=== PATIENT | female | born 1955 | race Caucasian/White ===

== ENCOUNTER 2021-01-27 07:09 | Outpatient (REF) | payer MEDICARE, OTHER, SELFPAY | END 2021-01-27 07:10 | disposition home or self-care (01) | LOC: HO.LHD 07:09 | PROVIDERS: PCP Family Medicine; Visit Provider Family Medicine | DX: Z13.89 Encounter for screening for other disorder (principal) ==

== ENCOUNTER 2021-09-11 10:07 | Outpatient (REF) | payer MEDICARE, SELFPAY ==
--- NOTE | ~2021-09-11 | US_ITS ---
EXAMINATION: US THYROID CLINICAL INFORMATION: Nontoxic single thyroid nodule. Hypothyroidism. Partial thyroidectomy. COMPARISON: Nuclear medicine thyroid scan 12/10/2019. Ultrasound soft tissue thyroid 09/22/2019.. TECHNIQUE: Linear transducer ryan-scale and color Doppler examination with attention to the region of the thyroid. FINDINGS: SIZE: Measurements of the thyroid lobes and nodules are given in sagittal, anteroposterior and transverse dimensions respectively. Right Thyroid Lobe: 4.7 x 1.7 x 1.5 cm, volume 6.3 mL. Previously 4.3 x 2.3 x 1.7 cm, volume 8.7 mL. Parenchyma: The gland echotexture is heterogeneous. Thyroid vascularity is increased. Left Thyroid Lobe: 6.3 x 2.8 x 2.6 cm, volume 24.0 mL. Previously 5.5 x 2.8 x 2.7 cm, volume 21.5 mL. Parenchyma: The gland echotexture is heterogeneous. Thyroid vascularity is increased. Isthmus: 1.0 cm in maximum AP dimension. Previously 0.9 cm. Estimated total number of nodules greater than or equal to 1 cm: 4. Nursing Techn nodules are described as follows: 1. Location: Left upper. Size: 3.1 x 2.0 x 1.9 cm, volume 5.94 mL. Previously: 2.8 x 2.2 x 2.1 cm, volume 6.77 mL. Nodule characteristics: Composition: Solid (2). Echogenicity: Hypoechoic (2). Shape: Taller than wide (3). Margins: Extrathyroidal extension (3). Echogenic Foci: Macrocalcifications (1). ACR TI-RADS total points: 11 ACR TI-RADS category: 5 Significant change in size (>/= 20% in 2 dimensions and minimal increase of 2 mm or 50% or greater increase in volume): Change in features: Change in ACR TI-RADS risk category: 2. Location: Left lower medial. Size: 1.7 x 1.4 x 1.7 cm, volume 2.28 mL. Previously: 1.5 x 1.4 x 2.0 cm, volume 2.20 mL. Nodule characteristics: Composition: Solid (2). Echogenicity: Isoechoic (1). Shape: Not taller than wide (0). Margins: Irregular (2). Echogenic Foci: None (0). ACR TI-RADS total points: 5 ACR TI-RADS category: 4 Significant change in size (>/= 20% in 2 dimensions and minimal increase of 2 mm or 50% or greater increase in volume): Change in features: Change in ACR TI-RADS risk category: 3. Location: Right upper Size: 1.1 x 0.7 x 1.1 cm, volume 0.41 mL. Previously: 1.2 x 0.7 x 1.1 cm, volume 0.48 mL. Nodule characteristics: Composition: Solid (2). Echogenicity: Hypoechoic (2). Shape: Not taller than wide (0). Margins: Smooth (0). Echogenic Foci: None (0). ACR TI-RADS total points: 4 ACR TI-RADS category: 4 Significant change in size (>/= 20% in 2 dimensions and minimal increase of 2 mm or 50% or greater increase in volume): Change in features: Change in ACR TI-RADS risk category: 4. Location: Isthmus. Size: 0.8 x 0.5 x 0.9 cm, volume 0.22 mL. Previously: 0.5 x 0.5 x 0.5 cm, volume 0.07 mL. Nodule characteristics: Composition: Spongiform (0). Echogenicity: Shape: Margins: Echogenic Foci: ACR TI-RADS total points: 0 ACR TI-RADS category: 1 Significant change in size (>/= 20% in 2 dimensions and minimal increase of 2 mm or 50% or greater increase in volume): Change in features: Change in ACR TI-RADS risk category: 5. Location: Isthmus. Size: 1.2 x 0.5 x 0.6 cm, volume 0.20 mL. Previously: New Nodule characteristics: Composition: Solid (2). Echogenicity: Hyperechoic (1). Shape: Not taller than wide (0). Margins: Irregular (2). Echogenic Foci: None (0). ACR TI-RADS total points: 5 ACR TI-RADS category: 5 NODES: No lymphadenopathy is seen in the tissue surrounding the thyroid gland. US/US thyroid IMPRESSION: Multinodular thyroid. Based on the sonographic morphology, the findings are consistent with ACR TI-RADS Category 5. Based on the size criteria, fine-needle aspiration cytology of left upper thyroid nodule measuring 3.1 cm (nodule #1), and the larger nodule in the isthmus measuring 1.2 cm (nodule #5) is recommended. ACR TI-RADS RECOMMENDATION REFERENCE: Ultrasound-guided fine-needle aspiration, followup ultrasound, no further follow up. * TR1 (0 point) and TR 2 (2 points): No FNA or follow up * TR3 (3 points): FNA if more than or equal to 2.5 cm in maximum dimension, followup ultrasound in 1, 3 and 5 years if 1.5 to 2.4 cm in maximum dimension. * TR4 (4-6 points): FNA if more than or equal to 1.5 cm in maximum dimension, followup ultrasound in 1, 2, 3 and 5 years if 1 to 1.4 cm in maximum dimension. * TR5 (more than or equal to 7 points): FNA if more than or equal to 1 cm in maximum dimension, followup ultrasound every year for 5 years if 0.5 to 0.9 cm in maximum dimension. * TR3, TR4 or TR5 nodules that are below the size threshold for follow up receive no follow up.
== END 2021-09-11 10:08 | disposition home or self-care (01) ==
LOC: HO.HMGCX 10:07
PROVIDERS: PCP Family Medicine; Visit Provider Family Medicine
DX: E04.1 Nontoxic single thyroid nodule (principal)
CPT/HCPCS: 76536

== ENCOUNTER 2021-10-03 09:08 | Outpatient (REF) | payer MEDICARE, SELFPAY | END 2021-10-03 09:09 | disposition home or self-care (01) | LOC: HO.US 09:08 | PROVIDERS: PCP Family Medicine; Visit Provider Family Medicine | DX: Z13.89 Encounter for screening for other disorder (principal) ==

== ENCOUNTER 2021-10-10 09:04 | Outpatient (REF) | payer MEDICARE, SELFPAY ==
--- NOTE | ~2021-10-10 | US_ITS ---
PROCEDURE: ULTRASOUND-GUIDED LEFT THYROID AND ISTHMUS NODULE BIOPSY CLINICAL INFORMATION: Thyroid nodules left upper lobe and isthmus. COMPARISON: Ultrasound thyroid 09/11/2021. TECHNIQUE: Following explaining ultrasound-guided thyroid nodule biopsy procedure, benefits and risk, a written consent was obtained. Patient was placed supine on ultrasound stretcher and preliminary ultrasound imaging was obtained through the left thyroid gland and isthmus area. Preliminary imaging was performed and images documented. An optimal site was marked along the left neck and midline neck. The entire neck was then cleaned and draped in usual sterile manner. 1% lidocaine was injected along the left neck and central midline neck markers. Under sterile ultrasound guidance a 25-gauge needle attached to a syringe was advanced into the left thyroid nodule and a 5 pass fine-needle biopsy aspiration was performed. Subsequently the needle attached to syringe was advanced into the midline hyperechoic nodule and a 4 pass fine-needle aspiration biopsy was performed. Complete hemostasis achieved at puncture site. Patient tolerated procedure extremely well. FINDINGS: On preliminary ultrasound imaging there is a heterogenous nodule left thyroid lobe upper pole and a slightly hyperechoic nodule in the lower isthmus. Successful ultrasound-guided fine needle biopsy aspiration performed of these 2 nodules under local anesthesia. Pathologist was present during exam with preliminary results available. US/US guided fine needle asp IMPRESSION: Successful ultrasound-guided fine needle biopsy aspiration of left thyroid heterogeneous nodule and hyperechoic nodule lower isthmus.
[2021-10-10] MEDS: Lidocaine HCl 1 % MPF 5 ML VIAL 4 ML SUBCUT (11:16)
== END 2021-10-10 09:05 | disposition home or self-care (01) ==
LOC: HO.US 09:04
PROVIDERS: PCP Family Medicine; Visit Provider Family Medicine
DX: E04.1 Nontoxic single thyroid nodule (principal)
CPT/HCPCS: 10005; 88172; 88173; 88177

== ENCOUNTER 2022-08-24 13:57 | Outpatient (REF) | payer MEDICARE, SELFPAY ==
--- NOTE | ~2022-08-24 | US_ITS ---
EXAMINATION: US THYROID CLINICAL INFORMATION: Nontoxic thyroid. COMPARISON: Ultrasound soft tissue head/neck thyroid dated 09/11/2021 and 12/09/2019. TECHNIQUE: Linear transducer grayscale and color Doppler examination with attention to the region of the thyroid. FINDINGS: SIZE: Measurements of the thyroid lobes and nodules are given in sagittal, anteroposterior and transverse dimensions respectively. Right Thyroid Lobe: 4.4 x 2.1 x 1.2 cm, volume 5.8 mL. Previously 4.7 x 1.7 x 1.5 cm, volume 6.3 mL. Parenchyma: The gland echotexture is heterogeneous. Thyroid vascularity is normal. Left Thyroid Lobe: 5.5 x 3.1 x 2.3 cm, volume 20.5 mL. Previously 6.3 x 2.8 x 2.6 cm, volume 24.0 mL. Parenchyma: The gland echotexture is heterogeneous. Thyroid vascularity is normal. Isthmus: 1.2 cm in maximum AP dimension. Previously 1.0 cm. Estimated total number of nodules greater than or equal to 1 cm: 4. Tacking Stitch Remover nodules are described as follows: 1. Location: Right superior. Size: 0.94 x 0.67 x 0.88 cm, volume 0.29 mL. Previously: 1.1 x 0.70 x 1.1 cm, volume 0.41 mL. Nodule characteristics: Composition: Spongiform (0). Echogenicity: Anechoic (0). Shape: Not taller than wide (0). Margins: Smooth (0). Echogenic Foci: None (0). ACR TI-RADS total points: 0 Previous: 4 ACR TI-RADS category: 1 Previous: 4 Significant change in size (>/= 20% in 2 dimensions and minimal increase of 2 mm or 50% or greater increase in volume): Change in features: Change in ACR TI-RADS risk category: 2. Location: Left mid. Size: 2.7 x 1.9 x 1.95 cm, volume 5.4 mL. Previously: 3.1 x 2.0 x 1.9 cm, volume 5.9 mL. Nodule characteristics: Composition: Solid/almost completely solid (2). Echogenicity: Isoechoic (1). Shape: Not taller than wide (0). Margins: Smooth (0). Echogenic Foci: Macrocalcifications (1). ACR TI-RADS total points: 4 Previous: 11 ACR TI-RADS category: 4 Previous: 5 Significant change in size (>/= 20% in 2 dimensions and minimal increase of 2 mm or 50% or greater increase in volume): Change in features: Change in ACR TI-RADS risk category: 3. Location: Left inferior. Size: 2.5 x 1.8 x 2.4 cm, volume 5.5 mL. Previously: 1.7 x 1.4 x 1.7 cm, volume 2.2 mL. Nodule characteristics: Composition: Solid/almost completely solid (2). Versus measurement differences due to interobserver variation. Echogenicity: Isoechoic (1). Shape: Not taller than wide (0). Margins: Smooth (0). Echogenic Foci: None (0). ACR TI-RADS total points: 3 Previous: 5 ACR TI-RADS category: 3 Previous: 4 Significant change in size (>/= 20% in 2 dimensions and minimal increase of 2 mm or 50% or greater increase in volume): Change in features: Change in ACR TI-RADS risk category: 4. Location: Isthmus. Size: 1.4 x 1.3 x 1.8 cm, volume 1.6 mL. Previously: 1.2 x 0.54 x 0.58 cm, volume 0.20 mL. Nodule characteristics: Composition: Spongiform (0). Echogenicity: Anechoic (0). Shape: Not taller than wide (0). Margins: Smooth (0). Echogenic Foci: None (0). ACR TI-RADS total points: 0 Previous: 5 ACR TI-RADS category: 1 Previous: 5 Significant change in size (>/= 20% in 2 dimensions and minimal increase of 2 mm or 50% or greater increase in volume): Change in features: Change in ACR TI-RADS risk category: NODES: No lymphadenopathy is seen in the tissue surrounding the thyroid gland. US/US thyroid IMPRESSION: Heterogeneous thyroid gland. The left lobe and isthmus are enlarged. Comparison of nodules with prior exam is difficult. There is question of increase in size in the nodule inferior left lobe. Otherwise nodules do not appear appreciably changed. ACR TI-RADS RECOMMENDATION REFERENCE: Ultrasound-guided fine-needle aspiration, followup ultrasound, no further follow up. * TR1 (0 point) and TR 2 (2 points): No FNA or follow up * TR3 (3 points): FNA if more than or equal to 2.5 cm in maximum dimension, followup ultrasound in 1, 3 and 5 years if 1.5 to 2.4 cm in maximum dimension. * TR4 (4-6 points): FNA if more than or equal to 1.5 cm in maximum dimension, followup ultrasound in 1, 2, 3 and 5 years if 1 to 1.4 cm in maximum dimension. * TR5 (more than or equal to 7 points): FNA if more than or equal to 1 cm in maximum dimension, followup ultrasound every year for 5 years if 0.5 to 0.9 cm in maximum dimension. * TR3, TR4 or TR5 nodules that are below the size threshold for follow up receive no follow up.
== END 2022-08-24 13:58 | disposition home or self-care (01) ==
LOC: HO.HMGCX 13:57
PROVIDERS: PCP Family Medicine; Visit Provider Family Medicine
DX: E04.1 Nontoxic single thyroid nodule (principal)
CPT/HCPCS: 76536

== ENCOUNTER 2022-09-14 15:43 | Emergency (ER) | payer MEDICARE, SELFPAY ==
--- NOTE | ~2022-09-14 | CT_ITS ---
EXAMINATION: CT ABDOMEN AND PELVIS WITHOUT CONTRAST CLINICAL INFORMATION: History of kidney stones COMPARISON: Previous dated 10/06/2019 TECHNIQUE: Multidetector volumetric imaging was performed from the superior aspect of the liver through the pubic symphysis. Sagittal and coronal reformatted images were obtained on the technologist's workstation. This CT examination was performed using dose optimization techniques as appropriate, variously including the following: *Automated exposure control *Adjustment of mA and/or kV according to patient size (this includes techniques or standardized protocols for targeted exams where dose is matched to indication/reason for exam; i.e. extremities or head) *Use of iterative reconstruction technique DLP: 986 mGy-cm FINDINGS: LUNG BASES: The visualized lung bases are unremarkable. LIVER, GALLBLADDER, AND BILIARY TREE: There is a heterogeneous appearance the liver. Findings may suggest areas of focal fatty change. Ultrasound would be recommended to fully evaluate. There is a focal new small low-density structure in the right lobe on image 33. Subcentimeter. This would also be evaluated on ultrasound.. No gallbladder is seen. Status post cholecystectomy PANCREAS: Pancreatic head region is comparable to previous. No evidence in the body and tail region of intact pancreas similar to previous. SPLEEN: No normal spleen is seen. ADRENAL GLANDS: Unremarkable. KIDNEYS AND URETERS: Bilateral renal calculi. There is hydronephrosis on the right. This appears to be caused by likely several calculi in the distal left ureter/UVJ region. Approximately 4 calculi. Largest calculus measures 6 mm. On the left there is no evidence for hydronephrosis but I must consider several calculi within the distal left ureter. Largest measures 6 mm. Approximately 3 calculi. BLADDER: Unremarkable. GASTROINTESTINAL TRACT: The bowel pattern is felt to be nonobstructing. There is no free fluid here. Once again postsurgical change in the upper abdomen. Appearance is similar to previous. ABDOMINAL WALL: Probable beginnings of left inguinal hernia similar to previous containing fat. LYMPH NODES: Normal. VASCULAR: Some atherosclerotic changes are noted. PELVIC VISCERA: Unremarkable. OSSEOUS STRUCTURES: Unremarkable. CT/CT abdomen pelvis wo IV con IMPRESSION: There is moderate hydronephrosis on the right caused by several calculi in the distal right ureter/UVJ region. There is no significant hydronephrosis on the left but I feel there are calculi residing within the distal left ureter. Numerous other calculi within the kidneys. Heterogeneous attenuation the liver. This could represent geographic fatty change but ultrasound would be recommended to further evaluate for underlying lesion. There is a new low-attenuation lesion in the right lobe. This would also be evaluated on ultrasound. Fleischner guidelines were followed.
[2022-09-14 15:53] VITALS: BP 158/68; PULSE 86; RESP 18; TEMP 37.1; O2SAT 93; BMI 36.6
--- NOTE | 2022-09-14 16:02 | ED_ITS ---
HPI - General Adult General Chief complaint: Abdominal Pain Stated complaint: quest kidney stone Source: patient and family () Mode of arrival: wheelchair Limitations: no limitations History of Present Illness HPI narrative: Patient is a 67 year old assigned female at with a history of multiple kidney stones presenting to the emergency department today with abdominal pain. Patient states that she has been having right sided flank pain for the last few days. Patient denies any dizziness, lightheadedness, nausea, vomiting, fever, chills, blurry vision, double vision, loss of vision, chest pain, difficulty breathing, shortness of breath, back pain, night sweats, pain with urination, in creased urinary frequency, increased urinary urgency, blood in her urine or stool, syncope or a near syncopal episode, recent trauma or falls, bowel incontinence, bladder incontinence, bowel retention, bladder retention, or any other complaints at this time. Onset (ago): day(s) (3) Location: abdomen Severity: mild Severity scale (1-10): 3 Quality: dull Pain Consistency: constant Relieving factors: none Exacerbating factors: none Associated symptoms: denies other symptoms Treatments prior to arrival: none Related Data Allergies Allergy/AdvReac Type Severity Reaction Status Date / Time ketorolac [From TORADOL] Allergy Intermediate VOMITING Unverified 07/21/20 18:49 morphine [MORPHINE] Allergy Intermediate vomiting Unverified 07/21/20 18:49 oxycodone [OXYCODONE] Allergy Intermediate VOMITING Unverified 07/21/20 18:49 acetaminophen [From PERCOCET] Allergy Unknown ANAPHYLAXIS Unverified 07/21/20 18:49 hydromorphone [From DILAUDID] Allergy Unknown HIVES Unverified 07/21/20 18:49 midodrine Allergy Unknown Anaphylaxis Verified 05/25/20 00:00 dilation drops for eye Allergy Unknown Uncoded 05/25/20 00:00 Dilaudid Allergy Unknown Rash Uncoded 05/25/20 00:00 Erythromycin Allergy Unknown Uncoded 05/25/20 00:00 Toradol Allergy Unknown Uncoded 05/25/20 00:00 Review of Systems Constitutional: Constitutional: Reports no additional constitutional complaints, Denies chills, Denies fever(s) and Denies night sweats Eyes: Eyes: Reports no additional eye complaints, Denies blurry vision, Denies change in vision, Denies diplopia, Denies eye discharge, Denies loss of vision and Denies eye pain ENT: Denies dizziness Cardiovascular: Cardiovascular: Reports no additional cardiovascular complaints, Denies chest pain, Denies lightheadedness, Denies Loss of Consciousness and Denies dyspnea Respiratory: Respiratory: Reports no additional respiratory complaints and Denies dyspnea Gastrointestinal: Gastrointestinal: Reports no additional gastrointestinal complaints, Reports abdominal pain, Denies melena, Denies hematochezia, Denies change in bowel habits and Denies change in stool character Genitourinary: Genitourinary: Denies hematuria, Denies urinary frequency, Denies dysuria, Denies urinary incontinence, Denies urinary hesitancy and Denies urinary urgency Musculoskeletal: Musculoskeletal: Reports no additional musculoskeletal complaints, Denies numbness and Denies tingling Neurologic: Denies dizziness, Denies loss of vision, Denies numbness and Denies tingling Psychiatric: Psychiatric: Reports no additional psychiatric complaints Endocrine: Endocrine: Reports no additional endocrine complaints Hematologic/Lymphatic: Hematologic/Lymphatic: Reports no additional hematologic/lymphatic complaints Allergic/Immunologic: Allergic/Immunologic: Reports no additional allergic/immunologic complaints PMFSH Past Medical History Attestation statement: The following information was validated with the patient. Source: old records reviewed Medical History Pancreatic ductal abnormality Social History Social History Advance Directives: No Advance Directives Information Provided: Yes Physical Exam ED Vital Signs: Vital Signs - 24 hr 09/14/22 15:53 09/14/22 19:29 Temperature 98.7 F Pulse Rate 86 75 Respiratory Rate 18 18 Blood Pressure 158/68 H 178/66 H Pulse Oximetry 93 95 Oxygen Delivery Method Room Air Room Air BMI result Body Mass Index 36.6 Const General: cooperative, no acute distress, alert and awake Nutritional Appearance: well nourished and obese Orientation/consciousness: patient oriented x3 Limitations: no limitations HENMT Head: Yes normal to inspection and Yes atraumatic Ears: hearing grossly normal bilaterally and external ears normal General nose exam: Normal external nose present, no nasal discharge noted and no epistaxis Face and sinus: Yes normal facial exam, No abrasion and No laceration Mouth: Normal oral and palatal mucosa present, no drooling and no muffled voice Eyes General: appearance normal, both eyes and all related structures Periorbital: periorbital findings normal Eyelids: Yes eyelids normal Conjunctivae: conjunctivae normal Pupils: Equal, round and reactive pupils present EOM: EOMs intact bilaterally Neck Neck: Yes normal visual inspection, Yes full ROM and Yes no lymphadenopathy Chest Chest palpation & inspection: normal inspection of the chest Resp Effort & Inspection: normal respiratory effort and able to speak in complete sentences Auscultation: clear to auscultation bilaterally Cardio Rate: regular rate Rhythm: regular rhythm GI Inspection: Yes normal to inspection Palpation (GI): Soft to palpation, not firm, nontender, no guarding and not rigid General: No CVA tenderness and Yes no CVA tenderness Back/Spine/Pelvis Back: no CVA tenderness and No CVA tenderness Neuro General: patient oriented x3 and moves all extremities Cranial nerves: Yes Equal, round and reactive pupils present Cognition (Neuro): normal cognition Motor exam (neuro): 5/5 motor strength present throughout Sensory Exam: Normal double simultaneous stimulation for sensation Coordination: [id number] test normal Extrem General: Yes normal to inspection, Yes full ROM and Yes capillary refill normal Psych Appearance: grossly normal Mental Status: mental status grossly normal Affect: normal affect Attitude: cooperative Thought process: Normal thought process present Thought content: Normal thought content present Insight: Good insight present (Psych) Course Course Course Narrative: RME performed by Anne Marquez PA-C at 1600. Patient has an extensive history of kidney stones and is presenting to the emergency department with right sided abdominal pain. Patient states that she does still have her appendix. CBC, CMP, UA, and CT non-con of the abd/pelvis ordered for evaluation of kidney stone. Patient placed back into waiting room pending results of said testing and space availability within the department. Patient eloped before her results could be reviewed with her and her . Medical Decision Making Lab Data Result diagrams: 09/14/22 16:15 09/14/22 16:15 Labs: Lab Results 09/14/22 09/14/22 Range/Units 16:15 16:15 WBC 10.9 H (4.8-10.8) X10*3/uL RBC 4.64 (4.20-5.50) X10*6/uL Hgb 14.5 (12.0-16.0) g/dl Hct 41.8 (37.0-47.0) % MCV 90.1 (80.0-98.0) fL MCH 31.3 (27.0-33.0) pg MCHC 34.7 (31.0-35.0) g/dl RDW 13.9 (11.0-16.0) % Plt Count 322 (160-400) X10*3/uL MPV 12.6 H (9.4-12.3) fL Immature Gran % (Auto) 0.5 H (0.0-0.4) % Neut % (Auto) 73.8 H (45-73) % Lymph % (Auto) 15.4 L (20-40) % [place] % (Auto) 9.6 (2-11) % Eos % (Auto) 0.5 (0-4) % Baso % (Auto) 0.2 (0-2) % Lymph # (Auto) 1.7 (1.2-4.9) X10*3/uL [place] # (Auto) 1.1 (0.1-1.2) X10*3/uL Eos # (Auto) 0.1 (0.0-0.4) X10*3/uL Baso # (Auto) 0.0 (0.0-0.2) X10*3/uL Abs Immat Gran (auto) 0.05 H (0.00-0.03) X10*3/uL Absolute Neuts (auto) 8.1 (2.0-8.3) x10*3/uL Absolute Nucleated RBC 0.000 (0.0-0.012) X10*3/uL Nucleated RBC % (auto) 0.0 (0.0-0.2) /100WBC Sodium 135 (135-145) mmol/L Potassium 4.1 (3.3-5.1) mmol/L Chloride 101 (96-108) mmol/L Carbon Dioxide 18 L (22-29) mmol/L Anion Gap 20 (12-20) BUN 27 H (9-16) mg/dL Creatinine 0.80 (0.5-1.4) mg/dL Estim Creat Clear Calc 78.7 Estimated GFR > 60 Random Glucose 439 H* (60-115) mg/dL Calcium 9.6 (8.4-10.2) mg/dL Total Bilirubin 0.8 (0.0-1.0) mg/dL AST 29 (5-31) U/L ALT 34 H (0-31) U/L Alkaline Phosphatase 174 H (39-117) U/L Total Protein 6.9 (6.5-8.0) g/dL Albumin 3.9 (3.5-5.0) g/dL Discharge Plan Discharge Clinical Impression: Abdominal pain Patient Disposition: Elopement
[2022-09-14 16:19] LABS: MANUAL DIFF FLAG NO
[2022-09-14 16:26] LABS: Basophils Percent Auto 0.2 % (0-2); Eosinophils Absolute Auto 0.1 X10*3/uL (0.0-0.4); Eosinophils Percent Auto 0.5 % (0-4); Hematocrit 41.8 % (37.0-47.0); Hemoglobin 14.5 g/dl (12.0-16.0); Imm Gran Abs Auto 0.05 X10*3/uL (0.00-0.03); Imm Gran Pct Auto 0.5 % (0.0-0.4); Lymphocytes Absolute Auto 1.7 X10*3/uL (1.2-4.9); Lymphocytes Percent Auto 15.4 % (20-40); Mean Corpuscular HGB Conc 34.7 g/dl (31.0-35.0); Mean Corpuscular Hemoglobin 31.3 pg (27.0-33.0); Mean Corpuscular Volume 90.1 fL (80.0-98.0); Mean Platelet Volume 12.6 fL (9.4-12.3); Monocytes Absolute Auto 1.1 X10*3/uL (0.1-1.2); Monocytes Percent Auto 9.6 % (2-11); Neutrophils Absolute Auto 8.1 x10*3/uL (2.0-8.3); Neutrophils Percent Auto 73.8 % (45-73); Platelet Count 322 X10*3/uL (160-400); Red Blood Count 4.64 X10*6/uL (4.20-5.50); Red Cell Distribution Width 13.9 % (11.0-16.0); White Blood Count 10.9 X10*3/uL (4.8-10.8)
[2022-09-14 19:29] VITALS: BP 178/66; PULSE 75; RESP 18; O2SAT 95
[2022-09-14 19:35] LABS: Alanine Aminotransferase 34 U/L (0-31); Albumin Level 3.9 g/dL (3.5-5.0); Alkaline Phosphatase 174 U/L (39-117); Anion Gap 20 (12-20); Aspartate Amino Transferase 29 U/L (5-31); Bilirubin Total 0.8 mg/dL (0.0-1.0); Blood Urea Nitrogen 27 mg/dL (9-16); Calcium 9.6 mg/dL (8.4-10.2); Carbon Dioxide 18 mmol/L (22-29); Chloride 101 mmol/L (96-108); Creatinine Clr Calc Pharmacy 78.7; Estimated Glomerular Filt Rate > 60; Potassium 4.1 mmol/L (3.3-5.1); Sodium 135 mmol/L (135-145); Total Protein 6.9 g/dL (6.5-8.0)
[2022-09-14 19:37] LABS: Glucose Random 439 mg/dL (60-115)
--- NOTE | 2022-09-14 21:16 | PC.NURSE ---
Pt eloped after blood tests and ct were resulted.
== END 2022-09-14 22:17 | disposition left against medical advice (07) ==
PROVIDERS: Emergency Provider Emergency Medicine; PCP Family Medicine
DX: R10.9 Unspecified abdominal pain (principal); Z79.899 Other long term (current) drug therapy
CPT/HCPCS: 36415; 74176; 80053; 85025; 99281; 99284

== ENCOUNTER 2023-01-22 12:09 | Outpatient (REF) | payer MEDICARE, OTHER, SELFPAY ==
[2023-01-22 12:31] LABS: Appearance Urine Cloudy; Color Urine Yellow; Glucose Urine UA >=1000 mg/dL (Negative); Leukocyte Esterase Urine Moderate (2+) (Negative); Nitrite Urine Positive (Negative); PH 5.5 (5.0-9.0); Specific Gravity - Urine 1.025 (1.005-1.025); UMIC TRIGGER UA YES; Urine Blood Trace (Negative); Urine Ketones Negative (Negative); Urine Protein Trace mg/dL (Neg-Trace)
[2023-01-22 12:47] LABS: Bacteria Urine 3+ (None Seen); Calcium Oxalate Crystals Urine Present; Hyaline Casts Urine 0-2 /LPF (0-2)
== END 2023-01-22 12:10 | disposition home or self-care (01) ==
LOC: HO.LNP 12:09
PROVIDERS: Visit Provider Family Medicine
DX: N20.0 Calculus of kidney (principal)
CPT/HCPCS: 81001; 87086; 87088; 87186

== ENCOUNTER 2023-07-16 10:00 | Outpatient (AMB) | payer OTHER, SELFPAY ==
[2023-07-16 10:03] VITALS: BP 154/82; PULSE 65; O2SAT 96; BMI 36.6
--- NOTE | 2023-07-16 10:03 | A.OFFPC_ITS ---
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 Allergies ketorolac [From TORADOL] Allergy (Intermediate, Unverified 07/16/23 10:12) VOMITING morphine [MORPHINE] Allergy (Intermediate, Unverified 07/16/23 10:12) vomiting oxycodone [OXYCODONE] Allergy (Intermediate, Unverified 07/16/23 10:12) VOMITING acetaminophen [From PERCOCET] Allergy (Unknown, Unverified 07/16/23 10:12) ANAPHYLAXIS hydromorphone [From DILAUDID] Allergy (Unknown, Unverified 07/16/23 10:12) HIVES midodrine Allergy (Unknown, Verified 07/16/23 10:12) Anaphylaxis dilation drops for eye Allergy (Mild, Uncoded 07/16/23 10:12) swelling, redness, pain Dilaudid Allergy (Unknown, Uncoded 07/16/23 10:12) Rash Erythromycin Allergy (Unknown, Uncoded 07/16/23 10:12) Vomiting Toradol Allergy (Unknown, Uncoded 07/16/23 10:12) Unknown Tobacco use date assessed: 07/16/23 Fall risk assessment: 1 Fall in past year Last assessed Fall Risk: 07/16/23 Dental Screening Dental Screen Date: 07/16/23 Did you have a dental visit in the last 12 months?: Yes Did you have a dental problem in the last 6 months where you did not have access to dental care?: No Was dental information given to patient?: 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 Last office visit/CPE: Acute issue(s): Thyroid nodules and asking for referral to ENT. Has seen Dr Franks in [facility]. ENT. Calcium, And PTH Pt reports she has had low blood pressures for a couple years. Leg pain and arthritis and ?myositis pain. PMHx: Inclusion body Myositis, HTN, Thyroid nodules, Kidney stones, Chronic pain, pancreatic ductal abnormality, DM , PE & on Chronic anticoagulation - Has INR machine and followed by anticoag clinic at [facility]. Allergic triggered asthma or Reactive airways. Pemphigous - uses clobetasol. h/o Ovarian CA. Arthritis. SurgHx: GB, Parathyroid x 1. Surgical Renal stone resection, Splenectomy due pancreatic mass. Partial Pancreatectomy. OOpherectomy. Bariatric surgery. FHx: Mom: CAD ID, Thyroid. Dad: CAD, ID Sister Breast CA SocHx: Nonsmoker, EtOH occassional 1 drink at a time. No drugs HPI Comments History of Present Illness Details Documentation assistance for Clarence Byrd MD, was provided by Yosi Cleveland,? Senior Maintenance Machinist on 07/16/2023 11:29 AM EST. I, Dr. Byrd, have read, observed, and verified documentation. [facility] Medical History (Updated 07/16/23 @ 11:29 by Yosi Cleveland) Bradycardia Pemphigus Pancreatic ductal abnormality Surgical History (Updated 07/16/23 @ 10:26 by Isabel Cain CMA) H/O oral surgery Family History (Updated 07/16/23 @ 10:30 by Isabel Cain CMA) Father Heart attack Mental health disorder Mother Heart attack Macular degeneration Mental health disorder Social History Housing: Apartment Patient Tobacco Use Status: Never used Tobacco e-Cigarette/Vaping Use: Never Used service: No Current occupational status: disabled Cognitive needs: No Hearing needs: Yes Vision needs: Yes (wears reading glasses) Questionnaire PHQ-9 Over the last 2 weeks, how often have you been bothered by any of the following problems? 1. Little interest or pleasure in doing things: not at all 2. Feeling down, depressed, or hopeless: not at all 3. Trouble falling or staying asleep, or sleeping too much: not at all 4. Feeling tired or having little energy: not at all 5. Poor appetite or overeating: not at all 6. Feeling bad about yourself - or that you are a failure or have let yourself or your family down: not at all 7. Trouble concentrating on things, such as reading the newspaper or watching television: not at all 8. Moving or speaking so slowly that other people could have noticed. Or the opposite - being so fidgety or restless that you have been moving around a lot more than usual: not at all 9. Thoughts that you would be better off or of hurting yourself in some way: not at all Total score: 0 Source: Developed by Drs. Stewart Hall, Linda Jesus, Ganga Mcgowan and colleagues, with an educational luis from [employer]. Thrive Questionnaire I am a: Patient What is your living situation today?: I have a steady place to live Within the past 12 months, did the food you bought not last and you didn't have the money to get more?: Never true Within the past 12 months, did you worry whether your food would run out before you got money to buy more?: Never true Do you have trouble paying for medicines?: No Do you have trouble getting transportation to medical appointments?: No Do you have trouble paying your heating and electricity bill?: No Do you have trouble taking care of your child, family member or friend?: Yes Do you have trouble with day-to-day activities such as bathing, preparing meals, shopping, managing finances, etc.?: Yes Are you currently unemployed and looking for a job?: No Are you interested in more education?: No AUDIT C Alcohol Use Questionnaire (AUDIT-C) 1. How often do you have a drink containing alcohol?: Monthly or less 2. How many drinks containing alcohol do you have on a typical day when you are drinking?: 1 or 2 3. How often do you have six or more drinks on one occasion?: Never Total Score: 1 GRETA-7 AMB Questionnaire GRETA-7 Date GRETA - 7 assessed: 07/16/23 Feeling nervous, anxious, or on edge: 0 = Not at all Not being able to stop or control worryin = Not at all Worrying too much about different things: 0 = Not at all Trouble relaxin = Not at all Being so restless that it is hard to sit still: 0 = Not at all Becoming easily annoyed or irritable: 0 = Not at all Feeling afraid as if something awful might happen: 0 = Not at all Total GRETA-7 score (0-4 normal; 5-9 mild; 10-14 moderate; 15-21 severe): 0 Source: Developed by Drs. Stewart Hall, Linda Jesus, Ganga Mcgowan and colleagues, with an educational luis from [employer]. ACT Questionnaire In the past 4 weeks, how much of the time did your asthma keep you from getting as much done at work, school or at home?: None of the time During the past 4 weeks, how often have you had shortness of breath?: More than once a day During the past 4 weeks, how often did your asthma symptoms wake you up at night or earlier than usual in the morning?: Not at all During the past 4 weeks, how often have you had to use your rescue inhaler or nebulizer medication?: Once a week or less How would you rate your asthma control during the past 4 weeks?: Well controlled Score: 19 Review of Systems Const Denies chills, Denies fatigue, Denies fever(s), Denies headache(s) and Denies weakness ENT Denies dizziness and Denies headache(s) Card Denies chest pain, Denies lightheadedness, Denies dyspnea and Denies other (Palpitations) Resp Denies cough, Denies dyspnea, Denies wheezing and Denies other ( shortness of breath) Musc Denies numbness and Denies tingling Neuro Denies dizziness, Denies headache(s), Denies numbness, Denies tingling, Denies paresthesias and Denies weakness Psych Denies anxiety and Denies depression Endo Denies fatigue Aller/Immun Denies wheezing Physical exam (Primary Care) BMI result Body Mass Index 36.6 Const General: no acute distress and well developed Nutritional Appearance: well nourished and obese Orientation/consciousness: patient oriented x3 HENMT Head: Yes normocephalic and Yes atraumatic Eyes General: appearance normal, both eyes and all related structures Pupils: Equal, round and reactive pupils present EOM: EOMs intact bilaterally Resp Effort & Inspection: normal respiratory effort Auscultation: clear to auscultation bilaterally Cardio Rate: regular rate Rhythm: regular rhythm Heart sounds: S1 normal heart sound present, S2 normal heart sound present, no gallops, no murmurs and no rubs Neuro Other: lower extremity 1/4 strength General: patient oriented x3 and No gait normal Cranial nerves: Yes Equal, round and reactive pupils present Gait exam (Neuro): gait abnormal and Assisted gait required Gait assisted method: wheelchair bound Motor exam (neuro): strength not 5/5 throughout Psych Affect: normal affect Assessment and Plan Assessment & Plan (1) Leg pain: Code(s): M79.606 - Pain in leg, unspecified Plan: Significant leg and knee pain bilaterally. Some of this may be due to myositis and some of this may be due to arthritis. 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 Will forward lab work. They can follow-up with ENT In [place]. Subsequently we can discuss a referral to a local ENT. (5) Hypertension: Code(s): I10 - Essential (primary) hypertension Plan: Blood pressures are elevated. They will continue to follow them at home where they are a little lower but still occasionally elevated. 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 Follow-up with Coumadin clinic at [facility] (8) Diabetes: Code(s): E11.9 - Type 2 diabetes mellitus without complications Plan: Check A1c Continue glipizide ER We may want to discuss other medication regimens in the future. (9) History of hypotension: Code(s): Z86.79 - Personal history of other diseases of the circulatory system Plan: This no longer seems to be a problem according to patient and her . More often her blood pressures are mildly elevated or elevated. Will follow (10) History of kidney stones: Code(s): Z87.442 - Personal history of urinary calculi Plan: Hydrate well Checking urine studies Will follow (11) Pemphigus: Code(s): L10.9 - Pemphigus, unspecified Plan: Successfully treated with clobetasol which she can continue. (12) Asthma: Code(s): J45.909 - Unspecified asthma, uncomplicated Plan: Avoid allergy triggers and can use albuterol (13) History of ovarian cancer: Code(s): Z85.43 - Personal history of malignant neoplasm of ovary Plan: Status post oopherectomy and successfully treated (14) Arthritis: Code(s): M19.90 - Unspecified osteoarthritis, unspecified site Plan: Referred to pain management (15) Lower extremity weakness: Code(s): R29.898 - Other symptoms and signs involving the musculoskeletal system Plan: Significant lower extremity weakness; 1/5 strength bilateral legs and patient unable to stand or walk. She is wheelchair-bound. Continue using wheelchair (16) Wheelchair dependent: Code(s): Z99.3 - Dependence on wheelchair Plan: As above. 1/5 strength bilateral lower extremities and likely due to myositis. Continue using wheelchair (17) Bilateral leg pain: Code(s): M79.604 - Pain in right leg; M79.605 - Pain in left leg Plan: Referred to pain management (18) Bilateral knee pain: Code(s): M25.561 - Pain in right knee; M25.562 - Pain in left knee Plan: Referred to pain management (19) Hyperparathyroidism: Code(s): E21.3 - Hyperparathyroidism, unspecified Plan: Referred to endocrinology She also has any ENT in [facility]. Will get records Orders: Orders Comprehensive [place]. Panel Fast Today Z00.00 - Encounter for general adult medical examination without abnormal findings Microalbumin, Random (w Creat) Today I10 - Essential (primary) hypertension UA and rflx microscopic Today Z00.00 - Encounter for general adult medical examination without abnormal findings Triiodothyronine T3 Total Today E03.9 - Hypothyroidism, unspecified PTHI Today G89.29 - Other chronic pain Calcium, Ionized Today G89.29 - Other chronic pain Complete Blood Count Auto Diff Today Z00.00 - Encounter for general adult medical examination without abnormal findings Lipid Panel Today Z00.00 - Encounter for general adult medical examination without abnormal findings Free T4 (Free Thyroxine) Today E03.9 - Hypothyroidism, unspecified Thyroid Stimulating Hormone Today E03.9 - Hypothyroidism, unspecified Lipase Today Q45.3 - Other congenital malformations of pancreas and pancreatic duct Hemoglobin A1c Today G89.29 - Other chronic pain, R73.01 - Impaired fasting glucose Referrals Pain Management Referral G89.29 - Other chronic pain, M25.561 - Pain in right knee, M25.562 - Pain in left knee, M79.604 - Pain in right leg, M79.605 - Pain in left leg Endocrinology Referral E04.1 - Nontoxic single thyroid nodule, E21.3 - Hyperparathyroidism, unspecified Nurse Navigator Referral G72.41 - Inclusion body myositis [IBM], R29.898 - Other symptoms and signs involving the musculoskeletal system, Z99.3 - Dependence on wheelchair Coding Level of Care Code New Pt Level 5 (01584) Diagnoses Leg pain M79.606 Pancreatic ductal abnormality Q45.3 Inclusion body myositis G72.41 Thyroid nodule E04.1 Hypertension I10 Chronic pain G89.29 Chronic anticoagulation Z79.01 Diabetes E11.9 History of hypotension Z86.79 History of kidney stones Z87.442 Pemphigus L10.9 Asthma J45.909 History of ovarian cancer Z85.43 Arthritis M19.90 Lower extremity weakness R29.898 Wheelchair dependent Z99.3 Bilateral leg pain M79.604; M79.605 Bilateral knee pain M25.561; M25.562 Hyperparathyroidism E21.3
== END 2023-07-16 11:49 | disposition home or self-care (01) ==
PROVIDERS: PCP Family Medicine; Visit Provider Family Medicine
DX: I10 Essential (primary) hypertension (principal); E04.1 Nontoxic single thyroid nodule; Q45.3 Other congenital malformations of pancreas and pancreatic duct; Z79.01 Long term (current) use of anticoagulants; E11.9 Type 2 diabetes mellitus without complications; Z87.442 Personal history of urinary calculi; Z86.79 Personal history of other diseases of the circulatory system; M79.606 Pain in leg, unspecified; G72.41 Inclusion body myositis [IBM]; G89.29 Other chronic pain; L10.9 Pemphigus, unspecified
CPT/HCPCS: 99204

== ENCOUNTER 2023-07-25 09:33 | Outpatient (REF) | payer OTHER, SELFPAY ==
[2023-07-25 11:36] LABS: MANUAL DIFF FLAG NO
[2023-07-25 11:50] LABS: Basophils Absolute Auto 0.1 X10*3/uL (0.0-0.2); Eosinophils Absolute Auto 0.6 X10*3/uL (0.0-0.4); Eosinophils Percent Auto 6.1 % (0-4); Hematocrit 42.5 % (37.0-47.0); Hemoglobin 14.3 g/dl (12.0-16.0); Imm Gran Abs Auto 0.04 X10*3/uL (0.00-0.03); Imm Gran Pct Auto 0.4 % (0.0-0.4); Lymphocytes Absolute Auto 3.4 X10*3/uL (1.2-4.9); Lymphocytes Percent Auto 33.8 % (20-40); Mean Corpuscular HGB Conc 33.6 g/dl (31.0-35.0); Mean Corpuscular Volume 89.3 fL (80.0-98.0); Monocytes Absolute Auto 0.9 X10*3/uL (0.1-1.2); Monocytes Percent Auto 9.1 % (2-11); Neutrophils Percent Auto 49.6 % (45-73); Platelet Count 303 X10*3/uL (160-400); Red Blood Count 4.76 X10*6/uL (4.20-5.50); Red Cell Distribution Width 15.8 % (11.0-16.0); White Blood Count 10.1 X10*3/uL (4.8-10.8)
[2023-07-25 12:09] LABS: Alanine Aminotransferase 32 U/L (0-31); Albumin Level 3.7 g/dL (3.5-5.0); Alkaline Phosphatase 168 U/L (39-117); Anion Gap 12 (12-20); Aspartate Amino Transferase 41 U/L (5-31); Bilirubin Total 0.7 mg/dL (0.0-1.0); Blood Urea Nitrogen 11 mg/dL (9-16); Calcium 9.6 mg/dL (8.4-10.2); Carbon Dioxide 24 mmol/L (22-29); Chloride 106 mmol/L (96-108); Cholesterol 188 mg/dL (<200); Estimated Glomerular Filt Rate > 60; Glucose Fasting 135 mg/dL (60-99); HDL Cholesterol 76 mg/dL (>40); LDL Cholesterol Calculated 95 mg/dL (<100); Lactate Dehydrogenase 235 U/L (122-220); Lipase 12 U/L (8-78); Potassium 3.5 mmol/L (3.3-5.1); Sodium 138 mmol/L (135-145); Total Protein 7.4 g/dL (6.5-8.0); Triglycerides 89 mg/dL (<150)
[2023-07-25 12:22] LABS: Estimated Average Glucose 146 mg/dL; Hemoglobin A1c % 6.7 % (<6.0)
[2023-07-25 12:29] LABS: Free T4 (Free Thyroxine) 0.94 ng/dL (0.71-1.85); Thyroid Stimulating Hormone 0.64 uIU/mL (0.32-4.0)
[2023-07-25 12:51] LABS: Erythrocyte Sedimentation Rate 23 MM/HR (0-20)
[2023-07-27 04:54] LABS: Triiodothyronine T3 Total 129 ng/dL (76-181)
[2023-07-29 14:38] LABS: Calcium (PTHI) 9.3 mg/dL (8.6-10.4); PTHI 51 pg/mL (16-77)
[2023-07-29 19:28] LABS: Calcium, Ionized 5.2 mg/dL (4.7-5.5)
[2023-07-31 09:39] LABS: CRP High Sensitivity 6.6 mg/L
== END 2023-07-25 09:34 | disposition home or self-care (01) ==
LOC: HO.WFDLDS 09:33
PROVIDERS: Visit Provider Family Medicine
DX: Z00.00 Encounter for general adult medical examination without abnormal findings (principal); E03.9 Hypothyroidism, unspecified; Q45.3 Other congenital malformations of pancreas and pancreatic duct; G72.41 Inclusion body myositis [IBM]; G89.29 Other chronic pain; R73.01 Impaired fasting glucose
CPT/HCPCS: 36415; 80053; 80061; 82330; 82550; 83036; 83615; 83690; 83970; 84439; 84443; 84480; 85025; 85652; 86141

== ENCOUNTER 2023-07-26 12:46 | Outpatient (REF) | payer OTHER, SELFPAY ==
[2023-07-26 14:37] LABS: Appearance Urine Cloudy; Color Urine Yellow; Glucose Urine UA Negative (Negative); Leukocyte Esterase Urine Small (1+) (Negative); Nitrite Urine Positive (Negative); PH 5.5 (5.0-9.0); UMIC TRIGGER UA YES; Urine Blood Negative (Negative); Urine Ketones Negative (Negative); Urine Protein Negative (Neg-Trace)
[2023-07-26 14:57] LABS: Bacteria Urine 4+ (None Seen); Calcium Oxalate Crystals Urine Present; Hyaline Casts Urine 0-2 /LPF (0-2); RBC Urine 0-2 /HPF (0-2); WBC Urine 21-50 /HPF (0-5)
[2023-07-26 15:34] LABS: Creatinine Urine 59.73 mg/dL; Microalbum/Creatinine Ratio Ur 65.2 ug/mg cr (<30)
== END 2023-07-26 12:47 | disposition home or self-care (01) ==
LOC: HO.WFDLDS 12:46
PROVIDERS: Visit Provider Family Medicine
DX: Z00.00 Encounter for general adult medical examination without abnormal findings (principal)
CPT/HCPCS: 81001; 82043; 82570

== ENCOUNTER 2023-08-05 13:57 | Outpatient (AMB) | payer OTHER, SELFPAY ==
--- NOTE | 2023-08-05 14:05 | A.OFFVIS_ITS ---
Intake Vital Signs 08/05/23 14:39 Height 5 ft 5 in Weight 220 lb BMI 36.6 BP 160/80 H Blood Pressure Location Lt radial Position Sitting Respiration 16 Pulse 67 Pulse Source Pulse Oximeter Pulse Oximetry (%) 94 Oxygen Delivery Method Room Air Intake Visit Reasons: chronic pain bi/knees & legs/Confirmed Intake Note: patient comes in for initial visit was referred by pcp. Allergies ketorolac [From TORADOL] Allergy (Intermediate, Verified 08/05/23 14:10) VOMITING morphine [MORPHINE] Allergy (Intermediate, Verified 08/05/23 14:10) vomiting oxycodone [OXYCODONE] Allergy (Intermediate, Verified 08/05/23 14:10) VOMITING acetaminophen [From PERCOCET] Allergy (Unknown, Verified 08/05/23 14:10) ANAPHYLAXIS hydromorphone [From DILAUDID] Allergy (Unknown, Verified 08/05/23 14:10) HIVES midodrine Allergy (Unknown, Verified 08/05/23 14:10) Anaphylaxis dilation drops for eye Allergy (Mild, Uncoded 07/16/23 10:12) swelling, redness, pain Dilaudid Allergy (Unknown, Uncoded 07/16/23 10:12) Rash Erythromycin Allergy (Unknown, Uncoded 07/16/23 10:12) Vomiting Toradol Allergy (Unknown, Uncoded 07/16/23 10:12) Unknown HPI HPI Comments History of Present Illness Details Celestina is very pleasant 68 years old female who is due to multiple health reason is wheelchair-bound and who presented today in my office with complains on pain in bilateral knees. Apparently her pain started in beginning of November of 2022. She reported that she fell on her knees and she ?mashed ?them. She reported intractable pain in bilateral knees with radiation into bilateral hips. She reports that her pain is intermittent in nature and she has pain sometimes in the level of 8 to 9/10 today her pain is 3/10 and not very severe. During this trauma she also received fracture of the right ankle but she does not report any pain in right ankle today. She reports that she cannot sleep normally because of her pain cannot do activities of daily living she ca nnot take care of herself and she cannot function normally. She is on permanent disability. She reports her pain in terms of tissue damage is aching, tight, squeezing, tearing sensation. 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 She had trialed multiple medications to help her pain with no success. She is taking Tylenol because opioid medications are giving her multiple reactions including nausea vomiting and rash. She had acupuncture therapy without success. Long time ago she had chiropractic manipulations but that was not directed to the knees. She never received any injections in the knees. She is currently on Coumadin for blood clot control. 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 She is status post bariatric surgery she has history of pemphigus, she is asthmatic she has diabetes and chronic fatigue. She has a history of ovarian cancer which resulted with or fact bruce and hysterectomy in 2009. She had bariatric surgery in 2014 she had gallbladder surgery in 2013. She had parathyroid gland removed in 2009. 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 She denies smoking cigarettes, drinking alcohol occasionally she denies soda but she admits drinking coffee in the morning. She denies recreational drugs. [facility] Medical History (Updated 08/05/23 @ 15:13 by Francisco Matias MD) Bradycardia Pemphigus Pancreatic ductal abnormality Surgical History (Updated 07/16/23 @ 10:26 by Isabel Cain CMA) H/O oral surgery Family History (Updated 07/16/23 @ 10:30 by Isabel Cain CMA) Father Heart attack Mental health disorder Mother Heart attack Macular degeneration Mental health disorder Social History Housing: Apartment Patient Tobacco Use Status: Never used Tobacco e-Cigarette/Vaping Use: Never Used service: No Current occupational status: disabled Cognitive needs: No Hearing needs: Yes Vision needs: Yes (wears reading glasses) Review of Systems Const All systems reviewed & are unremarkable except as noted in HPI and below Reports anorexia and Reports body aches ENT Reports Normal hearing present Card Reports no additional complaints Resp Reports as per HPI GI Reports as per HPI Reports no additional complaints Musc Reports as per HPI, Reports abnormal gait, Reports atrophy, Reports arthralgias, Reports limited range of motion, Reports muscle cramps and Reports muscle weakness Neuro Reports Normal hearing present, Denies Abnormal speech present, Reports abnormal gait, Denies confusion and Denies Sensory deficit (Neuro) Psych Denies confusion Endo Reports as per HPI [place]/Lymph Reports as per HPI Aller/Immun Reports as per HPI Physical Exam Vital Signs: Last Vital Signs Pulse 67 08/05/23 14:39 Resp 16 08/05/23 14:39 BP 160/80 H 08/05/23 14:39 Pulse Ox 94 08/05/23 14:39 Oxygen Delivery Method Room Air 08/05/23 14:39 BMI result Body Mass Index 36.6 Const General: no acute distress; No confusion Nutritional Appearance: obese morbidly obese Orientation/consciousness: patient oriented x3 and No confusion Eyes General: appearance normal, both eyes and all related structures Pupils: Equal, round and reactive pupils present EOM: EOMs intact bilaterally Neck Neck: Yes full ROM Chest Chest palpation & inspection: normal inspection of the chest Resp Effort & Inspection: normal respiratory effort, able to speak in complete sentences, normal respiratory pattern, no audible wheezes and no cough Cardio Jugular venous distension: no JVD GI Inspection: Yes normal to inspection Neuro General: patient oriented x3, gait normal and No confusion Cranial nerves: Yes CN's II-XII intact bilaterally, Yes Equal, round and reactive pupils present, Yes Normal hearing present and Yes Ability to bilaterally elevate shoulders present Speech: No Abnormal speech present Gait exam (Neuro): Normal gait present Motor exam (neuro): 5/5 motor strength present throughout Sensory Exam: No Sensory deficit (Neuro) Extrem Other: On visual inspection there is purplish discoloration of bilateral knees. Range of motion is severely limited in bilateral knees. Mild crepitus in sensed in the bilateral knees with minimal movement. The right knee is higher in temperature than the left knee. There is no ballottement of the bilateral patella. There is no joint effusion. General: No pedal edema Psych Speech and movement: Normal speech and movement present Affect: normal affect Attitude: cooperative Thought process: Normal thought process present Thought content: Normal thought content present Insight: Good insight present (Psych) Judgement: Good judgement present (Psych) Results Reviewed Results Reviewed: Her demonstrated to me the images of bilateral knees with very narrow intra-articular space and significant spurs changes. The whole report will be requested. Assessment & Plan Assessment & Plan (1) Wheelchair dependent: Code(s): Z99.3 - Dependence on wheelchair (2) Morbid obesity: Code(s): E66.01 - Morbid (severe) obesity due to excess calories (3) Arthritis: Code(s): M19.90 - Unspecified osteoarthritis, unspecified site (4) History of ovarian cancer: Code(s): Z85.43 - Personal history of malignant neoplasm of ovary (5) Complex regional pain syndrome i of lower limb, bilateral: Code(s): G90.523 - Complex regional pain syndrome I of lower limb, bilateral (6) Chronic pain syndrome: Code(s): G89.4 - Chronic pain syndrome Plan I will diagnose this patient with bilateral Complex regional pain syndrome. I will schedule her for psychological evaluation in preparation for spinal cord stimulation. After that will schedule her for the trial of SCS. It will be [employer] trial with position of the electrodes in the bilateral lumbar gutter L2-L3 position. It will be done with 16 contact electrodes. If she likes the results of the trial of SCS we will schedule her for the p ermanent implant. Coding Level of Care Code New Pt Level 4 (33931) Diagnoses Wheelchair dependent Z99.3 Morbid obesity E66.01 Arthritis M19.90 History of ovarian cancer Z85.43 Complex regional pain syndrome i of lower limb, bilateral G90.523 Chronic pain syndrome G89.4
[2023-08-05 14:39] VITALS: BP 160/80; PULSE 67; RESP 16; O2SAT 94; BMI 36.6
== END 2023-08-05 15:00 | disposition home or self-care (01) ==
PROVIDERS: PCP Family Medicine; Visit Provider Anesthesiology
DX: G90.523 Complex regional pain syndrome I of lower limb, bilateral (principal); E66.01 Morbid (severe) obesity due to excess calories; Z99.3 Dependence on wheelchair; M19.90 Unspecified osteoarthritis, unspecified site; Z85.43 Personal history of malignant neoplasm of ovary; G89.4 Chronic pain syndrome
CPT/HCPCS: 99204

== ENCOUNTER → 2023-08-05 13:57 | Outpatient (BNVA) | payer OTHER, SELFPAY | PROVIDERS: PCP Family Medicine; Visit Provider Anesthesiology ==

== ENCOUNTER 2023-09-09 16:00 | Outpatient (REF) | payer OTHER, SELFPAY ==
[2023-09-15 04:09] LABS: Aldolase 4.9 U/L (<=8.1)
== END 2023-09-09 16:01 | disposition home or self-care (01) ==
LOC: HO.LAB 16:00
PROVIDERS: PCP Family Medicine; Visit Provider Psychiatry & Neurology Neurology
DX: M60.9 Myositis, unspecified (principal)
CPT/HCPCS: 36415; 82085; 82550

== ENCOUNTER 2023-10-09 11:09 | Outpatient (AMB) | payer OTHER, MEDICAID, SELFPAY ==
[2023-10-09 11:20] VITALS: BP 136/72; PULSE 70; RESP 14; TEMP 36.5; O2SAT 98
--- NOTE | 2023-10-09 11:20 | MHC.PC.OV ---
Vital Signs 10/09/23 11:20 Height 5 ft 5 in BMI Reason not done Patient refused/unable BP 136/72 Blood Pressure Location Rt brachial Position Sitting Respiration 14 Pulse 70 Pulse Source Pulse Oximeter Temp 97.7 F Temp Source Temporal Artery Scan Pulse Oximetry (%) 98 Oxygen Delivery Method Room Air Intake Visit Reasons: Extended exam with f/u labs, health maint. Intake Note: Patient states that there is there is something on her face on her right cheek that has gotten bigger and has formed a small lump. Patient states that the same spot starts to peel and goes away and then comes back bigger. Patient states that she has been experiencing a terrible cough that keeps going and feels like she cant catch a breathe. Patient states that she sometimes cough phlegm but not all time. Data Visualization Developer Required: No Accompanied by: Spouse Allergies ketorolac [From TORADOL] Allergy (Intermediate, Verified 10/09/23 11:34) VOMITING morphine [MORPHINE] Allergy (Intermediate, Verified 10/09/23 11:34) vomiting oxycodone [OXYCODONE] Allergy (Intermediate, Verified 10/09/23 11:34) VOMITING acetaminophen [From PERCOCET] Allergy (Unknown, Verified 10/09/23 11:34) ANAPHYLAXIS hydromorphone [From DILAUDID] Allergy (Unknown, Verified 10/09/23 11:34) HIVES midodrine Allergy (Unknown, Verified 10/09/23 11:34) Anaphylaxis dilation drops for eye Allergy (Mild, Uncoded 07/16/23 10:12) swelling, redness, pain Dilaudid Allergy (Unknown, Uncoded 07/16/23 10:12) Rash Erythromycin Allergy (Unknown, Uncoded 07/16/23 10:12) Vomiting Toradol Allergy (Unknown, Uncoded 07/16/23 10:12) Unknown Tobacco use date assessed: 07/16/23 Fall risk assessment: 1 Fall in past year Last assessed Fall Risk: 10/09/23 Dental Screening Dental Screen Date: 10/09/23 Did you have a dental visit in the last 12 months?: No Did you have a dental problem in the last 6 months where you did not have access to dental care?: No Was dental information given to patient?: Patient has dentist HPI Extended exam with f/u labs, health maint. HPI Details 68 y/o female presents for an extended exam with f/u labs and health maintenance. Labs were drawn 07/25/23. Reviewed labs with pt. TC 188. LDL 95. HDL 76. Elevated liver enzymes - AST 41, ALT 32. A1c today 10/09/23 7.4%. She is on glipizide 5mg daily. Blood pressure today 136/72. PFSH Medical History Bradycardia Pemphigus Pancreatic ductal abnormality Surgical History H/O oral surgery Family History Father Heart attack Mental health disorder Mother Heart attack Macular degeneration Mental health disorder Social History Housing: Apartment Patient Tobacco Use Status: Never used Tobacco e-Cigarette/Vaping Use: Never Used service: No Current occupational status: disabled Cognitive needs: No Hearing needs: Yes Vision needs: Yes (wears reading glasses) Questionnaire PHQ-9 Over the last 2 weeks, how often have you been bothered by any of the following problems? 1. Little interest or pleasure in doing things: several days 2. Feeling down, depressed, or hopeless: several days 3. Trouble falling or staying asleep, or sleeping too much: nearly every day 4. Feeling tired or having little energy: nearly every day 5. Poor appetite or overeating: not at all 6. Feeling bad about yourself - or that you are a failure or have let yourself or your family down: several days 7. Trouble concentrating on things, such as reading the newspaper or watching television: not at all 8. Moving or speaking so slowly that other people could have noticed. Or the opposite - being so fidgety or restless that you have been moving around a lot more than usual: not at all 9. Thoughts that you would be better off or of hurting yourself in some way: not at all Total score: 9 Depression Screening Interpretation: Positive Depression Screening Done: Yes 79108 - PHQ-9 Billing: Yes Source: Developed by Drs. Stewart Hall, Linda B.WGanga Arrieta and colleagues, with an educational luis from [employer]. Thrive Questionnaire Date Thrive assessed: 10/09/23 I am a: Patient What is your living situation today?: I have a steady place to live Within the past 12 months, did the food you bought not last and you didn't have the money to get more?: Never true Within the past 12 months, did you worry whether your food would run out before you got money to buy more?: Never true Do you have trouble paying for medicines?: No Do you have trouble getting transportation to medical appointments?: No Do you have trouble paying your heating and electricity bill?: No Do you have trouble taking care of your child, family member or friend?: No Do you have trouble with day-to-day activities such as bathing, preparing meals, shopping, managing finances, etc.?: No Are you currently unemployed and looking for a job?: No Are you interested in more education?: No Please select the resources that you would like help with: None Currently or been in a relationship where the following occur: no concerns reported AUDIT C Alcohol Use Questionnaire (AUDIT-C) 1. How often do you have a drink containing alcohol?: Monthly or less 2. How many drinks containing alcohol do you have on a typical day when you are drinking?: 1 or 2 3. How often do you have six or more drinks on one occasion?: Never Total Score: 1 GRETA-7 AMB Questionnaire GRETA-7 Date GRETA - 7 assessed: 10/09/23 Feeling nervous, anxious, or on edge: 2 = More than half the days Not being able to stop or control worryin = More than half the days Worrying too much about different things: 3 = Nearly every day Trouble relaxin = Several days Being so restless that it is hard to sit still: 1 = Several days Becoming easily annoyed or irritable: 0 = Not at all Feeling afraid as if something awful might happen: 0 = Not at all Total GRETA-7 score (0-4 normal; 5-9 mild; 10-14 moderate; 15-21 severe): 9 Source: Developed by Drs. Stewart Hall, Ganga Barrett and colleagues, with an educational luis from [employer]. GRETA-7 Assessment Billing GRETA-7 Assessment Tool: GRETA-7 Assessment 56227 ACT Questionnaire In the past 4 weeks, how much of the time did your asthma keep you from getting as much done at work, school or at home?: Most of the time During the past 4 weeks, how often have you had shortness of breath?: 1-2 times a week During the past 4 weeks, how often did your asthma symptoms wake you up at night or earlier than usual in the morning?: Once or twice per week During the past 4 weeks, how often have you had to use your rescue inhaler or nebulizer medication?: 1-2 times a week How would you rate your asthma control during the past 4 weeks?: Somewhat controlled ACT Interpretation: Positive Score: 15 Review of Systems Const Denies chills, Denies fatigue, Denies fever(s), Denies headache(s) and Denies weakness Eyes Denies change in vision ENT Denies dizziness, Denies headache(s), Denies hearing loss, Denies nasal congestion, Denies sinus pain, Denies sinus pressure and Denies sore throat Card Denies chest pain, Denies lightheadedness, Denies dyspnea and Denies other (palpitations) Resp Reports cough, Denies dyspnea and Denies wheezing GI Denies abdominal pain, Denies melena, Denies hematochezia, Denies change in bowel habits, Denies dyspepsia and Denies nausea Denies hematuria and Denies dysuria Musc Denies abnormal gait, Denies myalgias, Denies arthralgias, Denies numbness and Denies tingling Skin/Breast Denies rash, Denies unusual bruising and Denies wounds Neuro Denies abnormal gait, Denies dizziness, Denies headache(s), Denies memory loss, Denies numbness, Denies Sensory deficit (Neuro), Denies tingling and Denies weakness Psych Denies anxiety, Denies depression and Denies memory loss Endo Denies cold intolerance, Denies fatigue, Denies heat intolerance, Denies polydipsia and Denies polyuria [place]/Lymph Denies easy bleeding and Denies easy bruising Aller/Immun Denies wheezing Physical exam (Primary Care) Vital Signs: Last Vital Signs Temp 97.7 F 10/09/23 11:20 Pulse 70 10/09/23 11:20 Resp 14 10/09/23 11:20 BP 136/72 10/09/23 11:20 Pulse Ox 98 10/09/23 11:20 Oxygen Delivery Method Room Air 10/09/23 11:20 Tobacco/Smoking Status: Tobacco use Status Tobacco use date assessed 07/16/23 10/09/23 11:31 Patient Tobacco Use Status Never used Tobacco 10/09/23 11:31 e-Cigarette/Vaping Use Never Used 10/09/23 11:31 PHQ-9: PHQ-9 Score PHQ-9: Total score 9 10/09/23 12:07 Depression Screening Interpretation: Positive Thrive Assessment: Date of Thrive Assessment Date Thrive assessed 10/09/23 10/09/23 11:42 Currently or been in a relationship where the following occur: no concerns reported Const General: no acute distress, well developed, alert and awake Nutritional Appearance: well nourished Orientation/consciousness: patient oriented x3 HENMT Head: Yes normocephalic and Yes atraumatic Ears: hearing grossly normal bilaterally and TM's normal bilaterally General nose exam: Normal external nose present and Normal nares present Mouth: Normal oral and palatal mucosa present and moist mucous membranes Teeth and gingiva: dentition normal Throat: Yes posterior oropharynx normal Eyes General: appearance normal, both eyes and all related structures Pupils: Equal, round and reactive pupils present and Pupil accommodation reflex normal EOM: EOMs intact bilaterally Neck Neck: Yes normal visual inspection, Yes no lymphadenopathy and Yes trachea midline Thyroid: Thyroid normal Carotids: no bruits Lymphatic: no lymphadenopathy noted Chest Chest palpation & inspection: normal inspection of the chest Resp Effort & Inspection: normal respiratory effort Auscultation: not clear to auscultation bilaterally Cardio Rate: regular rate Rhythm: regular rhythm Heart sounds: S1 normal heart sound present, S2 normal heart sound present, no gallops, no murmurs and no rubs Bruits: no abdominal aortic bruits and no carotid bruits GI Palpation (GI): No Abdominal aortic bruit present, Soft to palpation, nontender, No hepatosplenomegaly present and No Rebound tenderness present Auscultation: normal bowel sounds General: Yes no CVA tenderness Back/Spine/Pelvis Back: no CVA tenderness Cervical Spine: cervical ROM normal and No Cervical spine tenderness Thoracic/Lumbar Spine: thoraco-lumbar ROM normal, No pain with thoraco-lumbar ROM, No thoracic spinal tenderness and No lumbar spinal tenderness Skin Lesions: no lesions Rashes: no rashes Trauma: no lacerations or abrasions Wounds: no wounds Nails: normal Neuro General: patient oriented x3 Cranial nerves: Yes Equal, round and reactive pupils present Cognition (Neuro): normal cognition Gait exam (Neuro): Normal gait present Motor exam (neuro): 5/5 motor strength present throughout Sensory Exam: No Sensory deficit (Neuro) Deep tendon reflexes (DTR's): Right patellar reflex intensity grade: 2+ and Left patellar reflex intensity grade: 2+ Extrem General: Yes normal to inspection and No edema Psych Appearance: grossly normal Affect: normal affect Attitude: cooperative Thought process: Normal thought process present Results AMB Hemoglobin A1c AMB Hemoglobin A1c 7.4 % Last Edit by Alissa Bauer CMA on 10/09/23 11:43 Results Reviewed Results Reviewed: Laboratory Last Values Hgb A1c (Clinic) 7.4 % (4.0-6.0) H 10/09/23 11:42 Assessment and Plan Assessment & Plan (1) Hypertension: Code(s): I10 - Essential (primary) hypertension Plan: Blood?pressures?at?home?have?been?greater?than?140/90 She?also?has?some?proteinuria Will?use?lisinopril (2) Diabetes: Code(s): E11.9 - Type 2 diabetes mellitus without complications Plan: A1c?6.7%?is?good?control.??Goal?is?less?than?7.0% Continue?current?medication (3) Cough: Code(s): R05.9 - Cough, unspecified Plan: Right?lower?lung?crackles?and?secretions?sounds Check?chest?x-ray Start?cephalexin Also?checking?COVID/flu/RSV (4) Neoplasm of uncertain behavior of skin: Code(s): D48.5 - Neoplasm of uncertain behavior of skin Plan: Melanotic?lesion?on?her?face?which?has?been?changing?rapidly. Referred?to?dermatology (5) Elevated liver enzymes: Code(s): R74.8 - Abnormal levels of other serum enzymes Plan: Elevated?liver?enzymes Likely?fatty?liver?disorder Will?recheck?in?a?few?months (6) Screening for colon cancer: Code(s): Z12.11 - Encounter for screening for malignant neoplasm of colon Plan: Last?colonoscopy?greater?than?10?years?ago.??Referred?to?GI (7) Abnormal lung sounds: Code(s): R09.89 - Other specified symptoms and signs involving the circulatory and respiratory systems Plan: Check?chest?x-ray (8) Breast cancer screening by mammogram: Code(s): Z12.31 - Encounter for screening mammogram for malignant neoplasm of breast Plan: Due?for?mammogram-ordered (9) Immunization counseling: Code(s): Z71.85 - Encounter for immunization safety counseling Plan: Recommended?high-dose?flu?shot,?COVID?booster?and?RSV?when?she?is?feeling?better. (10) Screening for osteoporosis: Code(s): Z13.820 - Encounter for screening for osteoporosis Plan: Due?for?bone?density?testing-ordered (11) Adult general medical exam: Code(s): Z00.00 - Encounter for general adult medical examination without abnormal findings Plan: Stable Orders: Orders XR chest 2V Today R05.9 - Cough, unspecified AMB Hemoglobin A1c Today Z13.9 - Encounter for screening, unspecified SARS-CoV2/FLU/RSV Today R09.89 - Other specified symptoms and signs involving the circulatory and respiratory systems Comprehensive [place]. Panel Fast Today R74.8 - Abnormal levels of other serum enzymes, Z00.00 - Encounter for general adult medical examination without abnormal findings MM tomosynthesis screening BI Today E11.9 - Type 2 diabetes mellitus without complications, Z12.31 - Encounter for screening mammogram for malignant neoplasm of breast XR DEXA axial skeleton Today M81.0 - Age-related osteoporosis without current pathological fracture Referrals Gastroenterology Referral Z12.11 - Encounter for screening for malignant neoplasm of colon Dermatology Referral D48.5 - Neoplasm of uncertain behavior of skin Ophthalmology Referral E11.9 - Type 2 diabetes mellitus without complications Audiology Referral H91.90 - Unspecified hearing loss, unspecified ear Medications: New cephalexin 500 mg PO Q12H 20 caps 0RF 10 days Coding Level of Care Code Est Pt Level 4 (77227) Diagnoses Hypertension I10 Diabetes E11.9 Cough R05.9 Neoplasm of uncertain behavior of skin D48.5 Elevated liver enzymes R74.8 Screening for colon cancer Z12.11 Abnormal lung sounds R09.89 Breast cancer screening by mammogram Z12.31 Immunization counseling Z71.85 Screening for osteoporosis Z13.820 Adult general medical exam Z00.00 Additional Codes GRETA-7 Assessment Billing - GRETA-7 Assessment Tool: GRETA-7 Assessment 83899 ([id number])
== END 2023-10-09 13:09 | disposition home or self-care (01) ==
PROVIDERS: PCP Family Medicine; Visit Provider Family Medicine
DX: I10 Essential (primary) hypertension (principal); E11.9 Type 2 diabetes mellitus without complications; R05.9 Cough, unspecified; D48.5 Neoplasm of uncertain behavior of skin; R74.8 Abnormal levels of other serum enzymes; Z12.11 Encounter for screening for malignant neoplasm of colon; R09.89 Other specified symptoms and signs involving the circulatory and respiratory systems; Z12.31 Encounter for screening mammogram for malignant neoplasm of breast; Z71.85 Encounter for immunization safety counseling; Z13.820 Encounter for screening for osteoporosis; Z00.00 Encounter for general adult medical examination without abnormal findings; Z13.9 Encounter for screening, unspecified
CPT/HCPCS: 83036; 99214

== ENCOUNTER 2023-10-09 12:45 | Outpatient (REF) | payer OTHER, MEDICAID, SELFPAY ==
[2023-10-09 16:15] LABS: Influenza A PCR NEGATIVE (Negative); Influenza B PCR NEGATIVE (Negative); Resp Syncy Virus RNA Qual PCR NEGATIVE (Negative); SARS COV2 PCR INHOUSE NEGATIVE (Negative)
== END 2023-10-09 12:46 | disposition home or self-care (01) ==
LOC: HO.LAB 12:45
PROVIDERS: Visit Provider Family Medicine
DX: R09.89 Other specified symptoms and signs involving the circulatory and respiratory systems (principal); R05.9 Cough, unspecified; Z20.822 Contact with and (suspected) exposure to COVID-19
CPT/HCPCS: 0241U

== ENCOUNTER → 2023-11-01 11:33 | Day surgery (SDC) | payer OTHER, MEDICAID, SELFPAY ==
--- NOTE | 2023-10-31 10:49 | P.CONAN_ITS ---
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 PMFSH Active Problems Active Problems: All Active Problems (Updated 10/09/23 @ 12:38 by Yosi Cleveland) Immunization counseling (Acute) Screening for osteoporosis (Acute) Abnormal lung sounds (Acute) Elevated liver enzymes (Acute) Cough (Acute) Breast cancer screening by mammogram (Acute) Screening for colon cancer (Acute) Screening for cervical cancer (Acute) Adult general medical exam (Acute) Chronic pain syndrome (Acute) Complex regional pain syndrome i of lower limb, bilateral (Acute) Morbid obesity (Acute) Wheelchair dependent (Acute) Lower extremity weakness (Acute) Arthritis (Acute) Leg pain (Acute) History of ovarian cancer (Acute) Asthma (Acute) Pemphigus (Acute) History of kidney stones (Acute) History of hypotension (Acute) Inclusion body myositis (Acute) Diabetes (Acute) Chronic anticoagulation (Acute) Chronic pain (Acute) Hypertension (Acute) Thyroid nodule (Acute) Pancreatic ductal abnormality (Acute) Past Medical History Medical History Bradycardia Pemphigus Pancreatic ductal abnormality Family History Family History Father Heart attack Mental health disorder Mother Heart attack Macular degeneration Mental health disorder Surgical History Surgical History H/O oral surgery Social History Social History Housing: Apartment Patient Tobacco Use Status: Never used Tobacco e-Cigarette/Vaping Use: Never Used service: No Current occupational status: disabled Cognitive needs: No Hearing needs: Yes Vision needs: Yes (wears reading glasses) Meds Allergies Allergy/AdvReac Type Severity Reaction Status Date / Time ketorolac [From TORADOL] Allergy Intermediate VOMITING Verified 11/01/23 12:03 morphine [MORPHINE] Allergy Intermediate vomiting Verified 11/01/23 12:03 oxycodone [OXYCODONE] Allergy Intermediate VOMITING Verified 11/01/23 12:03 acetaminophen [From PERCOCET] Allergy Unknown ANAPHYLAXIS Verified 11/01/23 12:03 hydromorphone [From DILAUDID] Allergy Unknown HIVES Verified 11/01/23 12:03 midodrine Allergy Unknown Anaphylaxis Verified 11/01/23 12:03 dilation drops for eye Allergy Mild swelling, Uncoded 11/01/23 12:03 redness, pain Dilaudid Allergy Unknown Rash Uncoded 11/01/23 12:04 Erythromycin Allergy Unknown Vomiting Uncoded 11/01/23 12:04 Toradol Allergy Unknown Unknown Uncoded 11/01/23 12:04 Home Medications Medication Instructions Recorded Confirmed Last Taken Type albuterol sulfate 90 mcg/actuation 2 puff inhalation Q6H PRN 07/16/23 11/01/23 U nknown History aerosol inhaler (ProAir HFA) Bronchodilation alprazolam 0.5 mg tablet 0.5 mg PO DAILY 07/16/23 11/01/23 Unknown History bisacodyl 5 mg tablet,delayed 5 mg PO BEDTIME 07/16/23 11/01/23 Unknown History release (Dulcolax (bisacodyl)) bupropion HCl 150 mg 24 hr tablet, 150 mg PO DAILY 07/16/23 11/01/23 Unknown History extended release citalopram 40 mg tablet 20 mg PO DAILY 07/16/23 11/01/23 Unknown History clobetasol 0.05 % topical gel 1 appl topical DAILY 07/16/23 11/01/23 Unknown History glipizide 5 mg tablet, extended 5 mg PO DAILY 07/16/23 11/01/23 Unknown History release 24 hr hydroxyzine HCl 25 mg tablet 25 mg PO BEDTIME 07/16/23 11/01/23 Unknown History multivitamin 1 tab PO DAILY 07/16/23 11/01/23 Unknown History mupirocin 2 % topical ointment 1 appl topical BID 07/16/23 11/01/23 Unknown History warfarin 4 mg tablet 4 mg PO DAILY 07/16/23 11/01/23 10/26/23 History omeprazole 20 mg capsule,delayed 20 mg PO DAILY 08/05/23 11/01/23 10/26/23 History release tramadol 50 mg tablet 50 mg PO DAILY PRN Pain, Mild 08/05/23 11/01/23 10/26/23 History Exam Pertinent Lab Results Pertinent Lab Results: Laboratory Tests 07/25/23 09:42 WBC 10.1 Hgb 14.3 Hct 42.5 Plt Count 303 Sodium 138 Potassium 3.5 Chloride 106 Carbon Dioxide 24 BUN 11 Creatinine 0.49 L Assessment and Plan Assessment Anesthesia Assessment: Chart Reviewed
--- OUTSIDE RECORDS SUMMARY | 2023-11-01 11:37 | XMS_ITS | Continuity of Care Document ---
Author Name Unknown Organization [facility] Address [address] [place] [address]- Care Team Providers Care Tile Mechanic Name Role Phone Not on Staff, PCP Primary Care Physician Unavail able Encounter [facility] [place](s): 08/17/22 - 09/16/22 [facility] [address] [place] [id number]- Allergies, Adverse Reactions, Alerts Substance Reaction Severity Status morphine Active midodrine Active Toradol Active Percocet 7.5/325 Active Medications BuPROpion By Mouth, 0 Refills, Maintenance, 05/25/18 10:04:30 EDT Start Date: 05/25/18 Status: Ordered bupropion extended release By Mouth, 2 times a day, 0 Refills, Maintenance, 05/25/18 10:04:34 EDT Start Date: 05/25/18 Status: Ordered citalopram 20 mg oral tablet 20 mg, 1, tablet, By Mouth, Daily, Refills 0, Maintenance, 05/25/18 10:04:45 EDT Start Date: 05/25/18 Status: Ordered Coumadin 1 mg oral tablet 1 tablet = 1 mg, By Mouth, Daily, # 30 tablet, 0 Refills, Maintenance, 05/25/18 10:04:23 EDT, Tablet Start Date: 05/25/18 Status: Ordered Dulcolax 5 mg oral enteric coated tablet 1 tablet = 5 mg, By Mouth, Daily, 0 Refills, Maintenance, 05/25/18 10:06:39 EDT Start Date: 05/25/18 Status: Ordered Metformin By Mouth, 0 Refills, Maintenance, 05/25/18 10:07:04 EDT Start Date: 05/25/18 Status: Ordered Social History Social History Type Response Smoking Status Never smoker entered on: 05/25/18 Sex Patient Care team information Care Team Personnel Name: Not on Staff, PCP Position: S Physician (General Medicine) Member Role: PCP Care Team Related Persons Name: YANNA KENNEY Address: [place] [address] [place] [address] Name: JAMES KENNEY Address: [address] [place] [address]
--- OUTSIDE RECORDS SUMMARY | 2023-11-01 11:37 | XMS_ITS | Continuity of Care Document ---
Author Name Unknown Organization [facility] Address [address] [place] [id number]- Care Team Providers Care Coating Inspector Name Role Phone Not on Staff, PCP Primary Care Physician Unavail able [place] [facility] [place]s): 08/22/22 - 11/09/22 [facility] [address] [place] [id number]- Attending Physician: Mic Blevins MD Admitting Physician: Mic Blevins MD Referring Physician: Keanu Saul MD Allergies, Adverse Reactions, Alerts Substance Reaction Severity [...] Role: PCP Care Team Related Persons Name: NENARICHARDHaiYANNA Address: home [address] [place] [address] Name: JAMES KENNEY Address: [address] [place] [address]
--- OUTSIDE RECORDS SUMMARY | 2023-11-01 11:38 | XMS_ITS | Continuity of Care Document ---
Author Name Unknown Organization [facility] Address [address] [place] [id number]- Care Team Providers Care Contingents Supervisor Name Role Phone Not on Staff, PCP Primary Care Physician Unavail able [place] [facility] [place](s): 10/10/22 - 11/09/22 [facility] [address] [place] [id number]- Attending Physician: Rosemarie Moore Admitting Physician: Rosemarie Moore Referring Physician: AdmtrRosemarie Allergies, Adverse Reactions, Alerts Substance Reaction Severity [...] Team Related Persons Name: YANNA KENNEY Address: [address] [place] [address] Name: JAMES KENNEY Address: [address] [place] [address]
--- OUTSIDE RECORDS SUMMARY | 2023-11-01 11:38 | XMS_ITS | Continuity of Care Document ---
Author Name Unknown Organization [facility] Adult Address [address] [place] [address]- Care Team Providers Care Outreach Associate Name Role Phone Regla QUICK, Paco Primary Care Physician Encounter [facility] [place] Date(s): 06/25/23 - 07/25/23 [facility] [address] [place] [phone]- Allergies, Adverse Reactions, Alerts Substance Reaction Severity Status morphine Active midodrine Active penicillins Active Toradol Active Dilaudid Active Percocet 7.5/325 Active Immunizations Given and Recorded Vaccine Date Status Refusal Reason influenza virus vaccine, inactivated 07/25/22 Zak rded influenza virus vaccine, inactivated 09/11/21 Zak rded influenza virus vaccine, inactivated 10/22/19 Zak rded [id number] bivalent booster vax 07/25/22 Recorded SARS-CoV-2 (COVID-19) mRNA-1273 vaccine 09/11/21 R ecorded SARS-CoV-2 (COVID-19) mRNA BNT-162b2 vac 03/10/21 Recorded SARS-CoV-2 (COVID-19) mRNA BNT-162b2 vac 02/17/21 Recorded Medications ALPRAZolam 0.5 mg oral tablet 0.5 mg, 1, tablet, By Mouth, 3 times a day, PRN, Refills 0, Maintenance, for anxiety, 05/30/23 10:36:00 EDT, Partial fill upon patient request if the prescription is for a schedule II opioid drug. Start Date: 05/30/23 Status: Ordered amoxicillin 875 mg oral tablet TAKE ONE TABLET BY MOUTH TWICE A DAY FOR 10 DAYS FOR DENTAL INFECTION Start Date: 05/30/23 Status: Ordered buPROPion 150 mg/24 hours (XL) oral tablet, extended release TAKE 1 TABLET BY MOUTH EVERY DAY Start Date: 05/30/23 Status: Ordered citalopram 40 mg oral tablet 1 tablet = 40 mg, By Mouth, Daily, # 30 tablet, 0 Refills, Maintenance, 05/30/23 10:35:00 EDT, Tablet, Partial fill upon patient request if the prescription is for a schedule II opioid drug. Start Date: 05/30/23 Status: Ordered clobetasol 0.05% topical gel 1 application, Topically, 2 times a day, # 15 Gm, 0 Refills, Maintenance, 05/30/23 10:38:00 EDT, Gel, Partial fill upon patient request if the prescription is for a schedule II opioid drug. Start Date: 05/30/23 Status: Ordered Coumadin 1 mg oral tablet 1 tablet = 1 mg, By Mouth, Daily, # 30 tablet, 0 Refills, Maintenance, 05/25/18 10:04:23 EDT, Tablet Start Date: 05/25/18 Status: Ordered disposable gloves disposable gloves, See Instructions, # 100 each, Refills 5, Tot. Refills 5, Maintenance, disposablegloves, 06/25/23 11:41:00 EDT, Supply Start Date: 06/25/23 Status: Ordered disposable underwear - XL disposable underwear - XL, See Instructions, # 30 each, Refills 11, Tot. Refills 11, Maintenance, disposable underwear - XL, 06/25/23 11:40:00 EDT, Supply Start Date: 06/25/23 Status: Ordered Dulcolax 5 mg oral enteric coated tablet 1 tablet = 5 mg, By Mouth, Daily, 0 Refills, Maintenance, 05/25/18 10:06:39 EDT Start Date: 05/25/18 Status: Ordered glipiZIDE 5 mg oral tablet, extended release 1 tablet = 5 mg, By Mouth, Daily, # 30 tablet, 0 Refills, Maintenance, 05/30/23 10:36:00 EDT, ER Tablet, Partial fill upon patient request if the prescription is for a schedule II opioid drug. Start Date: 05/30/23 Status: Ordered hydrOXYzine hydrochloride 25 mg oral tablet 1 tablet = 25 mg, By Mouth, 4 times a day, PRN for anxiety, # 40 tablet, 0 Refills, Maintenance, 05/30/23 10:35:00 EDT, Tablet, Partial fill upon patient request if the prescription is for a scheduleII opioid drug. Start Date: 05/30/23 Status: Ordered Multivitamin Daily, 0 Refills, Maintenance, 05/30/23 10:37:00 EDT, Partial fill upon patient request if the prescription is for a schedule II opioid drug. Start Date: 05/30/23 Status: Ordered night time bed peds ( disposable) night time bed peds ( disposable), See Instructions, # 30 each, Refills 11, Tot. Refills 11, Maintenance, night time bed peds ( disposable), 06/25/23 11:40:00 EDT, Supply Start Date: 06/25/23 Status: Ordered traMADol 50 mg oral tablet 1 tablet = 50 mg, By Mouth, Daily, PRN for pain, # 30 tablet, 0 Refills, Maintenance, 06/25/23 11:53:00 EDT, Tablet, [facility], Partial fill upon patient request if the prescription is for a schedule II opioid drug. Start Date: 06/25/23 Status: Ordered warfarin 4 mg oral tablet 1 tablet = 4 mg, By Mouth, Daily, # 30 tablet, 0 Refills, Maintenance, 05/30/23 10:34:00 EDT, Tablet, Partial fill upon patient request if the prescription is for a schedule II opioid drug. Start Date: 05/30/23 Status: Ordered waterprrof bed pad ( washable) waterprrof bed pad ( washable), See Instructions, # 2 each, Refills 1, Tot. Refills 1, Maintenance,waterprrof bed pad ( washable), 06/25/23 11:41:00 EDT, Supply Start Date: 06/25/23 Status: Ordered Problem List Condition Confirmation Course Effective Dates Status H ealth Status Informant Asthma Confirmed Active Macular puckering, bilateral 1 Confirmed Active Chronic pain Confirmed Active Pancreatic cyst 2 Confirmed Active Diabetes mellitus Confirmed Active Esophageal dysphagia 3 Confirmed Active GERD (gastroesophageal reflux disease) Confirmed Active S/P splenectomy Confirmed Active HTN (hypertension) Confirmed Active Inclusion body myositis 4 Confirmed Active Stool incontinence Confirmed Active Nephrolithiasis Confirmed Active Pemphigoid, unspecified Confirmed Active Recurrent pulmonary embolism Confirmed Active Seasonal allergies Confirmed Active Severe obesity (BMI 35.0-39.9) with comorbidity Confirmed Active Thyroid nodule Confirmed Active Urinary urgency Confirmed Active 1DECREASED VISION CHANGES 2s/p removal 3due to inclusion body myositis 4SEEING neurologist ( Dr. Nicole IN [facility] Social History Social History Type Response Smoking Status Never smoker entered on: 05/25/18 Sex Patient Care team information Care Team Personnel Name: Sonja Sun PharmD Position: [facility] Associate Professional Member Role: [employer] Provider Address: Address: [address] [place] [address]- Name: Regla QUICK, Paco Position: [facility] Physician - Primary Care Member Role: PCP Address: Address: [address] [place] [phone]- Care Team Related Persons Name: YANNA KENNEY Address: home [address] [place] [address] Name: JAMES KENNEY Address: home [address] [place] [address]
--- OUTSIDE RECORDS SUMMARY | 2023-11-01 11:38 | XMS_ITS | Continuity of Care Document ---
Author Name Unknown Organization [facility] Address [address] [place] [address]- Care Team Providers Care Ultrasound Technician Name Role Phone Not on Staff, PCP Primary Care Physician Unavail able [place] [facility] [place]22 - 09/20/22 [facility] [address] [place] [id number]- Allergies, Adverse Reactions, Alerts Substance Reaction Severity [...] Persons Name: YANNA KENNEY Address: home [address] [place] [address] Name: JAMES KENNEY Address: home [address] [place] [address]
--- OUTSIDE RECORDS SUMMARY | 2023-11-01 11:38 | XMS_ITS | Continuity of Care Document ---
Author Name Unknown Organization [facility] ter Address [address] [place] [phone]- Care Team Providers Care Customer Service Assistant Name Role Phone Paco Arauz MD Primary Care Physician Encounter [facility] [place] [facility] R [id number] Date(s): 06/25/23 - 06/25/[address] [address]- Discharge Disposition: A-D/C Walkout Attending Physician: Not on Staff, Attending MD Admitting Physician: Not on Staff, Admitting MD Referring Physician: Not on Staff, Referring MD Allergies, Adverse Reactions, Alerts Substance Reaction Severity Status morphine Active midodrine Active penicillins Active Toradol Active Dilaudid Active Percocet 7.5/325 Active Medications ALPRAZolam 0.5 mg oral tablet 0.5 [...] DENTAL INFECTION Start Date: 05/30/23 Status: Ordered benzonatate 200 mg oral capsule 1 capsule = 200 mg, By Mouth, 3 times a day, for 10 days, # 30 capsule, 0 Refills, Acute 07/05/23 11:37:00 EDT, 06/25/23 11:37:00 EDT, Capsule, [facility], Partial fill upon patient request if the prescription is for a schedule II opioid drug. Start Date: 06/25/23 Stop Date: 07/05/23 Status: Ordered benzonatate 200 mg oral capsule 1 capsule = 200 mg, By Mouth, 3 times a day, for 10 days, # 30 capsule, 0 Refills, Acute 07/05/23 11:48:00 EDT, 06/25/23 11:48:00 EDT, Capsule, [facility] # [facility], Partial fill upon patient request if the prescription is for a schedule II opioid drug. Start Date: 06/25/23 Stop Date: 07/05/23 Status: Ordered benzonatate 200 mg oral capsule 1 capsule = 200 mg, By Mouth, 3 times a day, for 10 days, # 30 capsule, 0 Refills, Acute 07/05/23 11:50:00 EDT, 06/25/23 11:50:00 EDT, Capsule, Partial fill upon patient request if the prescription is for a schedule II opioid drug. Start Date: 06/25/23 Stop Date: 07/05/23 Status: Ordered buPROPion 150 mg/24 hours (XL) [...] 0 Refills, Maintenance, 06/25/23 11:53:00 EDT, Tablet, [facility] # [facility], Partial fill upon patient [...] myositis 4SEEING neurologist ( Dr. Nicole IN [facility] Results Radiology Reports * Exam Date Time Procedure Performing Provider Status 06/25/23 1:24 PM Chest 2 Views Frontal and Lat Paresh , Camille; Auth (Verified) Notes: (Chest 2 Views Frontal and Lat) Reason For Exam: Cough RESULT: Chest 2 Views Frontal and Lat Chest 2 Views Frontal and Lat Reason: Cough; Clinical Question(s): Pneumonia COMPARISON: None. FINDINGS: LINES AND TUBES: None. LUNGS AND PLEURA: Clear lungs. Normal pulmonary vascularity. No pleural effusion. No pneumothorax. HEART, MEDIASTINUM AND PADMINI: Heart is normal in size. Normal mediastinal and hilar contour. BONES AND SOFT TISSUES: No acute abnormality. IMPRESSION: No acute abnormality. WSN: [id number] Ordering Physician: Dhiraj Alan Dictated By: Yuliya Aleman MD Dictated Date/Time: 06/25/23 1:26 pm Reviewed By: Yuliya Aleman MD Signed By: Yuliya Aleman MD Signed Date/Time: 06/25/23 1:26 pm Transcribed By: DOMINGA Transcribed Date/Time: 06/25/23 1:25 pm Vital Signs Most recent to oldest [Reference Range]: 1 2 Height 165 cm (06/25/23 12:30 PM) Weight 100 kg (06/25/23 12:30 PM) Oxygen Saturation [94-100 %] 93 % *L* (06/25/23 1:38 PM) 93 % *L* (06/25/23 12:30 PM) Pulse Rate [55-90 bpm] 79 bpm (06/25/23 1:38 PM) 64 bpm (06/25/23 12:30 PM) Body Mass Index [18.5-24.99 kg/m2] 36.73 kg/m2 *>HHI* (06/25/23 12:30 PM) Blood Pressure [90-138/55-84 mm Hg] 160/ 86mm Hg *H* (06/25/23 1:38 PM) 152/83mm Hg *H* (06/25/23 12:30 PM) Respiratory Rate [16-30 br/min] 18 br/mi n (06/25/23 1:38 PM) 18 br/min (06/25/23 12:30 PM) Temperature [96.8-100.4 DegF] 98.4 DegF (06/25/23 1:38 PM) 98.6 DegF (06/25/23 12:30 PM) Mode of Delivery (Oxygen) Room air (06/25/23 1:38 PM) Room air (06/25/23 12:30 PM) Blood pressure sites Arm, right (06/25/23 1:38 PM) Arm, right (06/25/23 12:30 PM) Temperature Route Oral (06/25/23 1:38 PM) Oral (06/25/23 12:30 PM) Dry Weight 100 kg (06/25/23 12:30 PM) Weight Obtained Via Patient/family state d (06/25/23 12:30 PM) Dry Weight Obtained Via Patient/family s tated (06/25/23 12:30 PM) Social History Social History Type Response Smoking Status Never smoker entered on: 05/25/18 Sex EKG study * Event Display: ECG 12-Lead Authored Date: Please click on pdf link to open report * Event Display: ECG 12-Lead Authored Date: Ventricular Rate: 65 BPM Atrial Rate: 65 BPM P-R Interval: 112 ms QRS Duration: 106 ms Q-T Interval: 432 ms QTC Calculation(Bazett): 449 ms P [place]: 35 degrees R [place]: -11 degrees T [place]: 96 degrees Normal sinus rhythm Left ventricular hypertrophy with repolarization abnormality ( R in aVL , [place] product ) Abnormal ECG No previous ECGs available Confirmed by MARGARET SMTIH MD ([id number]) on 06/25/2023 1:45:47 PM Axis: MARGARET SMITH MD Patient Care team information Care Team Personnel Name: Paco Arauz MD Position: S Physician - Primary Care Member Role: PCP Address: Address: [address] [place] [address]- Care Team Related Persons Name: YANNA KENNEY Address: home [address] [place] [address] Name: JAMES KENNEY Address: home [address] [place] [address]
[2023-11-01 12:09] VITALS: BMI 36.6
[2023-11-01 12:35] VITALS: BP 148/59; PULSE 62; RESP 18; TEMP 36.6; O2SAT 95
--- NOTE | 2023-11-01 12:56 | MHC.SHP ---
Pre-Procedural Eval Section A Date of Service: 11/01/23 The patient is an INPATIENT: No Changes since office visit: Yes Patient answered all questions The History & Physical has been completed within 30 days and I have reviewed it.: No Section B Chief Complaint: Complex regional pain syndrome I of lower limb, bi Details of Present Illness: as above Relevant Family History (Specify if Yes): No Relevant Social History: None Present Medications: None Medical History: No relevant PMH History of Previous Operations: No relevant previous surgery Allergies: Allergies Allergy/AdvReac Type Severity Reaction Status Date / Time ketorolac [From TORADOL] Allergy Intermediate VOMITING Verified 11/01/23 12:03 morphine [MORPHINE] Allergy Intermediate vomiting Verified 11/01/23 12:03 oxycodone [OXYCODONE] Allergy Intermediate VOMITING Verified 11/01/23 12:03 acetaminophen [From PERCOCET] Allergy Unknown ANAPHYLAXIS Verified 11/01/23 12:03 hydromorphone [From DILAUDID] Allergy Unknown HIVES Verified 11/01/23 12:03 midodrine Allergy Unknown Anaphylaxis Verified 11/01/23 12:03 dilation drops for eye Allergy Mild swelling, Uncoded 11/01/23 12:03 redness, pain Dilaudid Allergy Unknown Rash Uncoded 11/01/23 12:04 Erythromycin Allergy Unknown Vomiting Uncoded 11/01/23 12:04 Toradol Allergy Unknown Unknown Uncoded 11/01/23 12:04 Review of Systems Sugical H&P ROS: Negative: Cardiovascular, Respiratory, Neurological, Psychiatric, Hem-Onc, Allergic/Immunologic, Gastrointestinal, Genitourinary, Integumentary, Endocrine and Eyes/Ears/Nose/Throat and Yes, Specify: Constitution (obesity) and Musculoskeletal (RA, bilateral knee arthritis) Exam Surgical H&P Exam: Normal: HEENT, Normal: Heart, Normal: Lungs, Normal: Extremities, Normal: Skin and Normal: Neurological and Significant Findings: Abdomen (enlarged) Plan Diagnosis/Plan: Unchanged I have reviewed the history and physical and performed a pertinent physical examination on my patient. No changes have occurred unless specified. Time Spent With Patient Time: Total time managing care of this patient today ____ minutes.
--- NOTE | 2023-11-01 12:57 | HO.ANESPROP2 ---
[facility] Active Problems Active Problems: All Active Problems (Updated 10/09/23 @ 12:38 by Yosi Cleveland) Immunization counseling (Acute) Screening for osteoporosis (Acute) Abnormal lung sounds (Acute) Elevated liver enzymes (Acute) Cough (Acute) Breast cancer screening by mammogram (Acute) Screening for colon cancer (Acute) Screening for cervical cancer (Acute) Adult general medical exam (Acute) Chronic pain syndrome (Acute) Complex regional pain syndrome i of lower limb, bilateral (Acute) Morbid obesity (Acute) Wheelchair dependent (Acute) Lower extremity weakness (Acute) Arthritis (Acute) Leg pain (Acute) History of ovarian cancer (Acute) Asthma (Acute) Pemphigus (Acute) History of kidney stones (Acute) History of hypotension (Acute) Inclusion body myositis (Acute) Diabetes (Acute) Chronic anticoagulation (Acute) Chronic pain (Acute) Hypertension (Acute) Thyroid nodule (Acute) Pancreatic ductal abnormality (Acute) Past Medical History Medical History Bradycardia Pemphigus Pancreatic ductal abnormality Patient : No Family History Family History Father Heart attack Mental health disorder Mother Heart attack Macular degeneration Mental health disorder Family history of problems with anesthesia: No Surgical History Surgical History H/O oral surgery History of Problems with Anesthesia: No Social History Social History Housing: Apartment Patient Tobacco Use Status: Never used Tobacco e-Cigarette/Vaping Use: Never Used Are you DNR?: No Advance Directives: No Advance Directives Information Provided: Yes service: No Current occupational status: disabled Cognitive needs: No Hearing needs: Yes Vision needs: Yes (wears reading glasses) Meds Allergies Allergy/AdvReac Type Severity Reaction Status Date / Time ketorolac [From TORADOL] Allergy Intermediate VOMITING Verified 11/01/23 12:03 morphine [MORPHINE] Allergy Intermediate vomiting Verified 11/01/23 12:03 oxycodone [OXYCODONE] Allergy Intermediate VOMITING Verified 11/01/23 12:03 acetaminophen [From PERCOCET] Allergy Unknown ANAPHYLAXIS Verified 11/01/23 12:03 hydromorphone [From DILAUDID] Allergy Unknown HIVES Verified 11/01/23 12:03 midodrine Allergy Unknown Anaphylaxis Verified 11/01/23 12:03 dilation drops for eye Allergy Mild swelling, Uncoded 11/01/23 12:03 redness, pain Dilaudid Allergy Unknown Rash Uncoded 11/01/23 12:04 Erythromycin Allergy Unknown Vomiting Uncoded 11/01/23 12:04 Toradol Allergy Unknown Unknown Uncoded 11/01/23 12:04 Active Medications: Current Medications Lactated Ringer's (Lr) 1,000 mls @ 100 mls/hr IVCONT .Q10H HEATHER Ondansetron HCl (Ondansetron Hcl 4 Mg/2 Ml Vial) 4 mg IVPUSH ONCE PRN PRN Reason: Nausea and Vomiting Home Medications Medication Instructions Recorded Confirmed Last Taken Type albuterol sulfate 90 mcg/actuation 2 puff inhalation Q6H PRN 07/16/23 11/01/23 Unknown History aerosol inhaler (ProAir HFA) Bronchodilation alprazolam 0.5 mg tablet 0.5 mg PO DAILY 07/16/23 11/01/23 Unknown History bisacodyl 5 mg tablet,delayed 5 mg PO BEDTIME 07/16/23 11/01/23 Unknown History release (Dulcolax (bisacodyl)) bupropion HCl 150 mg 24 hr tablet, 150 mg PO DAILY 07/16/23 11/01/23 Unknown History extended release citalopram 40 mg tablet 20 mg PO DAILY 07/16/23 11/01/23 Unknown History clobetasol 0.05 % topical gel 1 appl topical DAILY 07/16/23 11/01/23 Unknown History glipizide 5 mg tablet, extended 5 mg PO DAILY 07/16/23 11/01/23 Unknown History release 24 hr hydroxyzine HCl 25 mg tablet 25 mg PO BEDTIME 07/16/23 11/01/23 Unknown History multivitamin 1 tab PO DAILY 07/16/23 11/01/23 Unknown History mupirocin 2 % topical ointment 1 appl topical BID 07/16/23 11/01/23 Unknown History warfarin 4 mg tablet 4 mg PO DAILY 07/16/23 11/01/23 10/26/23 History omeprazole 20 mg capsule,delayed 20 mg PO DAILY 08/05/23 11/01/23 10/26/23 History release tramadol 50 mg tablet 50 mg PO DAILY PRN Pain, Mild 08/05/23 11/01/23 10/26/23 History Exam Height,Weight and Vital Signs: Height 5 ft 5 in Weight 99.79 kg Last Vital Signs Temp 97.9 F 11/01/23 12:35 Pulse 62 11/01/23 12:35 Resp 18 11/01/23 12:35 BP 148/59 H 11/01/23 12:35 Pulse Ox 95 11/01/23 12:35 O2 Del Method Room Air 11/01/23 12:35 Airway Mallampati Class: I TM Dist: >3cm Neck ROM: Full Loose/Missing/Broken Teeth: No Heart: rrr Lungs: clear Assessment and Plan Final Anesthetic Review Family History of Problems with Anesthesia: No History of Problems with Anesthesia: No NPO: Yes Final Preanesthetic Review: No Changes in Pt Med Stat, Meds/Allgs Chart Reviewed, Consent Obtained/Reviewed and Anes Risks/Benef Reviewed Patient Risk: Intermediate Procedure Risk: Low Anesthetic Plan Anesthetic Plan: MAC: Disposition: Standard PACU
[2023-11-01 13:05] LABS: Glucose, Whole Blood 142 mg/dL (60-115)
[2023-11-01 14:13] LABS: Prothrombin Time 11.9 SEC (11.1-13.3)
--- NOTE | 2023-11-01 14:31 | PC.NURSE ---
Dr. Matias attempted IV to inside of right wrist. Daniele hager attempted Iv to left hand. Dr. Roberto inserted IV to right AC via ultrasound machine. Phlebotomists attempted many times to get labs for PT/INR with success of third person. Dr. Das visited with patient and and stated that due to unstable IV and unable to place another IV if needed that patient is to reschedule and PICC line will be placed prior. All in agreement. All in agreement not to complete under local due to chances of arthritic areas. IV removed and patient to leave with all belongings and at bedside at all times.
== END | disposition home or self-care (01) ==
PROVIDERS: Nurse Practitioner; PCP Family Medicine; Visit Provider Anesthesiology
DX: G90.523 Complex regional pain syndrome I of lower limb, bilateral (principal); Z53.8 Procedure and treatment not carried out for other reasons; G89.4 Chronic pain syndrome; R00.1 Bradycardia, unspecified; L10.9 Pemphigus, unspecified; M19.90 Unspecified osteoarthritis, unspecified site; Z99.3 Dependence on wheelchair; Q45.3 Other congenital malformations of pancreas and pancreatic duct; I10 Essential (primary) hypertension; E11.9 Type 2 diabetes mellitus without complications; E66.01 Morbid (severe) obesity due to excess calories; Z79.01 Long term (current) use of anticoagulants; Z79.84 Long term (current) use of oral hypoglycemic drugs; Z79.899 Other long term (current) drug therapy
CPT/HCPCS: 36415; 82947; 85610; J0690; J2250; J2704; J2795

== ENCOUNTER 2023-11-11 15:30 | Outpatient (AMB) | payer OTHER, MEDICAID, SELFPAY ==
--- NOTE | 2023-11-11 15:37 | A.OFFPC_ITS ---
Vital Signs 11/11/23 15:39 Height 5 ft 5 in BMI Reason not done Patient refused/unable BP 148/80 H Blood Pressure Location Lt brachial Position Sitting Respiration 16 Pulse 66 Pulse Source Pulse Oximeter Temp 98.1 F Temp Source Oral Pulse Oximetry (%) 99 Oxygen Delivery Method Room Air Intake Visit Reasons: Cough Intake Note: Patient is here to be evaluated for a cough x14 days. Patient reports she is scheduled for a procedure on Saturday this week and the doctor doing the procedure would like medical clearance. Patient reports she has had no fever with this cough and reports no other symptoms at this time. Welt Sole Layer Required: No Accompanied by: Family/Other Allergies ketorolac [From TORADOL] Allergy (Intermediate, Verified 11/11/23 15:50) VOMITING morphine [MORPHINE] Allergy (Intermediate, Verified 11/11/23 15:50) vomiting oxycodone [OXYCODONE] Allergy (Intermediate, Verified 11/11/23 15:50) VOMITING acetaminophen [From PERCOCET] Allergy (Unknown, Verified 11/11/23 15:50) ANAPHYLAXIS hydromorphone [From DILAUDID] Allergy (Unknown, Verified 11/11/23 15:50) HIVES midodrine Allergy (Unknown, Verified 11/11/23 15:50) Anaphylaxis dilation drops for eye Allergy (Mild, Uncoded 11/11/23 15:50) swelling, redness, pain Dilaudid Allergy (Unknown, Uncoded 11/11/23 15:50) Rash Erythromycin Allergy (Unknown, Uncoded 11/11/23 15:50) Vomiting Toradol Allergy (Unknown, Uncoded 11/11/23 15:50) Unknown Medication List - Last Reconciled 11/11/23 by Shani Ritter CNP albuterol sulfate 90 mcg/actuation (ProAir HFA) 2 puffs inhalation Q6H PRN alprazolam 0.5 mg PO DAILY bisacodyl (Dulcolax (bisacodyl)) 5 mg PO BEDTIME bupropion HCl 150 mg PO DAILY cephalexin 500 mg PO Q12H 10 days citalopram 20 mg PO DAILY clobetasol 0.05% 1 appl topical DAILY glipizide ER 5 mg PO DAILY hydroxyzine HCl 25 mg PO BEDTIME lisinopril 5 mg PO DAILY 30 days multivitamin 1 tab PO DAILY mupirocin 2% 1 appl topical BID omeprazole 20 mg PO DAILY tramadol 50 mg PO DAILY PRN warfarin 4 mg PO DAILY Tobacco use date assessed: 07/16/23 HPI HPI Comments History of Present Illness Details 68-year-old female, accompanied by her mariama durham, presents with complaints of productive cough with clear phlegm for the past 14 days. She denies shortness of breath, headache, chest pain, fever, chills, body aches, fatigue, or weakness. She notes that her was first to get sick with upper respiratory symptoms She notes that she has been taking otc cough, cold, and flu remedies with some improvement She was evaluated for cough by her PCP about a month ago. COVID, flu, and RSV tests were negative. Chest x-ray was ordered but she has not had the x-ray done She notes that she is scheduled to have spinal cord stimulator implants on 11/15/2022 [facility] Medical History Bradycardia Pemphigus Pancreatic ductal abnormality Surgical History H/O oral surgery Family History Father Heart attack Mental health disorder Mother Heart attack Macular degeneration Mental health disorder Social History Housing: Apartment Patient Tobacco Use Status: Never used Tobacco e-Cigarette/Vaping Use: Never Used service: No Current occupational status: disabled Cognitive needs: No Hearing needs: Yes Vision needs: Yes (wears reading glasses) Questionnaire Thrive Questionnaire Date Thrive assessed: 10/09/23 GRETA-7 AMB Questionnaire GRETA-7 Date GRETA - 7 assessed: 10/09/23 Source: Developed by Drs. Stewart aHll, Linda Jesus, Ganga Mcgowan and colleagues, with an educational luis from [employer]. Review of Systems Const Details: Const Denies chills, Denies fatigue, Denies fever(s), Denies headache(s) and Denies weakness ENT Denies dizziness and Denies headache(s) Card Denies chest pain, Denies lightheadedness, Denies dyspnea and Denies other (Palpitations) Resp Reports cough, Denies dyspnea, Denies wheezing and Denies other ( shortness of breath) GI Denies abdominal pain, Denies melena, Denies hematochezia, Denies change in bowel habits, Denies dyspepsia and Denies nausea Denies hematuria and Denies dysuria Musc Denies myalgias, Denies arthralgias, Denies numbness and Denies tingling Skin/Breast Denies rash, Denies unusual bruising and Denies wounds Neuro Denies dizziness, Denies headache(s), Denies memory loss, Denies numbness, Denies Sensory deficit (Neuro), Denies tingling and Denies weakness Psych Denies anxiety, Denies depression, Denies memory loss Endo Denies cold intolerance, Denies fatigue, Denies heat intolerance, Denies polydipsia and Denies polyuria Aller/Immun Denies wheezing Physical exam (Primary Care) Vital Signs: Last Vital Signs Pulse 66 11/11/23 15:39 Resp 16 11/11/23 15:39 BP 148/80 H 11/11/23 15:39 Pulse Ox 99 11/11/23 15:39 Oxygen Delivery Method Room Air 11/11/23 15:39 Tobacco/Smoking Status: Tobacco use Status Tobacco use date assessed 07/16/23 11/11/23 15:47 Patient Tobacco Use Status Never used Tobacco 11/11/23 15:47 e-Cigarette/Vaping Use Never Used 11/11/23 15:47 Thrive Assessment: Date of Thrive Assessment Date Thrive assessed 10/09/23 11/11/23 15:47 Const Other: General: no acute distress and well developed Nutritional Appearance: well nourished Orientation/consciousness: patient oriented x3 HENMT Head: Yes normocephalic and Yes atraumatic Eyes General: appearance normal, both eyes and all related structures Pupils: Equal, round and reactive pupils present EOM: EOMs intact bilaterally Resp Effort & Inspection: normal respiratory effort Auscultation: wheezing to auscultation bilaterally Cardio Rate: regular rate Rhythm: regular rhythm Heart sounds: S1 normal heart sound present, S2 normal heart sound present, no gallops, no murmurs and no rubs GI Palpation (GI): No Abdominal aortic bruit present, Soft to palpation, nontender, No hepatosplenomegaly present and No Rebound tenderness present Auscultation: normal bowel sounds General: Yes no CVA tenderness Back/Spine/Pelvis Back: no CVA tenderness Cervical Spine: cervical ROM normal and No Cervical spine tenderness Thoracic/Lumbar Spine: thoraco-lumbar ROM normal, No pain with thoraco-lumbar ROM, No thoracic spinal tenderness and No lumbar spinal tenderness Extrem General: Yes normal to inspection, No edema and No calf tenderness Skin General: warm and dry. Normal skin color. Normal skin turgor Neuro General: patient oriented x3, wheelchair-bound and no focal neuro deficit Cranial nerves: Yes Equal, round and reactive pupils present Cognition (Neuro): normal cognition Gait exam (Neuro): Wheelchair-bound Sensory Exam: No Sensory deficit (Neuro) Psych Appearance: grossly normal Affect: normal affect Attitude: cooperative Thought process: Normal thought process present Assessment and Plan Assessment & Plan (1) Cough: Code(s): R05.9 - Cough, unspecified Plan: Productive cough with clear phlegm times 14 days Lung sounds wheezing bilaterally Likely bronchitis although pneumonia is possible Prednisone and benzonatate ordered. Take as prescribed Chest x-ray ordered. Advised to get chest x-ray done today. Will review resu lts and make changes as needed Adequate hydration and rest encouraged Nasal swab collected and will be sent to the lab for COVID/flu/RSV Follow-up with worsening or new symptoms Verbalized understanding and agreed with treatment plan Orders: Orders SARS-CoV2/FLU/RSV Today R05.9 - Cough, unspecified XR chest 2V Today R05.9 - Cough, unspecified Medications: New prednisone 40 mg (2 x 20 mg) PO DAILY 5 days 10 tabs 0RF Coding Level of Care Code Est Pt Level 3 (14686) Diagnoses Cough R05.9
[2023-11-11 15:39] VITALS: BP 148/80; PULSE 66; RESP 16; TEMP 36.7; O2SAT 99
== END 2023-11-11 16:35 | disposition home or self-care (01) ==
PROVIDERS: PCP Family Medicine; Visit Provider Nurse Practitioner Family
DX: R05.9 Cough, unspecified (principal)
CPT/HCPCS: 99213

== ENCOUNTER 2023-11-11 16:06 | Outpatient (REF) | payer OTHER, MEDICAID, SELFPAY ==
[2023-11-12 12:22] LABS: Influenza A PCR NEGATIVE (Negative); Influenza B PCR NEGATIVE (Negative); Resp Syncy Virus RNA Qual PCR NEGATIVE (Negative); SARS COV2 PCR INHOUSE NEGATIVE (Negative)
== END 2023-11-11 16:07 | disposition home or self-care (01) ==
LOC: HO.LAB 16:06
PROVIDERS: Visit Provider Nurse Practitioner Family
DX: R05.9 Cough, unspecified (principal); Z11.52 Encounter for screening for COVID-19
CPT/HCPCS: 0241U

== ENCOUNTER 2023-11-11 16:36 | Outpatient (REF) | payer OTHER, MEDICAID, SELFPAY ==
--- NOTE | ~2023-11-11 | XR_ITS ---
EXAMINATION: XR CHEST CLINICAL INFORMATION: Cough, unspecified COMPARISON: 11/18/2019 TECHNIQUE: 2 views of the chest were obtained. FINDINGS: No significant abnormality is noted involving the heart, lungs, mediastinum, bony thorax or soft tissues. Again noted is mild elevation of the right hemidiaphragm. XR/XR chest 2V IMPRESSION: No acute cardiopulmonary disease.
== END 2023-11-11 16:37 | disposition home or self-care (01) ==
LOC: HO.XRAY 16:36
PROVIDERS: PCP Family Medicine; Visit Provider Nurse Practitioner Family
DX: R05.9 Cough, unspecified (principal)
CPT/HCPCS: 71046

== ENCOUNTER 2023-12-06 14:06 | Outpatient (AMB) | payer OTHER, MEDICAID, SELFPAY ==
--- NOTE | 2023-12-06 13:49 | MHC.PC.OV ---
Intake Visit Reasons: anxiety and alprazolam [phone] Intake Note: Patient is here to follow up on anxiety and Alprazolam. Allergies ketorolac [From TORADOL] Allergy (Intermediate, Verified 12/06/23 13:50) VOMITING morphine [MORPHINE] Allergy (Intermediate, Verified 12/06/23 13:50) vomiting oxycodone [OXYCODONE] Allergy (Intermediate, Verified 12/06/23 13:50) VOMITING acetaminophen [From PERCOCET] Allergy (Unknown, Verified 12/06/23 13:50) ANAPHYLAXIS hydromorphone [From DILAUDID] Allergy (Unknown, Verified 12/06/23 13:50) HIVES midodrine Allergy (Unknown, Verified 12/06/23 13:50) Anaphylaxis dilation drops for eye Allergy (Mild, Uncoded 12/06/23 13:50) swelling, redness, pain Dilaudid Allergy (Unknown, Uncoded 12/06/23 13:50) Rash Erythromycin Allergy (Unknown, Uncoded 12/06/23 13:50) Vomiting Toradol Allergy (Unknown, Uncoded 12/06/23 13:50) Unknown Tobacco use date assessed: 12/06/23 Fall risk assessment: No Falls in past year Last assessed Fall Risk: 12/06/23 HPI anxiety and alprazolam [phone] HPI Details 68 y/o female presents to f/u anxiety and alprazolam via telemedicine. Pt is on citalopram, bupropion and uses alprazolam p.r.n. She is also on hydroxyzine for pemphigus. [facility] Medical History Bradycardia Pemphigus Pancreatic ductal abnormality Surgical History H/O oral surgery Family History Father Heart attack Mental health disorder Mother Heart attack Macular degeneration Mental health disorder Social History Housing: Apartment Patient Tobacco Use Status: Never used Tobacco e-Cigarette/Vaping Use: Never Used service: No Current occupational status: disabled Cognitive needs: No Hearing needs: Yes Vision needs: Yes (wears reading glasses) Questionnaire PHQ-9 Over the last 2 weeks, how often have you been bothered by any of the following problems? 1. Little interest or pleasure in doing things: not at all 2. Feeling down, depressed, or hopeless: several days 3. Trouble falling or staying asleep, or sleeping too much: several days 4. Feeling tired or having little energy: several days 5. Poor appetite or overeating: not at all 6. Feeling bad about yourself - or that you are a failure or have let yourself or your family down: not at all 7. Trouble concentrating on things, such as reading the newspaper or watching television: not at all 8. Moving or speaking so slowly that other people could have noticed. Or the opposite - being so fidgety or restless that you have been moving around a lot more than usual: not at all 9. Thoughts that you would be better off or of hurting yourself in some way: not at all Total score: 3 Depression Screening Interpretation: Negative Depression Screening Done: Yes 13128 - PHQ-9 Billing: Yes Source: Developed by Drs. Stewart Hall, Linda Jesus, Ganga Mcgowan and colleagues, with an educational luis from [employer]. Thrive Questionnaire Date Thrive assessed: 10/09/23 GRETA-7 AMB Questionnaire GRETA-7 Date GRETA - 7 assessed: 12/06/23 Feeling nervous, anxious, or on edge: 0 = Not at all Not being able to stop or control worryin = More than half the days Worrying too much about different things: 1 = Several days Trouble relaxin = Several days Being so restless that it is hard to sit still: 0 = Not at all Becoming easily annoyed or irritable: 0 = Not at all Feeling afraid as if something awful might happen: 0 = Not at all Total GRETA-7 score (0-4 normal; 5-9 mild; 10-14 moderate; 15-21 severe): 4 Source: Developed by Drs. Stewart Hall, Linda Jesus, Ganga Mcgowan and colleagues, with an educational luis from [employer]. GRETA-7 Assessment Billing GRETA-7 Assessment Tool: GRETA-7 Assessment 77136 Review of Systems Const Denies chills, Denies fatigue, Denies fever(s), Denies headache(s) and Denies weakness ENT Denies dizziness and Denies headache(s) Card Denies dyspnea Resp Denies cough, Denies dyspnea, Denies wheezing and Denies other (shortness of breath) Musc Denies numbness and Denies tingling Neuro Denies dizziness, Denies headache(s), Denies numbness, Denies tingling and Denies weakness Psych Denies anxiety and Denies depression Endo Denies fatigue Aller/Immun Denies wheezing Physical exam (Primary Care) Tobacco/Smoking Status: Tobacco use Status Tobacco use date assessed 12/06/23 12/06/23 13:52 Patient Tobacco Use Status Never used Tobacco 12/06/23 13:52 e-Cigarette/Vaping Use Never Used 12/06/23 13:52 PHQ-9: PHQ-9 Score PHQ-9: Total score 3 12/06/23 14:13 Depression Screening Interpretation: Negative Thrive Assessment: Date of Thrive Assessment Date Thrive assessed 10/09/23 12/06/23 13:52 Telehealth Telehealth Minutes spent on Phone/Video with Pt.: 5 Assessment and Plan Assessment & Plan (1) Anxiety: Code(s): F41.9 - Anxiety disorder, unspecified Plan: Patient?is?on?regimen?of?citalopram,?bupropion?and?uses?alprazolam?PRN. She?is?on?hydroxyzine?for?pemphigus. Citalopram,?bupropion?and?alprazolam?as?needed?is?a?reasonable?regimen?for?her. Will?continue?this. She?has?an?appointment?in?a?month?and?we?can?follow-up?to?ensure?she?is?taking?and?tolerating?all?her?meds?as?prescribed Medications: Changed From alprazolam 0.5 mg PO DAILY To alprazolam 0.5 mg PO DAILY 30 tabs 0RF 30 days From bupropion HCl 150 mg PO DAILY To bupropion HCl 150 mg PO DAILY 30 tabs 2RF 30 days Refilled hydroxyzine HCl 25 mg PO BEDTIME 30 tabs 1RF 30 days Coding Level of Care Code Tele Est Pt Level 2 (87558) Diagnoses Anxiety F41.9 Additional Codes GRETA-7 Assessment Billing - GRETA-7 Assessment Tool: GRETA-7 Assessment 13052 ([id number])
== END 2023-12-06 15:06 | disposition home or self-care (01) ==
LOC: HO.HMGFM 14:06
PROVIDERS: PCP Family Medicine; Visit Provider Family Medicine
DX: F41.9 Anxiety disorder, unspecified (principal)
CPT/HCPCS: 99441

== ENCOUNTER 2024-01-02 14:32 | Outpatient (REF) | payer MEDICARE, MEDICAID, SELFPAY ==
--- NOTE | 2024-01-02 16:37 | HO.MIDLINE ---
Midline Insertion MIDLINE INSERTION Diagnosis: Having a procedure/ poor IV access Indication: IV access Pertinent Labs: Reviewed Technique: Using sterile technique including cap and mask, glove and drape, the left arm was prepped and draped in the usual sterile fashion of full barrier technique with CHG. Using ultrasound guidance, the left brachial vein access was obtained in a second attempt by this RN. a 20 guage 8 cm NON-PASV Midline was positioned. The procedure was performed in S272. Ultrasound was used to document vein patency and for needle entry. A formal ultrasound picture was recorded. [employer] has released the line for use and it is currently dressed with a StatLock, Tegaderm, and CHG disc. Verification has been performed for blood return and line patency. Arm Circumference: 37 cm Equipment: PowerGlide ST Midline Catheter Catheter Type: 20 guage 8 cm Non-PASV midline Lot #: [id number]
== END 2024-01-02 14:33 | disposition home or self-care (01) ==
LOC: HO.RADIR 14:32
PROVIDERS: PCP Family Medicine; Visit Provider Anesthesiology
DX: G90.523 Complex regional pain syndrome I of lower limb, bilateral (principal); G89.4 Chronic pain syndrome; E66.01 Morbid (severe) obesity due to excess calories; M19.90 Unspecified osteoarthritis, unspecified site; Z99.3 Dependence on wheelchair
CPT/HCPCS: 36573; C1894

== ENCOUNTER 2024-01-03 08:57 | Day surgery (SDC) | payer MEDICARE, MEDICAID, SELFPAY ==
--- NOTE | 2024-01-02 10:40 | HO.ANESPROP2 ---
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 PMFSH Active Problems Active Problems: All Active Problems (Updated 12/06/23 @ 14:14 by Yosi Cleveland) Anxiety (Acute) Immunization counseling (Acute) Screening for osteoporosis (Acute) Abnormal lung sounds (Acute) Elevated liver enzymes (Acute) Cough (Acute) Breast cancer screening by mammogram (Acute) Screening for colon cancer (Acute) Screening for cervical cancer (Acute) Adult general medical exam (Acute) Chronic pain syndrome (Acute) Complex regional pain syndrome i of lower limb, bilateral (Acute) Morbid obesity (Acute) Wheelchair dependent (Acute) Lower extremity weakness (Acute) Arthritis (Acute) Leg pain (Acute) History of ovarian cancer (Acute) Asthma (Acute) Pemphigus (Acute) History of kidney stones (Acute) History of hypotension (Acute) Inclusion body myositis (Acute) Diabetes (Acute) Chronic anticoagulation (Acute) Chronic pain (Acute) Hypertension (Acute) Thyroid nodule (Acute) Pancreatic ductal abnormality (Acute) Past Medical History Medical History Anxiety Complex regional pain syndrome i of lower limb, bilateral Morbid obesity Wheelchair dependent Asthma Diabetes Hypertension Bradycardia Pemphigus Pancreatic ductal abnormality Family History Family History Father Heart attack Mental health disorder Mother Heart attack Macular degeneration Mental health disorder Family history of problems with anesthesia: No Surgical History Surgical History H/O oral surgery History of Problems with Anesthesia: No Social History Social History Housing: Apartment Patient Tobacco Use Status: Never used Tobacco e-Cigarette/Vaping Use: Never Used Second Hand Smoke Exposure: No Use of substances other than those prescribed or required for medical reasons: No Are you DNR?: No Advance Directives: No Advance Directives Information Provided: Yes Advance Directives on File: No service: No Current occupational status: disabled Cognitive needs: No Hearing needs: Yes Vision needs: Yes (wears reading glasses) Meds Allergies Allergy/AdvReac Type Severity Reaction Status Date / Time ketorolac [From TORADOL] Allergy Intermediate VOMITING Verified 12/06/23 13:50 morphine [MORPHINE] Allergy Intermediate vomiting Verified 12/06/23 13:50 oxycodone [OXYCODONE] Allergy Intermediate VOMITING Verified 12/06/23 13:50 acetaminophen [From PERCOCET] Allergy Unknown ANAPHYLAXIS Verified 12/06/23 13:50 hydromorphone [From DILAUDID] Allergy Unknown HIVES Verified 12/06/23 13:50 midodrine Allergy Unknown Anaphylaxis Verified 12/06/23 13:50 dilation drops for eye Allergy Mild swelling, Uncoded 12/06/23 13:50 redness, pain Dilaudid Allergy Unknown Rash Uncoded 12/06/23 13:50 Erythromycin Allergy Unknown Vomiting Uncoded 12/06/23 13:50 Toradol Allergy Unknown Unknown Uncoded 12/06/23 13:50 Home Medications Medication Instructions Recorded Confirmed Last Taken Type albuterol sulfate 90 mcg/actuation 2 puff inhalation Q6H PRN 07/16/23 11/11/23 Unknown History aerosol inhaler (ProAir HFA) Bronchodilation bisacodyl 5 mg tablet,delayed 5 mg PO BEDTIME 07/16/23 11/11/23 Unknown History release (Dulcolax (bisacodyl)) citalopram 40 mg tablet 20 mg PO DAILY 07/16/23 11/11/23 Unknown History clobetasol 0.05 % topical gel 1 appl topical DAILY 07/16/23 11/11/23 Unknown History glipizide 5 mg tablet, extended 5 mg PO DAILY 07/16/23 11/11/23 Unknown History release 24 hr multivitamin 1 tab PO DAILY 07/16/23 11/11/23 Unknown History mupirocin 2 % topical ointment 1 appl topical BID 07/16/23 11/11/23 Unknown History warfarin 4 mg tablet 4 mg PO DAILY 07/16/23 11/11/23 10/26/23 History omeprazole 20 mg capsule,delayed 20 mg PO DAILY 08/05/23 11/11/2310/26/23 History release tramadol 50 mg tablet 50 mg PO DAILY PRN Pain, Mild 08/05/23 11/11/23 10/26/23 History Exam Pertinent Lab Results Pertinent Lab Results: Laboratory Tests 07/25/23 09:42 WBC 10.1 Hgb 14.3 Hct 42.5 Plt Count 303 Sodium 138 Potassium 3.5 Chloride 106 Carbon Dioxide 24 BUN 11 Creatinine 0.49 L Assessment and Plan Assessment Anesthesia Assessment: Chart Reviewed Final Anesthetic Review Family History of Problems with Anesthesia: No History of Problems with Anesthesia: No Documented by User: Lanie Spears MD 01/03/24 11:17 PMFSH Past Medical History Medical History Anxiety Complex regional pain syndrome i of lower limb, bilateral Morbid obesity Wheelchair dependent Asthma Diabetes Hypertension Bradycardia Pemphigus Pancreatic ductal abnormality Family History Family History Father Heart attack Mental health disorder Mother Heart attack Macular degeneration Mental health disorder Surgical History Surgical History H/O oral surgery Social History Social History Housing: Apartment Patient Tobacco Use Status: Never used Tobacco e-Cigarette/Vaping Use: Never Used Second Hand Smoke Exposure: No Use of substances other than those prescribed or required for medical reasons: No Are you DNR?: No Advance Directives: No Advance Directives Information Provided: Yes Advance Directives on File: No service: No Current occupational status: disabled Cognitive needs: No Hearing needs: Yes Vision needs: Yes (wears reading glasses) Meds Allergies Allergy/AdvReac Type Severity Reaction Status Date / Time ketorolac [From TORADOL] Allergy Intermediate VOMITING Verified 12/06/23 13:50 morphine [MORPHINE] Allergy Intermediate vomiting Verified 12/06/23 13:50 oxycodone [OXYCODONE] Allergy Intermediate VOMITING Verified 12/06/23 13:50 acetaminophen [From PERCOCET] Allergy Unknown ANAPHYLAXIS Verified 12/06/23 13:50 hydromorphone [From DILAUDID] Allergy Unknown HIVES Verified 12/06/23 13:50 midodrine Allergy Unknown Anaphylaxis Verified 12/06/23 13:50 dilation drops for eye Allergy Mild swelling, Uncoded 12/06/23 13:50 redness, pain Dilaudid Allergy Unknown Rash Uncoded 12/06/23 13:50 Erythromycin Allergy Unknown Vomiting Uncoded 12/06/23 13:50 Toradol Allergy Unknown Unknown Uncoded 12/06/23 13:50 Home Medications Medication Instructions Recorded Confirmed Last Taken Type albuterol sulfate 90 mcg/actuation 2 puff inhalation Q6H PRN 07/16/23 11/11/23 Unknown History aerosol inhaler (ProAir HFA) Bronchodilation bisacodyl 5 mg tablet,delayed 5 mg PO BEDTIME 07/16/23 11/11/23 Unknown History release (Dulcolax (bisacodyl)) citalopram 40 mg tablet 20 mg PO DAILY 07/16/23 11/11/23 Unknown History clobetasol 0.05 % topical gel 1 appl topical DAILY 07/16/23 11/11/23 Unknown History glipizide 5 mg tablet, extended 5 mg PO DAILY 07/16/23 11/11/23 Unknown History release 24 hr multivitamin 1 tab PO DAILY 07/16/23 11/11/23 Unknown History mupirocin 2 % topical ointment 1 appl topical BID 07/16/23 11/11/23 Unknown History warfarin 4 mg tablet 4 mg PO DAILY 07/16/23 11/11/23 10/26/23 History omeprazole 20 mg capsule,delayed 20 mg PO DAILY 08/05/23 11/11/23 10/26/23 History release tramadol 50 mg tablet 50 mg PO DAILY PRN Pain, Mild 08/05/23 11/11/23 10/26/23 History Exam Airway Mallampati Class: II TM Dist: >3cm Neck ROM: Limited Heart: rrr Lungs: cta Assessment and Plan Assessment Anesthesia Assessment: Anesthesia Plan Discussed Final Anesthetic Review NPO: Yes ASA Class: III Final Preanesthetic Review: No Changes in Pt Med Stat, Meds/Allgs Chart Reviewed, Consent Obtained/Reviewed and Anes Risks/Benef Reviewed Patient Risk: Intermediate Procedure Risk: Intermediate Anesthetic Plan Anesthetic Plan: MAC: Disposition: Standard PACU
--- NOTE | ~2024-01-03 | FL_ITS ---
EXAMINATION: XR FLUOROSCOPY WITH IMAGES CLINICAL INFORMATION: Lumbar spine cord stimulation trial COMPARISON: None TECHNIQUE: Fluoroscopy Supervised By: Dr. Francisco Matias. Fluoroscopy Time: 0.0. Cumulative Dose: 2.12 mGy. DAP: 0.578 Gycm2. Images: 1. FINDINGS: Single view of lumbar spine obtained and PA approach. Surgical probe seen projecting over the mid sacrum FL/FL guidance in OR IMPRESSION: Fluoroscopic assistance
[2024-01-03 09:52] LABS: INTERNATIONAL NORM RATIO 0.9 (0.9-1.1); Prothrombin Time 11.1 SEC (11.1-13.3)
[2024-01-03 09:56] VITALS: BMI 36.6
[2024-01-03 10:04] VITALS: BP 147/64; PULSE 61; RESP 16; TEMP 36.5; O2SAT 97
[2024-01-03] MEDS: Lactated Ringers 1,000 ML 100 ML IVCONT (10:05)
[2024-01-03 10:14] LABS: Glucose, Whole Blood 141 mg/dL (60-115)
--- NOTE | 2024-01-03 11:06 | MHC.SHP ---
Pre-Procedural Eval Section A - 24 Hr Update-Section A only Date of Service: 01/03/24 The patient has been examined within 24 hours of the surgical procedure. The History & Physical has been completed within 30 days and I have reviewed it.: No Section B - Complete if H&P > 30 days Chief Complaint: Complex regional pain syndrome I of lower limb, Details of Present Illness: As above Relevant Social History: None Present Medications: None Medical History: Significant History (Arthritis) History of Previous Operations: No relevant previous surgery Allergies: Allergies Allergy/AdvReac Type Severity Reaction Status Date / Time ketorolac [From TORADOL] Allergy Intermediate VOMITING Verified 12/06/23 13:50 morphine [MORPHINE] Allergy Intermediate vomiting Verified 12/06/23 13:50 oxycodone [OXYCODONE] Allergy Intermediate VOMITING Verified 12/06/23 13:50 acetaminophen [From PERCOCET] Allergy Unknown ANAPHYLAXIS Verified 12/06/23 13:50 hydromorphone [From DILAUDID] Allergy Unknown HIVES Verified 12/06/23 13:50 midodrine Allergy Unknown Anaphylaxis Verified 12/06/23 13:50 dilation drops for eye Allergy Mild swelling, Uncoded 12/06/23 13:50 redness, pain Dilaudid Allergy Unknown Rash Uncoded 12/06/23 13:50 Erythromycin Allergy Unknown Vomiting Uncoded 12/06/23 13:50 Toradol Allergy Unknown Unknown Uncoded 12/06/23 13:50 Review of Systems Sugical H&P ROS: Negative: Cardiovascular, Respiratory, Neurological, Psychiatric, Hem-Onc, Allergic/Immunologic, Gastrointestinal, Genitourinary, Musculoskeletal, Integumentary, Endocrine and Eyes/Ears/Nose/Throat and Yes, Specify: Constitution (Obesity) Exam Surgical H&P Exam: Significant Findings: Extremities (Knee osteoarthritis) and Significant Findings: Abdomen (Enlarged due to intra-abdominal and subq fat) Plan Diagnosis/Plan: Unchanged I have reviewed the history and physical and performed a pertinent physical examination on my patient. No changes have occurred unless specified. Time Spent With Patient Time: Total time managing care of this patient today _ 5 ___ minutes.
--- NOTE | 2024-01-03 11:38 | P.OP_ITS ---
Operative Note Operative Note Date of Service: 01/03/24 Narrative: Mary Jane is very pleasant 68 y.o. female who came today- to the operating room for trial of spinal cord stimulator [employer] for the treatment of Complex regional pain syndrome of the bilateral lower extremities. ?Preoperatively patient received ? cefazolin 2 g approximately 25 minutes before the procedure. After obtaining informed consent the patient was brought to the operating room, she was positioned prone on operating table, ASA monitor were applied and the patient was moderately to deeply sedated. ?Time-out was performed delineating correct site, side, the nature of the procedure, patient's allergy, preoperative antibiotic if needed.? All operating room staff was participating in OR time-out procedure. Patient's entire back was prepped with Chloraprep twice and draped with full body fenestrated laparoscopy drape.? Unfortunately at this moment we lost an IV midline, the area started to be swallen and we lost an ability to push medications into the line. We made a decision to cancell the case.
[2024-01-03 12:39] VITALS: BP 117/61; PULSE 61; RESP 18; TEMP 36.5; O2SAT 98
[2024-01-03 12:54] VITALS: BP 135/69; PULSE 60; RESP 18; O2SAT 100
[2024-01-03 13:09] VITALS: BP 133/66; PULSE 60; RESP 16; TEMP 36.3; O2SAT 100
[2024-01-03 13:25] VITALS: BP 128/62; PULSE 64; RESP 16; TEMP 36.3; O2SAT 100
--- NOTE | 2024-01-03 13:26 | HO.REMOVAL ---
Removal of PICC/Midline Removal of PICC/Midline: Removal of Midline: 1. Date: 01/03/2024 2. Reason removed: procedure not done Anurag Wheeler CRNA stated when the patient was prone the midline needed to be pulled back and redressed. Dr Matias decided to do procedure another day with a central line. Midline assessed by this RN, Good blood return. Flushed easily. No infiltrate seen. 3. Inserted length: 8 cm 4. Removed length: 8cm 5. A dressing was placed over the site upon removal. No edema or bleeding at the site.
== END 2024-01-03 13:49 | disposition home or self-care (01) ==
PROVIDERS: Nurse Practitioner; PCP Family Medicine; Visit Provider Anesthesiology
PROC: (CPT 63650; principal; 2024-01-03 10:40)
DX: G90.523 Complex regional pain syndrome I of lower limb, bilateral (principal); Z53.8 Procedure and treatment not carried out for other reasons; T81.89XA Other complications of procedures, not elsewhere classified, initial encounter; Y84.8 Other medical procedures as the cause of abnormal reaction of the patient, or of later complication, without mention of misadventure at the time of the procedure; Y82.8 Other medical devices associated with adverse incidents; Y92.234 Operating room of hospital as the place of occurrence of the external cause; G89.4 Chronic pain syndrome; M19.90 Unspecified osteoarthritis, unspecified site; Z99.3 Dependence on wheelchair; E66.01 Morbid (severe) obesity due to excess calories; J45.909 Unspecified asthma, uncomplicated; Z85.43 Personal history of malignant neoplasm of ovary; Z88.1 Allergy status to other antibiotic agents; Z88.8 Allergy status to other drugs, medicaments and biological substances; Z88.5 Allergy status to narcotic agent
CPT/HCPCS: 63650; 36415; 82947; 85610; J0690; J2250; J2405; J2704; J2795; J3010

== ENCOUNTER → 2024-01-03 08:57 | Outpatient (BNV) | payer MEDICARE, MEDICAID, SELFPAY | PROVIDERS: PCP Family Medicine; Visit Provider Anesthesiology | DX: G90.523 Complex regional pain syndrome I of lower limb, bilateral (principal) | CPT/HCPCS: 63650 ==

== ENCOUNTER 2024-01-09 10:41 | Outpatient (AMB) | payer MEDICARE, MEDICAID, SELFPAY ==
--- NOTE | 2024-01-09 10:41 | MHC.OFFVIS ---
Intake Intake Visit Reasons: RE: Lumbar SCS TRIAL ([employer]) 01/03/24 Allergies ketorolac [From TORADOL] Allergy (Intermediate, Verified 01/09/24 10:41) VOMITING morphine [MORPHINE] Allergy (Intermediate, Verified 01/09/24 10:41) vomiting oxycodone [OXYCODONE] Allergy (Intermediate, Verified 01/09/24 10:41) VOMITING acetaminophen [From PERCOCET] Allergy (Unknown, Verified 01/09/24 10:41) ANAPHYLAXIS hydromorphone [From DILAUDID] Allergy (Unknown, Verified 01/09/24 10:41) HIVES midodrine Allergy (Unknown, Verified 01/09/24 10:41) Anaphylaxis dilation drops for eye Allergy (Mild, Uncoded 12/06/23 13:50) swelling, redness, pain Dilaudid Allergy (Unknown, Uncoded 12/06/23 13:50) Rash Erythromycin Allergy (Unknown, Uncoded 12/06/23 13:50) Vomiting Toradol Allergy (Unknown, Uncoded 12/06/23 13:50) Unknown HPI HPI Comments History of Present Illness Details Celestina is on the phone today to discuss our further management. 2 times I attempted to schedule her for trial of spinal cord stimulator [employer] and lumbar gutter position. And both times we went into the travel with her peripheral venous access. We were not able to proceed with the case last time because we lost peripherally inserted midline while she was on the table. Today I offered her a plan to perform the trial under local anesthesia. We need to obtain PT INR data and we would need to do it from the arterial needle stick. Also I would like to inject 900 mg of clindamycin intramuscularly 1 hour before the procedure. She asked me the question if we can try to perform diagnostic genicular nerve block and eventually radiofrequency ablation. I told her that theoretically we can try to do that but unfortunately if we go for radiofrequency ablation it will give her 6-9 months of pain relief at the best. Unfortunately 2nd procedure results could not be as assertive as the 1st procedure. At the best she will have some pain relief and for shorter period of time than 6 months. And after that you she will be back to sq 1 with her pain in the knees. She agreed with me to go for another trial as I proposed. For the permanent implantation if she likes the results of the trial I would like to schedule her for the insertion of the central line in the operating room with performance of the procedure under anesthesia. Prior: Multiple health problems, wheelchair-bound , complains on pain in bilateral knees. Apparently her pain started in beginning of November of 2022. She reported that she fell on her knees and she ?mashed ?them. She reported intractable pain in bilateral knees with radiation into bilateral hips. She reports that her pain is intermittent in nature and she has pain sometimes in the level of 8 to 9/10 today her pain is 3/10 and not very severe. During this trauma she also received fracture of the right ankle but she does not report any pain in right ankle today. 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 She had trialed multiple medications to help her pain with no success. She is taking Tylenol because opioid medications are giving her multiple reactions including nausea vomiting and rash. She had acupuncture therapy without success. Long time ago she had chiropractic manipulations but that was not directed to the knees. She never received any injections in the knees. She is currently on Coumadin for blood clot control. 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 She is status post bariatric surgery she has history of pemphigus, she is asthmatic she has diabetes and chronic fatigue. She has a history of ovarian cancer which resulted with or fact bruce and hysterectomy in 2009. She had bariatric surgery in 2014 she had gallbladder surgery in 2013. She had parathyroid gland removed in 2009. 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 She denies smoking cigarettes, drinking alcohol occasionally she denies soda but she admits drinking coffee in the morning. She denies recreational drugs. [facility] Medical History Anxiety Complex regional pain syndrome i of lower limb, bilateral Morbid obesity Wheelchair dependent Asthma Diabetes Hypertension Bradycardia Pemphigus Pancreatic ductal abnormality Surgical History H/O oral surgery Family History Father Heart attack Mental health disorder Mother Heart attack Macular degeneration Mental health disorder Social History Housing: Apartment Patient Tobacco Use Status: Never used Tobacco e-Cigarette/Vaping Use: Never Used Second Hand Smoke Exposure: No service: No Current occupational status: disabled Cognitive needs: No Hearing needs: Yes Vision needs: Yes (wears reading glasses) Review of Systems Const All systems reviewed & are unremarkable except as noted in HPI and below Assessment & Plan Assessment & Plan (1) Wheelchair dependent: Code(s): Z99.3 - Dependence on wheelchair (2) Morbid obesity: Code(s): E66.01 - Morbid (severe) obesity due to excess calories (3) Arthritis: Code(s): M19.90 - Unspecified osteoarthritis, unspecified site (4) History of ovarian cancer: Code(s): Z85.43 - Personal history of malignant neoplasm of ovary (5) Complex regional pain syndrome i of lower limb, bilateral: Code(s): G90.523 - Complex regional pain syndrome I of lower limb, bilateral (6) Chronic pain syndrome: Code(s): G89.4 - Chronic pain syndrome Plan We agreed that she will go for the trial of SCS [facility]. We will schedule her for this trial darrin. I will obtain the PT PTT before the trial as well as INR from the arterial needle stick. I also will inject clindamycin 900 mg 1 hour before the procedure intramuscularly. Patient Instructions: I here by testify that I spent 36 minutes in conversation with this patient as well as planning her care and organizing this note. Telehealth Telehealth Location of provider rendering services: practice address Location of patient: address on file Patient Identification confirmed using: Name, : Yes Telehealth method: voice only Patient verbally consented to treatment: Yes Patient verbally consented to billing insurance company: Yes Patient informed of any privacy concerns related to visit: Yes Coding Level of Care Code Tele Est Pt Level 4 (92979) Diagnoses Wheelchair dependent Z99.3 Morbid obesity E66.01 Arthritis M19.90 History of ovarian cancer Z85.43 Complex regional pain syndrome i of lower limb, bilateral G90.523 Chronic pain syndrome G89.4
== END 2024-01-09 10:49 | disposition home or self-care (01) ==
LOC: HO.PMC 10:41
PROVIDERS: PCP Family Medicine; Visit Provider Anesthesiology
DX: Z99.3 Dependence on wheelchair (principal); E66.01 Morbid (severe) obesity due to excess calories; M19.90 Unspecified osteoarthritis, unspecified site; Z85.43 Personal history of malignant neoplasm of ovary; G90.523 Complex regional pain syndrome I of lower limb, bilateral; G89.4 Chronic pain syndrome
CPT/HCPCS: 99024

== ENCOUNTER → 2024-01-09 10:41 | Outpatient (BNVA) | payer MEDICARE, MEDICAID, SELFPAY | PROVIDERS: PCP Family Medicine; Visit Provider Anesthesiology ==

== ENCOUNTER 2024-01-10 11:37 | Outpatient (AMB) | payer OTHER, MEDICAID, SELFPAY ==
--- NOTE | 2024-01-10 11:44 | A.OFFPC_ITS ---
Vital Signs 01/10/24 11:52 BP 130/74 Blood Pressure Location Lt brachial Position Sitting Pulse 60 Pulse Source Pulse Oximeter Pulse Oximetry (%) 97 Oxygen Delivery Method Room Air Intake Visit Reasons: f/u diabetes and chronic conditions Intake Note: Patient is here for follow uo on diabetes and chronic conditions. Patient is requesting refill of Alprazolam and Tramadol. Allergies ketorolac [From TORADOL] Allergy (Intermediate, Verified 01/10/24 11:45) VOMITING morphine [MORPHINE] Allergy (Intermediate, Verified 01/10/24 11:45) vomiting oxycodone [OXYCODONE] Allergy (Intermediate, Verified 01/10/24 11:45) VOMITING acetaminophen [From PERCOCET] Allergy (Unknown, Verified 01/10/24 11:45) ANAPHYLAXIS hydromorphone [From DILAUDID] Allergy (Unknown, Verified 01/10/24 11:45) HIVES midodrine Allergy (Unknown, Verified 01/10/24 11:45) Anaphylaxis dilation drops for eye Allergy (Mild, Uncoded 01/10/24 11:45) swelling, redness, pain Dilaudid Allergy (Unknown, Uncoded 01/10/24 11:45) Rash Erythromycin Allergy (Unknown, Uncoded 01/10/24 11:45) Vomiting Toradol Allergy (Unknown, Uncoded 01/10/24 11:45) Unknown Medication List - Last Reconciled 01/10/24 by Clarence Byrd MD albuterol sulfate 90 mcg/actuation (ProAir HFA) 2 puffs inhalation Q6H PRN alprazolam 0.5 mg PO DAILY 30 days benzonatate 200 mg PO BID PRN bisacodyl (Dulcolax (bisacodyl)) 5 mg PO BEDTIME bupropion HCl 150 mg PO DAILY 30 days cephalexin 500 mg PO Q12H 10 days citalopram 20 mg PO DAILY clobetasol 0.05% 1 appl topical DAILY glipizide ER 5 mg PO DAILY hydroxyzine HCl 25 mg PO BEDTIME 30 days lisinopril 5 mg PO DAILY 30 days multivitamin 1 tab PO DAILY mupirocin 2% 1 appl topical BID omeprazole 20 mg PO DAILY prednisone 40 mg (2 x 20 mg) PO DAILY 5 days tramadol 50 mg PO DAILY PRN warfarin 4 mg PO DAILY Tobacco use date assessed: 01/10/24 HPI f/u diabetes and chronic conditions HPI Details 68 y/o female presents to f/u diabetes a nd chronic conditions. Last A1c 10/09/23 7.4%. A1c today 01/10/24 is 7.6%. She is on glipizide 5mg daily. Blood pressure today 130/74. She is on lisinopril 5mg daily. They report a coughing fit at night. She coughs up mucuous and states cough medicine improves it. She notes the cough gets worse when she keeps laying down. [facility] Medical History (Updated 01/10/24 @ 12:36 by Yosi Cleveland) Diabetes Hypertension Anxiety Complex regional pain syndrome i of lower limb, bilateral Morbid obesity Wheelchair dependent Asthma Bradycardia Pemphigus Pancreatic ductal abnormality Surgical History H/O oral surgery Family History Father Heart attack Mental health disorder Mother Heart attack Macular degeneration Mental health disorder Social History Housing: Apartment Patient Tobacco Use Status: Never used Tobacco e-Cigarette/Vaping Use: Never Used Second Hand Smoke Exposure: No service: No Current occupational status: disabled Cognitive needs: No Hearing needs: Yes Vision needs: Yes (wears reading glasses) Questionnaire Thrive Questionnaire Date Thrive assessed: 10/09/23 GRETA-7 AMB Questionnaire GRETA-7 Date GRETA - 7 assessed: 12/06/23 Source: Developed by Drs. Stewart Hall, Linda Jesus, Ganga Mcgowan and colleagues, with an educational luis from [email or web address]. Review of Systems Const Denies chills, Denies fatigue, Denies fever(s), Denies headache(s) and Denies weakness ENT Denies dizziness and Denies headache(s) Card Denies chest pain, Denies lightheadedness, Denies dyspnea and Denies other (Palpitations) Resp Denies cough, Denies dyspnea, Denies wheezing and Denies other ( shortness of breath) Musc Denies numbness and Denies tingling Neuro Denies dizziness, Denies headache(s), Denies numbness, Denies tingling, Denies paresthesias and Denies weakness Psych Denies anxiety and Denies depression Endo Denies fatigue Aller/Immun Denies wheezing Physical exam (Primary Care) Vital Signs: Last Vital Signs Pulse 60 01/10/24 11:52 BP 130/74 01/10/24 11:52 Pulse Ox 97 01/10/24 11:52 Oxygen Delivery Method Room Air 01/10/24 11:52 Tobacco/Smoking Status: Tobacco use Status Tobacco use date assessed 01/10/24 01/10/24 11:50 Patient Tobacco Use Status Never used Tobacco 01/10/24 11:47 e-Cigarette/Vaping Use Never Used 01/10/24 11:47 Thrive Assessment: Date of Thrive Assessment Date Thrive assessed 10/09/23 01/10/24 11:47 Const General: no acute distress and well developed Nutritional Appearance: well nourished Orientation/consciousness: patient oriented x3 HENMT Head: Yes normocephalic and Yes atraumatic Eyes General: appearance normal, both eyes and all related structures Pupils: Equal, round and reactive pupils present EOM: EOMs intact bilaterally Resp Other: Fine dry crackles at the base Effort & Inspection: normal respiratory effort Auscultation: clear to auscultation bilaterally Cardio Rate: regular rate Rhythm: regular rhythm Heart sounds: S1 normal heart sound present, S2 normal heart sound present, no gallops, no murmurs and no rubs Neuro General: patient oriented x3 and gait normal Cranial nerves: Yes Equal, round and reactive pupils present Psych Affect: normal affect Results AMB Hemoglobin A1c AMB Hemoglobin A1c 7.5 % Last Edit by Isabel Cain CMA on 01/10/24 12:06 Results Reviewed Results Reviewed: Laboratory Last Values Hgb A1c (Clinic) 7.5 % (4.0-6.0) H 01/10/24 12:05 Assessment and Plan Assessment & Plan (1) Diabetes: Code(s): E11.9 - Type 2 diabetes mellitus without complications Plan: A1c?7.4?%. Suboptimal?control.??Goal?is?less?than?7.0% Will?add?metformin?250?mg?daily.??Patient?notes?that?she?had?been?on?this?years? ago. Continue?glipizide?ER?5?mg?daily Continue?to?work?at?a?diet?low?in?sugars?and?starches (2) Hypertension: Code(s): I10 - Essential (primary) hypertension Plan: Blood?pressure?is?controlled.??Goal?is?less?than?140/90 Continue?current?medication (3) Chronic pain syndrome: Code(s): G89.4 - Chronic pain syndrome Plan: Chronic?pain?secondary?to?inclusion?body?myositis?and?chronic?regional?pain?synd patricia She?is?seeing?pain?management?and?they?plan?a?spinal?stimulator Will?give?patient?pain?coverage?with?tramadol. Contract?is?signed?today. We?also?discussed?that?gabapentin?could?help?partly?at?night?but?we?will?see?how ?she?does?with?a?spine?stimulator?1st. (4) Incontinence: Code(s): R32 - Unspecified urinary incontinence Plan: Patient?has?received?supplies?from?[facility] Paperwork?filled?out Orders: Orders AMB Hemoglobin A1c Today Z13.9 - Encounter for screening, unspecified Medications: New guaifenesin ER (Mucinex) 600 mg PO Q12H PRN 60 tabs 0RF congestion 30 days metformin 250 mg (1/2 x 500 mg) PO DAILY 15 tabs 2RF 30 days Changed From tramadol 50 mg PO DAILY PRN Pain, Mild To tramadol 50 mg PO DAILY PRN 30 tabs 0RF Pain, Mild 30 days Refilled alprazolam 0.5 mg PO DAILY 30 tabs 0RF 30 days Coding Level of Care Code Est Pt Level 4 (93024) Diagnoses Diabetes E11.9 Hypertension I10 Chronic pain syndrome G89.4 Incontinence R32
[2024-01-10 11:52] VITALS: BP 130/74; PULSE 60; O2SAT 97
== END 2024-01-10 12:51 | disposition home or self-care (01) ==
PROVIDERS: PCP Family Medicine; Visit Provider Family Medicine
DX: E11.9 Type 2 diabetes mellitus without complications (principal); I10 Essential (primary) hypertension; G89.4 Chronic pain syndrome; R32 Unspecified urinary incontinence
CPT/HCPCS: 83036; 99214

== ENCOUNTER 2024-01-31 06:02 | Day surgery (SDC) | payer MEDICARE, MEDICAID, SELFPAY ==
--- NOTE | 2024-01-29 15:05 | HO.ANESPROP2 ---
HPI - Anesthesia Eval Consult details Narrative: 68yo F for Spinal Cord Stimulation Trial Previously Cx'd DOS - unable to place IV, will have PICC inserted prior to reschedule date (planned for 01/02/24 at 1430) Warfarin for hx PE s/p splenectomy and partial pancrectomy d/t pancreatic mass PMFSH Active Problems Active Problems: All Active Problems (Updated 01/10/24 @ 12:36 by Yosi Cleveland) Incontinence (Acute) Hypertension (Acute) Diabetes (Acute) Immunization counseling (Acute) Screening for osteoporosis (Acute) Abnormal lung sounds (Acute) Elevated liver enzymes (Acute) Cough (Acute) Breast cancer screening by mammogram (Acute) Screening for colon cancer (Acute) Screening for cervical cancer (Acute) Adult general medical exam (Acute) Chronic pain syndrome (Acute) Lower extremity weakness (Acute) Arthritis (Acute) Leg pain (Acute) History of ovarian cancer (Acute) Pemphigus (Acute) History of kidney stones (Acute) History of hypotension (Acute) Inclusion body myositis (Acute) Chronic anticoagulation (Acute) Chronic pain (Acute) Thyroid nodule (Acute) Pancreatic ductal abnormality (Acute) Past Medical History Medical History (Updated 01/10/24 @ 12:36 by Yosi Cleveland) Diabetes Hypertension Anxiety Complex regional pain syndrome i of lower limb, bilateral Morbid obesity Wheelchair dependent Asthma Bradycardia Pemphigus Pancreatic ductal abnormality Family History Family History Father Heart attack Mental health disorder Mother Heart attack Macular degeneration Mental health disorder Family history of problems with anesthesia: No Surgical History Surgical History H/O oral surgery History of Problems with Anesthesia: No Social History Social History Housing: Apartment Patient Tobacco Use Status: Never used Tobacco e-Cigarette/Vaping Use: Never Used Second Hand Smoke Exposure: No service: No Current occupational status: disabled Cognitive needs: No Hearing needs: Yes Vision needs: Yes (wears reading glasses) Meds Allergies Allergy/AdvReac Type Severity Reaction Status Date / Time ketorolac [From TORADOL] Allergy Intermediate VOMITING Verified 01/10/24 11:45 morphine [MORPHINE] Allergy Intermediate vomiting Verified 01/10/24 11:45 oxycodone [OXYCODONE] Allergy Intermediate VOMITING Verified 01/10/24 11:45 acetaminophen [From PERCOCET] Allergy Unknown ANAPHYLAXIS Verified 01/10/24 11:45 hydromorphone [From DILAUDID] Allergy Unknown HIVES Verified 01/10/24 11:45 midodrine Allergy Unknown Anaphylaxis Verified 01/10/24 11:45 dilation drops for eye Allergy Mild swelling, Uncoded 01/10/24 11:45 redness, pain Dilaudid Allergy Unknown Rash Uncoded 01/10/24 11:45 Erythromycin Allergy Unknown Vomiting Uncoded 01/10/24 11:45 Toradol Allergy Unknown Unknown Uncoded 01/10/24 11:45 Home Medications Medication Instructions Recorded Confirmed Last Taken Type albuterol sulfate 90 mcg/actuation 2 puff inhalation Q6H PRN 07/16/23 01/10/24 Unknown History aerosol inhaler (ProAir HFA) Bronchodilation bisacodyl 5 mg tablet,delayed 5 mg PO BEDTIME 07/16/23 01/10/24 Unknown History release (Dulcolax (bisacodyl)) citalopram 40 mg tablet 20 mg PO DAILY 07/16/23 01/10/24 Unknown History clobetasol 0.05 % topical gel 1 appl topical DAILY 07/16/23 01/10/24 Unknown History glipizide 5 mg tablet, extended 5 mg PO DAILY 07/16/23 01/10/24 Unknown History release 24 hr multivitamin 1 tab PO DAILY 07/16/23 01/10/24 Unknown History mupirocin 2 % topical ointment 1 appl topical BID 07/16/23 01/10/24 Unknown History warfarin 4 mg tablet 4 mg PO DAILY 07/16/23 01/10/24 10/26/23 History omeprazole 20 mg capsule,delayed 20 mg PO DAILY 08/05/23 01/10/24 10/26/23 History release Assessment and Plan Final Anesthetic Review Family History of Problems with Anesthesia: No History of Problems with Anesthesia: No
--- NOTE | ~2024-01-31 | FL_ITS ---
EXAMINATION: XR FLUOROSCOPY WITH IMAGES CLINICAL INFORMATION: Spinal cord stimulation trial. COMPARISON: Intraoperative fluoroscopy dated 01/08/2024. TECHNIQUE: Fluoroscopy Supervised By: Dr. Francisco Matias. Fluoroscopy Time: 3.2 minutes. Cumulative Dose: 83.3 mGy. DAP: 13.6 Gycm2. Images: 3. FINDINGS: The submitted images show 2 electrodes, one on the left with tip positioned at the lower L2 level and a further on the right with tip positioned at the upper L2 level. FL/FL guidance in OR IMPRESSION: Intraoperative fluoroscopic guidance is provided during lumbar pain management procedure. Please see the patient's Operative Report for full procedural details.
[2024-01-31 06:30] VITALS: BP 165/46; PULSE 65; RESP 16; TEMP 36.9; O2SAT 96
[2024-01-31 06:32] VITALS: BMI 36.6
--- NOTE | 2024-01-31 06:36 | P.HPSUR_ITS ---
Pre-Procedural Eval Section A - 24 Hr Update-Section A only Date of Service: 01/31/24 The patient is an INPATIENT: No Changes since office visit: Yes Patient answered all questions The patient has been examined within 24 hours of the surgical procedure. The History & Physical has been completed within 30 days and I have reviewed it.: No Section B - Complete if H&P > 30 days Chief Complaint: Complex regional pain syndrome I of lower limb, Details of Present Illness: as above Relevant Family History (Specify if Yes): No Relevant Social History: None Present Medications: None Medical History: No relevant PMH History of Previous Operations: No relevant previous surgery Allergies: Allergies Allergy/AdvReac Type Severity Reaction Status Date / Time ketorolac [From TORADOL] Allergy Intermediate VOMITING Verified 01/10/24 11:45 morphine [MORPHINE] Allergy Intermediate vomiting Verified 01/10/24 11:45 oxycodone [OXYCODONE] Allergy Intermediate VOMITING Verified 01/10/24 11:45 acetaminophen [From PERCOCET] Allergy Unknown ANAPHYLAXIS Verified 01/10/24 11:45 hydromorphone [From DILAUDID] Allergy Unknown HIVES Verified 01/10/24 11:45 midodrine Allergy Unknown Anaphylaxis Verified 01/10/24 11:45 dilation drops for eye Allergy Mild swelling, Uncoded 01/10/24 11:45 redness, pain Dilaudid Allergy Unknown Rash Uncoded 01/10/24 11:45 Erythromycin Allergy Unknown Vomiting Uncoded 01/10/24 11:45 Toradol Allergy Unknown Unknown Uncoded 01/10/24 11:45 Review of Systems Sugical H&P ROS: Negative: Cardiovascular, Respiratory, Neurological, Psychiatric, Hem-Onc, Allergic/Immunologic, Gastrointestinal, Genitourinary, Musculoskeletal, Integumentary, Endocrine and Eyes/Ears/Nose/Throat and Yes, Specify: Constitution ( obesity) Exam Surgical H&P Exam: Normal: HEENT, Normal: Heart, Normal: Lungs, Normal: Extremities, Normal: Skin and Normal: Neurological and Significant Findings: Abd omen (enlarged due to fat) Plan Diagnosis/Plan: Unchanged I have reviewed the history and physical and performed a pertinent physical examination on my patient. No changes have occurred unless specified. Time Spent With Patient Time: Total time managing care of this patient today __15__ minutes.
[2024-01-31 07:08] LABS: INTERNATIONAL NORM RATIO 0.9 (0.9-1.1); Prothrombin Time 11.2 SEC (11.1-13.3)
--- NOTE | 2024-01-31 07:43 | PC.NURSE ---
Ceftriaxone 2gm IM ordered as patient does not have IV access. Ceftriaxone 2gm IM given in two doses at 3mL each, one administered to Right Deltoid, second administered to Left Deltoid.
[2024-01-31 09:20] VITALS: BP 126/67; PULSE 66; RESP 16; TEMP 36.4; O2SAT 92
--- NOTE | 2024-01-31 09:27 | P.BOP_ITS ---
Brief Operative Note Date of Service: 01/31/24 Pre-op diagnosis: Complex regional pain syndrome bilateral lower extremities type 1 Post-op diagnosis: same Procedure: Trial of [place] [employer] spinal cord stimulator. Implants: None permanent. Surgeon: Francisco Matias MD Anesthesia: local Was an Back Shoe Operator used for this Procedure?: No Estimated blood loss (mL): 0 Condition: stable Disposition: PACU
[2024-01-31 09:35] VITALS: BP 145/46; PULSE 65; RESP 16; O2SAT 95
--- NOTE | 2024-01-31 09:38 | P.OP_ITS ---
Operative Note Operative Note Date of Service: 01/31/24 Narrative: Trial of spinal cord stimulator [employer]. Celestina is very pleasant 68 years old female who came to the operating room for trial of spinal cord stimulator [employer] for the treatment of Complex regional pain syndrome of bilateral lower extremities. She has very difficult vascular access and last time when we attempted the trial we lost vascular access at the onset of the sedation. We decided this procedure to be done very dangerous under sedation, it would require us to introduce central line for the procedure which would comprise of 2 needle sticks. Therefore the patient was offered to have this procedure without intravenous access while awake under local anesthesia. ?Preoperatively patient received ?ceftriaxone 2 g intramuscularly 40 minutes before the procedure. Before surgery we obtained PT and INR, INR was equal to 0.9. The sample for NR what was obtained from the right radial artery. After obtaining informed consent the patient was brought to the operating room, she was positioned prone on operating table, ASA monitor were applied , however the patient remained awake. ?Time-out was performed delineating correct site, side, the nature of the procedure, patient's allergy, preoperative antibiotic if needed.? All operating room staff was participating in OR time-out procedure. Patient's entire back was prepped with Chloraprep twice and draped with full bod y fenestrated laparoscopy drape.? Sterilely draped C-arm was brought over operating field and square picture of the L5 vertebra and sacral bone were demonstrated on the screen.? ?Attention FIRST? was concentrated on the L5-S1 epidural interspace. Projection of the right S1-S2 sacral foramina to the skin was located on the screen and it was injected with 5 cc of lidocaine 2% mixture with ropivacaine 0.5% mixture 1- 1. After that 11 blade was used to make a enmanuel on the skin.? 10 cm 14 gauge? introducer epidural needle was inserted through the enmanuel and advanced to L5-S1 epidural interspace on the right side.? The advancement of the needle was performed on anterior posterior and lateral views.?Loss of resistance to air? technique and guitar wire were used to locate epidural space., guitar wire was used to confirm epidural space,epidural lead was inserted through the needle . I had difficulty to advance the electrode into the right epidural space however it went freely into the left epidural space and we decided to keep it this way. Electrode was advanced in the left epidural gutter until approximately L2-L3 interval the top of the lead was positioned at the top of the L3 vertebra. After that? the location of the projection of the S2-S3 sacral foramina on the left n it was found on the skin using C-arm.? This location was injected with mixture of lidocaine 2% and Marcaine 0.5% 5 cc.? After that 11 blade was used to make a enmanuel on the skin.? 10 cm 14 gauge introducer epidural needle was inserted through the enmanuel and advanced to L5-S1 epidural interspace.? The advancement of the needle was performed on anterior posterior and lateral views.? Guitar wire and loss of resistance to air technique were used to locate epidural space.? guitar wire was used to confirm epidural space,epidural lead was inserted through the needle and? advanced to the projection of the top L3 vertebral body in the lumbar epidural gutter this time deliberately driving the electrode on the right side. Impedance was checked? and it was found to be satisfactory.? The trial was performed and the patient reported appropriate stimulation of the lower legs and thighs corresponding to the position of the electrodes. Posterior lead placement was verified by lateral x-ray ?The needles were withdrawn, the stylette wires were removed from the epidural leads.? The anchoring devices were dislodged on the leads and advanced to the level of the skin.? The anchoring devices were sutured with two 0-0 ?Silk sutures per each anchor to the skin of the patient. The central fixation screw of each anchor was rotated until three clicks were heard. The leads were connected to testing device.? Sterile dressing was applied to the patient's back.? The testing device was also taped to the patient's back.? the patient tolerated procedure well she was awaken and taken outside of the operating room to recovery room. she recovered uneventfully.
[2024-01-31 09:50] VITALS: BP 129/65; PULSE 67; RESP 16; O2SAT 95
[2024-01-31 10:05] VITALS: BP 132/44; PULSE 64; RESP 16; O2SAT 94
[2024-01-31 11:03] VITALS: BP 155/68; PULSE 95; RESP 17; TEMP 36.1; O2SAT 96
== END 2024-01-31 11:56 | disposition home or self-care (01) ==
PROVIDERS: Registered Nurse Emergency; PCP Family Medicine; Visit Provider Anesthesiology
PROC: (CPT 63650; principal; 2024-01-31 07:30)
DX: G90.523 Complex regional pain syndrome I of lower limb, bilateral (principal); G89.4 Chronic pain syndrome; M19.90 Unspecified osteoarthritis, unspecified site; E66.01 Morbid (severe) obesity due to excess calories; Z99.3 Dependence on wheelchair; G72.41 Inclusion body myositis [IBM]; R53.1 Weakness; I10 Essential (primary) hypertension; Z85.43 Personal history of malignant neoplasm of ovary; E11.9 Type 2 diabetes mellitus without complications; Z79.84 Long term (current) use of oral hypoglycemic drugs; Z79.01 Long term (current) use of anticoagulants; Z79.899 Other long term (current) drug therapy; Z88.1 Allergy status to other antibiotic agents; Z88.5 Allergy status to narcotic agent; Z88.8 Allergy status to other drugs, medicaments and biological substances
CPT/HCPCS: 63650 ×2; 36415; 85610; C1713; C1778; J0696; J2795

== ENCOUNTER → 2024-01-31 06:02 | Outpatient (BNV) | payer MEDICARE, MEDICAID, SELFPAY | PROVIDERS: PCP Family Medicine; Visit Provider Anesthesiology | DX: G90.523 Complex regional pain syndrome I of lower limb, bilateral (principal) | CPT/HCPCS: 63650 ==

== ENCOUNTER 2024-02-06 12:49 | Outpatient (AMB) | payer MEDICARE, MEDICAID, SELFPAY ==
--- NOTE | 2024-02-06 12:54 | MHC.OFFVIS ---
Intake Vital Signs 02/06/24 13:03 BP 136/72 Blood Pressure Location Lt brachial Position Sitting Respiration 14 Pulse 102 H Pulse Source Pulse Oximeter Pulse Oximetry (%) 96 Oxygen Delivery Method Room Air Intake Visit Reasons: S/p [employer] SCS Trial 01/31/24 Intake Note: Patient comes in for post-op appointment S/P [employer] [employer] SCS trial. Reports pain 01/11. Allergies ketorolac [From TORADOL] Allergy (Intermediate, Verified 02/06/24 13:05) VOMITING morphine [MORPHINE] Allergy (Intermediate, Verified 02/06/24 13:05) vomiting oxycodone [OXYCODONE] Allergy (Intermediate, Verified 02/06/24 13:05) VOMITING acetaminophen [From PERCOCET] Allergy (Unknown, Verified 02/06/24 13:05) ANAPHYLAXIS hydromorphone [From DILAUDID] Allergy (Unknown, Verified 02/06/24 13:05) HIVES midodrine Allergy (Unknown, Verified 02/06/24 13:05) Anaphylaxis dilation drops for eye Allergy (Mild, Uncoded 01/10/24 11:45) swelling, redness, pain Dilaudid Allergy (Unknown, Uncoded 01/10/24 11:45) Rash Erythromycin Allergy (Unknown, Uncoded 01/10/24 11:45) Vomiting Toradol Allergy (Unknown, Uncoded 01/10/24 11:45) Unknown HPI HPI Comments History of Present Illness Details Celestina is in the office status post trial of [place] [employer] spinal cord stimulator. She reports 80-90% pain improvement after the procedure. She reports good social interactions while on stimulation she reports improvement of activities of daily living however limited they are due to the patient's being wheelchair-bound. She wants me to schedule her for implant of the spinal cord stimulator under sedation or under general anesthesia. She also complains on pain in the lower back, she complains on spastic sensations in the lower back. I offered her to try baclofen for this condition. I will prescribe small dose 10 mg of baclofen qhs to help her back spasms. Her peripheral veins are basically absent and I would need to start the central line (IJ). Prior: Multiple health problems, wheelchair-bound , complains on pain in bilateral knees. Apparently her pain started in beginning of November of 2022. She reported that she fell on her knees and she ?mashed ?them. She reported intractable pain in bilateral knees with radiation into bilateral hips. She reports that her pain is intermittent in nature and she has pain sometimes in the level of 8 to 9/10 today her pain is 3/10 and not very severe. During this trauma she also received fracture of the right ankle but she does not report any pain in right ankle today. 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 She had trialed multiple medications to help her pain with no success. She is taking Tylenol because opioid medications are giving her multiple reactions including nausea vomiting and rash. She had acupuncture therapy without success. Long time ago she had chiropractic manipulations but that was not directed to the knees. She never received any injections in the knees. She is currently on Coumadin for blood clot control. 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 She is status post bariatric surgery she has history of pemphigus, she is asthmatic she has diabetes and chronic fatigue. She has a history of ovarian cancer which resulted with or fact bruce and hysterectomy in 2009. She had bariatric surgery in 2014 she had gallbladder surgery in 2013. She had parathyroid gland removed in 2009. 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 She denies smoking cigarettes, drinking alcohol occasionally she denies soda but she admits drinking coffee in the morning. She denies recreational drugs. [facility] Medical History (Updated 02/06/24 @ 13:34 by Francisco Matias MD) Diabetes Hypertension Anxiety Complex regional pain syndrome i of lower limb, bilateral Morbid obesity Wheelchair dependent Asthma Bradycardia Pemphigus Pancreatic ductal abnormality Surgical History H/O oral surgery Family History Father Heart attack Mental health disorder Mother Heart attack Macular degeneration Mental health disorder Social History Housing: Apartment Patient Tobacco Use Status: Never used Tobacco e-Cigarette/Vaping Use: Never Used Second Hand Smoke Exposure: No service: No Current occupational status: disabled Cognitive needs: No Hearing needs: Yes Vision needs: Yes (wears reading glasses) Review of Systems Const All systems reviewed & are unremarkable except as noted in HPI and below ENT Reports Normal hearing present Neuro Reports Normal hearing present, Denies Abnormal speech present, Denies confusion and Denies Sensory deficit (Neuro) Psych Denies confusion Physical Exam Vital Signs: Last Vital Signs Pulse 102 H 02/06/24 13:03 Resp 14 02/06/24 13:03 BP 136/72 02/06/24 13:03 Pulse Ox 96 02/06/24 13:03 Oxygen Delivery Method Room Air 02/06/24 13:03 Const General: no acute distress; No confusion Nutritional Appearance: obese morbidly obese Orientation/consciousness: patient oriented x3 and No confusion Eyes General: appearance normal, both eyes and all related structures Pupils: Equal, round and reactive pupils present EOM: EOMs intact bilaterally Neck Neck: Yes full ROM Chest Chest palpation & inspection: normal inspection of the chest Resp Effort & Inspection: normal respiratory effort, able to speak in complete sentences, normal respiratory pattern, no audible wheezes and no cough Cardio Jugular venous distension: no JVD GI Inspection: Yes normal to inspection Neuro General: patient oriented x3, gait normal and No confusion Cranial nerves: Yes CN's II-XII intact bilaterally, Yes Equal, round and reactive pupils present, Yes Normal hearing present and Yes Ability to bilaterally elevate shoulders present Speech: No Abnormal speech present Gait exam (Neuro): Normal gait present Motor exam (neuro): 5/5 motor strength present throughout Sensory Exam: No Sensory deficit (Neuro) Extrem Other: On visual inspection there is purplish discoloration of bilateral knees. Range of motion is severely limited in bilateral knees. Mild crepitus in sensed in the bilateral knees with minimal movement. The right knee is higher in temperature than the left knee. There is no ballottement of the bilateral patella. There is no joint effusion. General: No pedal edema Psych Speech and movement: Normal speech and movement present Affect: normal affect Attitude: cooperative Thought process: Normal thought process present Thought content: Normal thought content present Insight: Good insight present (Psych) Judgement: Good judgement present (Psych) Assessment & Plan Assessment & Plan (1) Arthritis: Code(s): M19.90 - Unspecified osteoarthritis, unspecified site (2) History of ovarian cancer: Code(s): Z85.43 - Personal history of malignant neoplasm of ovary (3) Chronic pain syndrome: Code(s): G89.4 - Chronic pain syndrome (4) Unspecified venous (peripheral) insufficiency: Code(s): I87.2 - Venous insufficiency (chronic) (peripheral) Plan Very good results of [employer] [employer] spinal cord stimulator trial. Patient reports 85-90% pain improvement. I will schedule the patient for the implantation. Before implantation I need to start central line. Patient practically has no peripheral veins. I need to start central line on this patient. I am planning to perform IJ injection in the operating room before the procedure. Coding Level of Care Code Est Pt Level 3 (14219) Diagnoses Arthritis M19.90 History of ovarian cancer Z85.43 Chronic pain syndrome G89.4 Unspecified venous (peripheral) insufficiency I87.2
[2024-02-06 13:03] VITALS: BP 136/72; PULSE 102; RESP 14; O2SAT 96
== END 2024-02-06 13:45 | disposition home or self-care (01) ==
PROVIDERS: PCP Family Medicine; Visit Provider Anesthesiology
DX: M19.90 Unspecified osteoarthritis, unspecified site (principal); Z85.43 Personal history of malignant neoplasm of ovary; G89.4 Chronic pain syndrome; I87.2 Venous insufficiency (chronic) (peripheral)
CPT/HCPCS: 99024

== ENCOUNTER → 2024-02-06 12:49 | Outpatient (BNVA) | payer MEDICARE, MEDICAID, SELFPAY | PROVIDERS: PCP Family Medicine; Visit Provider Anesthesiology | DX: M19.90 Unspecified osteoarthritis, unspecified site (principal); I87.2 Venous insufficiency (chronic) (peripheral); G89.4 Chronic pain syndrome; Z85.43 Personal history of malignant neoplasm of ovary | CPT/HCPCS: 99212 ==

== ENCOUNTER → 2024-03-13 09:35 | Day surgery (SDC) | payer MEDICARE, MEDICAID, SELFPAY ==
--- NOTE | 2024-03-11 15:10 | P.CONAN_ITS ---
Documented by User: Sonja Choudhary NP 03/12/24 08:57 HPI - Anesthesia Eval Consult details Narrative: 68yo F for Spinal Cord Stimulation Implant s/p trial 01/03/24 with Local. Required PICC line placement preop, but access was lost. Trial done under local anesthesia only. Per surgeon H&P, Dr Matias will be placing central line in OR. Warfarin for hx PE s/p splenectomy and partial pancrectomy d/t pancreatic mass PMFSH Active Problems Active Problems: All Active Problems Unspecified venous (peripheral) insufficiency (Acute) Incontinence (Acute) Hypertension (Acute) Diabetes (Acute) Immunization counseling (Acute) Screening for osteoporosis (Acute) Abnormal lung sounds (Acute) Elevated liver enzymes (Acute) Cough (Acute) Breast cancer screening by mammogram (Acute) Screening for colon cancer (Acute) Screening for cervical cancer (Acute) Adult general medical exam (Acute) Chronic pain syndrome (Acute) Lower extremity weakness (Acute) Arthritis (Acute) Leg pain (Acute) History of ovarian cancer (Acute) Pemphigus (Acute) History of kidney stones (Acute) History of hypotension (Acute) Inclusion body myositis (Acute) Chronic anticoagulation (Acute) Chronic pain (Acute) Thyroid nodule (Acute) Pancreatic ductal abnormality (Acute) Past Medical History Medical History (Updated 02/06/24 @ 13:34 by Francisco Matias MD) Diabetes Hypertension Anxiety Complex regional pain syndrome i of lower limb, bilateral Morbid obesity Wheelchair dependent Asthma Bradycardia Pemphigus Pancreatic ductal abnormality Family History Family History Father Heart attack Mental health disorder Mother Heart attack Macular degeneration Mental health disorder Family history of problems with anesthesia: No Surgical History Surgical History H/O oral surgery History of Problems with Anesthesia: No Social History Social History Housing: Apartment Patient Tobacco Use Status: Never used Tobacco e-Cigarette/Vaping Use: Never Used Second Hand Smoke Exposure: No Use of substances other than those prescribed or required for medical reasons: No Are you DNR?: No Advance Directives: No Advance Directives Information Provided: Yes Advance Directives on File: No service: No Current occupational status: disabled Cognitive needs: No Hearing needs: Yes Vision needs: Yes (wears reading glasses) Meds Allergies Allergy/AdvReac Type Severity Reaction Status Date / Time ketorolac [From TORADOL] Allergy Intermediate VOMITING Verified 02/06/24 13:05 morphine [MORPHINE] Allergy Intermediate vomiting Verified 02/06/24 13:05 oxycodone [OXYCODONE] Allergy Intermediate VOMITING Verified 02/06/24 13:05 acetaminophen [From PERCOCET] Allergy Unknown ANAPHYLAXIS Verified 02/06/24 13:05 hydromorphone [From DILAUDID] Allergy Unknown HIVES Verified 02/06/24 13:05 midodrine Allergy Unknown Anaphylaxis Verified 02/06/24 13:05 dilation drops for eye Allergy Mild swelling, Uncoded 01/10/24 11:45 redness, pain Dilaudid Allergy Unknown Rash Uncoded 01/10/24 11:45 Erythromycin Allergy Unknown Vomiting Uncoded 01/10/24 11:45 Toradol Allergy Unknown Unknown Uncoded 01/10/24 11:45 Home Medications ?Medication ?Instructions ?Recorded ?Confirmed ?Last Taken ?Type albuterol sulfate 90 mcg/actuation 2 puff inhalation Q6H PRN 07/16/23 01/10/24 Unknown History aerosol inhaler (ProAir HFA) Bronchodilation bisacodyl 5 mg tablet,delayed 5 mg PO BEDTIME 07/16/23 01/10/24 Unknown History release (Dulcolax (bisacodyl)) citalopram 40 mg tablet 20 mg PO DAILY 07/16/23 01/10/24 Unknown History clobetasol 0.05 % topical gel 1 appl topical DAILY 07/16/23 01/10/24 Unknown History glipizide 5 mg tablet, extended 5 mg PO DAILY 07/16/23 01/10/24 Unknown History release 24 hr multivitamin 1 tab PO DAILY 07/16/23 01/10/24 Unknown History mupirocin 2 % topical ointment 1 appl topical BID 07/16/23 01/10/24 Unknown History warfarin 4 mg tablet 4 mg PO DAILY 07/16/23 01/10/24 10/26/23 History omeprazole 20 mg capsule,delayed 20 mg PO DAILY 08/05/23 01/10/24 10/26/23 History release Exam Pertinent Lab Results Pertinent Lab Results: Laboratory Tests 07/25/23 09:42 WBC 10.1 Hgb 14.3 Hct 42.5 Plt Count 303 Sodium 138 Potassium 3.5 Chloride 106 Carbon Dioxide 24 BUN 11 Creatinine 0.49 L Assessment and Plan Assessment Anesthesia Assessment: Chart Reviewed Final Anesthetic Review Family History of Problems with Anesthesia: No History of Problems with Anesthesia: No Documented by User: Darius Herrera MD 03/13/24 13:12 [facility] Past Medical History Medical History (Updated 02/06/24 @ 13:34 by Francisco Matias MD) Diabetes Hypertension Anxiety Complex regional pain syndrome i of lower limb, bilateral Morbid obesity Wheelchair dependent Asthma Bradycardia Pemphigus Pancreatic ductal abnormality Family History Family History Father Heart attack Mental health disorder Mother Heart attack Macular degeneration Mental health disorder Surgical History Surgical History H/O oral surgery Social History Social History Housing: Apartment Patient Tobacco Use Status: Never used Tobacco e-Cigarette/Vaping Use: Never Used Second Hand Smoke Exposure: No Use of substances other than those prescribed or required for medical reasons: No Are you DNR?: No Advance Directives: No Advance Directives Information Provided: Yes Advance Directives on File: No service: No Current occupational status: disabled Cognitive needs: No Hearing needs: Yes Vision needs: Yes (wears reading glasses) Meds Allergies Allergy/AdvReac Type Severity Reaction Status Date / Time ketorolac [From TORADOL] Allergy Intermediate VOMITING Verified 02/06/24 13:05 morphine [MORPHINE] Allergy Intermediate vomiting Verified 02/06/24 13:05 oxycodone [OXYCODONE] Allergy Intermediate VOMITING Verified 02/06/24 13:05 acetaminophen [From PERCOCET] Allergy Unknown ANAPHYLAXIS Verified 02/06/24 13:05 hydromorphone [From DILAUDID] Allergy Unknown HIVES Verified 02/06/24 13:05 midodrine Allergy Unknown Anaphylaxis Verified 02/06/24 13:05 dilation drops for eye Allergy Mild swelling, Uncoded 01/10/24 11:45 redness, pain Dilaudid Allergy Unknown Rash Uncoded 01/10/24 11:45 Erythromycin Allergy Unknown Vomiting Uncoded 01/10/24 11:45 Toradol Allergy Unknown Unknown Uncoded 01/10/24 11:45 Home Medications ?Medication ?Instructions ?Recorded ?Confirmed ?Last Taken ?Type albuterol sulfate 90 mcg/actuation 2 puff inhalation Q6H PRN 07/16/23 01/10/24 Unknown History aerosol inhaler (ProAir HFA) Bronchodilation bisacodyl 5 mg tablet,delayed 5 mg PO BEDTIME 07/16/23 01/10/24 Unknown History release (Dulcolax (bisacodyl)) citalopram 40 mg tablet 20 mg PO DAILY 07/16/23 01/10/24 Unknown History clobetasol 0.05 % topical gel 1 appl topical DAILY 07/16/23 01/10/24 Unknown History glipizide 5 mg tablet, extended 5 mg PO DAILY 07/16/23 01/10/24 Unknown History release 24 hr multivitamin 1 tab PO DAILY 07/16/23 01/10/24 Unknown History mupirocin 2 % topical ointment 1 appl topical BID 07/16/23 01/10/24 Unknown History warfarin 4 mg tablet 4 mg PO DAILY 07/16/23 01/10/24 10/26/23 History omeprazole 20 mg capsule,delayed 20 mg PO DAILY 08/05/23 01/10/24 10/26/23 History release Exam Airway Mallampati Class: I TM Dist: <=3cm Neck ROM: Full Loose/Missing/Broken Teeth: No Heart: ok Lungs: ok Assessment and Plan Assessment Anesthesia Assessment: Anesthesia Plan Discussed Final Anesthetic Review NPO: Yes ASA Class: IV Final Preanesthetic Review: No Changes in Pt Med Stat, Meds/Allgs Chart Reviewed, Consent Obtained/Reviewed and Anes Risks/Benef Reviewed Patient Risk: High Procedure Risk: Intermediate Anesthetic Plan Anesthetic Plan: GA and Agree w/ Assess. and Plan Disposition: Standard PACU
[2024-03-13 09:45] LABS: Prothrombin Time Whole Bld POC 13.8 sec (11.1-13.5); ~PT, ~INR - Anti Coag Clinic 1.2 (0.9-1.1)
--- NOTE | 2024-03-13 09:48 | MHC.EDTECH ---
This pct was called to PACU to obtain a finger stick PT-INR on this patient.Results sent to the lab. DR. VASYL Fu.
[2024-03-13 09:50] VITALS: BMI 36.6
--- NOTE | 2024-03-13 11:32 | MHC.SHP ---
Pre-Procedural Eval Section A - 24 Hr Update-Section A only Date of Service: 03/13/24 The patient is an INPATIENT: No Changes since office visit: Yes Patient answered all questions The patient has been examined within 24 hours of the surgical procedure. The History & Physical has been completed within 30 days and I have reviewed it.: No Section B - Complete if H&P > 30 days Chief Complaint: Complex regional pain syndrome I of lower limb, Details of Present Illness: As above Relevant Family History (Specify if Yes): No Relevant Social History: None Present Medications: see Short Stay Collaborative assessment Medical History: No relevant PMH History of Previous Operations: No relevant previous surgery Allergies: Allergies Allergy/AdvReac Type Severity Reaction Status Date / Time ketorolac [From TORADOL] Allergy Intermediate VOMITING Verified 02/06/24 13:05 morphine [MORPHINE] Allergy Intermediate vomiting Verified 02/06/24 13:05 oxycodone [OXYCODONE] Allergy Intermediate VOMITING Verified 02/06/24 13:05 acetaminophen [From PERCOCET] Allergy Unknown ANAPHYLAXIS Verified 02/06/24 13:05 hydromorphone [From DILAUDID] Allergy Unknown HIVES Verified 02/06/24 13:05 midodrine Allergy Unknown Anaphylaxis Verified 02/06/24 13:05 dilation drops for eye Allergy Mild swelling, Uncoded 01/10/24 11:45 redness, pain Dilaudid Allergy Unknown Rash Uncoded 01/10/24 11:45 Erythromycin Allergy Unknown Vomiting Uncoded 01/10/24 11:45 Toradol Allergy Unknown Unknown Uncoded 01/10/24 11:45 Review of Systems Sugical H&P ROS: Negative: Constitution, Cardiovascular, Respiratory, Neurological, Psychiatric, Hem-Onc, Allergic/Immunologic, Gastrointestinal, Genitourinary, Musculoskeletal, Integumentary, Endocrine and Eyes/Ears/Nose/Throat Exam Surgical H&P Exam: Normal: HEENT, Normal: Heart, Normal: Lungs, Normal: Extremities, Normal: Abdomen, Normal: Skin and Normal: Neurological Plan Diagnosis/Plan: Unchanged I have reviewed the history and physical and performed a pertinent physical examination on my patient. No changes have occurred unless specified. Point of care INR was measured and it was equal 1.2. The patient has stopped her Coumadin 5 days ago. Time Spent With Patient Time: Total time managing care of this patient today ____ minutes.
[2024-03-13 11:51] VITALS: BP 130/51; PULSE 62; RESP 18; TEMP 36.7; O2SAT 96
[2024-03-13 12:09] LABS: Glucose, Whole Blood 166 mg/dL (60-115)
--- NOTE | 2024-03-13 14:29 | SUR.PHASEI ---
patient arrived to pacu from OR, procedure not performed due to patient on going diarrhea in the OR; pt brought to pacu, pt bathed, dressed and assisted into electric wheelchair; left pacu at 1420.
== END ==
LOC: HO.SSS 09:35
PROVIDERS: Registered Nurse Emergency; PCP Family Medicine; Visit Provider Anesthesiology
PROC: (CPT 63685; principal; 2024-03-13 12:00)
DX: G90.523 Complex regional pain syndrome I of lower limb, bilateral (principal); Z53.8 Procedure and treatment not carried out for other reasons; R19.7 Diarrhea, unspecified; M54.50 Low back pain, unspecified; G72.41 Inclusion body myositis [IBM]; M62.830 Muscle spasm of back; R53.1 Weakness; M19.90 Unspecified osteoarthritis, unspecified site; M25.562 Pain in left knee; M25.561 Pain in right knee; I10 Essential (primary) hypertension; R00.1 Bradycardia, unspecified; E11.9 Type 2 diabetes mellitus without complications; R53.82 Chronic fatigue, unspecified; J45.909 Unspecified asthma, uncomplicated; L10.9 Pemphigus, unspecified; I87.2 Venous insufficiency (chronic) (peripheral); Z79.01 Long term (current) use of anticoagulants; Z85.43 Personal history of malignant neoplasm of ovary; Z90.81 Acquired absence of spleen; Z90.411 Acquired partial absence of pancreas; Z79.899 Other long term (current) drug therapy; Z88.1 Allergy status to other antibiotic agents; Z88.5 Allergy status to narcotic agent; Z99.3 Dependence on wheelchair; Z98.84 Bariatric surgery status; Z98.890 Other specified postprocedural states; G89.4 Chronic pain syndrome
CPT/HCPCS: 63685; 63650 ×2; 82947; 85610; J0690; J2704; J2795; J3370

== ENCOUNTER 2024-03-19 14:11 | Outpatient (AMB) | payer MEDICARE, MEDICAID, SELFPAY ==
--- NOTE | 2024-03-19 14:36 | A.OFFVIS_ITS ---
Vital Signs 03/19/24 14:37 Height 5 ft 5 in Weight 220 lb 0.341 oz BMI 36.6 BP 130/72 Blood Pressure Location Lt brachial Position Sitting Respiration 12 Pulse 71 Pulse Source Pulse Oximeter Pulse Oximetry (%) 94 Oxygen Delivery Method Room Air Intake Visit Reasons: Discuss Alternatives to SCS Intake Note: Patient comes in to discuss other options. Reports pain 5/10. Allergies ketorolac [From TORADOL] Allergy (Intermediate, Verified 03/19/24 14:36) VOMITING morphine [MORPHINE] Allergy (Intermediate, Verified 03/19/24 14:36) vomiting oxycodone [OXYCODONE] Allergy (Intermediate, Verified 03/19/24 14:36) VOMITING acetaminophen [From PERCOCET] Allergy (Unknown, Verified 03/19/24 14:36) ANAPHYLAXIS hydromorphone [From DILAUDID] Allergy (Unknown, Verified 03/19/24 14:36) HIVES midodrine Allergy (Unknown, Verified 03/19/24 14:36) Anaphylaxis dilation drops for eye Allergy (Mild, Uncoded 01/10/24 11:45) swelling, redness, pain Dilaudid Allergy (Unknown, Uncoded 01/10/24 11:45) Rash Erythromycin Allergy (Unknown, Uncoded 01/10/24 11:45) Vomiting Toradol Allergy (Unknown, Uncoded 01/10/24 11:45) Unknown HPI Comments Details: Celestina is in my office after constellation of her procedure with [employer] implantation of spinal cord stimulator. Prolonged and detailed conversation ensued today discuss her options. The procedure was canceled because she had diarrhea. I explained my reasons why a cancel the procedure. I gave them also an option to speak with their primary care physician and explained him my reasoning about administering her elevated doses of the tramadol. She is currently taking tramadol 50 mg twice a day. This is obviously is not an adequate dose for her. However all things considered the stronger opioids probably are not a good option for this patient. The pluses and minuses of chronic opioid therapy were explained to the patient. The pluses and minuses of the spinal cord stimulator also were explained to the patient. They were asking me about radiofrequency ablation of genicular nerves as well. I described to them the results which typically are observed with radiofrequency ablation. I personally do not think that this is a good option for the patient however I do not mind to try radiofrequency ablation if patient insists on that. We would need to repeat the diagnostic medial branch blocks at the knees which previously were not very encouraging for radiofrequency ablation and that is why we switched our attention to [employer] spinal cord stimulator. Prior : trial of [employer] spinal cord stimulator. She reports 80-90% pain improvement after the procedure. She reports good social interactions while on stimulation she reports improvement of activities of daily living however limited they are due to the patient's being wheelchair-bound. She wants me to schedule her for implant of the spinal cord stimulator under sedation or under general anesthesia. She also complains on pain in the lower back, she complains on spastic sensations in the lower back. I offered her to try baclofen for this condition. I will prescribe small dose 10 mg of baclofen qhs to help her back spasms. Her peripheral veins are basically absent and I would need to start the central line (IJ). Prior: Multiple health problems, wheelchair-bound , complains on pain in bilateral knees. Apparently her pain started in beginning of November of 2022. She reported that she fell on her knees and she ?mashed ?them. She reported intractable pain in bilateral knees with radiation into bilateral hips. She reports that her pain is intermittent in nature and she has pain sometimes in the level of 8 to 9/10 today her pain is 3/10 and not very severe. During this trauma she also received fracture of the right ankle but she does not report any pain in right ankle today. 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 She had trialed multiple medications to help her pain with no success. She is taking Tylenol because opioid medications are giving her multiple reactions including nausea vomiting and rash. She had acupuncture therapy without success. Long time ago she had chiropractic manipulations but that was not directed to the knees. She never received any injections in the knees. She is currently on Coumadin for blood clot control. 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 She is status post bariatric surgery she has history of pemphigus, she is asthmatic she has diabetes and chronic fatigue. She has a history of ovarian cancer which resulted with or fact bruce and hysterectomy in 2009. She had bariatric surgery in 2014 she had gallbladder surgery in 2013. She had parathyroid gland removed in 2009. 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 She denies smoking cigarettes, drinking alcohol occasionally she denies soda but she admits drinking coffee in the morning. She denies recreational drugs. REPLACED BY [facility] Medical History (Updated 02/06/24 @ 13:34 by Francisco Matias MD) Diabetes Hypertension Anxiety Complex regional pain syndrome i of lower limb, bilateral Morbid obesity Wheelchair dependent Asthma Bradycardia Pemphigus Pancreatic ductal abnormality Surgical History H/O oral surgery Family History Father Heart attack Mental health disorder Mother Heart attack Macular degeneration Mental health disorder Social History Housing: Apartment Patient Tobacco Use Status: Never used Tobacco e-Cigarette/Vaping Use: Never Used Second Hand Smoke Exposure: No service: No Current occupational status: disabled Cognitive needs: No Hearing needs: Yes Vision needs: Yes (wears reading glasses) Review of Systems Const All systems reviewed & are unremarkable except as noted in HPI and below ENT Reports Normal hearing present Neuro Reports Normal hearing present, Denies Abnormal speech present, Denies confusion and Denies Sensory deficit (Neuro) Psych Denies confusion Physical Exam Vital Signs: Last Vital Signs Pulse 71 03/19/24 14:37 Resp 12 03/19/24 14:37 BP 130/72 03/19/24 14:37 Pulse Ox 94 03/19/24 14:37 Oxygen Delivery Method Room Air 03/19/24 14:37 BMI result Body Mass Index 36.6 Const General: no acute distress; No confusion Nutritional Appearance: obese morbidly obese Orientation/consciousness: patient oriented x3 and No confusion Eyes General: appearance normal, both eyes and all related structures Pupils: Equal, round and reactive pupils present EOM: EOMs intact bilaterally Neck Neck: Yes full ROM Chest Chest palpation & inspection: normal inspection of the chest Resp Effort & Inspection: normal respiratory effort, able to speak in complete sentences, normal respiratory pattern, no audible wheezes and no cough Cardio Jugular venous distension: no JVD GI Inspection: Yes normal to inspection Neuro General: patient oriented x3, gait normal and No confusion Cranial nerves: Yes CN's II-XII intact bilaterally, Yes Equal, round and reactive pupils present, Yes Normal hearing present and Yes Ability to bilaterally elevate shoulders present Speech: No Abnormal speech present Gait exam (Neuro): Normal gait present Motor exam (neuro): 5/5 motor strength present throughout Sensory Exam: No Sensory deficit (Neuro) Extrem Other: On visual inspection there is purplish discoloration of bilateral knees. Range of motion is severely limited in bilateral knees. Mild crepitus in sensed in the bilateral knees with minimal movement. The right knee is higher in temperature than the left knee. There is no ballottement of the bilateral patella. There is no joint effusion. General: No pedal edema Psych Speech and movement: Normal speech and movement present Affect: normal affect Attitude: cooperative Thought process: Normal thought process present Thought content: Normal thought content present Insight: Good insight present (Psych) Judgement: Good judgement present (Psych) Assessment & Plan Assessment & Plan (1) Arthritis: Code(s): M19.90 - Unspecified osteoarthritis, unspecified site Category: Medical (2) History of ovarian cancer: Code(s): Z85.43 - Personal history of malignant neoplasm of ovary Category: Medical (3) Chronic pain syndrome: Code(s): G89.4 - Chronic pain syndrome Category: Medical (4) Unspecified venous (peripheral) insufficiency: Code(s): I87.2 - Venous insufficiency (chronic) (peripheral) Category: Medical Plan Very good results of [employer] spinal cord stimulator trial. Patient reports 85-90% pain improvement. The implantation was scheduled however the patient came to the operating room with acute diarrhea. I had to cancel the implantation. The are in the office today herself and her 10 the discussion is as above. They will give me a call about their decision. Patient Instructions: I here by testify that I spent 35 minutes in conversation with this patient as well as planning her care and organizing this note. Coding Level of Care Code Est Pt Level 4 (69955) Diagnoses Arthritis M19.90 History of ovarian cancer Z85.43 Chronic pain syndrome G89.4 Unspecified venous (peripheral) insufficiency I87.2
[2024-03-19 14:37] VITALS: BP 130/72; PULSE 71; RESP 12; O2SAT 94; BMI 36.6
== END 2024-03-19 15:03 | disposition home or self-care (01) ==
PROVIDERS: PCP Family Medicine; Visit Provider Anesthesiology
DX: M19.90 Unspecified osteoarthritis, unspecified site (principal); Z85.43 Personal history of malignant neoplasm of ovary; G89.4 Chronic pain syndrome; I87.2 Venous insufficiency (chronic) (peripheral)
CPT/HCPCS: 99214

== ENCOUNTER → 2024-03-19 14:11 | Outpatient (BNVA) | payer MEDICARE, MEDICAID, SELFPAY | PROVIDERS: PCP Family Medicine; Visit Provider Anesthesiology | DX: M19.90 Unspecified osteoarthritis, unspecified site (principal); I87.2 Venous insufficiency (chronic) (peripheral); G89.4 Chronic pain syndrome; Z85.43 Personal history of malignant neoplasm of ovary | CPT/HCPCS: 99212 ==

== ENCOUNTER 2024-04-09 14:13 | Outpatient (AMB) | payer MEDICARE, MEDICAID, SELFPAY ==
--- NOTE | 2024-04-09 14:15 | MHC.PC.OV ---
Vital Signs 04/09/24 14:16 Height 5 ft 5 in Weight 220 lb BMI 36.6 BP 128/62 Blood Pressure Location Lt brachial Position Sitting Pulse 65 Pulse Source Pulse Oximeter Pulse Oximetry (%) 96 Oxygen Delivery Method Room Air Intake Visit Reasons: follow up diabetes Intake Note: Patient is here for follow up on diabetes and chronic conditions. Allergies ketorolac [From TORADOL] Allergy (Intermediate, Verified 04/09/24 14:25) VOMITING morphine [MORPHINE] Allergy (Intermediate, Verified 04/09/24 14:25) vomiting oxycodone [OXYCODONE] Allergy (Intermediate, Verified 04/09/24 14:25) VOMITING acetaminophen [From PERCOCET] Allergy (Unknown, Verified 04/09/24 14:25) ANAPHYLAXIS hydromorphone [From DILAUDID] Allergy (Unknown, Verified 04/09/24 14:25) HIVES midodrine Allergy (Unknown, Verified 04/09/24 14:25) Anaphylaxis dilation drops for eye Allergy (Mild, Uncoded 04/09/24 14:25) swelling, redness, pain Dilaudid Allergy (Unknown, Uncoded 04/09/24 14:25) Rash Erythromycin Allergy (Unknown, Uncoded 04/09/24 14:25) Vomiting Toradol Allergy (Unknown, Uncoded 04/09/24 14:25) Unknown Tobacco use date assessed: 04/09/24 Fall risk assessment: No Falls in past year Last assessed Fall Risk: 04/09/24 Dental Screening Dental Screen Date: 04/09/24 Did you have a dental visit in the last 12 months?: Yes Did you have a dental problem in the last 6 months where you did not have access to dental care?: No Was dental information given to patient?: Patient has dentist HPI follow up diabetes HPI Details 69 y/o female presents to f/u diabetes. Last A1c 01/10/24 7.6%. Had added metformin 250mg daily and continued her glipizide ER 5mg daily. A1c today 04/09/24 is 7.0%. [facility] Medical History Diabetes Hypertension Anxiety Complex regional pain syndrome i of lower limb, bilateral Morbid obesity Wheelchair dependent Asthma Bradycardia Pemphigus Pancreatic ductal abnormality Surgical History H/O oral surgery Family History Father Heart attack Mental health disorder Mother Heart attack Macular degeneration Mental health disorder Social History Housing: Apartment Patient Tobacco Use Status: Never used Tobacco e-Cigarette/Vaping Use: Never Used Second Hand Smoke Exposure: No service: No Current occupational status: disabled Cognitive needs: No Hearing needs: Yes Vision needs: Yes (wears reading glasses) Questionnaire Thrive Questionnaire Date Thrive assessed: 10/09/23 GRETA-7 AMB Questionnaire GRETA-7 Date GRETA - 7 assessed: 12/06/23 Source: Developed by Drs. Stewart Hall, Linda Jesus, Ganga Mcgowan and colleagues, with an educational luis from [employer]. Review of Systems Const Denies chills, Denies fatigue, Denies fever(s), Denies headache(s) and Denies weakness ENT Denies dizziness and Denies headache(s) Card Denies dyspnea Resp Denies cough, Denies dyspnea, Denies wheezing and Denies other (shortness of breath) Musc Denies numbness and Denies tingling Neuro Denies dizziness, Denies headache(s), Denies numbness, Denies tingling and Denies weakness Psych Denies anxiety and Denies depression Endo Denies fatigue Aller/Immun Denies wheezing Physical exam (Primary Care) Vital Signs: Last Vital Signs Pulse 65 04/09/24 14:16 BP 128/62 04/09/24 14:16 Pulse Ox 96 04/09/24 14:16 Oxygen Delivery Method Room Air 04/09/24 14:16 BMI result Body Mass Index 36.6 Tobacco/Smoking Status: Tobacco use Status Tobacco use date assessed 04/09/24 04/09/24 14:29 Patient Tobacco Use Status Never used Tobacco 04/09/24 14:22 e-Cigarette/Vaping Use Never Used 04/09/24 14:22 Thrive Assessment: Date of Thrive Assessment Date Thrive assessed 10/09/23 04/09/24 14:22 Const General: well developed; No acute distress Nutritional Appearance: well nourished Orientation/consciousness: patient oriented x3 HENMT Head: Yes normocephalic and Yes atraumatic Eyes General: appearance normal, both eyes and all related structures Pupils: Equal, round and reactive pupils present EOM: EOMs intact bilaterally Resp Effort & Inspection: normal respiratory effort Auscultation: clear to auscultation bilaterally Cardio Rate: regular rate Rhythm: regular rhythm Heart sounds: S1 normal heart sound present, S2 normal heart sound present, no gallops, no murmurs and no rubs Neuro General: patient oriented x3 and gait normal Cranial nerves: Yes Equal, round and reactive pupils present Psych Affect: normal affect Assessment and Plan Assessment & Plan (1) Diabetes: Code(s): E11.9 - Type 2 diabetes mellitus without complications Plan: A1c?was?7.6%?at?last?check?and?I?added?a?low?dose?of?metformin?along?with?glipizide?she?was?already?taking. A1c?now?at?7.0%?which?is?acceptable?control?for?her. Continue?current?medication?regimen (2) Chronic pain syndrome: Code(s): G89.4 - Chronic pain syndrome Plan: Scheduled?for?spine?stimululator Follow-up?with?pain?management?as?recommended Orders: Orders Comprehensive [place]. Panel Fast Today E11.9 - Type 2 diabetes mellitus without complications, Z00.00 - Encounter for general adult medical examination without abnormal findings AMB Hemoglobin A1c Today Z13.9 - Encounter for screening, unspecified Medications: New blood-glucose meter (OneTouch Verio Flex Meter) To test blood sugar as directed, 999 days 1 ea 0RF E11.9 - Type 2 diabetes mellitus without complications lancets ([employer] Delica Plus Lancet) To Test Blood Sugar 2 times a day, As directed. 90 days 200 ea 3RF E11.9 - Type 2 diabetes mellitus without complications mupirocin 2% 1 appl topical BID 60 grams 2RF 12 days blood sugar diagnostic (OneTouch Verio test strips) To test Blood sugar 2 times a day, As directed, 90 days 200 ea 4RF DX: E11.9, test blood sugar twice a day, 90 day E11.69 - Type 2 diabetes mellitus with other specified complication, E11.9 - Type 2 diabetes mellitus without complications, E66.9 - Obesity, unspecified Coding Level of Care Code Est Pt Level 3 (03842) Diagnoses Diabetes E11.9 Chronic pain syndrome G89.4
[2024-04-09 14:16] VITALS: BP 128/62; PULSE 65; O2SAT 96; BMI 36.6
== END 2024-04-09 14:59 | disposition home or self-care (01) ==
PROVIDERS: PCP Family Medicine; Visit Provider Family Medicine
DX: E11.9 Type 2 diabetes mellitus without complications (principal); G89.4 Chronic pain syndrome
CPT/HCPCS: 83036; 99213

== ENCOUNTER 2024-04-17 07:52 | Day surgery (SDC) | payer MEDICARE, MEDICAID, SELFPAY ==
[2024-04-15 11:29] VITALS: BMI 36.6
--- NOTE | 2024-04-16 09:40 | HO.ANESPROP2 ---
Documented by User: Sonja Choudhary NP 04/16/24 09:42 HPI - Anesthesia Eval Consult details Narrative: 68yo F for Spinal Cord Stimulation Implant s/p trial 01/03/24 with Local. Required PICC line placement preop, but access was lost. Trial done under local anesthesia only. Per surgeon H&P, Dr Matias will be placing central line in OR. Warfarin for hx PE s/p splenectomy and partial pancrectomy d/t pancreatic mass PMFSH Active Problems Active Problems: All Active Problems Unspecified venous (peripheral) insufficiency (Acute) Incontinence (Acute) Immunization counseling (Acute) Screening for osteoporosis (Acute) Abnormal lung sounds (Acute) Elevated liver enzymes (Acute) Cough (Acute) Breast cancer screening by mammogram (Acute) Screening for colon cancer (Acute) Screening for cervical cancer (Acute) Adult general medical exam (Acute) Chronic pain syndrome (Acute) Lower extremity weakness (Acute) Arthritis (Acute) Leg pain (Acute) History of ovarian cancer (Acute) History of kidney stones (Acute) History of hypotension (Acute) Inclusion body myositis (Acute) Chronic anticoagulation (Acute) Chronic pain (Acute) Thyroid nodule (Acute) Hypertension (Acute) Diabetes (Acute) Pemphigus (Acute) Pancreatic ductal abnormality (Acute) Past Medical History Medical History Anxiety Complex regional pain syndrome i of lower limb, bilateral Morbid obesity Wheelchair dependent Asthma Diabetes Hypertension Bradycardia Pemphigus Pancreatic ductal abnormality Family History Family History Father Heart attack Mental health disorder Mother Heart attack Macular degeneration Mental health disorder Family history of problems with anesthesia: No Surgical History Surgical History Hx of parathyroidectomy Hx of cholecystectomy Hx of splenectomy Hx of bariatric surgery Hx of hysterectomy S/P placement of nerve stimulator H/O oral surgery History of Problems with Anesthesia: No Social History Social History Housing: Apartment Patient Tobacco Use Status: Never used Tobacco e-Cigarette/Vaping Use: Never Used Second Hand Smoke Exposure: No Are you DNR?: No Advance Directives: No Advance Directives Information Provided: Yes Nutrition Risks: No Nutritional Risk service: No Current occupational status: disabled Cognitive needs: No Hearing needs: Yes Vision needs: Yes (wears reading glasses) Meds Allergies Allergy/AdvReac Type Severity Reaction Status Date / Time ketorolac [From TORADOL] Allergy Intermediate VOMITING Verified 04/17/24 08:41 morphine [MORPHINE] Allergy Intermediate vomiting Verified 04/17/24 08:41 oxycodone [OXYCODONE] Allergy Intermediate VOMITING Verified 04/17/24 08:41 acetaminophen [From PERCOCET] Allergy Unknown ANAPHYLAXIS Verified 04/17/24 08:41 hydromorphone [From DILAUDID] Allergy Unknown HIVES Verified 04/17/24 08:41 midodrine Allergy Unknown Anaphylaxis Verified 04/17/24 08:41 dilation drops for eye Allergy Mild swelling, Uncoded 04/17/24 08:41 redness, pain Dilaudid Allergy Unknown Rash Uncoded 04/17/24 08:41 Erythromycin Allergy Unknown Vomiting Uncoded 04/17/24 08:41 Home Medications ?Medication ?Instructions ?Recorded ?Confirmed ?Last Taken ?Type albuterol sulfate 90 mcg/actuation 2 puff inhalation Q6H PRN 07/16/23 04/15/24 Unknown History aerosol inhaler (ProAir HFA) Bronchodilation bisacodyl 5 mg tablet,delayed 5 mg PO BEDTIME 07/16/23 04/15/24 Unknown History release (Dulcolax (bisacodyl)) citalopram 40 mg tablet 20 mg PO DAILY 07/16/23 04/15/24 Unknown History clobetasol 0.05 % topical gel 1 appl topical DAILY 07/16/23 04/15/24 Unknown History glipizide 5 mg tablet, extended 5 mg PO DAILY 07/16/23 04/15/24 04/17/24 History release 24 hr multivitamin 1 tab PO DAILY 07/16/23 04/15/24 Unknown History mupirocin 2 % topical ointment 1 appl topical BID 07/16/23 01/10/24 Unknown History warfarin 4 mg tablet 4 mg PO DAILY 07/16/23 04/15/24 04/11/24 History omeprazole 20 mg capsule,delayed 20 mg PO DAILY 08/05/23 04/15/24 10/26/23 History release Exam Height,Weight and Vital Signs: Height 5 ft 5 in Weight 99.79 kg Pertinent Lab Results Pertinent Lab Results: Laboratory Tests 07/25/23 09:42 WBC 10.1 Hgb 14.3 Hct 42.5 Plt Count 303 Sodium 138 Potassium 3.5 Chloride 106 Carbon Dioxide 24 BUN 11 Creatinine 0.49 L Assessment and Plan Assessment Anesthesia Assessment: Chart Reviewed Final Anesthetic Review Family History of Problems with Anesthesia: No History of Problems with Anesthesia: No Documented by User: Darius Herrera MD 04/17/24 12:36 PMFSH Past Medical History Medical History Anxiety Complex regional pain syndrome i of lower limb, bilateral Morbid obesity Wheelchair dependent Asthma Diabetes Hypertension Bradycardia Pemphigus Pancreatic ductal abnormality Family History Family History Father Heart attack Mental health disorder Mother Heart attack Macular degeneration Mental health disorder Surgical History Surgical History Hx of parathyroidectomy Hx of cholecystectomy Hx of splenectomy Hx of bariatric surgery Hx of hysterectomy S/P placement of nerve stimulator H/O oral surgery Social History Social History Housing: Apartment Patient Tobacco Use Status: Never used Tobacco e-Cigarette/Vaping Use: Never Used Second Hand Smoke Exposure: No Are you DNR?: No Advance Directives: No Advance Directives Information Provided: Yes Nutrition Risks: No Nutritional Risk service: No Current occupational status: disabled Cognitive needs: No Hearing needs: Yes Vision needs: Yes (wears reading glasses) Meds Allergies Allergy/AdvReac Type Severity Reaction Status Date / Time ketorolac [From TORADOL] Allergy Intermediate VOMITING Verified 04/17/24 08:41 morphine [MORPHINE] Allergy Intermediate vomiting Verified 04/17/24 08:41 oxycodone [OXYCODONE] Allergy Intermediate VOMITING Verified 04/17/24 08:41 acetaminophen [From PERCOCET] Allergy Unknown ANAPHYLAXIS Verified 04/17/24 08:41 hydromorphone [From DILAUDID] Allergy Unknown HIVES Verified 04/17/24 08:41 midodrine Allergy Unknown Anaphylaxis Verified 04/17/24 08:41 dilation drops for eye Allergy Mild swelling, Uncoded 04/17/24 08:41 redness, pain Dilaudid Allergy Unknown Rash Uncoded 04/17/24 08:41 Erythromycin Allergy Unknown Vomiting Uncoded 04/17/24 08:41 Home Medications ?Medication ?Instructions ?Recorded ?Confirmed ?Last Taken ?Type albuterol sulfate 90 mcg/actuation 2 puff inhalation Q6H PRN 07/16/23 04/15/24 Unknown History aerosol inhaler (ProAir HFA) Bronchodilation bisacodyl 5 mg tablet,delayed 5 mg PO BEDTIME 07/16/23 04/15/24 Unknown History release (Dulcolax (bisacodyl)) citalopram 40 mg tablet 20 mg PO DAILY 07/16/23 04/15/24 Unknown History clobetasol 0.05 % topical gel 1 appl topical DAILY 07/16/23 04/15/24 Unknown History glipizide 5 mg tablet, extended 5 mg PO DAILY 07/16/23 04/15/24 04/17/24 History release 24 hr multivitamin 1 tab PO DAILY 07/16/23 04/15/24 Unknown History mupirocin 2 % topical ointment 1 appl topical BID 07/16/23 01/10/24 Unknown History warfarin 4 mg tablet 4 mg PO DAILY 07/16/23 04/15/24 04/11/24 History omeprazole 20 mg capsule,delayed 20 mg PO DAILY 08/05/23 04/15/24 10/26/23 History release Exam Airway Mallampati Class: I TM Dist: >3cm Neck ROM: Full Loose/Missing/Broken Teeth: No Heart: ok Lungs: ok Assessment and Plan Assessment Anesthesia Assessment: Anesthesia Plan Discussed Final Anesthetic Review NPO: Yes ASA Class: IV Final Preanesthetic Review: No Changes in Pt Med Stat, Meds/Allgs Chart Reviewed, Consent Obtained/Reviewed and Anes Risks/Benef Reviewed Patient Risk: High Procedure Risk: Intermediate Anesthetic Plan Anesthetic Plan: GA and Agree w/ Assess. and Plan Disposition: Standard PACU
[2024-04-17] VITALS (11 sets, daily range): BP systolic 140–175; BP diastolic 62–87; PULSE 50–57; RESP 14–18; TEMP 36.4–36.8; O2SAT 92–97
--- NOTE | ~2024-04-17 | FL_ITS ---
EXAMINATION: XR FLUOROSCOPY WITH IMAGES CLINICAL INFORMATION: Spinal cord stimulation implant. COMPARISON: None available. TECHNIQUE: Fluoroscopy Supervised By: Dr. Francisco Matias. Fluoroscopy Time: 5 minutes, 11 seconds. Cumulative Dose: 187.76 mGy. DAP: 32.152 Gycm2. Images: 2. FINDINGS: Intraoperative fluoroscopy and spot films were performed during a procedure in the OR. A probe is seen overlying the back of what appears to be L4. Precise level can not be ascertained secondary to coning of the images with lack of definitive landmarks. Please correlate with Dr. Francisco Matias's report for complete details. FL/FL guidance in OR IMPRESSION: Intraoperative fluoroscopy and spot films were obtained. Please see Dr. Francisco Matias's report for complete details.
[2024-04-17] MEDS: Lactated Ringers 1,000 ML 100 ML IVCONT (08:31)
[2024-04-17 08:34] LABS: Glucose, Whole Blood 128 mg/dL (60-115)
[2024-04-17 08:53] LABS: INTERNATIONAL NORM RATIO 0.9 (0.9-1.1); Prothrombin Time 11.3 SEC (11.1-13.3)
--- NOTE | 2024-04-17 10:55 | MHC.SHP ---
Pre-Procedural Eval Section A - 24 Hr Update-Section A only Date of Service: 04/17/24 The patient is an INPATIENT: No Changes since office visit: Yes Patient answered all questions The patient has been examined within 24 hours of the surgical procedure. The History & Physical has been completed within 30 days and I have reviewed it.: No Section B - Complete if H&P > 30 days Chief Complaint: Complex regional pain syndrome I of lower limb, Details of Present Illness: As above Relevant Family History (Specify if Yes): No Relevant Social History: None Present Medications: None Medical History: Significant History History of Previous Operations: Relevant previous surgery/procedure and date(s) Allergies: Allergies Allergy/AdvReac Type Severity Reaction Status Date / Time ketorolac [From TORADOL] Allergy Intermediate VOMITING Verified 04/17/24 08:41 morphine [MORPHINE] Allergy Intermediate vomiting Verified 04/17/24 08:41 oxycodone [OXYCODONE] Allergy Intermediate VOMITING Verified 04/17/24 08:41 acetaminophen [From PERCOCET] Allergy Unknown ANAPHYLAXIS Verified 04/17/24 08:41 hydromorphone [From DILAUDID] Allergy Unknown HIVES Verified 04/17/24 08:41 midodrine Allergy Unknown Anaphylaxis Verified 04/17/24 08:41 dilation drops for eye Allergy Mild swelling, Uncoded 04/17/24 08:41 redness, pain Dilaudid Allergy Unknown Rash Uncoded 04/17/24 08:41 Erythromycin Allergy Unknown Vomiting Uncoded 04/17/24 08:41 Review of Systems Sugical H&P ROS: Negative: Cardiovascular, Respiratory, Neurological, Psychiatric, Hem-Onc, Allergic/Immunologic, Gastrointestinal, Genitourinary, Integumentary and Eyes/Ears/Nose/Throat and Yes, Specify: Constitution (Morbid obesity), Musculoskeletal (Complex regional pain syndrome bilateral lower extremities) and Endocrine (Diabetes) Exam Surgical H&P Exam: Normal: HEENT, Normal: Heart, Normal: Lungs, Normal: Skin and Normal: Neurological and Significant Findings: Extremities (Bilateral knees swollen and tender on palpation) and Significant Findings: Abdomen (Enlarged due to fat) Plan Diagnosis/Plan: Unchanged I have reviewed the history and physical and performed a pertinent physical examination on my patient. No changes have occurred unless specified. Time Spent With Patient Time: Total time managing care of this patient today ____ minutes.
--- NOTE | 2024-04-17 12:27 | PC.NURSE ---
IV inserted by Dr. Herrera
--- NOTE | 2024-04-17 14:00 | PM.OP ---
Brief Operative Note Date of Service: 04/17/24 Pre-op diagnosis: Complex regional pain syndrome bilateral lower extremities Post-op diagnosis: same Procedure: Attempt to perform spinal cord stimulator [employer]. Surgeon: Francisco Matias MD Was an Concrete Pump Operator used for this Procedure?: No Estimated blood loss (mL): 8 Condition: stable Disposition: PACU
--- NOTE | 2024-04-17 14:01 | P.OP_ITS ---
Operative Note Operative Note Date of Service: 04/17/24 Narrative: Attempt of the permanent implantation of [employer] spinal cord stimulator. Informed consent was thoroughly explained to the patient risks and benefits explained. The patient was taken to the operating room and was positioned prone on the operating table. [place] [employer] monitors were applied and patient was induced with general anesthesia with LMA. Time-out was performed delineating name date of of the patient's side and sites of the procedure risk of fire needs for antibiotic prophylaxis. Antibiotics were given see anesthesia records. After that the lower back of the patient was prepped with ChloraPrep and draped with full body fenestrated drape including Ioban film. Sterilely draped C-arm was brought over the operating field and sq picture of L5-S1 vertebra were delineated on the screen. Attention was 1st concentrated on L5-S1 right epidural interspace. 4 cm below the level of the S1 lamina of the right the skin was infiltrated in linear vertical fashion 5 cm long. Ten blade scalpel was used to make a vertical incision. Thorough hemostasis was obtained and wound was widened and deepened using cautery and dull dissection. 3 cm below the level of the lamina of S1 on the right introducer epidural needle was inserted through the prevertebral fascia and advanced to were the epidural space on intermittent anterior posterior and lateral views. Loss of resistance to air technique and guitar wire were used to demonstrate epidural space. After that epidural catheter was inserted into the epidural needle and advanced into the epidural space under live view of the C-arm. At this point the epidural lead meth resistance and I was not able to advance the epidural lead higher than lower border of L3 vertebra. Epidural introducer needle was withdrawn. Blue sheath introducer was obtained it was inserted over the epidural lead into the epidural space. This allowed me to overcome the adhesions and epidural lead went into desired positioned at L2-L3 vertebral bodies. However when I withdrew the driving stylette from the epidural lead I paid attention that the CSF is coming from hub of the blue sheath introducer unfortunately blue sheath introducer went from the epidural space into the intrathecal space. Therefore my epidural lead was located in the intrathecal space at this time. The decision was made to withdraw the epidural lead. The epidural lead was withdrawn EN mass with blue sheath introducer. Pressure was held for 30 seconds. After that attention was concentrated at L4-5 and L3-L4 epidural interspaces were attempts were made to reach epidural space. Multiple attempts were made using different kind of the needles including Coude needle and straight introducer needle. Unfortunately very narrow interlaminar space was encountered and I was not able to advance epidural needle into the epidural space and those levels. At this time the decision was made to abort the procedure. I removed the epidural needle from the patient's back irrigated the wound with normal saline containing vancomycin and close the wound with 0 -0 Polysorb suture and after that applied theodore to the skin level. Bacitracin ointment was applied as well. The patient was transferred on the stretcher, awakened , LMA was removed and she went to PACU for further recovery. The recommendations were given to the patient, I also spoke with the of the patient and explained the consequences of the today's procedure and options for the for the pain management.
[2024-04-17] MEDS: fentaNYL citrate/PF 100 MCG/2 ML VIAL 25 MCG IVPUSH (14:24)
== END 2024-04-17 15:30 | disposition home or self-care (01) ==
PROVIDERS: Nurse Practitioner; PCP Family Medicine; Visit Provider Anesthesiology
PROC: (CPT 63650; principal; 2024-04-17 10:10)
DX: G90.523 Complex regional pain syndrome I of lower limb, bilateral (principal); G89.4 Chronic pain syndrome; M19.90 Unspecified osteoarthritis, unspecified site; I87.2 Venous insufficiency (chronic) (peripheral); G72.41 Inclusion body myositis [IBM]; I10 Essential (primary) hypertension; E11.9 Type 2 diabetes mellitus without complications; J45.909 Unspecified asthma, uncomplicated; Z79.01 Long term (current) use of anticoagulants; Z99.3 Dependence on wheelchair; Z88.5 Allergy status to narcotic agent; Z53.09 Procedure and treatment not carried out because of other contraindication
CPT/HCPCS: 63650; 36415; 82947; 85610; C1778; J0690; J2250; J2405; J2704; J2795; J3010; J3370

== ENCOUNTER → 2024-04-17 07:52 | Outpatient (BNV) | payer MEDICARE, MEDICAID, SELFPAY | PROVIDERS: PCP Family Medicine; Visit Provider Anesthesiology | DX: G90.523 Complex regional pain syndrome I of lower limb, bilateral (principal) | CPT/HCPCS: 63650 ==

== ENCOUNTER 2024-04-23 11:19 | Outpatient (AMB) | payer MEDICARE, MEDICAID, SELFPAY ==
--- NOTE | 2024-04-23 11:26 | A.OFFVIS_ITS ---
Vital Signs 04/23/24 11:57 BP 150/72 H Blood Pressure Location Lt brachial Position Sitting Respiration 14 Pulse 60 Pulse Source Pulse Oximeter Pulse Oximetry (%) 96 Oxygen Delivery Method Room Air Intake Visit Reasons: S/p [place] [employer] SCS Implant 04/17/24 Intake Note: Patient comes in for post-op appointment. Reports pain 5/10. Allergies ketorolac [From TORADOL] Allergy (Intermediate, Verified 04/23/24 11:59) VOMITING morphine [MORPHINE] Allergy (Intermediate, Verified 04/23/24 11:59) vomiting oxycodone [OXYCODONE] Allergy (Intermediate, Verified 04/23/24 11:59) VOMITING acetaminophen [From PERCOCET] Allergy (Unknown, Verified 04/23/24 11:59) ANAPHYLAXIS hydromorphone [From DILAUDID] Allergy (Unknown, Verified 04/23/24 11:59) HIVES midodrine Allergy (Unknown, Verified 04/23/24 11:59) Anaphylaxis dilation drops for eye Allergy (Mild, Uncoded 04/17/24 08:41) swelling, redness, pain Dilaudid Allergy (Unknown, Uncoded 04/17/24 08:41) Rash Erythromycin Allergy (Unknown, Uncoded 04/17/24 08:41) Vomiting HPI Comments Details: Celestina is in my office after attempt to perform implantation of spinal cord stimulator in the lumbar spine. Unfortunately due to severe adhesions in the patient's epidural space I was not able to accomplish the procedure. One of the epidural electrodes went into intrathecally. Fortunately patient did not develop post dural puncture headache. She is here for dressing change. The dressing was removed today: No redness no swelling no pathological discharge no tenderness on palpation there is minor bruising in tissue surrounding the incision. The theodore are competent. It was worse with ChloraPrep and bacitracin ointment on sterile 4 x 4 was applied with Tegaderm film. We discuss chronic opioid therapy. Briefly informed consent for opioid therapy opioid information page and opioid contract were explained to the patient. The patient will be thinking about it. Alternatively I can schedule her for the neurosurgeon Dr. Nielson to perform implantation of the device under direct vision control with laminotomy of L2 vertebra. I will see this patient in 7 days for dressing change and staple removal. Prior : trial of [employer] spinal cord stimulator. She reports 80-90% pain improvement after the procedure. She reports good social interactions while on stimulation she reports improvement of activities of daily living however limited they are due to the patient's being wheelchair-bound. She wants me to schedule her for implant of the spinal cord stimulator under sedation or under general anesthesia. She also complains on pain in the lower back, she complains on spastic sensations in the lower back. I offered her to try baclofen for this condition. I will prescribe small dose 10 mg of baclofen qhs to help her back spasms. Her peripheral veins are basically absent and I would need to start the central line (IJ). Prior: Multiple health problems, wheelchair-bound , complains on pain in bilateral knees. Apparently her pain started in beginning of November of 2022. She reported that she fell on her knees and she ?mashed ?them. She reported intractable pain in bilateral knees with radiation into bilateral hips. She reports that her pain is intermittent in nature and she has pain sometimes in the level of 8 to 9/10 today her pain is 3/10 and not very severe. During this trauma she also received fracture of the right ankle but she does not report any pain in right ankle today. 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 She had trialed multiple medications to help her pain with no success. She is taking Tylenol because opioid medications are giving her multiple reactions including nausea vomiting and rash. She had acupuncture therapy without success. Long time ago she had chiropractic manipulations but that was not directed to the knees. She never received any injections in the knees. She is currently on Coumadin for blood clot control. 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 She is status post bariatric surgery she has history of pemphigus, she is asthmatic she has diabetes and chronic fatigue. She has a history of ovarian cancer which resulted with or fact bruce and hysterectomy in 2009. She had bariatric surgery in 2014 she had gallbladder surgery in 2013. She had parathyroid gland removed in 2009. 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 She denies smoking cigarettes, drinking alcohol occasionally she denies soda but she admits drinking coffee in the morning. She denies recreational drugs. [facility] Medical History Anxiety Complex regional pain syndrome i of lower limb, bilateral Morbid obesity Wheelchair dependent Asthma Diabetes Hypertension Bradycardia Pemphigus Pancreatic ductal abnormality Surgical History Hx of parathyroidectomy Hx of cholecystectomy Hx of splenectomy Hx of bariatric surgery Hx of hysterectomy S/P placement of nerve stimulator H/O oral surgery Family History Father Heart attack Mental health disorder Mother Heart attack Macular degeneration Mental health disorder Social History Housing: Apartment Patient Tobacco Use Status: Never used Tobacco e-Cigarette/Vaping Use: Never Used Second Hand Smoke Exposure: No service: No Current occupational status: disabled Cognitive needs: No Hearing needs: Yes Vision needs: Yes (wears reading glasses) Review of Systems Const All systems reviewed & are unremarkable except as noted in HPI and below ENT Reports Normal hearing present Neuro Reports Normal hearing present, Denies Abnormal speech present, Denies confusion and Denies Sensory deficit (Neuro) Psych Denies confusion Physical Exam Vital Signs: Last Vital Signs Pulse 60 04/23/24 11:57 Resp 14 04/23/24 11:57 BP 150/72 H 04/23/24 11:57 Pulse Ox 96 04/23/24 11:57 Oxygen Delivery Method Room Air 04/23/24 11:57 Const General: no acute distress; No confusion Nutritional Appearance: obese morbidly obese Orientation/consciousness: patient oriented x3 and No confusion Eyes General: appearance normal, both eyes and all related structures Pupils: Equal, round and reactive pupils present EOM: EOMs intact bilaterally Neck Neck: Yes full ROM Chest Chest palpation & inspection: normal inspection of the chest Resp Effort & Inspection: normal respiratory effort, able to speak in complete sentences, normal respiratory pattern, no audible wheezes and no cough Cardio Jugular venous distension: no JVD GI Inspection: Yes normal to inspection Neuro General: patient oriented x3, gait normal and No confusion Cranial nerves: Yes CN's II-XII intact bilaterally, Yes Equal, round and reactive pupils present, Yes Normal hearing present and Yes Ability to bilaterally elevate shoulders present Speech: No Abnormal speech present Gait exam (Neuro): Normal gait present Motor exam (neuro): 5/5 motor strength present throughout Sensory Exam: No Sensory deficit (Neuro) Extrem Other: On visual inspection there is purplish discoloration of bilateral knees. Range of motion is severely limited in bilateral knees. Mild crepitus in sensed in the bilateral knees with minimal movement. The right knee is higher in temperature than the left knee. There is no ballottement of the bilateral patella. There is no joint effusion. General: No pedal edema Psych Speech and movement: Normal speech and movement present Affect: normal affect Attitude: cooperative Thought process: Normal thought process present Thought content: Normal thought content present Insight: Good insight present (Psych) Judgement: Good judgement present (Psych) Assessment & Plan Assessment & Plan (1) Arthritis: Code(s): M19.90 - Unspecified osteoarthritis, unspecified site Category: Medical (2) History of ovarian cancer: Code(s): Z85.43 - Personal history of malignant neoplasm of ovary Category: Medical (3) Chronic pain syndrome: Code(s): G89.4 - Chronic pain syndrome Category: Medical (4) Unspecified venous (peripheral) insufficiency: Code(s): I87.2 - Venous insufficiency (chronic) (peripheral) Category: Medical Plan Very good results of [employer] spinal cord stimulator trial. Patient reports 85-90% pain improvement. However attempt of implantation is not successful due to epidural adhesions developed in the epidural space. The dressing change as above. Next week I will remove theodore. I will discuss this case with Dr. Nielson for surgical implantation of the device if they want to. Opioid information page opioid consent an opioid contract were given to the patient for their information. We will discuss it further. Patient Instructions: I here by testify that I spent 30 minutes in conversation with this patient as well as changing her dressing discussing future treatments and organizing this note. Coding Level of Care Code Est Pt Level 4 (46825) Diagnoses Arthritis M19.90 History of ovarian cancer Z85.43 Chronic pain syndrome G89.4 Unspecified venous (peripheral) insufficiency I87.2
[2024-04-23 11:57] VITALS: BP 150/72; PULSE 60; RESP 14; O2SAT 96
== END 2024-04-23 11:48 | disposition home or self-care (01) ==
LOC: HO.PMC 11:19
PROVIDERS: PCP Family Medicine; Visit Provider Anesthesiology
DX: M19.90 Unspecified osteoarthritis, unspecified site (principal); Z85.43 Personal history of malignant neoplasm of ovary; G89.4 Chronic pain syndrome; I87.2 Venous insufficiency (chronic) (peripheral)
CPT/HCPCS: 99024

== ENCOUNTER → 2024-04-23 11:19 | Outpatient (BNVA) | payer MEDICARE, MEDICAID, SELFPAY | PROVIDERS: PCP Family Medicine; Visit Provider Anesthesiology | DX: M19.90 Unspecified osteoarthritis, unspecified site (principal); I87.2 Venous insufficiency (chronic) (peripheral); G89.4 Chronic pain syndrome; Z85.43 Personal history of malignant neoplasm of ovary | CPT/HCPCS: 99212 ==

== ENCOUNTER 2024-04-30 11:37 | Outpatient (AMB) | payer MEDICARE, MEDICAID, SELFPAY ==
[2024-04-30 12:13] VITALS: BP 144/67; PULSE 58; O2SAT 97; BMI 34.9
--- NOTE | 2024-04-30 12:13 | A.OFFVIS_ITS ---
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 Customs Required: No Accompanied by: Family/Other Allergies ketorolac [From TORADOL] Allergy (Intermediate, Verified 04/30/24 12:14) VOMITING morphine [MORPHINE] Allergy (Intermediate, Verified 04/30/24 12:14) vomiting oxycodone [OXYCODONE] Allergy (Intermediate, Verified 04/30/24 12:14) VOMITING acetaminophen [From PERCOCET] Allergy (Unknown, Verified 04/30/24 12:14) ANAPHYLAXIS hydromorphone [From DILAUDID] Allergy (Unknown, Verified 04/30/24 12:14) HIVES midodrine Allergy (Unknown, Verified 04/30/24 12:14) Anaphylaxis dilation drops for eye Allergy (Mild, Uncoded 04/17/24 08:41) swelling, redness, pain Dilaudid Allergy (Unknown, Uncoded 04/17/24 08:41) Rash Erythromycin Allergy (Unknown, Uncoded 04/17/24 08:41) Vomiting HPI Comments Details: Celestina is in my office after attempt to perform implantation of spinal cord stimulator in the lumbar spine. Unfortunately due to severe adhesions in the patient's epidural space I was not able to accomplish the procedure. One of the epidural electrodes went into intrathecal space. The patient did not develop post dural puncture headache. She is here for dressing change and staple removal. The dressing was removed today: No redness no swelling no pathological discharge no tenderness on palpation there is minor bruising in tissue surrounding the incision. The wound ages competent the wounds were worst with ChloraPrep sterile Band-Aid with bacitracin ointment was applied. Recommendations was given about the wound care. The chronic opioid therapy was discussed again fentanyl patch trial for 10 days was offered to the patient. Patient is reluctant to go for the patch trial she will think about it and she will give us a call if she wants to have it done. Currently she is taking tramadol combined with exuberant doses of the ibuprofen which is for chronic pain on the long run may result in renal insufficiency. This was explained to the patient again. Also I discussed this patient with interventional radiologist Dr. Anurag Lobo, Dr. Lobo thinks that this patient could be a good candidate for genicular arteries embolization to treat her bilateral knee pain. Neurosurgical approach also was discussed however currently the embolization of genicular arteries appears to be less invasive procedure. The patient has s uffered from pulmonary embolism in the past, she is little bit concerned about embolization of genicular arteries procedure. I briefly explained to her that embolization of the genicular arteries unlikely will cause deep vein thrombosis, her warfarin could be stopped briefly for the procedure. The appointment with the interventional radiology will be scheduled, it will be patient's decision whether or not she wants to proceed with this intervention. Prior : trial of [employer] spinal cord stimulator. She reports 80-90% pain improvement after the procedure. She reports good social interactions while on stimulation she reports improvement of activities of daily living however limited they are due to the patient's being wheelchair-bound. She wants me to schedule her for implant of the spinal cord stimulator under sedation or under general anesthesia. She also complains on pain in the lower back, she complains on spastic sensations in the lower back. I offered her to try baclofen for this condition. I will prescribe small dose 10 mg of baclofen qhs to help her back spasms. Her peripheral veins are basically absent and I would need to start the central line (IJ). Prior: Multiple health problems, wheelchair-bound , complains on pain in bilateral knees. Apparently her pain started in beginning of November of 2022. She reported that she fell on her knees and she ?mashed ?them. She reported intractable pain in bilateral knees with radiation into bilateral hips. She reports that her pain is intermittent in nature and she has pain sometimes in the level of 8 to 9/10 today her pain is 3/10 and not very severe. During this trauma she also received fracture of the right ankle but she does not report any pain in right ankle today. 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 She had trialed multiple medications to help her pain with no success. She is taking Tylenol because opioid medications are giving her multiple reactions including nausea vomiting and rash. She had acupuncture therapy without success. Long time ago she had chiropractic manipulations but that was not directed to the knees. She never received any injections in the knees. She is currently on Coumadin for blood clot control. 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 She is status post bariatric surgery she has history of pemphigus, she is asthmatic she has diabetes and chronic fatigue. She has a history of ovarian cancer which resulted with or fact bruce and hysterectomy in 2009. She had bariatric surgery in 2014 she had gallbladder surgery in 2013. She had parathyroid gland removed in 2009. 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 She denies smoking cigarettes, drinking alcohol occasionally she denies soda but she admits drinking coffee in the morning. She denies recreational drugs. [facility] Medical History Anxiety Complex regional pain syndrome i of lower limb, bilateral Morbid obesity Wheelchair dependent Asthma Diabetes Hypertension Bradycardia Pemphigus Pancreatic ductal abnormality Surgical History Hx of parathyroidectomy Hx of cholecystectomy Hx of splenectomy Hx of bariatric surgery Hx of hysterectomy S/P placement of nerve stimulator H/O oral surgery Family History Father Heart attack Mental health disorder Mother Heart attack Macular degeneration Mental health disorder Social History Housing: Apartment Patient Tobacco Use Status: Never used Tobacco e-Cigarette/Vaping Use: Never Used Second Hand Smoke Exposure: No service: No Current occupational status: disabled Cognitive needs: No Hearing needs: Yes Vision needs: Yes (wears reading glasses) Review of Systems Const All systems reviewed & are unremarkable except as noted in HPI and below ENT Reports Normal hearing present Neuro Reports Normal hearing present, Denies Abnormal speech present, Denies confusion and Denies Sensory deficit (Neuro) Psych Denies confusion Physical Exam Vital Signs: Last Vital Signs Pulse 58 04/30/24 12:13 BP 144/67 H 04/30/24 12:13 Pulse Ox 97 04/30/24 12:13 Oxygen Delivery Method Room Air 04/30/24 12:13 BMI result Body Mass Index 34.9 Const General: no acute distress; No confusion Nutritional Appearance: obese morbidly obese Orientation/consciousness: patient oriented x3 and No confusion Eyes General: appearance normal, both eyes and all related structures Pupils: Equal, round and reactive pupils present EOM: EOMs intact bilaterally Neck Neck: Yes full ROM Chest Chest palpation & inspection: normal inspection of the chest Resp Effort & Inspection: normal respiratory effort, able to speak in complete se ntences, normal respiratory pattern, no audible wheezes and no cough Cardio Jugular venous distension: no JVD GI Inspection: Yes normal to inspection Back/Spine/Pelvis Other: The wound was examined on the back of the patient the theodore were removed sterile dressing was applied. Neuro General: patient oriented x3, gait normal and No confusion Cranial nerves: Yes CN's II-XII intact bilaterally, Yes Equal, round and reactive pupils present, Yes Normal hearing present and Yes Ability to bilaterally elevate shoulders present Speech: No Abnormal speech present Gait exam (Neuro): Normal gait present Motor exam (neuro): 5/5 motor strength present throughout Sensory Exam: No Sensory deficit (Neuro) Extrem Other: On visual inspection there is purplish discoloration of bilateral knees. Range of motion is severely limited in bilateral knees. Mild crepitus in sensed in the bilateral knees with minimal movement. The right knee is higher in temperature than the left knee. There is no ballottement of the bilateral patella. There is no joint effusion. General: Yes pedal edema Psych Speech and movement: Normal speech and movement present Affect: normal affect Attitude: cooperative Thought process: Normal thought process present Thought content: Normal thought content present Insight: Good insight present (Psych) Judgement: Good judgement present (Psych) Assessment & Plan Assessment & Plan (1) Arthritis: Code(s): M19.90 - Unspecified osteoarthritis, unspecified site Category: Medical (2) History of ovarian cancer: Code(s): Z85.43 - Personal history of malignant neoplasm of ovary Category: Medical (3) Chronic pain syndrome: Code(s): G89.4 - Chronic pain syndrome Category: Medical (4) Unspecified venous (peripheral) insufficiency: Code(s): I87.2 - Venous insufficiency (chronic) (peripheral) Category: Medical Plan Very good results of [employer] spinal cord stimulator trial. Patient reports 85-90% pain improvement. However attempt of implantation is not successful due to epidural adhesions developed in the epidural space. The dressing change and staple removals as above. Discussion about chronic opioid therapy see as above. Potential embolization of the genicular arteries discussed with the patient, appointment with Dr. Lobo interventional radiology will be scheduled for the patient. Neurosurgical options were discussed but they appear to be more invasive in my opinion. Chronic opioid therapy was discussed again in the trial of small dose opioid patch fentanyl patch was offered to the patient. The patient is reluctant to go for application of the opioid patch however she will think about it and let us know if she wants to try opioids if fentanyl patch will give her significant pain relief, she would need to join our chronic opioid program to continue this medication. A trial of 6 months with the opioid medications could be given to the patient with assessment at the end of the 6 months of the cognitive function. If cognitive function is not affected we will continue therapy. Patient Instructions: I here by testify that I spent 50 minutes today in conversation with this patient and her , including time I spent in conversation with Dr. Lobo, the interventional radiologist discussing options for this patient. I also organize her note in preparation to fax to interventional radiology, planned her care and follow-up in the future. Coding Level of Care Code Est Pt Level 5 (45848) Diagnoses Arthritis M19.90 History of ovarian cancer Z85.43 Chronic pain syndrome G89.4 Unspecified venous (peripheral) insufficiency I87.2
== END 2024-04-30 12:36 | disposition home or self-care (01) ==
LOC: HO.PMC 11:37
PROVIDERS: PCP Family Medicine; Visit Provider Anesthesiology
DX: M19.90 Unspecified osteoarthritis, unspecified site (principal); Z85.43 Personal history of malignant neoplasm of ovary; G89.4 Chronic pain syndrome; I87.2 Venous insufficiency (chronic) (peripheral)
CPT/HCPCS: 99215

== ENCOUNTER → 2024-04-30 11:37 | Outpatient (BNVA) | payer MEDICARE, MEDICAID, SELFPAY | PROVIDERS: PCP Family Medicine; Visit Provider Anesthesiology | DX: Z48.02 Encounter for removal of sutures (principal); M19.90 Unspecified osteoarthritis, unspecified site; G89.4 Chronic pain syndrome; G96.12 Meningeal adhesions (cerebral) (spinal); I87.2 Venous insufficiency (chronic) (peripheral); Z99.3 Dependence on wheelchair; Z96.82 Presence of neurostimulator | CPT/HCPCS: 99212 ==

== ENCOUNTER 2024-05-22 11:10 | Outpatient (AMB) | payer MEDICARE, MEDICAID, SELFPAY ==
--- NOTE | 2024-05-22 12:11 | HO.SPINEOV ---
Intake Visit Reasons: Chronic pain syndrome Intake Note: Mrs. Verduzco is here today c/o bilateral leg pain. 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 Required: No Allergies ketorolac [From TORADOL] Allergy (Intermediate, Verified 04/30/24 12:14) VOMITING morphine [MORPHINE] Allergy (Intermediate, Verified 04/30/24 12:14) vomiting oxycodone [OXYCODONE] Allergy (Intermediate, Verified 04/30/24 12:14) VOMITING acetaminophen [From PERCOCET] Allergy (Unknown, Verified 04/30/24 12:14) ANAPHYLAXIS hydromorphone [From DILAUDID] Allergy (Unknown, Verified 04/30/24 12:14) HIVES midodrine Allergy (Unknown, Verified 04/30/24 12:14) Anaphylaxis dilation drops for eye Allergy (Mild, Uncoded 04/17/24 08:41) swelling, redness, pain Dilaudid Allergy (Unknown, Uncoded 04/17/24 08:41) Rash Erythromycin Allergy (Unknown, Uncoded 04/17/24 08:41) Vomiting Assessment & Plan Assessment & Plan (1) Inclusion body myositis: Code(s): G72.41 - Inclusion body myositis [IBM] Category: Medical (2) Lower extremity weakness: Code(s): R29.898 - Other symptoms and signs involving the musculoskeletal system Category: Medical Qualifiers: Laterality: bilateral Qualified Code(s): R29.898 - Other symptoms and signs involving the musculoskeletal system (3) Chronic pain syndrome: Code(s): G89.4 - Chronic pain syndrome Category: Medical Plan Dear colleague, On 05/22/2024, I sawCelestina Verduzco for re-evaluation of the spinal cord stimulator. History of present illness: This 69-year-old female suffering from inclusion body myositis with severe pains down her legs. She saw Dr. Matias who did a spinal cord stimulator trial with good success but was unable to insert a permanent stimulator due to scar tissue. He recommended embolization of the genicular arteries. The patient is afraid due to medical history of pulmonary embolism for which he is on warfarin. She comes to see me to discuss placement of a spinal cord stimulator under direct vision. I told the patient that surgery would put her at risk for the development pulmonary embolism and more importantly I am not convinced that putting a spinal cord stimulator in under direct vision is going to be successful due to the fact that the scar tissue will still be there. She and her understood my explanation. I recommended to go see the interventional radiologist to discuss the embolization or returned to for a discussion. For now we will hold off on direct placement of a spinal cord stimulator. I spent 30 minutes in his consult to review previous correspondence, discuss the case with and discussing plan of care. Estuardo Nielson MD, PhD Spine Fellowship Trained Neurosurgeon Director, [facility] Coding Level of Care Code New Pt Level 3 (72819) Diagnoses Inclusion body myositis G72.41 Weakness of both lower extremities R29.898 Laterality: bilateral Chronic pain syndrome G89.4
== END 2024-05-22 12:36 | disposition home or self-care (01) ==
PROVIDERS: PCP Family Medicine; Referring Provider Anesthesiology; Visit Provider Neurological Surgery
DX: G72.41 Inclusion body myositis [IBM] (principal); R29.898 Other symptoms and signs involving the musculoskeletal system; G89.4 Chronic pain syndrome
CPT/HCPCS: 99203

== ENCOUNTER → 2024-05-22 | Outpatient (BNVA) | payer MEDICARE, MEDICAID, SELFPAY | PROVIDERS: PCP Family Medicine; Visit Provider Neurological Surgery | DX: G72.41 Inclusion body myositis [IBM] (principal); R29.898 Other symptoms and signs involving the musculoskeletal system; G89.4 Chronic pain syndrome | CPT/HCPCS: 99202 ==

== ENCOUNTER 2024-07-09 14:44 | Outpatient (AMB) | payer MEDICARE, MEDICAID, SELFPAY ==
--- NOTE | 2024-07-09 15:05 | MHC.PC.OV ---
Vital Signs 07/09/24 15:11 BP 132/81 Blood Pressure Location Rt radial Position Sitting Respiration 12 Pulse 59 Pulse Source Pulse Oximeter Temp 97.5 F Temp Source Temporal Artery Scan Pulse Oximetry (%) 94 Oxygen Delivery Method Room Air Intake Visit Reasons: f/u hypertension, diabetes Intake Note: follow up for DM and HTN REFILL FOR CLOBETASOL 0.05% and a script for 1mg warfarin Allergies ketorolac [From TORADOL] Allergy (Intermediate, Verified 07/09/24 15:07) VOMITING morphine [MORPHINE] Allergy (Intermediate, Verified 07/09/24 15:07) vomiting oxycodone [OXYCODONE] Allergy (Intermediate, Verified 07/09/24 15:07) VOMITING acetaminophen [From PERCOCET] Allergy (Unknown, Verified 07/09/24 15:07) ANAPHYLAXIS hydromorphone [From DILAUDID] Allergy (Unknown, Verified 07/09/24 15:07) HIVES midodrine Allergy (Unknown, Verified 07/09/24 15:07) Anaphylaxis dilation drops for eye Allergy (Mild, Uncoded 04/17/24 08:41) swelling, redness, pain Dilaudid Allergy (Unknown, Uncoded 04/17/24 08:41) Rash Erythromycin Allergy (Unknown, Uncoded 04/17/24 08:41) Vomiting Medication List - Last Reconciled 07/09/24 by Clarence Byrd MD albuterol sulfate 90 mcg/actuation (ProAir HFA) 2 puffs inhalation Q6H PRN alprazolam 0.5 mg PO DAILY 30 days benzonatate 200 mg PO BID PRN bisacodyl (Dulcolax (bisacodyl)) 5 mg PO BEDTIME blood sugar diagnostic (True Metrix Glucose Test Strip) Test Blood Sugar 2 times a day, As directed, 90 days blood sugar diagnostic (OneTouch Verio test strips) To test Blood sugar 2 times a day, As directed, 90 days blood-glucose meter (OneTouch Verio Flex Meter) To test blood sugar as directed, 999 days bupropion HCl XL 150 mg PO DAILY 30 days citalopram 20 mg PO DAILY clobetasol 0.05% 1 appl topical DAILY enoxaparin (Lovenox) 100 mg subcut Q12H 4 days glipizide ER 5 mg PO DAILY guaifenesin ER (Mucinex) 600 mg PO Q12H PRN 30 days hydroxyzine HCl 50 mg PO BEDTIME 30 days lancets ([facility] Delica Plus Lancet) To Test Blood Sugar 2 times a day, As directed. 90 days lisinopril 5 mg PO DAILY 30 days metformin 250 mg (1/2 x 500 mg) PO DAILY 30 days multivitamin 1 tab PO DAILY mupirocin 2% 1 appl topical BID mupirocin 2% 1 appl topical BID 12 days omeprazole 20 mg PO DAILY tramadol 50 mg PO BID PRN 30 days tramadol 50 mg PO TID PRN 5 days warfarin 4 mg PO DAILY 90 days Tobacco use date assessed: 04/09/24 Dental Screening Dental Screen Date: 04/09/24 HPI f/u hypertension, diabetes HPI Details 69 y/o female presents to f/u hypertension, diabetes. Checking renal function. Blood pressure today 132/81, 59p. She is on lisinopril 5mg daily. Systolic pressure at home has been in the 130s. Last A1c 04/09/24 7.0%. A1c today 07/09/24 7.5%. Pt notes she has been anxious the last few weeks. Has complaints of a rash on the side of her chin. COUNT INCLUDES THE [facility] Medical History (Updated 07/09/24 @ 15:50 by Yosi Cleveland) Anxiety Complex regional pain syndrome i of lower limb, bilateral Morbid obesity Wheelchair dependent Asthma Diabetes Hypertension Bradycardia Pemphigus Pancreatic ductal abnormality Surgical History Hx of parathyroidectomy Hx of cholecystectomy Hx of splenectomy Hx of bariatric surgery Hx of hysterectomy S/P placement of nerve stimulator H/O oral surgery Family History Father Heart attack Mental health disorder Mother Heart attack Macular degeneration Mental health disorder Social History Housing: Apartment Patient Tobacco Use Status: Never used Tobacco e-Cigarette/Vaping Use: Never Used Second Hand Smoke Exposure: No service: No Current occupational status: disabled Cognitive needs: No Hearing needs: Yes Vision needs: Yes (wears reading glasses) Questionnaire Thrive Questionnaire Date Thrive assessed: 10/09/23 GRETA-7 AMB Questionnaire GRETA-7 Date GRETA - 7 assessed: 12/06/23 Source: Developed by Drs. Stewart Hall, Linda Jesus, Ganga Mcgowan and colleagues, with an educational luis from [employer]. Physical exam (Primary Care) Vital Signs: Last Vital Signs Temp 97.5 F 07/09/24 15:11 Pulse 59 07/09/24 15:11 Resp 12 07/09/24 15:11 BP 132/81 07/09/24 15:11 Pulse Ox 94 07/09/24 15:11 Oxygen Delivery Method Room Air 07/09/24 15:11 Tobacco/Smoking Status: Tobacco use Status Tobacco use date assessed 04/09/24 07/09/24 15:05 Patient Tobacco Use Status Never used Tobacco 07/09/24 15:05 e-Cigarette/Vaping Use Never Used 07/09/24 15:05 Thrive Assessment: Date of Thrive Assessment Date Thrive assessed 10/09/23 07/09/24 15:05 Assessment and Plan Assessment & Plan (1) Hypertension: Code(s): I10 - Essential (primary) hypertension Plan: Blood?pressure?is?controlled.??She?does?have?some?white?coat?but?blood?pressures?at?home?are?also?well?controlled.??Goal?is?less?than?140/90 Continue?lisinopril?as?prescribed Check?blood?pressures?periodically?at?home Has?not?gotten?her?labs?drawn?but?will?do?so?today.??Following?her?renal?function (2) Diabetes: Code(s): E11.9 - Type 2 diabetes mellitus without complications Plan: A1c?climbed?from?7.0%?to?7.5%.??Goal?is?around?7%. A?little?too?high.??She?will?increase?her?metformin?from?250?mg?daily?to?250?mg?b.i.d.?and?continue?glipizide?as?prescribed (3) Chronic anticoagulation: Code(s): Z79.01 - terminologist (current) use of anticoagulants Plan: Refilled?warfarin (4) Rash: Code(s): R21 - Rash and other nonspecific skin eruption Plan: Refilled?her?clobetasol Encouraged?her?to?use?a?moisturizing?cream?as?well She?has?some?mild?perioral?eczema?as?well?and?she?can?use?a?hydrocortisone?cream?p.r.n.?and?use?a?facial?moisturizer?when?controlled. Orders: Orders Comprehensive Met. Panel Today Z00.00 - Encounter for general adult medical examination without abnormal findings Medications: Changed From clobetasol 0.05% 1 appl topical DAILY To clobetasol 0.05% 1 appl topical BID 30 days PRN 60 grams 3RF skin irritation From metformin 250 mg (1/2 x 500 mg) PO DAILY 30 days 15 tabs 0RF To metformin 250 mg (1/2 x 500 mg) PO BID 30 days 30 tabs 0RF Refilled warfarin 4 mg PO DAILY 90 days 90 tabs 3RF Discontinued enoxaparin (Lovenox) Discontinued Reason: Patient no longer taking 100 mg subcut Q12H 4 days 8 mL 1RF Coding Level of Care Code Est Pt Level 4 (91814) Diagnoses Hypertension I10 Diabetes E11.9 Chronic anticoagulation Z79.01 Rash R21
[2024-07-09 15:11] VITALS: BP 132/81; PULSE 59; RESP 12; TEMP 36.4; O2SAT 94
== END 2024-07-09 16:04 | disposition home or self-care (01) ==
PROVIDERS: PCP Family Medicine; Visit Provider Family Medicine
DX: I10 Essential (primary) hypertension (principal); E11.9 Type 2 diabetes mellitus without complications; Z79.01 Long term (current) use of anticoagulants; R21 Rash and other nonspecific skin eruption
CPT/HCPCS: 99214

== ENCOUNTER 2024-07-09 15:56 | Outpatient (REF) | payer MEDICARE, MEDICAID, SELFPAY ==
[2024-07-09 18:29] LABS: Alanine Aminotransferase 26 U/L (0-31); Albumin Level 3.6 g/dL (3.5-5.0); Alkaline Phosphatase 155 U/L (39-117); Anion Gap 15 (12-20); Aspartate Amino Transferase 28 U/L (5-31); Bilirubin Total 0.3 mg/dL (0.0-1.0); Blood Urea Nitrogen 21 mg/dL (9-16); Calcium 9.5 mg/dL (8.4-10.2); Carbon Dioxide 22 mmol/L (22-29); Chloride 107 mmol/L (96-108); Estimated Glomerular Filt Rate > 60; Glucose Random 156 mg/dL (60-115); Potassium 4.7 mmol/L (3.3-5.1); Sodium 139 mmol/L (135-145); Total Protein 7.1 g/dL (6.5-8.0)
== END 2024-07-09 15:57 | disposition home or self-care (01) ==
LOC: HO.WFDLDS 15:56
PROVIDERS: Visit Provider Family Medicine
DX: Z00.00 Encounter for general adult medical examination without abnormal findings (principal)
CPT/HCPCS: 36415; 80053

== ENCOUNTER 2024-10-08 14:42 | Outpatient (AMB) | payer MEDICARE, MEDICAID, SELFPAY ==
--- NOTE | 2024-10-08 14:45 | A.OFFPC_ITS ---
Vital Signs 10/08/24 15:00 Height 5 ft 5 in BP 110/60 Blood Pressure Location Rt brachial Position Sitting Respiration 16 Pulse 68 Pulse Source Pulse Oximeter Pulse Oximetry (%) 98 Oxygen Delivery Method Room Air Intake Visit Reasons: f/u diabetes, chronic conditions Intake Note: f/u DM chronic conditions Allergies ketorolac [From TORADOL] Allergy (Intermediate, Verified 10/08/24 14:48) VOMITING morphine [MORPHINE] Allergy (Intermediate, Verified 10/08/24 14:48) vomiting oxycodone [OXYCODONE] Allergy (Intermediate, Verified 10/08/24 14:48) VOMITING acetaminophen [From PERCOCET] Allergy (Unknown, Verified 10/08/24 14:48) ANAPHYLAXIS hydromorphone [From DILAUDID] Allergy (Unknown, Verified 10/08/24 14:48) HIVES midodrine Allergy (Unknown, Verified 10/08/24 14:48) Anaphylaxis dilation drops for eye Allergy (Mild, Uncoded 04/17/24 08:41) swelling, redness, pain Dilaudid Allergy (Unknown, Uncoded 04/17/24 08:41) Rash Erythromycin Allergy (Unknown, Uncoded 04/17/24 08:41) Vomiting Tobacco use date assessed: 04/09/24 Dental Screening Dental Screen Date: 04/09/24 HPI f/u diabetes, chronic conditions HPI Details 69 y/o female presents to f/u diabetes, chronic conditions. Last A1c 07/09/24 7.5%. Had increased her metformin to 250 mg b.i.d. and continued glipizide as prescribed. A1c today 10/08/24 7.1%. Blood pressure today 110/60, 68p. She is on lisinopril 5mg daily. [facility] Medical History (Updated 10/08/24 @ 15:36 by Yosi Cleveland) Anxiety Complex regional pain syndrome i of lower limb, bilateral Morbid obesity Wheelchair dependent Asthma Diabetes Hypertension Bradycardia Pemphigus Pancreatic ductal abnormality Surgical History Hx of parathyroidectomy Hx of cholecystectomy Hx of splenectomy Hx of bariatric surgery Hx of hysterectomy S/P placement of nerve stimulator H/O oral surgery Family History Father Heart attack Mental health disorder Mother Heart attack Macular degeneration Mental health disorder Social History Housing: Apartment Patient Tobacco Use Status: Never used Tobacco e-Cigarette/Vaping Use: Never Used Second Hand Smoke Exposure: No service: No Current occupational status: disabled Cognitive needs: No Hearing needs: Yes Vision needs: Yes (wears reading glasses) Questionnaire PHQ-9 Over the last 2 weeks, how often have you been bothered by any of the following problems? 1. Little interest or pleasure in doing things: several days Source: Developed by Drs. Stewart Hall, Linda Jesus, Ganga Mcgowan and colleagues, with an educational luis from [employer]. Thrive Questionnaire Date Thrive assessed: 10/09/23 GRETA-7 AMB Questionnaire GRETA-7 Date GRETA - 7 assessed: 12/06/23 Source: Developed by Drs. Stewart Hall, Linda Jesus, Ganga Mcgowan and colleagues, with an educational luis from [employer]. Physical exam (Primary Care) Vital Signs: Last Vital Signs Pulse 68 10/08/24 15:00 Resp 16 10/08/24 15:00 BP 110/60 10/08/24 15:00 Pulse Ox 98 10/08/24 15:00 Oxygen Delivery Method Room Air 10/08/24 15:00 Tobacco/Smoking Status: Tobacco use Status Tobacco use date assessed 04/09/24 10/08/24 14:52 Patient Tobacco Use Status Never used Tobacco 10/08/24 14:52 e-Cigarette/Vaping Use Never Used 10/08/24 14:52 Thrive Assessment: Date of Thrive Assessment Date Thrive assessed 10/09/23 10/08/24 14:52 Results AMB Hemoglobin A1c AMB Hemoglobin A1c 7.1 % Last Edit by LI Bustamante on 10/08/24 15:31 Results Reviewed Results Reviewed: Laboratory Last Values Hgb A1c (Clinic) 7.1 % (4.0-6.0) H 10/08/24 15:28 Coding Level of Care Code Est Pt Level 4 (89423) Diagnoses Diabetes E11.9 Hypertension I10 Thickened nail L60.2 Ingrown nail L60.0 Assessment & Plan Assessment & Plan (1) Diabetes: Code(s): E11.9 - Type 2 diabetes mellitus without complications Category: Medical Plan: A1c?is?improved.??Now?7.1%.??Essentially?at?goal. However,?patient?inquires?about Zepbound and?may?benefit?from?his?medication He?will?continue?metformin?as?prescribed?start Zepbound. Check?blood?s ugars?after?taking?Glipizide and?if?blood?sugars?are?going?low?she?can?discontinue?glipizide (2) Hypertension: Code(s): I10 - Essential (primary) hypertension Category: Medical Plan: Blood?pressure?is?well?controlled.??Goal?is?less?than?140/90 Continue?her?medication Hydrate?well (3) Thickened nail: Code(s): L60.2 - Onychogryphosis Category: Medical Plan: Patient?has?thickened?nails?on?1st?and?2nd?toe?of?left?foot?with?ingrown?nail Referred?to?Podiatry (4) Ingrown nail: Code(s): L60.0 - Ingrowing nail Category: Medical Plan: As above Orders: Orders AMB Hemoglobin A1c Today E11.9 - Type 2 diabetes mellitus without complications Referrals Podiatry Referral L60.0 - Ingrowing nail, L60.2 - Onychogryphosis Medications: New tirzepatide (weight loss) (Zepbound) for 4 weeks 2.5 mg (0.5 mL) subcut QWEEK 2 mL 3RF 28 days
[2024-10-08 15:00] VITALS: BP 110/60; PULSE 68; RESP 16; O2SAT 98
== END 2024-10-08 15:40 | disposition home or self-care (01) ==
PROVIDERS: PCP Family Medicine; Visit Provider Family Medicine
DX: E11.9 Type 2 diabetes mellitus without complications (principal); I10 Essential (primary) hypertension; L60.2 Onychogryphosis; L60.0 Ingrowing nail

== ENCOUNTER → 2024-10-08 14:42 | Outpatient (BNVA) | payer MEDICARE, MEDICAID, SELFPAY | PROVIDERS: PCP Family Medicine; Visit Provider Family Medicine | DX: E11.9 Type 2 diabetes mellitus without complications (principal); I10 Essential (primary) hypertension; L60.0 Ingrowing nail; L60.2 Onychogryphosis | CPT/HCPCS: 83036; 99212 ==

== ENCOUNTER 2024-11-11 13:30 | Outpatient (AMB) | payer MEDICARE, MEDICAID, SELFPAY ==
--- NOTE | 2024-11-11 13:30 | MHC.OFFVIS ---
Intake Visit Reasons: Follow Up/Discuss RFA Allergies ketorolac [From TORADOL] Allergy (Intermediate, Verified 10/08/24 14:48) VOMITING morphine [MORPHINE] Allergy (Intermediate, Verified 10/08/24 14:48) vomiting oxycodone [OXYCODONE] Allergy (Intermediate, Verified 10/08/24 14:48) VOMITING acetaminophen [From PERCOCET] Allergy (Unknown, Verified 10/08/24 14:48) ANAPHYLAXIS hydromorphone [From DILAUDID] Allergy (Unknown, Verified 10/08/24 14:48) HIVES midodrine Allergy (Unknown, Verified 10/08/24 14:48) Anaphylaxis dilation drops for eye Allergy (Mild, Uncoded 04/17/24 08:41) swelling, redness, pain Dilaudid Allergy (Unknown, Uncoded 04/17/24 08:41) Rash Erythromycin Allergy (Unknown, Uncoded 04/17/24 08:41) Vomiting PFSH Medical History (Updated 10/08/24 @ 15:36 by Yosi Cleveland) Anxiety Complex regional pain syndrome i of lower limb, bilateral Morbid obesity Wheelchair dependent Asthma Diabetes Hypertension Bradycardia Pemphigus Pancreatic ductal abnormality Surgical History Hx of parathyroidectomy Hx of cholecystectomy Hx of splenectomy Hx of bariatric surgery Hx of hysterectomy S/P placement of nerve stimulator H/O oral surgery Family History Father Heart attack Mental health disorder Mother Heart attack Macular degeneration Mental health disorder Social History Housing: Apartment Patient Tobacco Use Status: Never used Tobacco e-Cigarette/Vaping Use: Never Used Second Hand Smoke Exposure: No service: No Current occupational status: disabled Cognitive needs: No Hearing needs: Yes Vision needs: Yes (wears reading glasses) Telehealth Telehealth Telehealth Platform: Telephone Location of provider rendering services: practice address Location of patient: address on file Patient Identification confirmed using: Name, : Yes Telehealth method: voice only Patient verbally consented to treatment: Yes Patient verbally consented to billing insurance company: Yes Patient informed of any privacy concerns related to visit: Yes Coding
--- NOTE | 2024-11-11 13:37 | MHC.OFFVIS ---
Intake Visit Reasons: Follow Up/Discuss RFA Allergies ketorolac [From TORADOL] Allergy (Intermediate, Verified 10/08/24 14:48) VOMITING morphine [MORPHINE] Allergy (Intermediate, Verified 10/08/24 14:48) vomiting oxycodone [OXYCODONE] Allergy (Intermediate, Verified 10/08/24 14:48) VOMITING acetaminophen [From PERCOCET] Allergy (Unknown, Verified 10/08/24 14:48) ANAPHYLAXIS hydromorphone [From DILAUDID] Allergy (Unknown, Verified 10/08/24 14:48) HIVES midodrine Allergy (Unknown, Verified 10/08/24 14:48) Anaphylaxis dilation drops for eye Allergy (Mild, Uncoded 04/17/24 08:41) swelling, redness, pain Dilaudid Allergy (Unknown, Uncoded 04/17/24 08:41) Rash Erythromycin Allergy (Unknown, Uncoded 04/17/24 08:41) Vomiting HPI Comments Details: Celestina is on the phone today to discuss possibility of treatment of bilateral knee pain in the bilateral lower extremities. In the past she was subject of multiple procedures including trial of [employer] spinal cord stimulator an attempt of implantation of [employer] spinal cord stimulator. While the trial gave her very good results, implantation was happened to be impossible because of the multiple adhesions which patient developed between the implantation of the spinal cord stimulator day of the procedure and trial day of the procedure. In the past patient was denied genicular nerve injection at genicular nerve radiofrequency ablation. However today the of the patient told me that they spoke with her insurance company and they said that they will not denied this time. We will schedule her for genicular nerve diagnostic injection. This will be done without sedation. She has a problem with the vascular access we would not be able to do the procedure under sedation. We will start from the right lower extremity and after that we will proceed to the left one. Prior : trial of [employer] spinal cord stimulator. She reports 80-90% pain improvement after the procedure. She reports good social interactions while on stimulation she reports improvement of activities of daily living however limited they are due to the patient's being wheelchair-bound. She wants me to schedule her for implant of the spinal cord stimulator under sedation or under general anesthesia. She also complains on pain in the lower back, she complains on spastic sensations in the lower back. I offered her to try baclofen for this condition. I will prescribe small dose 10 mg of baclofen qhs to help her back spasms. Her peripheral veins are basically absent and I would need to start the central line (IJ). Prior: Multiple health problems, wheelchair-bound , complains on pain in bilateral knees. Apparently her pain started in beginning of November of 2022. She reported that she fell on her knees and she ?mashed ?them. She reported intractable pain in bilateral knees with radiation into bilateral hips. She reports that her pain is intermittent in nature and she has pain sometimes in the level of 8 to 9/10 today her pain is 3/10 and not very severe. During this trauma she also received fracture of the right ankle but she does not report any pain in right ankle today. 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 She had trialed multiple medications to help her pain with no success. She is taking Tylenol because opioid medications are giving her multiple reactions including nausea vomiting and rash. She had acupuncture therapy without success. Long time ago she had chiropractic manipulations but that was not directed to the knees. She never received any injections in the knees. She is currently on Coumadin for blood clot control. 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 She is status post bariatric surgery she has history of pemphigus, she is asthmatic she has diabetes and chronic fatigue. She has a history of ovarian cancer which resulted with or fact bruce and hysterectomy in 2009. She had bariatric surgery in 2014 she had gallbladder surgery in 2013. She had parathyroid gland removed in 2009. 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 She denies smoking cigarettes, drinking alcohol occasionally she denies soda but she admits drinking coffee in the morning. She denies recreational drugs. [facility] Medical History (Updated 11/11/24 @ 13:44 by Francisco Matias MD) Anxiety Complex regional pain syndrome i of lower limb, bilateral Morbid obesity Wheelchair dependent Asthma Diabetes Hypertension Bradycardia Pemphigus Pancreatic ductal abnormality Surgical History Hx of parathyroidectomy Hx of cholecystectomy Hx of splenectomy Hx of bariatric surgery Hx of hysterectomy S/P placement of nerve stimulator H/O oral surgery Family History Father Heart attack Mental health disorder Mother Heart attack Macular degeneration Mental health disorder Social History Housing: Apartment Patient Tobacco Use Status: Never used Tobacco e-Cigarette/Vaping Use: Never Used Second Hand Smoke Exposure: No service: No Current occupational status: disabled Cognitive needs: No Hearing needs: Yes Vision needs: Yes (wears reading glasses) Review of Systems Const All systems reviewed & are unremarkable except as noted in HPI and below Assessment & Plan Assessment & Plan (1) Arthritis: Code(s): M19.90 - Unspecified osteoarthritis, unspecified site Category: Medical (2) History of ovarian cancer: Code(s): Z85.43 - Personal history of malignant neoplasm of ovary Category: Medical (3) Chronic pain syndrome: Code(s): G89.4 - Chronic pain syndrome Category: Medical (4) Unspecified venous (peripheral) insufficiency: Code(s): I87.2 - Venous insufficiency (chronic) (peripheral) Category: Medical (5) Right knee pain: Code(s): M25.561 - Pain in right knee Category: Medical (6) Osteoarthritis of right knee: Code(s): M17.11 - Unilateral primary osteoarthritis, right knee Category: Medical Plan Very good results of [employer] spinal cord stimulator trial. Patient reports 85-90% pain improvement. However attempt of implantation is not successful due to epidural adhesions developed in the epidural space. Neurosurgical options were discussed but they appear to be more invasive in my opinion. Chronic opioid therapy was discussed again in the trial of small dose opioid patch fentanyl patch was offered to the patient. Chronic opioid therapy was offered to the patient by patient denied it. In the past radiofrequency ablation of the genicular nerve was considered. Unfortunately her insurance company denied diagnostic medial genicular nerve block they denied radiofrequency ablation of genicular nerves. Apparently her called insurance company and he was told that they will approve the procedure. I will schedule her for diagnostic right genicular nerve block 1st. With good results we will proceed to the radiofrequency ablation of the genicular nerves. After that we will attempt to perform the same procedure on the left. Patient Instructions: I here by testify that I spent 30 minutes in conversation with this patient as well as evaluating her prior records, planning her care, and organizing this note Coding Level of Care Code Tele Est Pt Level 4 (49444) Diagnoses Arthritis M19.90 History of ovarian cancer Z85.43 Chronic pain syndrome G89.4 Unspecified venous (peripheral) insufficiency I87.2 Right knee pain M25.561 Osteoarthritis of right knee M17.11
== END 2024-11-11 13:30 | disposition home or self-care (01) ==
LOC: HO.PMC 13:30
PROVIDERS: PCP Family Medicine; Visit Provider Anesthesiology
DX: M19.90 Unspecified osteoarthritis, unspecified site (principal); Z85.43 Personal history of malignant neoplasm of ovary; G89.4 Chronic pain syndrome; I87.2 Venous insufficiency (chronic) (peripheral); M25.561 Pain in right knee; M17.11 Unilateral primary osteoarthritis, right knee
CPT/HCPCS: 99214

== ENCOUNTER → 2024-11-11 13:30 | Outpatient (BNVA) | payer MEDICARE, MEDICAID, SELFPAY | PROVIDERS: PCP Family Medicine; Visit Provider Anesthesiology ==

== ENCOUNTER → 2024-11-19 13:50 | Outpatient (BNVA) | payer MEDICARE, MEDICAID, SELFPAY | PROVIDERS: PCP Family Medicine | DX: R05.2 Subacute cough (principal) | CPT/HCPCS: 99212 ==

== ENCOUNTER → 2024-11-19 13:50 | Outpatient (AMB) | payer MEDICARE, MEDICAID, SELFPAY ==
--- NOTE | 2024-11-19 14:42 | AM.OFFWIN_ITS ---
Intake Vital Signs 11/19/24 14:43 BMI Reason not done Patient refused/unable BP 126/64 Blood Pressure Location Rt brachial Position Sitting Pulse 70 Pulse Source Pulse Oximeter Pulse Oximetry (%) 97 Oxygen Delivery Method Room Air Intake Visit Reasons: EP congestion, cough Intake Note: Pt is here today for a walk in visit. Pt c/o congestion cough severe at night, a lot of mucus for almost a week. Pt tried otc medication for cough and congestion. Patient Tobacco Use Status: Never used Tobacco Allergies ketorolac [From TORADOL] Allergy (Intermediate, Verified 11/19/24 14:48) VOMITING morphine [MORPHINE] Allergy (Intermediate, Verified 11/19/24 14:48) vomiting oxycodone [OXYCODONE] Allergy (Intermediate, Verified 11/19/24 14:48) VOMITING acetaminophen [From PERCOCET] Allergy (Unknown, Verified 11/19/24 14:48) ANAPHYLAXIS hydromorphone [From DILAUDID] Allergy (Unknown, Verified 11/19/24 14:48) HIVES midodrine Allergy (Unknown, Verified 11/19/24 14:48) Anaphylaxis dilation drops for eye Allergy (Mild, Uncoded 11/19/24 14:48) swelling, redness, pain Dilaudid Allergy (Unknown, Uncoded 11/19/24 14:48) Rash Erythromycin Allergy (Unknown, Uncoded 11/19/24 14:48) Vomiting HPI HPI Comments History of Present Illness Details 69 y/o female patient who presents to [facility] walk in clinic with c/o cough for 1 week. [facility] Medical History (Updated 11/19/24 @ 15:27 by Maria R Hernandez NP) Anxiety Complex regional pain syndrome i of lower limb, bilateral Morbid obesity Wheelchair dependent Asthma Diabetes Hypertension Bradycardia Pemphigus Pancreatic ductal abnormality Surgical History Hx of parathyroidectomy Hx of cholecystectomy Hx of splenectomy Hx of bariatric surgery Hx of hysterectomy S/P placement of nerve stimulator H/O oral surgery Family History Father Heart attack Mental health disorder Mother Heart attack Macular degeneration Mental health disorder Social History Housing: Apartment Patient Tobacco Use Status: Never used Tobacco e-Cigarette/Vaping Use: Never Used Second Hand Smoke Exposure: No service: No Current occupational status: disabled Cognitive needs: No Hearing needs: Yes Vision needs: Yes (wears reading glasses) Review of Systems Const All systems reviewed & are unremarkable except as noted in HPI and below Physical Exam Vital Signs: Last Vital Signs Pulse 70 11/19/24 14:43 BP 126/64 11/19/24 14:43 Pulse Ox 97 11/19/24 14:43 Oxygen Delivery Method Room Air 11/19/24 14:43 Const General: no acute distress Nutritional Appearance: obese Orientation/consciousness: patient oriented x3 Limitations: wheelchair HEENT Head: Yes normocephalic Ears: external ears normal and TM's normal bilaterally Face and sinus: Yes sinuses nontender Mouth: moist mucous membranes Resp Effort & Inspection: normal respiratory effort, able to speak in complete sentences and Actively coughing Auscultation: clear to auscultation bilaterally, no crackles, no rales, no rhonchi and no wheezes Cardio Heart sounds: S1 normal heart sound present and S2 normal heart sound present Neuro General: patient oriented x3 Assessment & Plan Assessment & Plan (1) Cough: Code(s): R05.9 - Cough, unspecified Qualifiers: Cough type: subacute Qualified Code(s): R05.2 - Subacute cough Plan: OTC cough remedies Warm fluids with honey Rest Medications: New prednisone 20 mg PO DAILY 10 tabs 0RF R05.2 - Subacute cough benzonatate 100 mg PO TID 90 caps 0RF R05.2 - Subacute cough Coding Level of Care Code Est Pt Level 3 (37250) Diagnoses Subacute cough R05.2 Cough type: subacute Time Spent (min) 15
[2024-11-19 14:43] VITALS: BP 126/64; PULSE 70; O2SAT 97
== END ==
PROVIDERS: PCP Family Medicine; Visit Provider Nurse Practitioner Family
DX: R05.2 Subacute cough (principal)

== ENCOUNTER 2024-12-30 15:28 | Outpatient (AMB) | payer MEDICARE, MEDICAID, SELFPAY ==
--- NOTE | 2024-12-30 15:33 | MHC.OFFVIS ---
Vital Signs 12/30/24 15:36 Height 5 ft 5 in Weight 210 lb BMI 34.9 BP 127/59 L Blood Pressure Location Lt brachial Position Sitting Respiration 16 Pulse 67 Pulse Source Pulse Oximeter Pulse Oximetry (%) 91 L Oxygen Delivery Method Room Air Intake Visit Reasons: Medication Discussion Wardrobe Custodian Required: No Allergies ketorolac [From TORADOL] Allergy (Intermediate, Verified 12/30/24 15:38) VOMITING morphine [MORPHINE] Allergy (Intermediate, Verified 12/30/24 15:38) vomiting hydromorphone [From DILAUDID] Allergy (Unknown, Verified 12/30/24 15:38) HIVES midodrine Allergy (Unknown, Verified 12/30/24 15:38) Anaphylaxis dilation drops for eye Allergy (Mild, Uncoded 12/30/24 15:38) swelling, redness, pain Erythromycin Allergy (Unknown, Uncoded 12/30/24 15:38) Vomiting Medication List - Last Reconciled 12/30/24 by Anne Barroso LPN albuterol sulfate 90 mcg/actuation (ProAir HFA) 2 puffs inhalation Q6H PRN alprazolam 0.5 mg PO DAILY 30 days benzonatate 100 mg PO TID bisacodyl (Dulcolax (bisacodyl)) 5 mg PO BEDTIME blood sugar diagnostic (True Metrix Glucose Test Strip) Test Blood Sugar 2 times a day, As directed, 90 days blood sugar diagnostic (OneTouch Verio test strips) To test Blood sugar 2 times a day, As directed, 90 days blood-glucose meter (Student Retention SolutionsTouch Verio Flex Meter) To test blood sugar as directed, 999 days bupropion HCl XL 150 mg PO DAILY 30 days citalopram 20 mg (1/2 x 40 mg) PO DAILY 90 days clobetasol 0.05% 1 appl topical BID PRN 30 days glipizide ER 5 mg PO DAILY 90 days hydroxyzine HCl 50 mg PO BEDTIME 30 days lancets (Student Retention SolutionsTouch Delica Plus Lancet) To Test Blood Sugar 2 times a day, As directed. 90 days lisinopril 5 mg PO DAILY 30 days metformin 250 mg (1/2 x 500 mg) PO BID 30 days multivitamin 1 tab PO DAILY mupirocin 2% 1 appl topical BID mupirocin 2% 1 appl topical BID 12 days omeprazole 20 mg PO DAILY prednisone 20 mg PO DAILY warfarin 4 mg PO DAILY 90 days HPI Comments Details: Celestina is Back in my office with a new problem: She broke her right lower leg and she is here wearing a cast. She requests me to prescribe her opioid medications To treat her pain. I explained to her that this office does not prescribe medications for acute pain unless it is inflicted by our surgeries or procedures. I also recommended her to try Tylenol 650, she can not take 2 pills once a day potentially even twice a day if it is necessary. Her primary care physician at this time needs to prescribe her opioid medications. I also explained to her that she needs to get final conclusion on the fracture: it needs to be seen whether it is repairable by surgery, if not the pain could be considered chronic even though it is less than 3-month-old. Last time I schedule her for diagnostic genicular nerve block however she did not come for the injection. Her insurance company agreed to cover diagnostic genicular block and genicular nerve radiofrequency ablation. We agreed that when she will hear from her surgeon about whether or not she goes for the surgery she will give us a call and schedule appointment with me to discuss future treatment. Prior : trial of [employer] spinal cord stimulator. She reports 80-90% pain improvement after the procedure. She reports good social interactions while on stimulation she reports improvement of activities of daily living however limited they are due to the patient's being wheelchair-bound. She wants me to schedule her for implant of the spinal cord stimulator under sedation or under general anesthesia. She also complains on pain in the lower back, she complains on spastic sensations in the lower back. I offered her to try baclofen for this condition. I will prescribe small dose 10 mg of baclofen qhs to help her back spasms. Her peripheral veins are basically absent and I would need to start the central line (IJ). Prior: Multiple health problems, wheelchair-bound , complains on pain in bilateral knees. Apparently her pain started in beginning of November of 2022. She reported that she fell on her knees and she ?mashed ?them. She reported intractable pain in bilateral knees with radiation into bilateral hips. She reports that her pain is intermittent in nature and she has pain sometimes in the level of 8 to 9/10 today her pain is 3/10 and not very severe. During this trauma she also received fracture of the right ankle but she does not report any pain in right ankle today. 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 She had trialed multiple medications to help her pain with no success. She is taking Tylenol because opioid medications are giving her multiple reactions including nausea vomiting and rash. She had acupuncture therapy without success. Long time ago she had chiropractic manipulations but that was not directed to the knees. She never received any injections in the knees. She is currently on Coumadin for blood clot control. 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 She is status post bariatric surgery she has history of pemphigus, she is asthmatic she has diabetes and chronic fatigue. She has a history of ovarian cancer which resulted with or fact bruce and hysterectomy in 2009. She had bariatric surgery in 2014 she had gallbladder surgery in 2013. She had parathyroid gland removed in 2009. 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 She denies smoking cigarettes, drinking alcohol occasionally she denies soda but she admits drinking coffee in the morning. She denies recreational drugs. [facility] Medical History (Updated 11/19/24 @ 15:27 by Maria R Hernandez NP) Anxiety Complex regional pain syndrome i of lower limb, bilateral Morbid obesity Wheelchair dependent Asthma Diabetes Hypertension Bradycardia Pemphigus Pancreatic ductal abnormality Surgical History Hx of parathyroidectomy Hx of cholecystectomy Hx of splenectomy Hx of bariatric surgery Hx of hysterectomy S/P placement of nerve stimulator H/O oral surgery Family History Father Heart attack Mental health disorder Mother Heart attack Macular degeneration Mental health disorder Social History Housing: Apartment Patient Tobacco Use Status: Never used Tobacco e-Cigarette/Vaping Use: Never Used Second Hand Smoke Exposure: No service: No Current occupational status: disabled Cognitive needs: No Hearing needs: Yes Vision needs: Yes (wears reading glasses) Review of Systems Const All systems reviewed & are unremarkable except as noted in HPI and below ENT Reports Normal hearing present Neuro Reports Normal hearing present, Denies Abnormal speech present, Denies confusion and Denies Sensory deficit (Neuro) Psych Denies confusion Physical Exam Const General: no acute distress; No confusion Nutritional Appearance: obese morbidly obese Orientation/consciousness: patient oriented x3 and No confusion Eyes General: appearance normal, both eyes and all related structures Pupils: Equal, round and reactive pupils present EOM: EOMs intact bilaterally Neck Neck: Yes full ROM Chest Chest palpation & inspection: normal inspection of the chest Resp Effort & Inspection: normal respiratory effort, able to speak in complete sentences, normal respiratory pattern, no audible wheezes and no cough Cardio Jugular venous distension: no JVD GI Inspection: Yes normal to inspection Back/Spine/Pelvis Other: The wound was examined on the back of the patient the theodore were removed sterile dressing was applied. Neuro General: patient oriented x3, gait normal and No confusion Cranial nerves: Yes CN's II-XII intact bilaterally, Yes Equal, round and reactive pupils present, Yes Normal hearing present and Yes Ability to bilaterally elevate shoulders present Speech: No Abnormal speech present Gait exam (Neuro): Normal gait present Motor exam (neuro): 5/5 motor strength present throughout Sensory Exam: No Sensory deficit (Neuro) Extrem Other: On visual inspection there is purplish discoloration of bilateral knees. Range of motion is severely limited in bilateral knees. Mild crepitus in sensed in the bilateral knees with minimal movement. The right knee is higher in temperature than the left knee. There is no ballottement of the bilateral patella. There is no joint effusion. General: Yes pedal edema Psych Speech and movement: Normal speech and movement present Affect: normal affect Attitude: cooperative Thought process: Normal thought process present Thought content: Normal thought content present Insight: Good insight present (Psych) Judgement: Good judgement present (Psych) Assessment & Plan Assessment & Plan (1) Arthritis: Code(s): M19.90 - Unspecified osteoarthritis, unspecified site Category: Medical (2) History of ovarian cancer: Code(s): Z85.43 - Personal history of malignant neoplasm of ovary Category: Medical (3) Chronic pain syndrome: Code(s): G89.4 - Chronic pain syndrome Category: Medical (4) Unspecified venous (peripheral) insufficiency: Code(s): I87.2 - Venous insufficiency (chronic) (peripheral) Category: Medical (5) Right knee pain: Code(s): M25.561 - Pain in right knee Category: Medical (6) Osteoarthritis of right knee: Code(s): M17.11 - Unilateral primary osteoarthritis, right knee Category: Medical Plan Very good results of [employer] spinal cord stimulator trial. Patient reports 85-90% pain improvement. However attempt of implantation is not successful due to epidural adhesions developed in the epidural space. Neurosurgical options were discussed but they appear to be more invasive in my opinion. Patient was given an option to go for genicular arteries embolization however she refused to proceed with this option. New developments: Right lower leg and ankle fracture. This may require surgery. This is acute pain. The office of [facility] does not prescribe opioids for acute pain , unless the pain is inflicted by us during the surgery or injections. I redirected her to her primary care physician to continue her pain management at this time. she has appointment with orthopedic surgeon on Saturday01/04/2025. If this fracture is not repairable by surgery I am willing to consider this pain as a chronic pain even though it is less than 3 months since the trauma. In the past I was considering fentanyl patch for her as a treatment however now I think that Belbuca /buprenorphine will be better medication for this patient. diagnostic genicular nerve block was approved by her insurance company, possibility exists to do radiofrequency ablation of genicular nerve for this patient to help at least the pain of her knees. Coding Level of Care Code Est Pt Level 3 (55071) Diagnoses Arthritis M19.90 History of ovarian cancer Z85.43 Chronic pain syndrome G89.4 Unspecified venous (peripheral) insufficiency I87.2 Right knee pain M25.561 Osteoarthritis of right knee M17.11
[2024-12-30 15:36] VITALS: BP 127/59; PULSE 67; RESP 16; O2SAT 91; BMI 34.9
--- OUTSIDE RECORDS SUMMARY | 2024-12-30 19:00 | XMS_ITS | Encounter Summary ---
[facility] Address [address] [place] [address] Care Team Providers Care Crucible Packer Name Role Phone Shirley Adler MD Primary Care Provider [phone] Encounter Details Date Type Department Care Team (Late st Contact Info) Description 07/16/2022 Lab Requisition [facility] [address] [place] [address] Keanu Saul MD [address] [place] [id number] Type 2 diabetes mellitus without complications (CMS/HCC); Nontoxic single thyroid nodule Social History Tobacco Use Types Packs/Day Years Used Date Smoking Tobacco: Never Smokeless Tobacco: Never Alcohol Use Standard Drinks/Week Comments Yes 0 (1 standard drink = 0.6 oz pur e alcohol) Comments Unknown Sex and Gender Information Value Date Recorded Sex Assigned at Not on file Legal Sex Female 6:41 PM EDT Gender Identity Not on file Sexual Orientation Not on file documented as of this encounter Plan of Treatment Not on file documented as of this encounter Procedures Procedure Name Priority Date/Time Associated Diagnosis Comments THYROID STIMULATING HORMONE WITH REFLEX FREE T4 Routine 07/16/2022 2:32 PM EDT Type 2 diabetes mellitus without complications (CMS/HCC) Nontoxic single thyroid nodule CBC WITH AUTO DIFFERENTIAL Routine 07/16/2022 2:32 PM EDT Type 2 diabetes mellitus without complications (CMS/HCC) Nontoxic single thyroid nodule CBC AND DIFFERENTIAL Routine 07/16/2022 2:32 PM EDT Type 2 diabetes mellitus without complications (CMS/HCC) Nontoxic single thyroid nodule HEMOGLOBIN A1C Routine 07/16/2022 2:32 PM EDT Type 2 diabetes mellitus without complications (CMS/HCC) Nontoxic single thyroid nodule LIPID PANEL Routine 07/16/2022 2:32 PM EDT Type 2 diabetes mellitus without complications (CMS/HCC) Nontoxic single thyroid nodule COMPREHENSIVE METABOLIC PANEL Routine 07/16/2022 2:32 PM EDT Type 2 diabetes mellitus without complications (CMS/HCC) Nontoxic single thyroid nodule documented in this encounter Results * (ABNORMAL) CBC auto differential (07/16/2022 2:32 PM EDT) WBC 8.9 4.0 - 10.2 K/mcL LAB HEMETOLOGY METHOD 07/16/2022 9:[address] [facility] RBC 4.79 3.80 - 5.00 M/mcL LAB HEMETOLOGY METHOD 07/16/2022 9:[address] [facility] Hemoglobin 14.9 11.3 - 15.3 g/dL LAB HEMETOLOGY METHOD 07/16/2022 9:[address] [facility] Hematocrit 45.3(H) 34.0 - 45.0 % LAB HEMETOLOGY METHOD 07/16/2022 9:[address] [facility] MCV 94.6 81.0 - 97.0 FL LAB HEMETOLOGY METHOD 07/16/2022 9:[address] [facility] MCH 31.1(L) 32.6 - 36.6 pcg LAB HEMETOLOGY METHOD 07/16/2022 9:[address] [facility] MCHC 32.9 29.2 - 35.3 g/dL LAB HEMETOLOGY METHOD 07/16/2022 9:[address] [facility] RDW 14.6(H) 11.0 - 14.5 % LAB HEMETOLOGY METHOD 07/16/2022 9:[address] [facility] RDW-SD 50.9(H) 36.8 - 48.3 FL LAB HEMETOLOGY METHOD 07/16/2022 9:[address] [facility] Platelets 322 150 - 400 K/mcL LAB HEMETOLOGY METHOD 07/16/2022 9:[address] [facility] MPV 13.2 8.9 - 13.3 FL LAB HEMETOLOGY METHOD 07/16/2022 9:[address] [facility] Neutrophils Relative 50.9 32.0 - 71.0 % LAB HEMETOLOGY METHOD 07/16/2022 9:[address] [facility] Immature Granulocytes Relative 0.2 0.0 - 1.0 % LAB HEMETOLOGY METHOD 07/16/2022 9:[address] [facility] Lymphocytes Relative 34.6 19.5 - 54.0 % LAB HEMETOLOGY METHOD 07/16/2022 9:[address] [facility] Monocytes Relative 9.9 4.0 - 14.0 % LAB HEMETOLOGY METHOD 07/16/2022 9:[address] [facility] Eosinophils Relative 3.4 0.0 - 7.0 % LAB HEMETOLOGY METHOD 07/16/2022 9:[address] [facility] Basophils Relative 1.0 0.0 - 2.0 % LAB HEMETOLOGY METHOD 07/16/2022 9:[address] [facility] Preliminary Neutrophils Abs Automated Count 4.54 1.50 - 6.00 K/mcL LAB HEMETOLOGY METHOD 07/16/2022 9:[address] [facility] Neutrophils Absolute 4.54 1.50 - 6.00 K/mcL LAB HEMETOLOGY METHOD 07/16/2022 9:09 PM EDT [facility] Immature Granulocytes Absolute 0.02 0.00 - 0.10 K/mcL LAB HEMETOLOGY METHOD [facility] Lymphocytes Absolute 3.09 1.10 - 4.00 K/mcL LAB HEMETOLOGY METHOD 07/16/2022 9[facility] Monocytes Absolute 0.88 0.20 - 1.00 K/mcL LAB HEMETOLOGY METHOD 07/16/2022 9:[facility] Eosinophils Absolute 0.30 0.00 - 0.70 K/mcL LAB HEMETOLOGY METHOD 07/16/2022 9:[facility] Basophils Absolute 0.09 0.00 - 0.20 K/mcL LAB HEMETOLOGY METHOD 07/16/2022 9:[address] [facility] NRBC 0.0 0.0 - 0.0 % LAB HEMETOLOGY METHOD 07/16/2022 9:[facility] NRBC Absolute 0.00 >=0.00 K/mcL LAB HEMETOLOGY METHOD 07/16/2022 9:[address] [facility] Blood Venous blood specimen / Unknown 07/16/2022 2:32 PM EDT 07/16/2022 8:53 PM EDT us Keanu Saul MD LAB BLOOD ORDERABLES Final Re sult [facility] [address] [place] [address] * Thyroid stimulating hormone with reflex free T4 (07/16/2022 2:32 PM EDT) [facility] TSH 0.69 0.36 - 3.74 mcIU/mL LAB CHEMISTRY METHOD 07/16/2022 9:33 PM EDT [facility] Blood Venous blood specimen / Unknown 07/16/2022 2:32 PM EDT 07/16/2022 8:53 PM EDT us Keanu Saul MD LAB BLOOD ORDERABLES Final Re sult Performing Organization Address [facility]/ZIP Co de Phone Number [facility] [address] [place], [place] [phone] * (ABNORMAL) Lipid panel (07/16/2022 2:32 PM EDT) [facility] Cholesterol 225(H) <200 mg/dL LAB CHEMISTRY METHOD 07/16/2022 9:33 PM EDT [facility] Triglycerides 128 <150 mg/dL LAB CHEMISTRY METHOD 07/16/2022 9:33 PM EDT [facility] HDL 98 >59 mg/dL LAB CHEMISTRY METHOD 07/16/2022 9:33 PM EDT [facility] Comment: <35 mg/dl is the cut-point for increased Coronary Heart Disease (CHD) risk. LDL Calculated 101(H) 0 - 99 mg/dL LAB CHEMISTRY METHOD 07/16/2022 9:33 PM EDT [facility] VLDL Cholesterol Kalyan 25.6 <=30 mg/dL LAB CHEMISTRY METHOD 07/16/2022 9:33 PM EDT [facility] Blood Venous blood specimen / Unknown 07/16/2022 2:32 PM EDT 07/16/2022 8:53 PM EDT us Keanu Saul MD LAB BLOOD ORDERABLES Final Re sult Performing Organization Address City/[facility]/ZIP Co de Phone Number [facility] [address] [place] [address] * (ABNORMAL) Comprehensive metabolic panel (07/16/2022 2:32 PM EDT) [facility] Signature Sodium 139 136 - 145 mmol/L LAB CHEMISTRY METHOD 07/16/2022 9:[address] [facility] Potassium 4.4 3.5 - 5.1 mmol/L LAB CHEMISTRY METHOD 07/16/2022 9:[address] [facility] Chloride 106 98 - 107 mmol/L LAB CHEMISTRY METHOD 07/16/2022 9:[address] [facility] CO2 25 21 - 32 mmol/L LAB CHEMISTRY METHOD 07/16/2022 9:[address] [facility] Anion Gap 8 3 - 11 LAB CHEMISTRY METHOD 07/16/2022 9:[address] [facility] Glucose 198(H) 70 - 99 mg/dL LAB CHEMISTRY METHOD 07/16/2022 9:[address] [facility] BUN 18 7 - 18 mg/dL LAB CHEMISTRY METHOD 07/16/2022 9:[address] [facility] Creatinine 0.44(L) 0.55 - 1.02 mg/dL LAB CHEMISTRY METHOD 07/16/2022 9:[address] [facility] eGFR 104 >=60 mL/min/1. 73m2 LAB CHEMISTRY METHOD 07/16/2022 9:[address] [facility] Comment: The MDRD GFR formula is valid only for adults between ages 18 and 70. BUN/Creatinine Ratio 40.9(H) 12.0 - 20.0 LAB CHEMISTRY METHOD 07/16/2022 9:[address] [facility] Calcium 9.4 8.5 - 10.1 mg/dL LAB CHEMISTRY METHOD 07/16/2022 9:[address] [facility] AST (SGOT) 29 15 - 37 unit/L LAB CHEMISTRY METHOD 07/16/2022 9:33 PM EDT [facility] ALT (SGPT) 39 13 - 56 unit/L LAB CHEMISTRY METHOD 07/16/2022 9:33 PM EDT [facility] Alkaline Phosphatase 190(H) 53 - 141 unit/L LAB CHEMISTRY METHOD 07/16/2022 9:33 PM EDT [facility] Total Protein 7.0 6.4 - 8.2 g/dL LAB CHEMISTRY METHOD 07/16/2022 9:33 PM EDT [facility] Albumin 3.5 3.4 - 5.0 g/dL LAB CHEMISTRY METHOD 07/16/2022 9:33 PM EDT [facility] Total Bilirubin 0.5 0.2 - 1.0 mg/dL LAB CHEMISTRY METHOD 07/16/2022 9:33 PM EDT [facility] Blood Venous blood specimen / Unknown 07/16/2022 2:32 PM EDT 07/16/2022 8:53 PM EDT Keanu Saul MD LAB BLOOD ORDERABLES Final Re sult [facility] [address] [place] [address] * (ABNORMAL) Hemoglobin A1c (07/16/2022 2:32 PM EDT) Hemoglobin A1C 8.5(H) <5.7 % LAB CHEMISTRY METHOD 07/17/2022 1:35 PM EDT [facility] Mean Bld Glu Estim. 197(H) <126 mg/dL LAB CHEMISTRY METHOD 07/17/2022 1:35 PM EDT [facility] Blood Venous blood specimen / Unknown 07/16/2022 2:32 PM EDT 07/16/2022 8:53 PM EDT Narrative [facility] - 07/17/2022 1:35 PM EDT *Clinical Condition Normal ?<5.7% Prediabetes ? 5.7-6.5% Diabetes ?>/=6.5% NGSP: National Glycohemoglobin Standardization Program *2011 [place] [employer] Note: These results were obtained by [email or web address] Variant II HbA1c Assay. The assay is IFCC standardized and NGSP certified. us Keanu Saul MD LAB BLOOD ORDERABLES Final Re sult [facility] [address] [place] [address] documented in this encounter Visit Diagnoses Diagnosis Type 2 diabetes mellitus without complications (CMS/HCC) Nontoxic single thyroid nodule Nontoxic uninodular goiter documented in this encounter Care Teams Crucible Packer Relationship Specialty Start Date End Date Shirley Adler MD [address] [facility] [place] [address] PCP - General Internal Medicine 02/14/21 documented as of this encounter
--- OUTSIDE RECORDS SUMMARY | 2024-12-30 19:00 | XMS_ITS ---
Author Organization [facility] Address [address] [place] [address] Care Team Providers Care Polymerization Kettle Operator Name Role Phone Clarence Byrd MD Primary Care Provider Cade Shukla [phone] REASON FOR VISIT cx IN FLIGHT TECHNICIAN 3/4 Encounters Encounter Location Date Provider Diagnosis [facility] [address] [place] [address] 12/15/2024 Cade Felder Plan Of Treatment No Information Progress Notes * Celestina VERDUZCODOB:1955 (69 yo F)Acc No.[id number]:12/15/2024 Patient:?Celestina VERDUZCO :1955???Age:69 Y???Sex:Female Address:[address], [place], [address] * true * Date:? Generated for Lorenzo sebastian/Ezra/eTransmitting on:?12/30/2024 06:59 PM EST
--- OUTSIDE RECORDS SUMMARY | 2024-12-30 19:00 | XMS_ITS ---
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 Generated for Cristini romulo/Ezra/eTransmitting on:?12/30/2024 06:59 PM EST
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
--- OUTSIDE RECORDS SUMMARY | 2024-12-30 19:00 | XMS_ITS | Clinical Summary ---
Author Organization [facility] Address [address] [place] [address] Phone Care Team Providers Care Reproduction Technician Name Role Phone Shirley Adler MD Primary Care Provider [phone] Surgical History Surgery Date Site/Laterality Comments HYSTERECTOMY PROCEDURE:HYSTERECTOMY OOPHORECTOMY PROCEDURE:OOPHORECTOMY BARIATRIC SURGERY PROCEDURE:BARIATRIC SURGERY CHOLECYSTECTOMY PROCEDURE:CHOLECYSTECTOMY KIDNEY STONE SURGERY PROCEDURE:KIDNEY STONE SURGERY SPLENECTOMY, PARTIAL PROCEDURE:SPLENECTOMY, PARTIAL PARATHYROIDECTOMY PROCEDURE:PARATHYROIDECTOMY PANCREAS SURGERY PROCEDURE:PANCREAS SURGERY;COMMENT:Cystadenoma COLONOSCOPY PROCEDURE:COLONOSCOPY UPPER GASTROINTESTINAL ENDOSCOPY PROCEDURE:UPPER GASTROINTESTINAL ENDOSCOPY Medical History Medical History Date Comments Anxiety and depression DX:Anxiet y and depression; COMMENT: no records, never saw psychiatrist Pulmonary embolism (CMS/HCC) DX: Pulmonary embolism (HCC); COMMENT: was on coumadin for at least 10 years per patient, no medical records from PCP in [place] Pemphigoid DX:Pemphigoid; C OMMENT: seen by director of pediatric rehabilitation in [facility], NO RECORDS. Pulmonary embolism (CMS/HCC) DX: Pulmonary embolism (HCC) Ovarian cancer (CMS/HCC) DX:Ovar evan cancer (HCC) Anxiety and depression DX:Anxiet y and depression Pemphigoid DX:Pemphigoid Cystadenoma of pancreas DX:Cysta denoma of pancreas Type 2 diabetes mellitus (CMS/HCC) DX:Type 2 diabetes mellitus (HCC) Family History Medical History Relation Name Comments Heart attack Father Heart attack Mother Relation Name Status Comments Father Mother (Age 82) Social History Tobacco Use Types Packs/Day Years Used Date Smoking Tobacco: Never Smokeless Tobacco: Never Alcohol Use Standard Drinks/Week Comments Yes 0 (1 standard drink = 0.6 oz pur e alcohol) Comments Unknown Sex and Gender Information Value Date Recorded Sex Assigned at Not on file Legal Sex Female 6:41 PM EDT Gender Identity Not on file Sexual Orientation Not on file Obstetrics History Plan of Treatment Health Maintenance Due Date Last Done Comments Breast Cancer Screening 1954 Diabetes: Annual Foot Exam 1964 Diabetes: Annual Retina Eye Exam 1964 DTaP,Tdap,and Td Vaccines (1 - Tdap) 1973 Pneumococcal Vaccine: 50+ Years (1 of 1 - PCV) 2004 Zoster Vaccines (1 of 2) 2004 Colorectal Cancer Screening: Colonoscopy 07/27/2022 Depression Screening 07/27/2022 Falls Risk Assessment 07/27/2022 Hepatitis C Screening 07/27/2022 Medicare Annual Wellness Visit 07/27/2022 Osteoporosis Screening (Bone Density Screening) 07/27/2022 Social Influencers of Health Screening 07/27/2022 Diabetes: Annual Urine Albumin-Creatinine Ratio (uACR) 11/02/2022 Diabetes: Blood Sugar Contro l Test (HGBA1C) 01/13/2023 07/16/2022 Diabetes: Annual GFR (Glomerular Filtration Rate) 07/16/2023 07/16/2022 COVID-19 Vaccine (3 - 2023-2 5 season) 2024 03/10/2021, 02/17/2021 Influenza Vaccine (#1) 2024 10/22/2019 Cholesterol Screening (Lipid Panel) 07/16/2027 07/16/2022 RSV Immunization Patients 60 + Years Old (1 - 1-dose 75+ series) 2029 HIB Vaccines Aged Out No longer eligi ble based on patient's age to complete this topic HPV Vaccines Aged Out No longer eligi ble based on patient's age to complete this topic Hepatitis A Vaccines Aged Out No long er eligible based on patient's age to complete this topic Hepatitis B Vaccines Aged Out No long er eligible based on patient's age to complete this topic IPV Vaccines Aged Out No longer eligi ble based on patient's age to complete this topic MMR Vaccines Aged Out No longer eligi ble based on patient's age to complete this topic Meningococcal ACWY Vaccine Aged Out N o longer eligible based on patient's age to complete this topic Meningococcal B Vacine Aged Out No lo nger eligible based on patient's age to complete this topic RSV Immunization Patients Under 20 months Aged Out No longer eligible b ased on patient's age to complete this topic Varicella Vaccines Aged Out No longer eligible based on patient's age to complete this topic Procedures Procedure Name Priority Date/Time Associated Diagnosis Comments COMPREHENSIVE METABOLIC PANEL Routine 07/16/2022 2:32 PM EDT Type 2 diabetes mellitus without complications (CMS/HCC) Nontoxic single thyroid nodule HEMOGLOBIN A1C Routine 07/16/2022 2:32 PM EDT Type 2 diabetes mellitus without complications (CMS/HCC) Nontoxic single thyroid nodule LIPID PANEL Routine 07/16/2022 2:32 PM EDT Type 2 diabetes mellitus without complications (CMS/HCC) Nontoxic single thyroid nodule from Last 3 Months or Most Recently Relevant to Health Maintenance Results * (ABNORMAL) Hemoglobin A1c (07/16/2022 2:32 PM [...] ?>/=6.5% NGSP: National Glycohemoglobin Standardization Program *2011 [employer] Note: These results were obtained by [employer] Variant II HbA1c Assay. The assay is IFCC standardized and NGSP certified. us Keanu Saul MD LAB BLOOD ORDERABLES Final Re sult Performing Organization Address City/[facility]/ZIP Co de Phone Number [facility] [address] [place] [address] * (ABNORMAL) Lipid panel (07/16/2022 2:32 PM EDT) Cholesterol 225(H) <200 mg/dL LAB CHEMISTRY METHOD 07/16/2022 9:33 PM EDT [facility] Triglycerides 128 <150 mg/dL LAB CHEMISTRY METHOD 07/16/2022 9:33 PM EDT [facility] HDL 98 >59 mg/dL LAB CHEMISTRY METHOD 07/16/2022 9:33 PM EDT [facility] Comment: <35 mg/dl is the cut-point for increased Coronary Heart Disease (CHD) risk. LDL Calculated 101(H) 0 - 99 mg/dL LAB CHEMISTRY METHOD 07/16/2022 9:33 PM EDT [facility] VLDL Cholesterol Kalyan 25.6 <=30 mg/dL LAB CHEMISTRY METHOD 07/16/2022 9:33 PM T [facility] Blood Venous blood specimen / Unknown 07/16/2022 2:32 PM EDT 07/16/2022 8:53 PM EDT us Keanu Saul MD LAB BLOOD ORDERABLES Final Re sult [facility] [place] [address] * (ABNORMAL) Comprehensive metabolic panel (07/16/2022 2:32 PM EDT) Sodium 139 136 - 145 mmol/L LAB CHEMISTRY METHOD 07/16/2022 9:33 PM [facility] Potassium 4.4 3.5 - 5.1 mmol/L LAB CHEMISTRY METHOD 07/16/2022 9:33 PM [facility] Chloride 106 98 - 107 mmol/L LAB CHEMISTRY METHOD 07/16/2022 9:33 PM [facility] CO2 25 21 - 32 mmol/L LAB CHEMISTRY METHOD 07/16/2022 9:33 PM [facility] Anion Gap 8 3 - 11 LAB CHEMISTRY METHOD 07/16/2022 9:33 PM [facility] Glucose 198(H) 70 - 99 mg/dL LAB CHEMISTRY METHOD 07/16/2022 9:33 PM [facility] BUN 18 7 - 18 mg/dL LAB CHEMISTRY METHOD 07/16/2022 9:33 PM [facility] Creatinine 0.44(L) 0.55 - 1.02 mg/dL LAB CHEMISTRY METHOD 07/16/2022 9:33 PM [facility] eGFR 104 >=60 mL/min/1. 73m2 LAB CHEMISTRY METHOD 07/16/2022 9:33 PM [facility] Comment: The MDRD GFR formula is valid only for adults between ages 18 and 70. BUN/Creatinine Ratio 40.9(H) 12.0 - 20.0 LAB CHEMISTRY METHOD 07/16/2022 9:33 PM [facility] Calcium 9.4 8.5 - 10.1 mg/dL LAB CHEMISTRY METHOD 07/16/2022 9:33 PM [facility] AST (SGOT) 29 15 - 37 unit/L LAB CHEMISTRY METHOD 07/16/2022 9:33 PM [facility] ALT (SGPT) 39 13 - 56 unit/L LAB CHEMISTRY METHOD 07/16/2022 9:33 PM [facility] Alkaline Phosphatase 190(H) 53 - 141 unit/L LAB CHEMISTRY METHOD 07/16/2022 9:33 PM EDT [facility] Total Protein 7.0 6.4 - 8.2 g/dL LAB CHEMISTRY METHOD 07/16/2022 9:33 PM EDT [facility] Albumin 3.5 3.4 - 5.0 g/dL LAB CHEMISTRY METHOD 07/16/2022 9:33 PM EDT [facility] Total Bilirubin 0.5 0.2 - 1.0 mg/dL LAB CHEMISTRY METHOD 07/16/2022 9:33 PM EDT [facility] Blood Venous blood specimen / Unknown 07/16/2022 2:32 PM EDT 07/16/2022 8:53 PM EDT us Keanu Saul MD LAB BLOOD ORDERABLES Final Re sult [facility] [address] [place] [address] from Last 3 Months or Most Recently Relevant to Health Maintenance Insurance MEDICARE CARE IMPROVEMENT [facility] [employer] MEDICARE Advance Directives Documents on File Type Date Recorded Patient 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 Health Care Decision (hx) 03/01/2021 AD RAMOS DIRECTIVE Health Care Decision (hx) 01/24/2021 AD RAMOS DIRECTIVE Health Care Decision (hx) 01/24/2021 AD RAMOS DIRECTIVE Health Care Decision (hx) 01/24/2021 AD RAMOS DIRECTIVE Health Care Decision (hx) 01/24/2021 AD RAMOS DIRECTIVE Health Care Decision (hx) 01/24/2021 AD RAMOS DIRECTIVE Health Care Decision (hx) 01/24/2021 AD RAMOS DIRECTIVE Health Care Decision (hx) 01/24/2021 AD RAMOS DIRECTIVE Health Care Decision (hx) 01/24/2021 AD RAMOS DIRECTIVE Health Care Decision (hx) 01/24/2021 AD RAMOS DIRECTIVE Health Care Decision (hx) 01/24/2021 AD RAMOS DIRECTIVE Health Care Decision (hx) 01/24/2021 AD RAMOS DIRECTIVE Health Care Decision (hx) 01/24/2021 AD RAMOS DIRECTIVE Health Care Decision (hx) 01/24/2021 AD RAMOS DIRECTIVE Health Care Decision (hx) 01/24/2021 AD RAMOS DIRECTIVE Health Care Decision (hx) 01/24/2021 AD RAMOS DIRECTIVE Health Care Decision (hx) 01/24/2021 AD RAMOS DIRECTIVE Health Care Decision (hx) 01/24/2021 AD RAMOS DIRECTIVE Health Care Decision (hx) 01/24/2021 AD RAMOS DIRECTIVE Health Care Decision (hx) 01/24/2021 AD RAMOS DIRECTIVE Health Care Decision (hx) 01/24/2021 AD RAMOS DIRECTIVE Health Care Decision (hx) 01/24/2021 AD RAMOS DIRECTIVE Health Care Decision (hx) 01/24/2021 AD RAMOS DIRECTIVE Health Care Decision (hx) 01/24/2021 AD RAMOS DIRECTIVE Health Care Decision (hx) 01/24/2021 AD RAMOS DIRECTIVE Health Care Decision (hx) 01/24/2021 AD RAMOS DIRECTIVE Health Care Decision (hx) 01/24/2021 AD RAMOS DIRECTIVE Health Care Decision (hx) 01/24/2021 AD RAMOS DIRECTIVE Health Care Decision (hx) 01/24/2021 AD RAMOS DIRECTIVE Health Care Decision (hx) 05/05/2019 AD RAMOS DIRECTIVE Health Care Decision (hx) 05/05/2019 AD RAMOS DIRECTIVE Health Care Decision (hx) 05/05/2019 AD RAMOS DIRECTIVE Health Care Decision (hx) 05/05/2019 AD RAMOS DIRECTIVE Health Care Decision (hx) 05/05/2019 AD RAMOS DIRECTIVE Health Care Decision (hx) 05/05/2019 AD RAMOS DIRECTIVE Health Care Decision (hx) 05/05/2019 AD RAMOS DIRECTIVE Health Care Decision (hx) 05/05/2019 AD RAMOS DIRECTIVE Health Care Decision (hx) 05/05/2019 AD RAMOS DIRECTIVE Health Care Decision (hx) 05/05/2019 AD RAMOS DIRECTIVE Health Care Decision (hx) 05/05/2019 AD RAMOS DIRECTIVE Health Care Decision (hx) 05/05/2019 AD RAMOS DIRECTIVE Health Care Decision (hx) 05/05/2019 AD RAMOS DIRECTIVE Health Care Decision (hx) 05/05/2019 AD RAMOS DIRECTIVE Health Care Decision (hx) 05/05/2019 AD RAMOS DIRECTIVE Health Care Decision (hx) 05/05/2019 AD RAMOS DIRECTIVE Health Care Decision (hx) 05/05/2019 AD RAMOS DIRECTIVE Health Care Decision (hx) 05/05/2019 AD RAMOS DIRECTIVE Health Care Decision (hx) 05/05/2019 AD RAMOS DIRECTIVE Health Care Decision (hx) 05/05/2019 AD RAMOS DIRECTIVE Health Care Decision (hx) 05/05/2019 AD RAMOS DIRECTIVE Health Care Decision (hx) 05/05/2019 AD RAMOS DIRECTIVE Health Care Decision (hx) 05/05/2019 AD RAMOS DIRECTIVE Health Care Decision (hx) 05/05/2019 AD RAMOS DIRECTIVE Health Care Decision (hx) 05/05/2019 AD RAMOS DIRECTIVE Health Care Decision (hx) 05/05/2019 AD RAMOS DIRECTIVE Health Care Decision (hx) 05/05/2019 AD RAMOS DIRECTIVE Health Care Decision (hx) 05/05/2019 AD RAMOS DIRECTIVE Care Teams Reproduction Technician Relationship Specialty Start Date End Date Shirley Adler MD [address] [place] [address] PCP - General Internal Medicine 02/14/21
--- OUTSIDE RECORDS SUMMARY | 2024-12-30 19:00 | XMS_ITS | Clinical Summary ---
Author Organization [address] Address [address] [place] [address] Phone Care Team Providers Care Meat Hanger Name Role Phone No, Pcp (Do Not Change Name) Primary Care Provid er Unavailable Allergies Active Allergy Reactions Criticality Noted Date Comments Morphine 05/01/2019 Medications ondansetron (ZOFRAN) 4 MG tablet Take 1 tablet (4 mg total) by mouth every 8 (eight) hours as needed for Nausea 12 tablet 05/01/2019 Active Social History Tobacco Use Types Packs/Day Years Used Date Smoking Tobacco: Never Smokeless Tobacco: Never Alcohol Use Standard Drinks/Week Comments Yes 0 (1 standard drink = 0.6 oz pur e alcohol) social Comments Unknown Sex and Gender Information Value Date Recorded Sex Assigned at Not on file Legal Sex Female 6:58 AM EDT Gender Identity Female 05/01/2019 2:42 PM EDT Sexual Orientation Not on file Last Filed Vital Signs Vital Sign Reading Time Taken Comments Blood Pressure 110/56 05/01/2019 12:09 PM EDT Pulse 74 05/01/2019 12:09 PM EDT Temperature 36.2 ??C (97.1 ??F) 05/01/2019 7:06 AM ED T Respiratory Rate 17 05/01/2019 12:09 PM EDT Oxygen Saturation 94% 05/01/2019 12:09 PM EDT Inhaled Oxygen Concentration - - Weight 83.9 kg (185 lb) 05/01/2019 7:06 AM EDT Height 165.1 cm (5' 5 ) 05/01/2019 7:06 AM EDT Body Mass Index 30.79 05/01/2019 7:06 AM EDT Plan of Treatment Health Maintenance Due Date Last Done Comments HIV screening 1967 Hepatitis C screening 1972 Tetanus adult (Td q 10,TDAP once) 1974 Lipid disorder screening 1994 Colon cancer screening, Colonoscopy 1999 Shingles vaccine (Shingrix) (1 of 2 - Shingrix (RZV) 2 Dose Standard Series) 2004 Osteoporosis screening (bone density) 2019 Pneumococcal Vaccine (50+ ye ars) (1 of 1 - PCV) 2019 Diabetes screening 05/01/2022 05/01/2019 Influenza vaccine 06/04/2024 08/05/2017 Covid-19 vaccine series ( - 2023- season) 2024 RSV Discussion (1 - 1-dose 7 5+ series) 2029 Cervical cancer screening Discontinued Meningococcal Vaccine Aged Out No scooter chio eligible based on patient's age to complete this topic Procedures Procedure Name Priority Date/Time Associated Diagnosis Comments COMPREHENSIVE METABOLIC PANEL STAT 05/01/2019 7:25 AM EDT from Last 3 Months or Most Recently Relevant to Health Maintenance Results * (ABNORMAL) Comprehensive metabolic panel (05/01/2019 7:25 AM EDT) Sodium 141 136 - 145 mmol/L 05/01/2019 7:55 AM [facility] Potassium 4.2 3.5 - 5.1 mmol/L 05/01/2019 7:55 AM [facility] Chloride 108(H) 98 - 107 mmol/L 05/01/2019 7:55 AM [facility] CO2 24 21 - 32 mmol/L 05/01/2019 7:55 AM [facility] Anion Gap 9 5 - 15 mmol/L 05/01/2019 7:55 AM [facility] Glucose 103 65 - 110 mg/dL 05/01/2019 7:55 AM [facility] Comment: Non-fasting: ??65-110 mg/dL Fasting (minimum 6 hrs): ??65-99 mg/dL BUN 17 7 - 18 mg/dL 05/01/2019 7:55 AM [facility] Creatinine 0.70 0.55 - 1.02 mg/dL 05/01/2019 7:55 AM [facility] eGFR (-IRISH) >60 >60 mL/min/1. 73m2 05/01/2019 7:55 AM [facility] eGFR (NON -Georgian) >60 >60 mL/min/1. 73m2 05/01/2019 7:55 AM [facility] Comment: (NOTE) ? These are estimated GFR values resulting from ? utilization of a calculation incorporating ? the best data available for input, but all ? assumptions may not be correct in every ? case. ??In addition, there are several ? situations (elderly over 70 years, , ? serious co morbidities, extremes ? of body size or nutritional status) which ? could contribute to a misleading result. ? Therefore, clinical correlation is advised ? to prevent arriving at an erroneous ? conclusion based solely on the calculation ? utilized. Calcium 8.9 8.5 - 10.1 mg/dL 05/01/2019 7:55 AM [facility] Total Protein 7.1 6.4 - 8.2 g/dL 05/01/2019 7:55 AM [facility] Albumin 3.5 3.4 - 5.0 g/dL 05/01/2019 7:55 AM [facility] Globulin 3.6 2.5 - 5.0 g/dL 05/01/2019 7:55 AM [facility] Total Bilirubin 0.6 0.2 - 1.0 mg/dL 05/01/2019 7:55 AM [facility] Alkaline Phosphatase 148(H) 45 - 117 U/L 05/01/2019 7:55 AM [facility] Alanine Aminotransferase (ALT) 52 12 - 78 U/L 05/01/2019 7:55 AM [facility] Aspartate Aminotransferase (AST) 83(H) 15 - 37 U/L 05/01/2019 7:55 AM EDT [facility] Blood Venipuncture / Unknown 05/01/2019 7:25 AM EDT 05/01/2019 7:29 AM EDT us Mark Camara MD LAB BLOOD ORDERABLES Fi nal Result [facility] [address] [place] [address] from Last 3 Months or Most Recently Relevant to Health Maintenance Insurance MEDICARE [employer] [address] [place] [address] MEDICARE [employer]ICARE [employer] Care Teams Meat Hanger Relationship Specialty Start Date End Date No, Pcp (Do Not Change Name) PCP - General 05/01/19
--- OUTSIDE RECORDS SUMMARY | 2024-12-30 19:00 | XMS_ITS | Continuity of Care Document ---
Author Organization [place] [facility] Address [address] [place] [address] Care Team Providers Care Social Media Marketing Specialist Name Role Phone HARSHAD RODRIGUES Primary Care Provider [phone] Assessment Encounter Date Assessment Date Assessment LastModified [...] Portions of this note were generated by [employer]. Errors of barrel assembler helper may occur- please feel free to reach out with any corrections or clarifications you may require. Time spent face to face with patient: 26 minutes [email or web address] Not available 12/07/2024 13:16:12 Plan of Treatment Reminders Order Date Submit Date Provider Last Modified By Organization Details Last Modified Time Details Appointments RECHECK 15 2024 02:45P Qing Whitaker MD Not available Not available Not available Lab None recorded. Referral None recorded. Procedures None recorded. Surgeries None recorded. Imaging XR, tibia + fibula, 2 view - 311 2v right tibia recheck 2024 025 [email or web address] [facility], [address] [facility], [address], [address], 12/07/2024 16:49:04 Medication Orders oxycodone 5 mg tablet 2024 025 [facility] [id number], [address] [place], [address], 12/07/2024 12:21:12 Patient TargetsNo targets recorded. Patient InstructionsNo instructions recorded. Reason for Referral None Reported. Results Created Date Observation Date Name Description Value Unit Range Abnormal Flag Note LastModifiedBy Organization Detail LastModifiedTime 12/07/19 25 12/07/2024 XR, tibia + fibul a, 2 view [email or web address] ?Encry pted=s hAaTro YD8dLq bEUv6g %2BXZw aYqtaq 0bqfl% 2Fg9IQ a4ajBk vP9nXo QUaueC m3YtLR FvZlgJ JJ8mAn HZtai3 8k8429 AC0Kqb H6EVqK nKiQtr MwF INTERFACE [facility] [address], [place], [address], 12/07/2024 09:30:26 12/07/19 25 12/07/2024 XR, tibia + fibul a, 2 view [email or web address] ?Encry pted=s hAaTro YD8dLq bEUv6g %2BXZw aYqtaq 0bqfl% 2Fg9IQ a4ajBk vP9nXo QUaueC m3YtLR FvZlgJ JJ8mAn HZtai3 2v3620 AC0Kqb H6EVqK nKiQtr MwF INTERFACE [facility] [address] [facility] [address], [place], [address], 12/07/2024 09:30:28 Result Notes None recorded. Problems Name Problem SNOMED Code Status Onset Date Resolution Date Notes Provider Name and Address Organization Details Recorded Time No complaints [id number] Active Status : 'A'; Not Available [facility] 4 09:25:05 Problem Notes None recorded. Medical Equipment None Reported. Allergies Allergen ID Allergen Name Allergen Category Reaction Reaction Severity Criticality Documentation Date Start Date Code Code System Note Provider Name and Address Organization Details Recorded Time [id number] Orajel medicatio n Not available Not available Not available 12/07/2024 66528 6 RxNorm PRINCE carranza [place] [facility] 5 09:22:45 93181 oxycodone hydrochlo ride medicatio n Not available Not available Not available 01/06/20242021 51566 RxNorm PRINCE carranza [place] [facility] 5 09:22:30 59076 Dilaudid medicatio n Not available Not available Not available 01/06/20242021 06616 3 RxNorm Not Available [facility] 4 15:13:06 32677 morphine sulfate medicatio n Not available Not available Not available 01/06/20242021 10429 RxNorm Not Available [facility] 4 15:13:06 53548 acetamino phen / oxycodone medicatio n Not available Not available Not available 01/06/20242021 45953 3 RxNorm Not Available [facility] 4 15:13:06 Medications Name Sig Start Date [...] Updated DateTime 12/07/2024 165.1 cm 34.9 kg/m2 21784.4 g PRINCE AUGUSTIN [place] [facility] 12/07/2024 09:16:18 Social History None recorded. Functional Status None recorded. Mental Status None recorded. Family History Nothing Reported. Medical History Condition Response Allergies/Hayfever N Coronary Artery Disease N Breathing or lung disorders N Anxiety/Depression Y Emphysema N Nerve Disorders N Thyroid Problems N COPD N Pacemaker N Kidney/Bladder Problems N Anemia N Vascular Disease N Heart Trouble N Heart Attack ([place]) N Gastrointestinal Disease N Cholesterol Y Diabetes Y Autoimmune disease N Inflammatory Joint disease N Bleeding Disorder N Orthotics N Seizures/Epilepsy N Arthritis Y Blood Clot Y AIDS/HIV N Congestive Heart Failure (CHF) N Acid Reflux (GERD) N Cancer Y Stroke N Asthma N Circulation Problems N Peripheral Vascular Disease N Sleep Apnea N Hepatitis N Heart Disease N Rheumatoid Arthritis N Pulmonary Embolism N Arrhythmia N Headaches N Fibromyalgia N Hypertension N Osteoporosis N Gynecological HistoryNo gynecological history recorded. Obstetrics History GPAL:G 0 P 0 0 0 0 Past Encounters Encounter ID Performer Location Encounter Start Date Encounter Closed Date Diagnosis/Indication Diagnosis SNOMED-CT Code Diagnosis ICD10 Code Diagnosis Note [id number] MD [facility] [address]rd floor [address] [place] [address] 12/07/2024 09:03:23 12/07/2024 13:17:58 Closed fracture of shaft of right tibia [id number] S82.201A Health Concerns Section Related Observation LastModified by Organization Detai ls LastModified Time None Recorded Concern Status LastModified by Organization Details LastModified Time None Recorded Payers Encounter Date Sequence Insurance Name Policy Number Policy Thompson Covered Member ID Thompson Member ID Guarantor Name 12/07/2024 1 [employer] - DUAL ELIGIBLE - [employer]ICARE - SENIOR PLAN (MEDICARE REPLACEMENT/A DVANTAGE - HMO) Celestina Verduzco [id number] 12/07/2024 2 [place]: [facility] Celestina Verduzco [id number] Notes Date Note Type Note Provider Name [...] - Oragel - Percocet Guy Whitaker MD [address] [place], [place] [address] [address], [place], [address], [facility] 12/07/2024 13:16:33 OBGyn Episode No OBEpisode recorded.
--- OUTSIDE RECORDS SUMMARY | 2024-12-30 19:00 | XMS_ITS | Patient Health Record ---
Author Organization [facility] Address [address] [place] [address] Care Team Providers Care Reconciliation Coordinator Name Role Phone Clarence Byrd MD Primary Care Provider Cade Shukla Unavailable [phone] Reason For Referral No Information Encounters Encounter Location Date Provider Diagnosis [facility] [address] [place] [address] 10/20/2024 Cade Felder [address] [address] 12/15/2024 Cade Felder Plan Of Treatment No Information Insurance Providers Payer Name Payer Address Payer Phone Subscriber Number Group Number Insured Name Patient Relationship to Insured Coverage Start Date Coverage End Date [facility] [address] [place] [phone] [id number] Celestina Verduzco Self - patient is the insured
--- OUTSIDE RECORDS SUMMARY | 2024-12-30 19:00 | XMS_ITS | Clinical Summary ---
Author Organization [facility] Address [address] [place] [address] Care Team Providers Care Drapery Estimator Name Role Phone Shirley Adler MD Primary Care Provider [phone] Allergies Active Allergy Reactions Criticality Noted Date Comments Hydromorphone 04/10/2021 Erythromycin 04/10/2021 Morphine 04/10/2021 Oxycodone 04/10/2021 Oxycodone-Acetaminophen 04/10/2021 Medications Medication Sig Dispensed Refills Start Date End Date Status senna (SENOKOT) 8.6 MG tablet Take 2 tablets by mouth every night at bedtime. 0 Active sucralfate (CARAFATE) 1 g tablet Take 1 g by mouth 4 (four) times a day. 0 Active buPROPion (ZYBAN) 150 MG 12 hr tablet Take 150 mg by mouth daily. 0 Active citalopram (CeleXA) 40 MG tablet Take 40 mg by mouth daily. 0 Active Docusate Sodium 100 MG capsule Take 100 mg by mouth 2 (two) times a day. 0 Active metoclopramide (REGLAN) tablet 10 mg Take 10 mg by mouth 3 (three) times a day. 0 Active hydrOXYzine (VISTARIL) 25 MG capsule Take 25 mg by mouth 3 (three) times a day as needed for itching. 0 Active polyethylene glycol (MIRALAX) 17 g packet Take 17 g by mouth daily. 0 Active Magnesium Oxide 250 MG TABS Take 1 tablet by mouth daily. 0 Active pantoprazole (PROTONIX) 40 MG tablet Take 40 mg by mouth every morning on an empty stomach. 0 Active ALPRAZolam (XANAX) 0.5 MG tablet Take 0.5 mg by mouth as needed for sleep. 0 Active clobetasol (TEMOVATE) 0.05 % GEL Apply topically 2 (two) times a day. 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 Diabetes mellitus 12/09/2017 Class 1 obesity in adult 11/01/2017 Resolved Problems Problem Noted Date Diagnosed Date Resolved Date Cystadenoma of pancreas 12/09/201704/04 Embolism 12/09/2017 04/16/2021 Family History Medical History Relation Name Comments Heart attack Father Heart attack Mother Relation Name Status Comments Father Mother (Age 82) Social History Tobacco Use Types Packs/Day Years Used Date Smoking Tobacco: Never Smokeless Tobacco: Never Alcohol Use Standard Drinks/Week Comments Yes 0 (1 standard drink = 0.6 oz pur e alcohol) rarely Sex and Gender Information Value Date Recorded Sex Assigned at Not on file Gender Identity Not on file Sexual Orientation Not on file Job Start Date Occupation Industry Not on file Not on file Not on file Last Filed Vital Signs Vital Sign Reading Time Taken Comments Blood Pressure 123/63 04/19/2021 1:39 PM EDT Pulse 72 04/19/2021 1:39 PM EDT Temperature 36.3 ??C (97.4 ??F) 04/19/2021 1:39 PM ED T Respiratory Rate - - Oxygen Saturation 100% 04/19/2021 1:39 PM EDT Inhaled Oxygen Concentration - - Weight 86.2 kg (190 lb) 04/12/2021 10:59 AM EDT Height 165.1 cm (5' 5 ) 04/19/2021 1:39 PM EDT Body Mass Index 31.62 04/12/2021 10:59 AM EDT Plan of Treatment Health Maintenance Due Date Last Done Comments Hepatitis C Screening 1955 COVID-19 Vaccine (#1) 1955 Pneumococcal Vaccine (1 of 2 - PCV) 1960 Depression Screening 1966 BMI Counseling 1972 Preventative Health Evaluation 1972 DTap / Tdap / Td (1 - Tdap) 1973 Colon Cancer Screening (Colonoscopy) 1999 Breast Cancer Screening (Mammogram) 2004 Shingrix-Zoster Vaccine (1 of 2) 2004 Fall Risk Assessment 2019 Osteoporosis Screening (DEXA Scan) 2019 Influenza Vaccine (#1) 2024 08/05/2017 RSV Adult > 60+ Yrs or Pregn ant (1 - 1-dose 75+ series) 2029 Hepatitis B Vaccines Aged Out No long er eligible based on patient's age to complete this topic RSV Ped < 20 months Aged Out No longe r eligible based on patient's age to complete this topic Care Teams Drapery Estimator Relationship Specialty Start Date End Date Shirley Adler MD [address] [place] [address] PCP - General Internal Medicine 03/21/21
== END 2024-12-30 16:07 | disposition home or self-care (01) ==
PROVIDERS: PCP Family Medicine; Visit Provider Anesthesiology
DX: M19.90 Unspecified osteoarthritis, unspecified site (principal); Z85.43 Personal history of malignant neoplasm of ovary; G89.4 Chronic pain syndrome; I87.2 Venous insufficiency (chronic) (peripheral); M25.561 Pain in right knee; M17.11 Unilateral primary osteoarthritis, right knee
CPT/HCPCS: 99213

== ENCOUNTER → 2024-12-30 15:28 | Outpatient (BNVA) | payer OTHER, SELFPAY | PROVIDERS: PCP Family Medicine; Visit Provider Anesthesiology | DX: G89.4 Chronic pain syndrome (principal); M17.11 Unilateral primary osteoarthritis, right knee; I87.2 Venous insufficiency (chronic) (peripheral); Z85.43 Personal history of malignant neoplasm of ovary | CPT/HCPCS: 99212 ==

== ENCOUNTER 2025-01-14 13:12 | Outpatient (AMB) | payer OTHER, SELFPAY ==
--- NOTE | 2025-01-14 13:18 | MHC.PC.OV ---
Vital Signs 01/14/25 13:24 BP 130/70 Blood Pressure Location Rt brachial Position Sitting Respiration 14 Pulse 67 Pulse Source Pulse Oximeter Temp 98.1 F Temp Source Oral Pulse Oximetry (%) 98 Oxygen Delivery Method Room Air Intake Visit Reasons: Pre op cataract surgery Intake Note: patient is her for a pre-op Title I Teacher Required: No Allergies ketorolac [From TORADOL] Allergy (Intermediate, Verified 01/14/25 13:19) VOMITING morphine [MORPHINE] Allergy (Intermediate, Verified 01/14/25 13:19) vomiting hydromorphone [From DILAUDID] Allergy (Unknown, Verified 01/14/25 13:19) HIVES midodrine Allergy (Unknown, Verified 01/14/25 13:19) Anaphylaxis dilation drops for eye Allergy (Mild, Uncoded 12/30/24 15:38) swelling, redness, pain Erythromycin Allergy (Unknown, Uncoded 12/30/24 15:38) Vomiting Medication List - Last Reconciled 01/14/25 by Clarence Byrd MD albuterol sulfate 90 mcg/actuation (ProAir HFA) 2 puffs inhalation Q6H PRN alprazolam 0.5 mg PO DAILY 30 days bisacodyl (Dulcolax (bisacodyl)) 5 mg PO BEDTIME blood sugar diagnostic (True Metrix Glucose Test Strip) Test Blood Sugar 2 times a day, As directed, 90 days blood sugar diagnostic (ReduxTouch Verio test strips) To test Blood sugar 2 times a day, As directed, 90 days blood-glucose meter ([employer] Verio Flex Meter) To test blood sugar as directed, 999 days bupropion HCl XL 150 mg PO DAILY 30 days citalopram 20 mg (1/2 x 40 mg) PO DAILY 90 days clobetasol 0.05% 1 appl topical BID PRN 30 days glipizide ER 5 mg PO DAILY 90 days hydroxyzine HCl 50 mg PO BEDTIME 30 days lancets ([employer] Delica Plus Lancet) To Test Blood Sugar 2 times a day, As directed. 90 days lisinopril 5 mg PO DAILY 30 days metformin 250 mg (1/2 x 500 mg) PO BID 30 days multivitamin 1 tab PO DAILY omeprazole 20 mg PO DAILY oxycodone 5 mg PO DAILY PRN 30 days warfarin 4 mg PO DAILY 90 days Tobacco use date assessed: 04/09/24 Dental Screening Dental Screen Date: 04/09/24 HPI Pre op cataract surgery HPI Details Patient?presents?for?preoperative?clearance?prior?to?cataract?surgery Procedure: Left Eye Cataract Surgery Date: March 22, 2025 Surgeon: Dr Jay Galo Anesthesia: Local and sedation Cardiac?Hx: None Pulmonary?Hx: Hx of seasonal Allergy triggered Asthma but no recent symptoms. Prior?Surgical?Complications: None Prior?Anesthesia?Complications: Mild shivers. Coag?Issues: Immobility and Hx of PE. On Warfarin. Functional?Gowen: HPI Comments History of Present Illness Details Documentation assistance for Clarence Byrd MD, was provided by Yosi Cleveland, Passenger Interline Clerk on 01/14/2025 at 1:37 PM EST. I, Dr. Byrd, have read, observed, and verified documentation. [facility] Medical History (Updated 01/14/25 @ 14:09 by Yosi Cleveland) Anxiety Complex regional pain syndrome i of lower limb, bilateral Morbid obesity Wheelchair dependent Asthma Diabetes Hypertension Bradycardia Pemphigus Pancreatic ductal abnormality Surgical History Hx of parathyroidectomy Hx of cholecystectomy Hx of splenectomy Hx of bariatric surgery Hx of hysterectomy S/P placement of nerve stimulator H/O oral surgery Family History Father Heart attack Mental health disorder Mother Heart attack Macular degeneration Mental health disorder Social History Housing: Apartment Patient Tobacco Use Status: Never used Tobacco e-Cigarette/Vaping Use: Never Used Second Hand Smoke Exposure: No service: No Current occupational status: disabled Cognitive needs: No Hearing needs: Yes Vision needs: Yes (wears reading glasses) Questionnaire Thrive Questionnaire Date Thrive assessed: 10/09/23 GRETA-7 AMB Questionnaire GRETA-7 Date GRETA - 7 assessed: 12/06/23 Source: Developed by Drs. Stewart Hall, Linda Jesus, Ganga Mcgowan and colleagues, with an educational luis from [employer] Review of Systems Const Denies chills, Denies fatigue, Denies fever(s), Denies headache(s) and Denies weakness ENT Denies dizziness and Denies headache(s) Card Denies chest pain, Denies lightheadedness, Denies dyspnea and Denies other (Palpitations) Resp Denies cough, Denies dyspnea, Denies wheezing and Denies other ( shortness of breath) Musc Denies numbness and Denies tingling Neuro Denies dizziness, Denies headache(s), Denies numbness, Denies tingling, Denies paresthesias and Denies weakness Psych Denies anxiety and Denies depression Endo Denies fatigue Aller/Immun Denies wheezing Physical exam (Primary Care) Vital Signs: Last Vital Signs Temp 98.1 F 01/14/25 13:24 Pulse 67 01/14/25 13:24 Resp 14 01/14/25 13:24 BP 130/70 01/14/25 13:24 Pulse Ox 98 01/14/25 13:24 Oxygen Delivery Method Room Air 01/14/25 13:24 Tobacco/Smoking Status: Tobacco use Status Tobacco use date assessed 04/09/24 01/14/25 13:26 Patient Tobacco Use Status Never used Tobacco 01/14/25 13:26 e-Cigarette/Vaping Use Never Used 01/14/25 13:26 Thrive Assessment: Date of Thrive Assessment Date Thrive assessed 10/09/23 01/14/25 13:26 Const General: no acute distress and well developed Nutritional Appearance: well nourished Orientation/consciousness: patient oriented x3 HENMT Head: Yes normocephalic and Yes atraumatic Eyes General: appearance normal, both eyes and all related structures Pupils: Equal, round and reactive pupils present EOM: EOMs intact bilaterally Resp Effort & Inspection: normal respiratory effort Auscultation: clear to auscultation bilaterally Cardio Rate: regular rate Rhythm: regular rhythm Heart sounds: S1 normal heart sound present, S2 normal heart sound present, no gallops, no murmurs and no rubs Neuro Other: Nonambulatory General: patient oriented x3 and No gait normal Cranial nerves: Yes Equal, round and reactive pupils present Gait exam (Neuro): Assisted gait required Gait assisted method: wheelchair bound Psych Affect: normal affect Coding Level of Care Code Est Pt Level 3 (20698) Diagnoses Pre-operative clearance Z01.818 Bilateral knee pain M25.561; M25.562 Assessment & Plan Assessment & Plan (1) Pre-operative clearance: Code(s): Z01.818 - Encounter for other preprocedural examination Category: Medical Plan: 69-year-old?female?presents?for?preoperative?clearance?prior?to?left?eye?cataract?surgery No?history?of?cardiac?disease?and?cardiac?exam?today?is?normal History?of?mild?asthma?with?allergy?trigger.??No?recent?symptoms.??She?does?have?an?albuterol?pump - bring?to?procedure. No?history?of?surgical?complications. Patient?notes?some chills?with?anesthesia?in?the?past. She?is?currently?on?warfarin?for?immobility?and?history?of?PEs. Can?continue?warfarin.??Keep INR between?2.0?and?3.0?and?avoid?supratherapeutic?INR?prior?procedure. Functional?reserve?is?were?as?patient?is?immobile Low?intermediate?risk?patient?for?low?risk?procedure.??Patient?is?optimized *?no?contraindication?to?proceeding?with?procedure (2) Bilateral knee pain: Code(s): M25.561 - Pain in right knee; M25.562 - Pain in left knee Category: Medical Plan: Followed?by??Polly?who?is?looking?into?other?modes of?pain?control?including?geniculate?nerve?ablation. Tramadol?has?not?been?helping. Will?give?her?a?course?oxycodone. Subsequently?will?discuss buprenorphine Medications: New oxycodone MassPat Verified. Partial Fill upon patient request. 5 mg PO DAILY 30 days PRN 15 tabs 0RF pain
[2025-01-14 13:24] VITALS: BP 130/70; PULSE 67; RESP 14; TEMP 36.7; O2SAT 98
--- OUTSIDE RECORDS SUMMARY | 2025-01-14 16:42 | XMS_ITS | Patient Health Record ---
Author Organization [facility] Address [address] [place] [address] Care Team Providers Care Cook Pickled Meat Name Role Phone Clarence Byrd MD Primary Care Provider Cade Shukla Unavailable [phone] Reason For Referral No Information Encounters Encounter Location Date Provider Diagnosis [facility] [address] [place] [address] 10/20/2024 Cade Felder [facility] [address] [place] [address] 12/15/2024 Cade Felder Plan Of Treatment Next Appt Details Provider Name:Tara daniel, 03/10/2025 01:00:00 PM, [address] [place], [address], Insurance Providers Payer Name Payer Address Payer Phone Subscriber Number Group Number Insured Name Patient Relationship to Insured Coverage Start Date Coverage End Date [facility] [address] [place] [phone] [id number] Celestina Verduzco Self - patient is the insured
--- OUTSIDE RECORDS SUMMARY | 2025-01-14 16:42 | XMS_ITS ---
Author Organization [facility] Address [address] [place] [address] Care Team Providers Care Dispatcher Tow Truck Name Role Phone Clarence Byrd MD Primary Care Provider Cade Shukla [phone] REASON FOR VISIT TANK CAR RECONDITIONER Encounters Encounter Location Date Provider Diagnosis [address] [address] 10/20/2024 Cade Felder Plan Of Treatment Next Appt Details Provider Name:Tara Jaimes fredy, 03/10/2025 01:00:00 PM, [address] [place], [address], Progress Notes * Celestina VERDUZCODOB:1955 (69 yo F)Acc No.[id number]:10/20/2024 Patient:?Celestina VERDUZCO :1955???Age:69 Y???Sex:Female Address:[address], [place], [address] * true * Date:? Generated for Printi ng/Faermiasg/eTransmitting on:?01/14/2025 04:42 PM EDT
--- OUTSIDE RECORDS SUMMARY | 2025-01-14 16:42 | XMS_ITS ---
Author Organization [facility] Address [address] [place] [address] Care Team Providers Care Logistic Specialist Name Role Phone Clarence Byrd MD Primary Care Provider Cade Shukla [phone] REASON FOR VISIT cx CREW CLERK 3/4 Encounters Encounter Location Date Provider Diagnosis [address] [address] 12/15/2024 Cade Felder Plan Of Treatment Next Appt Details Provider Name:Tara Jaimes fredy, 03/10/2025 01:00:00 PM, [address] [place], [address], Progress Notes * Celestina VERDUZCODOB:1955 (69 yo F)Acc No.[id number]:12/15/2024 Patient:?Celestina VERDUZCO :1955???Age:69 Y???Sex:Female Address:[address], [place], [address] * true * Date:? Generated for Printi ng/Faxing/eTransmitting on:?01/14/2025 04:41 PM EDT
--- OUTSIDE RECORDS SUMMARY | 2025-01-14 16:42 | XMS_ITS | Clinical Summary ---
Author Organization [facility] Address [address] [place] [address] Care Team Providers Care Crm Developer Name Role Phone Shirley Adler MD Primary Care Provider [phone] Allergies Active Allergy Reactions Criticality Noted Date [...] age to complete this topic Care Teams Crm Developer Relationship Specialty Start Date End Date Shirley Adler MD [address] [place] [address] PCP - General Internal Medicine 03/21/21
--- OUTSIDE RECORDS SUMMARY | 2025-01-14 16:42 | XMS_ITS | Clinical Summary ---
Author Organization [facility] Address [address] [place] [address] Phone Care Team Providers Care Document Examiner Name Role Phone Shirley Adler MD Primary Care Provider [phone] Surgical History Surgery Date Site/Laterality Comments HYSTERECTOMY [...] patient, no medical records from PCP in [place] Pemphigoid DX:Pemphigoid; C OMMENT: seen by department store salesperson in [facility], NO RECORDS. Pulmonary embolism (CMS/HCC) DX: Pulmonary [...] LAB CHEMISTRY METHOD 07/17/2022 1:35 PM EDT [facility] Mean Bld Glu Estim. 197(H) <126 mg/dL LAB CHEMISTRY METHOD 07/17/2022 1:35 PM EDT [facility] Blood Venous blood specimen / Unknown 07/16/2022 2:32 PM EDT 07/16/2022 8:53 PM EDT Narrative [facility] - 07/17/2022 1:35 PM EDT *Clinical Condition Normal ?<5.7% Prediabetes ? 5.7-6.5% Diabetes ?>/=6.5% NGSP: National Glycohemoglobin Standardization Program *2011 [place] [employer] Note: These results were obtained by [employer] Variant II HbA1c Assay. The assay is IFCC standardized and NGSP certified. us Keanu Saul MD LAB BLOOD ORDERABLES Final Re sult Performing Organization Address City/[facility]/ZIP Co de Phone Number [facility] [address] [place] [address] * (ABNORMAL) Lipid panel (07/16/2022 2:32 PM EDT) Cholesterol 225(H) <200 mg/dL LAB CHEMISTRY METHOD 07/16/2022 9:33 PM EDT [facility] Triglycerides 128 <150 mg/dL LAB CHEMISTRY METHOD 07/16/2022 9:33 PM EDT [facility] HDL 98 >59 mg/dL LAB CHEMISTRY METHOD 07/16/2022 9:33 PM EDT [facility] Comment: <35 mg/dl is the cut-point for increased Coronary Heart Disease (CHD) risk. LDL Calculated 101(H) 0 - 99 mg/dL LAB CHEMISTRY METHOD 07/16/2022 9:33 PM EDT [facility] VLDL Cholesterol Kalyan 25.6 <=30 mg/dL LAB CHEMISTRY METHOD 07/16/2022 9:33 PM T [facility] Blood Venous blood specimen / Unknown 07/16/2022 2:32 PM EDT 07/16/2022 8:53 PM EDT us Keanu Saul MD LAB BLOOD ORDERABLES Final Re sult [facility] [place] [address] * (ABNORMAL) Comprehensive metabolic panel (07/16/2022 2:32 PM EDT) Sodium 139 136 - 145 mmol/L LAB CHEMISTRY METHOD 07/16/2022 9:33 PM [facility] Potassium 4.4 3.5 - 5.1 mmol/L LAB CHEMISTRY METHOD 07/16/2022 9:33 PM [facility] Chloride 106 98 - 107 mmol/L LAB CHEMISTRY METHOD 07/16/2022 9:33 PM [facility] CO2 25 21 - 32 mmol/L LAB CHEMISTRY METHOD 07/16/2022 9:33 PM [facility] Anion Gap 8 3 - 11 LAB CHEMISTRY METHOD 07/16/2022 9:33 PM [facility] Glucose 198(H) 70 - 99 mg/dL LAB CHEMISTRY METHOD 07/16/2022 9:33 PM [facility] BUN 18 7 - 18 mg/dL LAB CHEMISTRY METHOD 07/16/2022 9:33 PM [facility] Creatinine 0.44(L) 0.55 - 1.02 mg/dL LAB CHEMISTRY METHOD 07/16/2022 9:33 PM [facility] eGFR 104 >=60 mL/min/1. 73m2 LAB CHEMISTRY METHOD 07/16/2022 9:33 PM [facility] Comment: The MDRD GFR formula is valid only for adults between ages 18 and 70. BUN/Creatinine Ratio 40.9(H) 12.0 - 20.0 LAB CHEMISTRY METHOD 07/16/2022 9:33 PM [facility] Calcium 9.4 8.5 - 10.1 mg/dL LAB CHEMISTRY METHOD 07/16/2022 9:33 PM [facility] AST (SGOT) 29 15 - 37 unit/L LAB CHEMISTRY METHOD 07/16/2022 9:33 PM [facility] ALT (SGPT) 39 13 - 56 unit/L LAB CHEMISTRY METHOD 07/16/2022 9:33 PM [facility] Alkaline Phosphatase 190(H) 53 - 141 unit/L LAB CHEMISTRY METHOD 07/16/2022 9:33 PM EDT [facility] Total Protein 7.0 6.4 - 8.2 g/dL LAB CHEMISTRY METHOD 07/16/2022 9:33 PM EDT [facility] Albumin 3.5 3.4 - 5.0 g/dL LAB CHEMISTRY METHOD 07/16/2022 9:33 PM EDT [facility] Total Bilirubin 0.5 0.2 - 1.0 mg/dL LAB CHEMISTRY METHOD 07/16/2022 9:33 PM EDT [facility] Blood Venous blood specimen / Unknown 07/16/2022 2:32 PM EDT 07/16/2022 8:53 PM EDT us Keanu Saul MD LAB BLOOD ORDERABLES Final Re sult [facility] [address] [place] [address] from Last 3 Months or Most Recently Relevant to Health Maintenance Insurance MEDICARE CARE IMPROVEMENT [facility] [employer] MEDICARE Advance Directives Documents on File Type Date Recorded Patient Pre Wave Assembler Expl anation Health Care Decision (hx) 03/01/2021 AD RAMOS DIRECTIVE Health Care Decision (hx) 01/24/2021 AD RAMOS DIRECTIVE Health Care Decision (hx) 01/24/2021 AD RAOMS DIRECTIVE Health Care Decision (hx) 01/24/2021 AD [...] (hx) 05/05/2019 AD RAMOS DIRECTIVE Care Teams Document Examiner Relationship Specialty Start Date End Date Shirley Adler MD [address] [place] [address] PCP - General Internal Medicine 02/14/21
--- OUTSIDE RECORDS SUMMARY | 2025-01-14 16:42 | XMS_ITS ---
Author Organization [facility] Address [address] [place] [address] Care Team Providers Care Infrastructure Director Name Role Phone Rochelle QUICK, Clarence Primary Care Provider Cade Shukla Unavailable [phone] Encounters Encounter Location Date Provider Diagnosis [address] [address] 01/05/2025 Cade Felder Plan Of Treatment Next Appt Details Provider Name:Tara Jaimes fredy, 03/10/2025 01:00:00 PM, [address] [place], [address], Progress Notes * Celestina VERDUZCODOB:1955 (69 yo F)Acc No.[id number]:01/05/2025 Progress Notes Patient:?Celestina VERDUZCO Provider:?Cade Felder DPM :1955???Age:69 Y???Sex:Female D ate:01/05/2025 Address:[address], [id number] Pcp:Clarence Byrd MD Subjective: * Chief Complaints: * ??? * Medical History:? Objective: * Vitals:? Assessment: Plan: * Treatment: * Images: * The named appointment provid er may or may not be the originator of this progress note, and it is not deemed complete until electronically signed by the appointment provider. Sign off status: Pending * Provider:?Cade Felder DPM Date:?2024 Generated for Lorenzo sebastian/Ezra/Lauryn on:?01/14/2025 04:42 PM EDT
--- OUTSIDE RECORDS SUMMARY | 2025-01-14 16:43 | XMS_ITS | Encounter Summary ---
Author Organization [facility] Address [address] [place] [address] Care Team Providers Care Tuck Pointer Name Role Phone Shirley Adler MD Primary Care Provider [phone] Encounter Details Date Type Department Care Team (Late st Contact Info) Description 07/16/2022 Lab Requisition [facility] [address] [place] [address] Keanu Saul MD [address] [place] [id number] Type 2 diabetes mellitus without complications [...] K/mcL LAB HEMETOLOGY METHOD 07/16/2022 9:09 PM [facility] RBC 4.79 3.80 - 5.00 M/mcL LAB HEMETOLOGY METHOD 07/16/2022 9:09 PM [facility] Hemoglobin 14.9 11.3 - 15.3 g/dL LAB HEMETOLOGY METHOD 07/16/2022 9:09 PM [facility] Hematocrit 45.3(H) 34.0 - 45.0 % LAB HEMETOLOGY METHOD 07/16/2022 9:09 PM [facility] MCV 94.6 81.0 - 97.0 FL LAB HEMETOLOGY METHOD 07/16/2022 9:09 PM [facility] MCH 31.1(L) 32.6 - 36.6 pcg LAB HEMETOLOGY METHOD 07/16/2022 9:09 PM [facility] MCHC 32.9 29.2 - 35.3 g/dL LAB HEMETOLOGY METHOD 07/16/2022 9:09 PM [facility] RDW 14.6(H) 11.0 - 14.5 % LAB HEMETOLOGY METHOD 07/16/2022 9:09 PM [facility] RDW-SD 50.9(H) 36.8 - 48.3 FL LAB HEMETOLOGY METHOD 07/16/2022 9:09 PM [facility] Platelets 322 150 - 400 K/mcL LAB HEMETOLOGY METHOD 07/16/2022 9:09 PM [facility] MPV 13.2 8.9 - 13.3 FL LAB HEMETOLOGY METHOD 07/16/2022 9:09 PM [facility] Neutrophils Relative 50.9 32.0 - 71.0 % LAB HEMETOLOGY METHOD 07/16/2022 9:09 PM [facility] Immature Granulocytes Relative 0.2 0.0 - 1.0 % LAB HEMETOLOGY METHOD 07/16/2022 9:09 PM [facility] Lymphocytes Relative 34.6 19.5 - 54.0 % LAB HEMETOLOGY METHOD 07/16/2022 9:09 PM [facility] Monocytes Relative 9.9 4.0 - 14.0 % LAB HEMETOLOGY METHOD 07/16/2022 9:09 PM [facility] Eosinophils Relative 3.4 0.0 - 7.0 % LAB HEMETOLOGY METHOD 07/16/2022 9:09 PM [facility] Basophils Relative 1.0 0.0 - 2.0 % LAB HEMETOLOGY METHOD 07/16/2022 9:09 PM [facility] Preliminary Neutrophils Abs Automated Count 4.54 1.50 - 6.00 K/mcL LAB HEMETOLOGY METHOD 07/16/2022 9:09 PM [facility] Neutrophils Absolute 4.54 1.50 - 6.00 K/mcL LAB HEMETOLOGY METHOD 07/16/2022 9:09 PM EDT [facility] Immature Granulocytes Absolute 0.02 0.00 - 0.10 K/mcL LAB [facility] Lymphocytes Absolute 3.09 1.10 - 4.00 K/mcL LAB HEMETOLOGY METHOD [facility]2022 [facility] Monocytes Absolute 0.88 0.20 - 1.00 K/mcL LAB HEMETOLOGY METHOD [facility]2022 [facility] Eosinophils Absolute 0.30 0.00 - 0.70 K/mcL LAB HEMETOLOGY METHOD [facility]16[facility]2022 [facility] Basophils Absolute 0.09 0.00 - 0.20 K/mcL LAB HEMETOLOGY METHOD 07/16/2022 9:09 PM [facility] NRBC 0.0 0.0 - 0.0 % LAB HEMETOLOGY METHOD [facility]16[facility]2022 9:[facility] NRBC Absolute 0.00 >=0.00 K/mcL LAB HEMETOLOGY METHOD 07/16/2022 9:09 PM [facility] Blood Venous blood specimen / Unknown 07/16/2022 2:32 PM EDT 07/16/2022 8:53 PM EDT us Keanu Saul MD LAB BLOOD ORDERABLES Final Re sult [facility] [address] [place] [address] * Thyroid stimulating hormone with reflex free T4 (07/16/2022 2:32 PM EDT) [facility] TSH 0.69 0.36 - 3.74 mcIU/mL LAB CHEMISTRY METHOD 07/16/2022 9:33 PM EDT [facility] Blood Venous blood specimen / Unknown 07/16/2022 2:32 PM EDT 07/16/2022 8:53 PM EDT us Keanu Saul MD LAB BLOOD ORDERABLES Final Re sult Performing Organization Address [facility]/ZIP Co de Phone Number [facility] [address] [place], [place] [id number] * (ABNORMAL) Lipid panel (07/16/2022 2:32 PM EDT) [facility] Cholesterol 225(H) <200 mg/dL LAB CHEMISTRY METHOD 07/16/2022 9:33 PM EDT [facility] Triglycerides 128 <150 mg/dL LAB CHEMISTRY METHOD 07/16/2022 9:33 PM EDT [facility] HDL 98 >59 mg/dL LAB CHEMISTRY METHOD 07/16/2022 9:33 PM EDT [facility] Comment: <35 mg/dl is the cut-point for increased Coronary Heart Disease (CHD) risk. LDL Calculated 101(H) 0 - 99 mg/dL LAB CHEMISTRY METHOD 07/16/2022 9:33 PM EDT [facility] VLDL Cholesterol Kalyan 25.6 <=30 mg/dL LAB CHEMISTRY METHOD 07/16/2022 9:33 PM EDT [facility] Blood Venous blood specimen / Unknown 07/16/2022 2:32 PM EDT 07/16/2022 8:53 PM EDT us Keanu Saul MD LAB BLOOD ORDERABLES Final Re sult Performing Organization Address City/[facility]/ZIP Co de Phone Number [facility] [address] [place] [address] * (ABNORMAL) Comprehensive metabolic panel (07/16/2022 2:32 PM EDT) [facility] Signature Sodium 139 136 - 145 mmol/L LAB CHEMISTRY METHOD 07/16/2022 9:33 PM [facility] Potassium 4.4 3.5 - 5.1 mmol/L LAB CHEMISTRY METHOD 07/16/2022 9:33 PM [facility] Chloride 106 98 - 107 mmol/L LAB CHEMISTRY METHOD 07/16/2022 9:33 PM [facility] CO2 25 21 - 32 mmol/L LAB CHEMISTRY METHOD 07/16/2022 9:33 PM [facility] Anion Gap 8 3 - 11 LAB CHEMISTRY METHOD 07/16/2022 9:33 PM [facility] Glucose 198(H) 70 - 99 mg/dL LAB CHEMISTRY METHOD 07/16/2022 9:33 PM [facility] BUN 18 7 - 18 mg/dL LAB CHEMISTRY METHOD 07/16/2022 9:33 PM [facility] Creatinine 0.44(L) 0.55 - 1.02 mg/dL LAB CHEMISTRY METHOD 07/16/2022 9:33 PM [facility] eGFR 104 >=60 mL/min/1. 73m2 LAB CHEMISTRY METHOD 07/16/2022 9:33 PM [facility] Comment: The MDRD GFR formula is valid only for adults between ages 18 and 70. BUN/Creatinine Ratio 40.9(H) 12.0 - 20.0 LAB CHEMISTRY METHOD 07/16/2022 9:33 PM [facility] Calcium 9.4 8.5 - 10.1 mg/dL LAB CHEMISTRY METHOD 07/16/2022 9:33 PM [facility] AST (SGOT) 29 15 - 37 unit/L LAB CHEMISTRY METHOD 07/16/2022 9:33 PM EDT [facility] ALT (SGPT) 39 13 - 56 unit/L LAB CHEMISTRY METHOD 07/16/2022 9:33 PM EDT [facility] Alkaline Phosphatase 190(H) 53 - 141 unit/L LAB CHEMISTRY METHOD 07/16/2022 9:33 PM EDT [facility] Total Protein 7.0 6.4 - 8.2 g/dL LAB CHEMISTRY METHOD 07/16/2022 9:33 PM EDT [facility] Albumin 3.5 3.4 - 5.0 g/dL LAB CHEMISTRY METHOD 07/16/2022 9:33 PM EDT [facility] Total Bilirubin 0.5 0.2 - 1.0 mg/dL LAB CHEMISTRY METHOD 07/16/2022 9:33 PM EDT [facility] Blood Venous blood specimen / Unknown 07/16/2022 2:32 PM EDT 07/16/2022 8:53 PM EDT Keanu Saul MD LAB BLOOD ORDERABLES Final Re sult [facility] [address] [place] [address] * (ABNORMAL) Hemoglobin A1c (07/16/2022 2:32 PM [...] ?>/=6.5% NGSP: National Glycohemoglobin Standardization Program *2011 [place] [employer] Note: These results were obtained by [employer] Variant II HbA1c Assay. The assay is IFCC standardized and NGSP certified. us Keanu Saul MD LAB BLOOD ORDERABLES Final Re sult [facility] [address] [place] [address] documented in this encounter Visit Diagnoses Diagnosis Type 2 diabetes mellitus without complications (CMS/HCC) Nontoxic single thyroid nodule Nontoxic uninodular goiter documented in this encounter Care Teams Tuck Pointer Relationship Specialty Start Date End Date Shirley Alder MD [address] [place] [address] PCP - General Internal Medicine 02/14/21 documented as of this encounter
== END 2025-01-14 14:03 | disposition home or self-care (01) ==
LOC: HO.HMCFM 13:12
PROVIDERS: PCP Family Medicine; Visit Provider Family Medicine
DX: Z01.818 Encounter for other preprocedural examination (principal); M25.561 Pain in right knee; M25.562 Pain in left knee

== ENCOUNTER → 2025-01-14 13:12 | Outpatient (BNVA) | payer OTHER, SELFPAY | PROVIDERS: PCP Family Medicine; Visit Provider Family Medicine | DX: Z01.818 Encounter for other preprocedural examination (principal); M25.561 Pain in right knee; M25.562 Pain in left knee | CPT/HCPCS: 99212 ==

== ENCOUNTER 2025-03-01 10:51 | Outpatient (AMB) | payer OTHER, SELFPAY ==
[2025-03-01 11:33] VITALS: BP 130/62; PULSE 67; RESP 16; TEMP 36.5; O2SAT 97
--- NOTE | 2025-03-01 11:33 | A.OFFPC_ITS ---
Vital Signs 03/01/25 11:33 Height 5 ft 5 in BP 130/62 Blood Pressure Location Rt brachial Position Sitting Respiration 16 Pulse 67 Pulse Source Pulse Oximeter Temp 97.7 F Temp Source Oral Pulse Oximetry (%) 97 Oxygen Delivery Method Room Air Intake Visit Reasons: chronic pain /rs from 02/15 Allergies ketorolac [From TORADOL] Allergy (Intermediate, Verified 01/14/25 13:19) VOMITING morphine [MORPHINE] Allergy (Intermediate, Verified 01/14/25 13:19) vomiting hydromorphone [From DILAUDID] Allergy (Unknown, Verified 01/14/25 13:19) HIVES midodrine Allergy (Unknown, Verified 01/14/25 13:19) Anaphylaxis dilation drops for eye Allergy (Mild, Uncoded 12/30/24 15:38) swelling, redness, pain Erythromycin Allergy (Unknown, Uncoded 12/30/24 15:38) Vomiting Tobacco use date assessed: 04/09/24 Dental Screening Dental Screen Date: 04/09/24 HPI chronic pain /rs from 02/15 HPI Details 69 y/o female presents to f/u chronic pa in, bilateral knee pain. Tramadol had not been helping with knee pain so had given her a course of oxycodone. Blood pressure today 130/62, 67p. She is on lisinopril 5mg daily. Prior A1c 10/08/24 7.1%. She is on glipizide 5mg, metformin 250mg b.i.d. She continues to watch her diet and eat plenty of vegetables. [facility] Medical History (Updated 01/14/25 @ 14:09 by Yosi Cleveland) Anxiety Complex regional pain syndrome i of lower limb, bilateral Morbid obesity Wheelchair dependent Asthma Diabetes Hypertension Bradycardia Pemphigus Pancreatic ductal abnormality Surgical History Hx of parathyroidectomy Hx of cholecystectomy Hx of splenectomy Hx of bariatric surgery Hx of hysterectomy S/P placement of nerve stimulator H/O oral surgery Family History Father Heart attack Mental health disorder Mother Heart attack Macular degeneration Mental health disorder Social History Housing: Apartment Patient Tobacco Use Status: Never used Tobacco e-Cigarette/Vaping Use: Never Used Second Hand Smoke Exposure: No service: No Current occupational status: disabled Cognitive needs: No Hearing needs: Yes Vision needs: Yes (wears reading glasses) Questionnaire PHQ-9 Over the last 2 weeks, how often have you been bothered by any of the following problems? 1. Little interest or pleasure in doing things: not at all 2. Feeling down, depressed, or hopeless: not at all 3. Trouble falling or staying asleep, or sleeping too much: not at all 4. Feeling tired or having little energy: several days 5. Poor appetite or overeating: not at all 6. Feeling bad about yourself - or that you are a failure or have let yourself or your family down: not at all 7. Trouble concentrating on things, such as reading the newspaper or watching television: not at all 8. Moving or speaking so slowly that other people could have noticed. Or the opposite - being so fidgety or restless that you have been moving around a lot more than usual: not at all 9. Thoughts that you would be better off or of hurting yourself in some way: not at all Total score: 1 Source: Developed by Drs. Stewart Hall, Linda Jesus, Ganga Mcgowan and colleagues, with an educational luis from [employer]. Thrive Questionnaire Date Thrive assessed: 02/12/25 I am a: Patient What is your living situation today?: I have a steady place to live Within the past 12 months, did the food you bought not last and you didn't have the money to get more?: Never true Within the past 12 months, did you worry whether your food would run out before you got money to buy more?: Never true Do you have trouble paying for medicines?: No Do you have trouble getting transportation to medical appointments?: No Do you have trouble paying your heating and electricity bill?: No Do you have trouble taking care of your child, family member or friend?: I choose not to answer this question Do you have trouble with day-to-day activities such as bathing, preparing meals, shopping, managing finances, etc.?: I choose not to answer this question Are you currently unemployed and looking for a job?: I choose not to answer this question Are you interested in more education?: No Please select the resources that you would like help with: None Currently or been in a relationship where the following occur: No concerns reported THRIVE Score: 0 GRETA-7 AMB Questionnaire GRETA-7 Date GRETA - 7 assessed: 12/06/23 Source: Developed by Drs. Stewart Hall, Linda Jesus, Ganga Mcgowan and colleagues, with an educational luis from [employer]. Review of Systems Const Denies chills, Denies fatigue, Denies fever(s), Denies headache(s) and Denies weakness ENT Denies dizziness and Denies headache(s) Card Denies dyspnea Resp Denies cough, Denies dyspnea, Denies wheezing and Denies other (shortness of breath) Musc Denies numbness and Denies tingling Neuro Denies dizziness, Denies headache(s), Denies numbness, Denies tingling and Denies weakness Psych Denies anxiety and Denies depression Endo Denies fatigue Aller/Immun Denies wheezing Physical exam (Primary Care) Vital Signs: Last Vital Signs Temp 97.7 F 03/01/25 11:33 Pulse 67 03/01/25 11:33 Resp 16 03/01/25 11:33 BP 130/62 03/01/25 11:33 Pulse Ox 97 03/01/25 11:33 Oxygen Delivery Method Room Air 03/01/25 11:33 Tobacco/Smoking Status: Tobacco use Status Tobacco use date assessed 04/09/24 03/01/25 11:37 Patient Tobacco Use Status Never used Tobacco 03/01/25 11:37 e-Cigarette/Vaping Use Never Used 03/01/25 11:37 PHQ-9: PHQ-9 Score PHQ-9: Total score 1 03/01/25 11:37 Thrive Assessment: Date of Thrive Assessment Date Thrive assessed 02/12/25 03/01/25 11:37 Currently or been in a relationship where the following occur: No concerns reported Const General: well developed; No acute distress Nutritional Appearance: well nourished Orientation/consciousness: patient oriented x3 HENMT Head: Yes normocephalic and Yes atraumatic Eyes General: appearance normal, both eyes and all related structures Pupils: Equal, round and reactive pupils present EOM: EOMs intact bilaterally Resp Effort & Inspection: normal respiratory effort Auscultation: clear to auscultation bilaterally Cardio Rate: regular rate Rhythm: regular rhythm Heart sounds: S1 normal heart sound present, S2 normal heart sound present, no gallops, no murmurs and no rubs Neuro General: patient oriented x3 and gait normal Cranial nerves: Yes Equal, round and reactive pupils present Psych Affect: normal affect Coding Level of Care Code Est Pt Level 4 (51849) Diagnoses Hypertension I10 Diabetes E11.9 Bilateral knee pain M25.561; M25.562 Chronic pain syndrome G89.4 Subacute cough R05.2 Cough type: subacute Assessment & Plan Assessment & Plan (1) Hypertension: Code(s): I10 - Essential (primary) hypertension Category: Medical (2) Diabetes: Code(s): E11.9 - Type 2 diabetes mellitus without complications Category: Medical (3) Bilateral knee pain: Code(s): M25.561 - Pain in right knee; M25.562 - Pain in left knee Category: Medical (4) Chronic pain syndrome: Code(s): G89.4 - Chronic pain syndrome Category: Medical (5) Cough: Code(s): R05.9 - Cough, unspecified Category: Medical Qualifiers: Cough type: subacute Qualified Code(s): R05.2 - Subacute cough
--- OUTSIDE RECORDS SUMMARY | 2025-03-01 12:59 | XMS_ITS | Clinical Summary ---
Author Organization [address] Address [address] [place] [phone] Phone Care Team Providers Care Lithographic Plate Maker Apprentice Name Role Phone No, Pcp (Do Not [...] Tetanus adult (Td q 10,TDAP once) 1974 Breast cancer screening 1994 Lipid disorder screening 1994 Colon cancer screening, Colonoscopy 1999 Pneumococcal Vaccine (50+ ye ars) (1 of 1 - PCV) 2004 Shingles vaccine (Shingrix) (1 of 2 - Shingrix (RZV) 2 Dose Standard Series) 2004 Osteoporosis screening (bone density) 2019 Diabetes screening 05/01/2022 05/01/2019 Covid-19 vaccine series ( - season) 2024 Influenza vaccine 07/05/2025 08/05/2017 RSV Immunization (1 - 1-dose 75+ series) 2029 Cervical cancer screening Discontinued Meningococcal [...] 136 - 145 mmol/L 05/01/2019 7:55 AM [facility] Potassium 4.2 3.5 - 5.1 mmol/L 05/01/2019 7:55 AM [facility] Chloride 108(H) 98 - 107 mmol/L 05/01/2019 7:55 AM [facility] CO2 24 21 - 32 mmol/L 05/01/2019 7:55 AM [facility] Anion Gap 9 5 - 15 mmol/L 05/01/2019 7:55 AM [facility] Glucose 103 65 - 110 mg/dL 05/01/2019 7:55 AM [facility] Comment: Non-fasting: ??65-110 mg/dL Fasting (minimum 6 hrs): ??65-99 mg/dL BUN 17 7 - 18 mg/dL 05/01/2019 7:55 AM [facility] Creatinine 0.70 0.55 - 1.02 mg/dL 05/01/2019 7:55 AM [facility] eGFR (-MALAGASY) >60 >60 mL/min/1. 73m2 05/01/2019 7:55 AM [facility] eGFR (NON -Namibian) >60 >60 mL/min/1. 73m2 05/01/2019 7:55 AM [facility] Comment: (NOTE) ? These are estimated [...] 8.5 - 10.1 mg/dL 05/01/2019 7:55 AM [facility] Total Protein 7.1 6.4 - 8.2 g/dL 05/01/2019 7:55 AM [facility] Albumin 3.5 3.4 - 5.0 g/dL 05/01/2019 7:55 AM [facility] Globulin 3.6 2.5 - 5.0 g/dL 05/01/2019 7:55 AM [facility] Total Bilirubin 0.6 0.2 - 1.0 mg/dL 05/01/2019 7:55 AM [facility] Alkaline Phosphatase 148(H) 45 - 117 U/L 05/01/2019 7:55 AM [facility] Alanine Aminotransferase (ALT) 52 12 - 78 U/L 05/01/2019 7:55 AM EDT [facility] Aspartate Aminotransferase (AST) 83(H) 15 - 37 U/L 05/01/2019 7:55 AM T [facility] Blood Venipuncture / Unknown 05/01/2019 7:25 AM EDT 05/01/2019 7:29 AM EDT Mark Camara MD LAB BLOOD ORDERABLES nal Result [facility] [address] [place] [address], [facility] [phone] from Last 3 Months or Most Recently Relevant to Health Maintenance Insurance MEDICARE [employer] [address] [place] [address] MEDICARE [employer]ARE [employer] Care Teams Lithographic Plate Maker Apprentice Relationship Specialty Start Date End Date No, Pcp (Do Not Change Name) PCP - General 05/01/19
--- OUTSIDE RECORDS SUMMARY | 2025-03-01 12:59 | XMS_ITS ---
Author Organization [facility] Address [address] [place] [address] Care Team Providers Care Metal Gauge Maker Name Role Phone Clarence Byrd MD Primary Care Provider Tara Ortega Unavailable [phone] Cade Felder Unavailable [phone] REASON FOR VISIT cx LIME MIXER 3/4 Encounters Encounter Location Date Provider Diagnosis [address] [address] 12/15/2024 Cade Felder Plan Of Treatment Next Appt Details Provider Name:Tara daniel, 03/10/2025 01:00:00 PM, [address] [place], [address], Progress Notes * Celestina VERDUZCODOB:1955 (69 yo F)Acc No.[id number]:12/15/2024 Patient:?Celestina VERDUZCO :1955???Age:69 Y???Sex:Female Address:[address], [address], [place], [address] * true * Date:? Generated for Printi ng/Faxing/eTransmitting on:?03/01/2025 12:59 PM EDT
--- OUTSIDE RECORDS SUMMARY | 2025-03-01 13:00 | XMS_ITS | Clinical Summary ---
Author Organization [facility] Address [address] [place] [address] Phone Care Team Providers Care Junior Web Designer Name Role Phone Shirley Adler MD Primary Care Provider [phone] Surgical History Surgery Date Site/Laterality Comments HYSTERECTOMY PROCEDURE:HYSTERECTOMY OOPHORECTOMY PROCEDURE:OOPHORECTOMY BARIATRIC SURGERY PROCEDURE:BARIATRIC SURGERY CHOLECYSTECTOMY PROCEDURE:CHOLECYSTECTOMY KIDNEY STONE SURGERY PROCEDURE:KIDNEY STONE SURGERY SPLENECTOMY, PARTIAL PROCEDURE:SPLENECTOMY, PARTIAL PARATHYROIDECTOMY PROCEDURE:PARATHYROIDECTOMY PANCREAS SURGERY PROCEDURE:PANCREAS SURGERY;COMMENT:Cystadenoma COLONOSCOPY PROCEDURE:COLONOSCOPY UPPER GASTROINTESTINAL ENDOSCOPY PROCEDURE:UPPER GASTROINTESTINAL ENDOSCOPY Medical History Medical History Date Comments Anxiety and depression DX:Anxiet y and depression; COMMENT: no records, never saw psychiatrist Pulmonary embolism ([facility] V24, [facility] V28) DX:Pulmonary embolism (HCC); COMMENT: was on coumadin for at least 10 years per patient, no medical records from PCP in [place] Pemphigoid ([facility] V28) DX:Pemp higoid; COMMENT: seen by collector of aquarium specimens in [facility], NO RECORDS. Pulmonary embolism ([facility] V24, [facility] V28) DX:Pulmonary embolism (HCC) Ovarian cancer ([facility] V24, [facility] V28) DX:Ovarian cancer (HCC) Anxiety and depression DX:Anxiet y and depression Pemphigoid ([facility] V28) DX:Pemp higoid Cystadenoma of pancreas DX:Cysta denoma of pancreas Type 2 diabetes mellitus ([facility] V24, [facility] V28) DX:Type 2 diabetes mellitus (HCC) Family History [...] (Glomerular Filtration Rate) 07/16/2023 07/16/2022 COVID-19 Vaccine ( - 2023-2 5 season) 2024 03/10/2021, 02/17/2021 Influenza Vaccine (Season Ended) 2025 10/22/2019 Cholesterol Screening (Lipid Panel) 07/16/2027 07/16/2022 RSV Immunization Adult Patients (1 - 1-dose 75+ series) 2029 HIB [...] age to complete this topic Meningococcal B Vaccine Aged Out No l onger eligible based on patient's age to complete [...] LAB CHEMISTRY METHOD 07/17/2022 1:[address] [facility] Mean Bld Glu Estim. 197(H) <126 mg/dL LAB CHEMISTRY METHOD 07/17/2022 1:[address] [facility] Blood Venous blood specimen / Unknown 07/16/2022 2:32 PM EDT 07/16/2022 8:[address] [facility] - 07/17/2022 1:35 PM EDT *Clinical Condition Normal ?<5.7% Prediabetes ? 5.7-6.5% Diabetes ?>/=6.5% NGSP: National Glycohemoglobin Standardization Program *2011 [place] Diabetes Association Note: These results were obtained by [employer] Variant II HbA1c Assay. The assay is IFCC standardized and NGSP certified. us Keanu Saul MD LAB BLOOD ORDERABLES Final Re sult Performing Organization Address City/[facility]/ZIP Co de Phone Number [facility] [address] [place] [address] * (ABNORMAL) Lipid panel (07/16/2022 2:32 PM EDT) [facility] Cholesterol 225(H) <200 mg/dL LAB CHEMISTRY METHOD 07/16/2022 9:33 PM EDT [facility] Triglycerides 128 <150 mg/dL LAB CHEMISTRY METHOD 07/16/2022 9:33 PM EDT [facility] HDL 98 >59 mg/dL LAB CHEMISTRY METHOD 07/16/2022 9:33 PM EDT [facility] Comment: <35 mg/dl is the cut-point for increased Coronary Heart Disease (CHD) risk. LDL Calculated 101(H) 0 - 99 mg/dL LAB CHEMISTRY METHOD 07/16/2022 9:33 PM EDT [facility] VLDL Cholesterol Kalyan 25.6 <=30 mg/dL LAB CHEMISTRY METHOD 07/16/2022 9:33 PM EDT [facility] Blood Venous blood specimen / Unknown 07/16/2022 2:32 PM EDT 07/16/2022 8:53 PM EDT us Keanu Saul MD LAB BLOOD ORDERABLES Final Re sult [facility] [address] [place] [address] * (ABNORMAL) Comprehensive metabolic panel (07/16/2022 2:32 [...] LAB CHEMISTRY METHOD 07/16/2022 9:33 PM EDT [facility] ALT (SGPT) 39 13 - 56 unit/L LAB CHEMISTRY METHOD 07/16/2022 9:33 PM EDT [facility] Alkaline Phosphatase 190(H) 53 - 141 unit/L LAB CHEMISTRY METHOD 07/16/2022 9:33 PM EDT [facility] Total Protein 7.0 6.4 - 8.2 g/dL LAB CHEMISTRY METHOD 07/16/2022 9:33 PM EDT [facility] Albumin 3.5 3.4 - 5.0 g/dL LAB CHEMISTRY METHOD 07/16/2022 9:33 PM EDT [facility] Total Bilirubin 0.5 0.2 - 1.0 mg/dL LAB CHEMISTRY METHOD 07/16/2022 9:33 PM EDT [facility] Blood Venous blood specimen / Unknown 07/16/2022 2:32 PM EDT 07/16/2022 8:53 PM EDT us Keanu Saul MD LAB BLOOD ORDERABLES Final Re sult [facility] [address] [place] [address] from Last 3 Months or Most Recently Relevant to Health Maintenance Insurance MEDICARE [facility] [employer] MEDICARE Advance Directives Documents on File Type Date Recorded Patient Atmospheric Scientist Expl anation Health Care Decision (hx) 03/01/2021 [...] (hx) 05/05/2019 AD RAMOS DIRECTIVE Care Teams Junior Web Designer Relationship Specialty Start Date End Date Shirley Adler MD [address] [place] [address] PCP - General Internal Medicine 02/14/21
--- OUTSIDE RECORDS SUMMARY | 2025-03-01 13:00 | XMS_ITS ---
Author Organization [facility] Address [address] [place] [address] Care Team Providers Care Executive Casino Host Name Role Phone Rochelle QUICK, Clarence Primary Care Provider Tara Ortega Unavailable [phone] Cade Felder Unavailable [phone] Encounters Encounter Location Date Provider Diagnosis [facility] [address] [place] [address] 01/05/2025 Cade Felder Plan Of Treatment Next Appt Details Provider Name:Tara daniel, 03/10/2025 01:00:00 PM, [address] [place], [address], Progress Notes * Celestina VERDUZCODOB:1955 (69 yo F)Acc No.[id number]:01/05/2025 Progress Notes Patient:?PABLITO Celestina Provider:?Cade Felder DPM :1955???Age:69 Y???Sex:Female D ate:01/05/2025 Address:[address], [address], [id number] Pcp:Clarence Byrd MD Subjective: * Chief Complaints: [...] Felder DPM Date:?2024 Generated for Lorenzo sebastian/Ezra/Lauryn on:?03/01/2025 01:00 PM EDT
--- OUTSIDE RECORDS SUMMARY | 2025-03-01 13:00 | XMS_ITS | Encounter Summary ---
Author Organization [facility] Address [address] [place] [address] Care Team Providers Care Silk Spotter Name Role Phone Shirley Adler MD Primary Care Provider [phone] Encounter Details Date Type Department Care Team (Late st Contact Info) Description 07/16/2022 Lab Requisition [facility] [address] [place] [address] Keanu Saul MD [address] [place] [phone] Type 2 diabetes mellitus without complications (CMS/HCC V24, CMS/HCC V28); Nontoxic single thyroid nodule Social History Tobacco [...] LAB HEMETOLOGY METHOD 07/16/2022 9:09 PM [facility] RBC 4.79 3.80 - 5.00 M/mcL LAB HEMETOLOGY METHOD 07/16/2022 9:09 PM [facility] Hemoglobin 14.9 11.3 - 15.3 g/dL LAB HEMETOLOGY METHOD 07/16/2022 9:09 PM [facility] Hematocrit 45.3(H) 34.0 - 45.0 % LAB HEMETOLOGY METHOD 07/16/2022 9:09 PM [facility] MCV 94.6 81.0 - 97.0 FL LAB HEMETOLOGY METHOD 07/16/2022 9:09 PM [facility] MCH 31.1(L) 32.6 - 36.6 pcg LAB HEMETOLOGY METHOD 07/16/2022 9:09 PM [facility] MCHC 32.9 29.2 - 35.3 g/dL LAB HEMETOLOGY METHOD 07/16/2022 9:09 PM [facility] RDW 14.6(H) 11.0 - 14.5 % LAB HEMETOLOGY METHOD 07/16/2022 9:09 PM [facility] RDW-SD 50.9(H) 36.8 - 48.3 FL LAB HEMETOLOGY METHOD 07/16[facility]2022 9[facility] Platelets 322 150 - 400 K/mcL LAB HEMETOLOGY METHOD 07/16/2022 9:09 PM [facility] MPV 13.2 8.9 - 13.3 FL LAB HEMETOLOGY METHOD 07/16/2022 9:09 PM [facility] Neutrophils Relative 50.9 32.0 - 71.0 % LAB HEMETOLOGY METHOD 07/16/2022 9:09 PM [facility] Immature Granulocytes Relative 0.2 0.0 - 1.0 % LAB HEMETOLOGY METHOD 07/16/2022 9:09 PM [facility] Lymphocytes Relative 34.6 19.5 - 54.0 % LAB HEMETOLOGY METHOD 07/16/2022 9:09 PM [facility] Monocytes Relative 9.9 4.0 - 14.0 % LAB HEMETOLOGY METHOD 07/16/2022 9:09 PM [facility] Eosinophils Relative 3.4 0.0 - 7.0 % LAB HEMETOLOGY METHOD 07/16/2022 9:09 PM [facility] Basophils Relative 1.0 0.0 - 2.0 % LAB HEMETOLOGY METHOD 07/16/2022 9:09 PM [facility] Preliminary Neutrophils Abs Automated Count 4.54 1.50 - 6.00 K/mcL LAB HEMETOLOGY METHOD 07/16/2022 9:09 PM EDT [facility] Neutrophils Absolute 4.54 1.50 - 6.00 K/mcL LAB HEMETOLOGY METHOD 07/16/2022 9:09 PM [facility] Immature Granulocytes Absolute 0.02 0.00 - 0.10 K/mcL LAB HEMETOLOGY METHOD 07/16/2022 9:09 PM [facility] Lymphocytes Absolute 3.09 1.10 - 4.00 K/mcL LAB HEMETOLOGY METHOD 07/16/2022 9:09 PM [facility] Monocytes Absolute 0.88 0.20 - 1.00 K/mcL LAB HEMETOLOGY METHOD 07/16/2022 9:09 PM [facility] Eosinophils Absolute 0.30 0.00 - 0.70 K/mcL LAB HEMETOLOGY METHOD 07/16/2022 9:09 PM [facility] Basophils Absolute 0.09 0.00 - 0.20 K/mcL LAB HEMETOLOGY METHOD 07/16/2022 9:09 PM [facility] NRBC 0.0 0.0 - 0.0 % LAB HEMETOLOGY METHOD 07/16/2022 9:09 PM [facility] NRBC Absolute 0.00 >=0.00 K/mcL LAB HEMETOLOGY METHOD 07/16/2022 9:09 PM [facility] Blood Venous blood specimen / Unknown 07/16/2022 2:32 PM EDT 07/16/2022 8:53 PM EDT us Keanu Saul MD LAB BLOOD ORDERABLES Final Re sult [facility] [address] [place] [address] * Thyroid stimulating hormone with reflex free T4 (07/16/2022 2:32 PM EDT) TSH 0.69 0.36 - 3.74 mcIU/mL LAB CHEMISTRY METHOD 07/16/2022 9:33 PM EDT [facility] Blood Venous blood specimen / Unknown 07/16/2022 2:32 PM EDT 07/16/2022 8:53 PM EDT us Keanu Saul MD LAB BLOOD ORDERABLES Final Re sult Performing Organization Address [facility]/ZIP Co de Phone Number [facility] [address] [place] [phone] * (ABNORMAL) Lipid panel (07/16/2022 2:32 PM EDT) Cholesterol 225(H) <200 mg/dL LAB CHEMISTRY METHOD 07/16/2022 9:33 PM EDT [facility] Triglycerides 128 <150 mg/dL LAB CHEMISTRY METHOD 07/16/2022 9:33 PM EDT [facility] HDL 98 >59 mg/dL LAB CHEMISTRY METHOD 07/16/2022 9:33 PM EDT [facility] Comment: <35 mg/dl is the cut-point for increased Coronary Heart Disease (CHD) risk. LDL Calculated 101(H) 0 - 99 mg/dL LAB CHEMISTRY METHOD 07/16/2022 9:33 PM EDT [facility] VLDL Cholesterol Kalyan 25.6 <=30 mg/dL LAB CHEMISTRY METHOD 07/16/2022 9:33 PM EDT [facility] Blood Venous blood specimen / Unknown 07/16/2022 2:32 PM EDT 07/16/2022 8:53 PM EDT us Keanu Saul MD LAB BLOOD ORDERABLES Final Re sult Performing Organization Address City/[facility]/ZIP Co de Phone Number [facility] [address] [place] [address] * (ABNORMAL) Comprehensive metabolic panel (07/16/2022 2:32 PM EDT) [facility] Sodium 139 136 - 145 mmol/L LAB CHEMISTRY METHOD 07/16/2022 9:33 PM [facility] Potassium 4.4 3.5 - 5.1 mmol/L LAB CHEMISTRY METHOD 07/16/2022 9:33 PM [facility] Chloride 106 98 - 107 mmol/L LAB CHEMISTRY METHOD 07/16/2022 9:33 PM [facility] CO2 25 21 - 32 mmol/L LAB CHEMISTRY METHOD 07/16/2022 9:33 PM [facility] Anion Gap 8 3 - 11 LAB CHEMISTRY METHOD 07/16/2022 9:33 PM [facility] Glucose 198(H) 70 - 99 mg/dL LAB CHEMISTRY METHOD 07/16/2022 9:33 PM [facility] BUN 18 7 - 18 mg/dL LAB CHEMISTRY METHOD 07/16/2022 9:33 PM [facility] Creatinine 0.44(L) 0.55 - 1.02 mg/dL LAB CHEMISTRY METHOD 07/16/2022 9:33 PM [facility] eGFR 104 >=60 mL/min/1. 73m2 LAB CHEMISTRY METHOD 07/16/2022 9:33 PM [facility] Comment: The MDRD GFR formula is valid only for adults between ages 18 and 70. BUN/Creatinine Ratio 40.9(H) 12.0 - 20.0 LAB CHEMISTRY METHOD 07/16/2022 9:33 PM [facility] Calcium 9.4 8.5 - 10.1 mg/dL LAB CHEMISTRY METHOD 07/16/2022 9:33 PM [facility] AST (SGOT) 29 15 - 37 unit/L LAB CHEMISTRY METHOD 07/16/2022 9:33 PM EDT [facility] ALT (SGPT) 39 13 - 56 unit/L LAB CHEMISTRY METHOD 07/16/2022 9:33 PM EDT [facility] Alkaline Phosphatase 190(H) 53 - 141 unit/L LAB CHEMISTRY METHOD 07/16/2022 9:33 PM EDT [facility] Total Protein 7.0 6.4 - 8.2 g/dL LAB CHEMISTRY METHOD 07/16/2022 9:33 PM EDT [facility] Albumin 3.5 3.4 - 5.0 g/dL LAB CHEMISTRY METHOD 07/16/2022 9:33 PM EDT [facility] Total Bilirubin 0.5 0.2 - 1.0 mg/dL LAB CHEMISTRY METHOD 07/16/2022 9:33 PM EDT [facility] Blood Venous blood specimen / Unknown 07/16/2022 2:32 PM EDT 07/16/2022 8:53 PM EDT Keanu Saul MD LAB BLOOD ORDERABLES Final Re sult [facility] [address] [place] [address] * (ABNORMAL) Hemoglobin A1c (07/16/2022 2:32 PM EDT) Hemoglobin A1C 8.5(H) <5.7 % LAB CHEMISTRY METHOD 07/17/2022 1:35 PM EDT [facility] Mean Bld Glu Estim. 197(H) <126 mg/dL LAB CHEMISTRY METHOD 07/17/2022 1:35 PM EDT [facility] Blood Venous blood specimen / Unknown 07/16/2022 2:32 PM EDT 07/16/2022 8:53 PM EDT Narrative [facility] - 07/17/2022 1:35 PM EDT *Clinical Condition Normal ?<5.7% Prediabetes ? 5.7-6.5% Diabetes ?>/=6.5% NGSP: National Glycohemoglobin Standardization Program *2011 [place] Diabetes Association Note: These results were obtained by [employer] Variant II HbA1c Assay. The assay is IFCC standardized and NGSP certified. us Keanu Saul MD LAB BLOOD ORDERABLES Final Re sult [facility] [address] [place], [place] [phone] documented in this encounter Visit Diagnoses Diagnosis Type 2 diabetes mellitus without complications (CMS/HCC V24, CMS/HCC V28) Nontoxic single thyroid nodule Nontoxic uninodular goiter documented in this encounter Care Teams Silk Spotter Relationship Specialty Start Date End Date Shirley Adler MD [address] [place] [address] PCP - General Internal Medicine 02/14/21 documented as of this encounter
--- OUTSIDE RECORDS SUMMARY | 2025-03-01 13:00 | XMS_ITS | Patient Health Record ---
Author Organization [facility] Address [address] [place] [address] Care Team Providers Care Car And Yard Supervisor Name Role Phone Clarence Byrd MD Primary Care Provider Tara Ortega Unavailable [phone] Cade Felder Unavailable [phone] Reason For Referral No Information Encounters Encounter Location Date Provider Diagnosis [facility] [address] [place] [address] 10/20/2024 Cade Felder [address] [address] 12/15/2024 Cade Felder Plan Of Treatment Next Appt Details Provider Name:Tara daniel, 03/10/2025 01:00:00 PM, [address] [place], [address], Insurance Providers Payer Name Payer Address Payer Phone Subscriber Number Group Number Insured Name Patient Relationship to Insured Coverage Start Date Coverage End Date [facility] [address] [place] [phone] [id number] Celestina Verduzco Self - patient is the insured
--- OUTSIDE RECORDS SUMMARY | 2025-03-01 13:00 | XMS_ITS ---
Author Organization [facility] Address [address] [place] [address] Care Team Providers Care Consumer Lender Name Role Phone Clarence Byrd MD Primary Care Provider Tara Ortega Unavailable [phone] Cade Felder Unavailable [phone] REASON FOR VISIT PAPER COATING SUPERVISOR Encounters Encounter Location Date Provider Diagnosis [facility] [address] [place] [address] 10/20/2024 Cade Felder Plan Of Treatment Next Appt Details Provider Name:Tara daniel, 03/10/2025 01:00:00 PM, [address] [place], [address], Progress Notes * Celestina VERDUZCODOB:1955 (69 yo F)Acc No.[id number]:10/20/2024 Patient:?Celestina VERDUZCO :1955???Age:69 Y???Sex:Female Address:[address], [place], [address] * true * Date:? Generated for Printi ng/Faxing/eTransmitting on:?03/01/2025 01:00 PM EDT
--- OUTSIDE RECORDS SUMMARY | 2025-03-01 13:00 | XMS_ITS | Clinical Summary ---
Author Organization [facility] Address [address] [place] [address] Care Team Providers Care Endodontics Dentist Name Role Phone Shirley Adler MD Primary Care Provider [phone] Allergies Active Allergy Reactions Criticality Noted Date [...] age to complete this topic Care Teams Endodontics Dentist Relationship Specialty Start Date End Date Shirley Adler MD [address] [place] [address] PCP - General Internal Medicine 03/21/21
== END 2025-03-01 12:28 | disposition home or self-care (01) ==
LOC: HO.HMCFM 10:52
PROVIDERS: PCP Family Medicine; Visit Provider Family Medicine
DX: E11.9 Type 2 diabetes mellitus without complications (principal)

== ENCOUNTER → 2025-03-01 10:51 | Outpatient (BNVA) | payer OTHER, SELFPAY | PROVIDERS: PCP Family Medicine; Visit Provider Family Medicine | DX: I10 Essential (primary) hypertension (principal); E11.9 Type 2 diabetes mellitus without complications; M25.561 Pain in right knee; M25.562 Pain in left knee; G89.4 Chronic pain syndrome; Z79.891 Long term (current) use of opiate analgesic | CPT/HCPCS: 83036; 96127; 99212 ==

== ENCOUNTER 2025-04-12 08:46 | Outpatient (AMB) | payer OTHER, SELFPAY ==
--- NOTE | 2025-04-12 08:55 | A.OFFPC_ITS ---
Vital Signs 04/12/25 08:58 04/12/25 09:01 Height 5 ft 5 in BMI Reason not done Patient refused/unable BP 140/60 H 124/60 Blood Pressure Location Rt brachial Rt brachial Position Sitting Sitting Respiration 14 Pulse 55 Pulse Source Pulse Oximeter Temp 98.2 F Temp Source Oral Pulse Oximetry (%) 95 Oxygen Delivery Method Room Air Intake Visit Reasons: ED Follow-up /[facility] Intake Note: patient is following up with pt for ED discharge Injection Molding Machine Setter Required: No Allergies ketorolac [From TORADOL] Allergy (Intermediate, Verified 04/12/25 08:56) VOMITING morphine [MORPHINE] Allergy (Intermediate, Verified 04/12/25 08:56) vomiting hydromorphone [From DILAUDID] Allergy (Unknown, Verified 04/12/25 08:56) HIVES midodrine Allergy (Unknown, Verified 04/12/25 08:56) Anaphylaxis dilation drops for eye Allergy (Mild, Uncoded 12/30/24 15:38) swelling, redness, pain Erythromycin Allergy (Unknown, Uncoded 12/30/24 15:38) Vomiting Tobacco use date assessed: 04/09/24 Dental Screening Dental Screen Date: 04/09/24 HPI ED Follow-up /[facility] HPI Details 70 y/o female presents to /[facility] 03/29/25 for R tibia pain after injury. She had caught her R foot under an electric wheelchair coming out of her vehicle. Pt was placed in a posterior R leg splint for tibia fracture. She follows up with [facility]. Pt reports ongoing chronic pain. Had used to take tramadol with 1000mg of tylenol for pain control. She feels her chronic pain is not well controlled on her oxycodone regimen. HPI Comments History of Present Illness Details Documentation assistance for Clarence Byrd MD, was provided by Yosi Cleveland,? Banding Machine Operator on 04/12/2025 at 9:27 AM EST. I, Dr. Byrd, have read, observed, and verified documentation. ? [facility] Medical History (Updated 04/12/25 @ 09:06 by Yosi Cleveland) Anxiety Complex regional pain syndrome i of lower limb, bilateral Morbid obesity Wheelchair dependent Asthma Diabetes Hypertension Bradycardia Pemphigus Pancreatic ductal abnormality Surgical History Hx of parathyroidectomy Hx of cholecystectomy Hx of splenectomy Hx of bariatric surgery Hx of hysterectomy S/P placement of nerve stimulator H/O oral surgery Family History Father Heart attack Mental health disorder Mother Heart attack Macular degeneration Mental health disorder Social History Housing: Apartment Patient Tobacco Use Status: Never used Tobacco e-Cigarette/Vaping Use: Never Used Second Hand Smoke Exposure: No service: No Current occupational status: disabled Cognitive needs: No Hearing needs: Yes Vision needs: Yes (wears reading glasses) Questionnaire Thrive Questionnaire Date Thrive assessed: 02/12/25 I am a: Patient What is your living situation today?: I have a steady place to live Within the past 12 months, did the food you bought not last and you didn't have the money to get more?: Never true Within the past 12 months, did you worry whether your food would run out before you got money to buy more?: Never true Do you have trouble paying for medicines?: No Do you have trouble getting transportation to medical appointments?: No Do you have trouble paying your heating and electricity bill?: No Do you have trouble taking care of your child, family member or friend?: I choose not to answer this question Do you have trouble with day-to-day activities such as bathing, preparing meals, shopping, managing finances, etc.?: I choose not to answer this question Are you currently unemployed and looking for a job?: I choose not to answer this question Are you interested in more education?: No Please select the resources that you would like help with: None Currently or been in a relationship where the following occur: No concerns reported THRIVE Score: 0 GRETA-7 AMB Questionnaire GRETA-7 Date GRETA - 7 assessed: 12/06/23 Source: Developed by Drs. Stewart Hall, Linda Jesus, Ganga Mcgowan and colleagues, with an educational luis from [employer]. Review of Systems Const Denies chills, Denies fatigue, Denies fever(s), Denies headache(s) and Denies weakness ENT Denies dizziness and Denies headache(s) Card Denies dyspnea Resp Denies cough, Denies dyspnea, Denies wheezing and Denies other (shortness of breath) Musc Denies numbness and Denies tingling Neuro Denies dizziness, Denies headache(s), Denies numbness, Denies tingling and Denies weakness Psych Denies anxiety and Denies depression Endo Denies fatigue Aller/Immun Denies wheezing Physical exam (Primary Care) Vital Signs: Last Vital Signs Temp 98.2 F 04/12/25 08:58 Pulse 55 04/12/25 08:58 Resp 14 04/12/25 08:58 BP 124/60 04/12/25 09:01 Pulse Ox 95 04/12/25 08:58 Oxygen Delivery Method Room Air 04/12/25 08:58 Tobacco/Smoking Status: Tobacco use Status Tobacco use date assessed 04/09/24 04/12/25 09:03 Patient Tobacco Use Status Never used Tobacco 04/12/25 09:03 e-Cigarette/Vaping Use Never Used 04/12/25 09:03 Thrive Assessment: Date of Thrive Assessment Date Thrive assessed 02/12/25 04/12/25 09:03 Currently or been in a relationship where the following occur: No concerns reported Const General: well developed; No acute distress Nutritional Appearance: well nourished Orientation/consciousness: patient oriented x3 HENMT Head: Yes normocephalic and Yes atraumatic Eyes General: appearance normal, both eyes and all related structures Pupils: Equal, round and reactive pupils present EOM: EOMs intact bilaterally Resp Effort & Inspection: normal respiratory effort Neuro General: patient oriented x3 and gait normal Cranial nerves: Yes Equal, round and reactive pupils present Psych Affect: normal affect Coding Level of Care Code Est Pt Level 3 (94204) Diagnoses Right leg injury S89.91XA Chronic pain G89.29 Assessment & Plan Assessment & Plan (1) Right leg injury: Code(s): S89.91XA - Unspecified injury of right lower leg, initial encounter Category: Medical (2) Chronic pain: Code(s): G89.29 - Other chronic pain Category: Medical Plan 70-year-old?female?who?is?wheelchair-bound?was?getting?out?of?a?van? and?got?her?foot?caught?under?the?wheelchair. Patient?and??did?not?seek?medical?care?right?away?and?presented?on?May?26 th?to?[facility]emergency?department. X- ray?showed?acute?fracture?to?mid?and?proximal?tibial?shaft?and?old?healed?fractu re?of?the?distal?fibular?shaft. Tibial?fracture?read?as?hairline?fracture?of?the?proximal? to?mid?tibial?shaft?with?less?than?1?cortex-with?offset?laterally. Acute?on?chronic?pain. Acute?pain?seems?essentially?resolved?but?she?still?has?chronic?pain?which?has?n ot?been?well?controlled?with?current?regimen?oxycodone,?20?tablets?per?30?days. Will?trial?a?switch?to?buprenorphine?buccal?film, with?oxycodone?for?breakthrough?pain.??Will?decrease?oxycodone?to?10?tablets?per ?30?days Buprenorphine?75?mcg?b.i.d.,?via?buccal?film Will?follow-up?in?2?weeks Advised?patient?to?ensure?that?they?have?let?me?know?if?there?any?deviations?fro m?the?way?that?her?medication?is?prescribed?in?how?she?is?taking?it. Pt understands Medications: New buprenorphine HCl MassPat Verified. 75 mcg buccal Q12H 30 days 60 ea 0RF Refilled oxycodone MassPat Verified. Partial Fill upon patient request. 5 mg PO DAILY 30 days PRN 10 tabs 0RF breakthough pain
--- OUTSIDE RECORDS SUMMARY | 2025-04-12 08:55 | XMS_ITS | Clinical Summary ---
Author Organization [address] Address [address] [place] [phone] Phone Care Team Providers Care Brushing Machine Operator Name Role Phone No, Pcp (Do Not [...] 136 - 145 mmol/L 05/01/2019 7:55 AM [facility] Potassium 4.2 3.5 - 5.1 mmol/L 05/01/2019 7:55 AM [facility] Chloride 108(H) 98 - 107 mmol/L 05/01/2019 7:55 AM [facility] CO2 24 21 - 32 mmol/L 05/01/2019 7:55 AM [facility] Anion Gap 9 5 - 15 mmol/L 05/01/2019 7:55 AM [facility] Glucose 103 65 - 110 mg/dL 05/01/2019 7:55 AM [facility] Comment: Non-fasting: ??65-110 mg/dL Fasting (minimum 6 hrs): ??65-99 mg/dL BUN 17 7 - 18 mg/dL 05/01/2019 7:55 AM [facility] Creatinine 0.70 0.55 - 1.02 mg/dL 05/01/2019 7:55 AM [facility] eGFR (-SWISS) >60 >60 mL/min/1. 73m2 05/01/2019 7:55 AM [facility] eGFR (NON -Nigerien) >60 >60 mL/min/1. 73m2 05/01/2019 7:55 AM [facility] Comment: (NOTE) ? These are estimated [...] 8.5 - 10.1 mg/dL 05/01/2019 7:55 AM [facility] Total Protein 7.1 6.4 - 8.2 g/dL 05/01/2019 7:55 AM [facility] Albumin 3.5 3.4 - 5.0 g/dL 05/01/2019 7:55 AM [facility] Globulin 3.6 2.5 - 5.0 g/dL 05/01/2019 7:55 AM [facility] Total Bilirubin 0.6 0.2 - 1.0 mg/dL 05/01/2019 7:55 AM [facility] Alkaline Phosphatase 148(H) 45 - 117 U/L 05/01/2019 7:55 AM [facility] Alanine Aminotransferase (ALT) 52 12 - 78 U/L 05/01/2019 7:55 AM EDT [facility] Aspartate Aminotransferase (AST) 83(H) 15 - 37 U/L 05/01/2019 7:55 AM T [facility] Blood Venipuncture / Unknown 05/01/2019 7:25 AM EDT 05/01/2019 7:29 AM EDT Mark Camara MD LAB BLOOD ORDERABLES nal Result [facility] [address] [place] [address], [facility] [phone] from Last 3 Months or Most Recently Relevant to Health Maintenance Insurance MEDICARE [employer] [address] [place] [address] MEDICARE [employer]ICARE [employer] Care Teams Brushing Machine Operator Relationship Specialty Start Date End Date No, Pcp (Do Not Change Name) PCP - General 05/01/19
[2025-04-12 08:58] VITALS: BP 140/60; PULSE 55; RESP 14; TEMP 36.8; O2SAT 95
[2025-04-12 09:01] VITALS: BP 124/60
== END 2025-04-12 09:30 | disposition home or self-care (01) ==
LOC: HO.HMCFM 08:48
PROVIDERS: PCP Family Medicine; Visit Provider Family Medicine
DX: S89.91XA Unspecified injury of right lower leg, initial encounter (principal); G89.29 Other chronic pain

== ENCOUNTER → 2025-04-12 08:46 | Outpatient (BNVA) | payer OTHER, SELFPAY | PROVIDERS: PCP Family Medicine; Visit Provider Family Medicine | DX: Z13.89 Encounter for screening for other disorder (principal) | CPT/HCPCS: 99212 ==

== ENCOUNTER 2025-04-12 09:35 | Outpatient (REF) | payer OTHER, SELFPAY ==
[2025-04-12 12:03] LABS: Alanine Aminotransferase 18 U/L (0-31); Albumin Level 3.8 g/dL (3.5-5.0); Alkaline Phosphatase 195 U/L (39-117); Anion Gap 12 (12-20); Aspartate Amino Transferase 43 U/L (5-31); Bilirubin Total 0.7 mg/dL (0.0-1.0); Blood Urea Nitrogen 18 mg/dL (9-16); Calcium 9.2 mg/dL (8.4-10.2); Carbon Dioxide 24 mmol/L (22-29); Chloride 108 mmol/L (96-108); Estimated Glomerular Filt Rate > 60; Glucose Random 112 mg/dL (60-115); Potassium 4.4 mmol/L (3.3-5.1); Sodium 140 mmol/L (135-145); Total Protein 7.1 g/dL (6.5-8.0)
== END 2025-04-12 09:36 | disposition home or self-care (01) ==
LOC: HO.WFDLDS 09:35
PROVIDERS: Visit Provider Family Medicine
DX: L60.2 Onychogryphosis (principal); G89.29 Other chronic pain; S89.91XA Unspecified injury of right lower leg, initial encounter
CPT/HCPCS: 36415; 80053; 99212

== ENCOUNTER 2025-04-29 13:24 | Outpatient (AMB) | payer OTHER, SELFPAY ==
--- NOTE | 2025-04-29 13:32 | A.OFFPC_ITS ---
Vital Signs 04/29/25 13:38 Height 5 ft 5 in BMI Reason not done Patient refused/unable BP 130/61 Blood Pressure Location Rt brachial Position Sitting Respiration 16 Pulse 56 Pulse Source Pulse Oximeter Temp 98.4 F Temp Source Oral Pulse Oximetry (%) 96 Oxygen Delivery Method Room Air Intake Visit Reasons: f/u chronic pain Intake Note: patient here for follow on chronic pain Criminal Lawyer Required: No Is last menstrual period known: No Post menopausal: No Patient : No Allergies ketorolac (From TORADOL) Allergy (Intermediate, Verified 04/29/25 13:37) VOMITING morphine (MORPHINE) Allergy (Intermediate, Verified 04/29/25 13:37) vomiting hydromorphone (From DILAUDID) Allergy (Unknown, Verified 04/29/25 13:37) HIVES midodrine Allergy (Unknown, Verified 04/29/25 13:37) Anaphylaxis dilation drops for eye Allergy (Mild, Uncoded 12/30/24 15:38) swelling, redness, pain Erythromycin Allergy (Unknown, Uncoded 12/30/24 15:38) Vomiting Medication List - Last Reconciled 04/29/25 by Clarence Byrd MD albuterol sulfate 90 mcg/actuation (ProAir HFA) 2 puffs inhalation Q6H PRN alprazolam 0.5 mg PO DAILY 30 days bisacodyl (Dulcolax (bisacodyl)) 5 mg PO BEDTIME blood sugar diagnostic (True Metrix Glucose Test Strip) Test Blood Sugar 2 times a day, As directed, 90 days blood sugar diagnostic (OneTouch Verio test strips) To test Blood sugar 2 times a day, As directed, 90 days blood-glucose meter (WeDemanduch Verio Flex Meter) To test blood sugar as directed, 999 days budesonide 180 mcg/actuation (Pulmicort Flexhaler) 1 inh inhalation BID 90 days buprenorphine HCl 75 mcg buccal Q12H 30 days bupropion HCl XL 150 mg PO DAILY 30 days citalopram 40 mg PO DAILY 90 days clobetasol 0.05% 1 appl topical BID PRN 30 days glipizide ER 5 mg PO DAILY 90 days hydroxyzine HCl 50 mg PO BEDTIME 30 days lancets (PinnattaTouch Delica Plus Lancet) To Test Blood Sugar 2 times a day, As directed. 90 days lisinopril 5 mg PO DAILY 30 days metformin 250 mg (1/2 x 500 mg) PO BID 90 days multivitamin 1 tab PO DAILY omeprazole 20 mg PO DAILY 30 days oxycodone 5 mg PO DAILY PRN 30 days warfarin 4 mg PO DAILY 90 days Tobacco use date assessed: 04/29/25 Fall risk assessment: No Falls in past year Last assessed Fall Risk: 04/29/25 Dental Screening Dental Screen Date: 04/29/25 Did you have a dental visit in the last 12 months?: Yes Did you have a dental problem in the last 6 months where you did not have access to dental care?: No Was dental information given to patient?: Patient has dentist HPI f/u chronic pain HPI Details 70 y/o female presents to f/u pain contr ol. Acute on chronic pain. Acute pain seems essentially resolved but she still has chronic pain which has not been well controlled with current regimen oxycodone, 20 tablets per 30 days. Trialing switch to buprenorphine buccal film with oxycodone for breakthrough pain. Decreased oxycodone to 10 tabs per 30 days. Buprenorphine 75 mcg b.i.d., via buccal film. HPI Comments History of Present Illness Details Documentation assistance for Clarence Byrd MD, was provided by Yosi Cleveland, Supervisor Chassis Assembly on 04/29/2025 at 2:09 PM EST. I, Dr. Byrd, have read, observed, and verified documentation. [facility] Medical History (Updated 04/12/25 @ 09:06 by Yosi Cleveland) Anxiety Complex regional pain syndrome i of lower limb, bilateral Morbid obesity Wheelchair dependent Asthma Diabetes Hypertension Bradycardia Pemphigus Pancreatic ductal abnormality Surgical History Hx of parathyroidectomy Hx of cholecystectomy Hx of splenectomy Hx of bariatric surgery Hx of hysterectomy S/P placement of nerve stimulator H/O oral surgery Family History Father Heart attack Mental health disorder Mother Heart attack Macular degeneration Mental health disorder Social History Housing: Apartment Patient Tobacco Use Status: Never used Tobacco e-Cigarette/Vaping Use: Never Used Second Hand Smoke Exposure: No service: No Current occupational status: disabled Cognitive needs: No Hearing needs: Yes Vision needs: Yes (wears reading glasses) Questionnaire Thrive Questionnaire Date Thrive assessed: 02/12/25 I am a: Patient What is your living situation today?: I have a steady place to live Within the past 12 months, did the food you bought not last and you didn't have the money to get more?: Never true Within the past 12 months, did you worry whether your food would run out before you got money to buy more?: Never true Do you have trouble paying for medicines?: No Do you have trouble getting transportation to medical appointments?: No Do you have trouble paying your heating and electricity bill?: No Do you have trouble taking care of your child, family member or friend?: I choose not to answer this question Do you have trouble with day-to-day activities such as bathing, preparing meals, shopping, managing finances, etc.?: I choose not to answer this question Are you currently unemployed and looking for a job?: I choose not to answer this question Are you interested in more education?: No Please select the resources that you would like help with: None Currently or been in a relationship where the following occur: No concerns reported THRIVE Score: 0 GRETA-7 AMB Questionnaire GRETA-7 Date GRETA - 7 assessed: 12/06/23 Source: Developed by Drs. Stewart Hall, Linda Jesus, Ganga Mcgowan and colleagues, with an educational luis from [employer]. Review of Systems Const Denies chills, Denies fatigue, Denies fever(s), Denies headache(s) and Denies weakness ENT Denies dizziness and Denies headache(s) Card Denies dyspnea Resp Denies cough, Denies dyspnea, Denies wheezing and Denies other (shortness of breath) Musc Denies numbness and Denies tingling Neuro Denies dizziness, Denies headache(s), Denies numbness, Denies tingling and Denies weakness Psych Denies anxiety and Denies depression Endo Denies fatigue Aller/Immun Denies wheezing Physical exam (Primary Care) Vital Signs: Last Vital Signs Temp 98.4 F 04/29/25 13:38 Pulse 56 04/29/25 13:38 Resp 16 04/29/25 13:38 BP 130/61 04/29/25 13:38 Pulse Ox 96 04/29/25 13:38 Oxygen Delivery Method Room Air 04/29/25 13:38 Tobacco/Smoking Status: Tobacco use Status Tobacco use date assessed 04/29/25 04/29/25 13:42 Patient Tobacco Use Status Never used Tobacco 04/29/25 13:35 e-Cigarette/Vaping Use Never Used 04/29/25 13:35 Thrive Assessment: Date of Thrive Assessment Date Thrive assessed 02/12/25 04/29/25 13:35 Currently or been in a relationship where the following occur: No concerns reported Const General: well developed; No acute distress Nutritional Appearance: well nourished Orientation/consciousness: patient oriented x3 HENMT Head: Yes normocephalic and Yes atraumatic Eyes General: appearance normal, both eyes and all related structures Pupils: Equal, round and reactive pupils present EOM: EOMs intact bilaterally Resp Effort & Inspection: normal respiratory effort Neuro General: patient oriented x3 and gait normal Cranial nerves: Yes Equal, round and reactive pupils present Psych Affect: normal affect Coding Level of Care Code Est Pt Level 3 (27602) Diagnoses Chronic pain syndrome G89.4 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 immobile?in?sits?in?wheelchair.??Chronic?pain. Her?medication?regimen?for?pain?is?in?flux?as?her?insurance?company?is?requiring ?a?prior?authorization?for?buprenorphine?which?is?a?preferred?choice?for? her.??She?has?difficulty?swallowing?large?pills?and?extended?release?pills?can?n ot?be?crushed. She?has?tried?numerous?medications?including?Dilaudid,?morphine,?Percocet,?oxyco done,?ketorolac?in?prednisone. Will?give?her?oxycodone?extended?release?10?mg?q.a.m.?- seven?day?course?while?awaiting?prior?authorization?for?buprenorphine. ?And?she?can?get?some?oxycodone?5?mg?tablets?for?breakthrough?pain. Will?follow- up?by?telemedicine?in?a?week?to?see?if?prior?Auth?is?approved?and?also?if?she?is ?able?to?swallow?the?extended?release?tablets. 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 Partial Fill upon patient request. Patient's Pain regimen is in flux and awaiting Prior Auth for a different med 10 mg PO DAILY 7 tabs 0RF 7 days Refilled oxycodone MassPat Verified. Partial Fill upon patient request. 5 mg PO DAILY PRN 10 tabs 0RF breakthough pain 30 days
[2025-04-29 13:38] VITALS: BP 130/61; PULSE 56; RESP 16; TEMP 36.9; O2SAT 96
--- OUTSIDE RECORDS SUMMARY | 2025-04-29 16:10 | XMS_ITS | Clinical Summary ---
Author Organization [address] Address [address] [place] [phone] Phone Care Team Providers Care Home Care Giver Name Role Phone No, Pcp (Do Not [...] 74 05/01/2019 12:09 PM EDT Temperature 36.2 C (97.1 F) 05/01/2019 7:06 AM EDT Respiratory Rate 17 05/01/2019 12:09 PM EDT [...] 05/01/2022 05/01/2019 Covid-19 vaccine series ( - 2023- season) 2024 Influenza vaccine 07/05/2025 08/05/2017 RSV [...] 136 - 145 mmol/L 05/01/2019 7:55 AM [facility] Potassium 4.2 3.5 - 5.1 mmol/L 05/01/2019 7:55 AM [facility] Chloride 108(H) 98 - 107 mmol/L 05/01/2019 7:55 AM [facility] CO2 24 21 - 32 mmol/L 05/01/2019 7:55 AM [facility] Anion Gap 9 5 - 15 mmol/L 05/01/2019 7:55 AM [facility] Glucose 103 65 - 110 mg/dL 05/01/2019 7:55 AM [facility] Comment: Non-fastin-110 mg/dL Fasting (minimum 6 hrs): 65-99 mg/dL BUN 17 7 - 18 mg/dL 05/01/2019 7:55 AM [facility] Creatinine 0.70 0.55 - 1.02 mg/dL 05/01/2019 7:55 AM [facility] eGFR (-PAKISTANI) >60 >60 mL/min/1. 73m2 05/01/2019 7:55 AM [facility] eGFR (NON -Serbian) >60 >60 mL/min/1. 73m2 05/01/2019 7:55 AM [facility] Comment: (NOTE) These are estimated GFR values resulting from utilization of a calculation incorporating the best data available for input, but all assumptions may not be correct in every case. In addition, there are several situations (elderly over 70 years, , serious co morbidities, extremes of body size or nutritional status) which could contribute to a misleading result. Therefore, clinical correlation is advised to prevent arriving at an erroneous conclusion based solely on the calculation utilized. Calcium 8.9 8.5 - 10.1 mg/dL 05/01/2019 7:55 AM [facility] Total Protein 7.1 6.4 - 8.2 g/dL 05/01/2019 7:55 AM [facility] Albumin 3.5 3.4 - 5.0 g/dL 05/01/2019 7:55 AM [facility] Globulin 3.6 2.5 - 5.0 g/dL 05/01/2019 7:55 AM [facility] Total Bilirubin 0.6 0.2 - 1.0 mg/dL 05/01/2019 7:55 AM [facility] Alkaline Phosphatase 148(H) 45 - 117 U/L 05/01/2019 7:55 AM [facility] Alanine Aminotransferase (ALT) 52 12 - 78 U/L 05/01/2019 7:55 AM [facility] Aspartate Aminotransferase (AST) 83(H) 15 - 37 U/L 05/01/2019 7:55 AM [facility] Blood Venipuncture / Unknown 05/01/2019 7:25 AM EDT 05/01/2019 7:29 AM EDT us Mark Camara MD LAB BLOOD ORDERABLES [place] [address], [facility] [phone] from Last 3 Months or Most Recently Relevant to Health Maintenance Insurance MEDICARE [employer] [address] [place] [address] MEDICARE [employer] MEDICARE [facility] Care Teams Home Care Giver Relationship Specialty Start Date End Date No, Pcp (Do Not Change Name) PCP - General 05/01/19
== END 2025-04-29 15:21 | disposition home or self-care (01) ==
LOC: HO.HMCFM 13:25
PROVIDERS: PCP Family Medicine; Visit Provider Family Medicine
DX: G89.4 Chronic pain syndrome (principal); G72.41 Inclusion body myositis [IBM]

== ENCOUNTER → 2025-04-29 13:24 | Outpatient (BNVA) | payer OTHER, SELFPAY | PROVIDERS: PCP Family Medicine; Visit Provider Family Medicine | DX: G89.4 Chronic pain syndrome (principal); G72.41 Inclusion body myositis [IBM]; Z79.891 Long term (current) use of opiate analgesic | CPT/HCPCS: 99212 ==

== ENCOUNTER 2025-06-02 11:33 | Outpatient (AMB) | payer OTHER, SELFPAY ==
--- OUTSIDE RECORDS SUMMARY | 2025-01-05 10:00 | XMS_ITS ---
Author Organization [facility] Address [address] [place] [address] Care Team Providers Care Tube Machine Operator Name Role Phone Rochelle QUICK, Clarence Primary Care Provider Tara Ortega Unavailable [phone] Cade Felder Unavailable [phone] Encounters Encounter Location Date Provider Diagnosis [facility] [address] [place] [address] 01/05/2025 Cade Felder Plan Of Treatment Next Appt Details Provider Name:Tara daniel, 06/10/2025 04:00:00 PM, [address] [place] [address], [address], Progress Notes * Celestina VERDUZCODOB:1955 (70 yo F)Acc No.[id number]:01/05/2025 Progress Notes Patient: Alma BYERSEMRE Celestina Provider: Noemi Felder DPM :1955 A ge:69 Y S ex:Female Date:01/05/2025 Address:[id number] Pcp:Clarence Byrd MD Subjective: * Chief Complaints: [...] DPM Date: 0 01/05/2025 Generated for Lorenzo Salazar on: 0 06/02/2025 12:35 PM EDT
--- NOTE | 2025-06-02 12:30 | MHC.PC.OV ---
Vital Signs 06/02/25 12:39 Height 5 ft 5 in Weight 156 lb 8 oz BMI 26.0 BP 104/60 Blood Pressure Location Rt brachial Position Sitting Respiration 16 Pulse 59 Pulse Source Pulse Oximeter Temp 98.0 F Temp Source Oral Pulse Oximetry (%) 98 Oxygen Delivery Method Room Air Intake Visit Reasons: f/u a1c Intake Note: patient is scheduled to follow up for a1c Campaign Management Senior Manager Required: No Allergies ketorolac (From TORADOL) Allergy (Intermediate, Verified 06/02/25 12:38) VOMITING morphine (MORPHINE) Allergy (Intermediate, Verified 06/02/25 12:38) vomiting hydromorphone (From DILAUDID) Allergy (Unknown, Verified 06/02/25 12:38) HIVES midodrine Allergy (Unknown, Verified 06/02/25 12:38) Anaphylaxis dilation drops for eye Allergy (Mild, Uncoded 12/30/24 15:38) swelling, redness, pain Erythromycin Allergy (Unknown, Uncoded 12/30/24 15:38) Vomiting Tobacco use date assessed: 04/29/25 Dental Screening Dental Screen Date: 04/29/25 HPI f/u a1c HPI Details 70 y/o female presents to f/u chronic conditions, diabetes. Reports difficulty swallowing. Pt notes this has been ongoing for awhile. She is on glipizide 5mg, metformin 250mg b.i.d. for her diabetes. [facility] Medical History (Updated 06/02/25 @ 12:50 by Clarence Byrd MD) Anxiety Complex regional pain syndrome i of lower limb, bilateral Morbid obesity Wheelchair dependent Asthma Diabetes Hypertension Bradycardia Pemphigus Pancreatic ductal abnormality Surgical History Hx of parathyroidectomy Hx of cholecystectomy Hx of splenectomy Hx of bariatric surgery Hx of hysterectomy S/P placement of nerve stimulator H/O oral surgery Family History Father Heart attack Mental health disorder Mother Heart attack Macular degeneration Mental health disorder Social History Housing: Apartment Patient Tobacco Use Status: Never used Tobacco e-Cigarette/Vaping Use: Never Used Second Hand Smoke Exposure: No service: No Current occupational status: disabled Cognitive needs: No Hearing needs: Yes Vision needs: Yes (wears reading glasses) Questionnaire Thrive Questionnaire Date Thrive assessed: 02/12/25 I am a: Patient What is your living situation today?: I have a steady place to live Within the past 12 months, did the food you bought not last and you didn't have the money to get more?: Never true Within the past 12 months, did you worry whether your food would run out before you got money to buy more?: Never true Do you have trouble paying for medicines?: No Do you have trouble getting transportation to medical appointments?: No Do you have trouble paying your heating and electricity bill?: No Do you have trouble taking care of your child, family member or friend?: I choose not to answer this question Do you have trouble with day-to-day activities such as bathing, preparing meals, shopping, managing finances, etc.?: I choose not to answer this question Are you currently unemployed and looking for a job?: I choose not to answer this question Are you interested in more education?: No Please select the resources that you would like help with: None Currently or been in a relationship where the following occur: No concerns reported THRIVE Score: 0 GRETA-7 AMB Questionnaire GRETA-7 Date GRETA - 7 assessed: 12/06/23 Source: Developed by Drs. Stewart Hall, Linda Jesus, Ganga Mcgowan and colleagues, with an educational luis from [employer]. Review of Systems Const Denies chills, Denies fatigue, Denies fever(s), Denies headache(s) and Denies weakness ENT Denies dizziness and Denies headache(s) Card Denies dyspnea Resp Denies cough, Denies dyspnea, Denies wheezing and Denies other (shortness of breath) Musc Denies numbness and Denies tingling Neuro Denies dizziness, Denies headache(s), Denies numbness, Denies tingling and Denies weakness Psych Denies anxiety and Denies depression Endo Denies fatigue Aller/Immun Denies wheezing Physical exam (Primary Care) Vital Signs: Last Vital Signs Temp 98.0 F 06/02/25 12:39 Pulse 59 06/02/25 12:39 Resp 16 06/02/25 12:39 BP 104/60 06/02/25 12:39 Pulse Ox 98 06/02/25 12:39 Oxygen Delivery Method Room Air 06/02/25 12:39 BMI result Body Mass Index 26.0 Tobacco/Smoking Status: Tobacco use Status Tobacco use date assessed 04/29/25 06/02/25 12:31 Patient Tobacco Use Status Never used Tobacco 06/02/25 12:31 e-Cigarette/Vaping Use Never Used 06/02/25 12:31 Thrive Assessment: Date of Thrive Assessment Date Thrive assessed 02/12/25 06/02/25 12:31 Currently or been in a relationship where the following occur: No concerns reported Const General: well developed; No acute distress Nutritional Appearance: well nourished Orientation/consciousness: patient oriented x3 HENMT Head: Yes normocephalic and Yes atraumatic Eyes General: appearance normal, both eyes and all related structures Pupils: Equal, round and reactive pupils present EOM: EOMs intact bilaterally Resp Effort & Inspection: normal respiratory effort Neuro General: patient oriented x3 and gait normal Cranial nerves: Yes Equal, round and reactive pupils present Psych Affect: normal affect Coding Level of Care Code Est Pt Level 3 (56497) Diagnoses Chronic pain syndrome G89.4 Difficulty swallowing R13.10 Assessment & Plan Assessment & Plan (1) Chronic pain syndrome: Code(s): G89.4 - Chronic pain syndrome Category: Medical Plan: Patient returns to follow-up chronic pain. She has had numerous medications - some without efficacy and some with difficulty swallowing large extended release pills. She has now been approved for buprenorphine buccal film Patient is taking this Q 12 hours and has had good relief with this medication. However she notes that a couple of times that she has been late taking the medication the pain has ramped up rather quickly. She will work on taking the medication very consistently. If she is still having difficulty during transition from 1 dose to the next, she can take up to 1/2 tab of her oxycodone 30 minutes prior to changing medications. If neither these strategies are working, we will discuss increasing the dose for her buprenorphine. (2) Difficulty swallowing: Code(s): R13.10 - Dysphagia, unspecified Category: Medical Plan: Patient notes worsening difficulty swallowing. Will check modified barium swallow test. Will follow-up in a few weeks to determine next steps. May need referral to ENT or gastroenterology Her is chopping her food finely. Orders: Orders [place] Modified Barium Swallow Today R13.10 - Dysphagia, unspecified Medications: Refilled buprenorphine HCl MassPat Verified. 75 mcg buccal Q12H 60 ea 0RF 30 days
--- OUTSIDE RECORDS SUMMARY | 2025-06-02 12:35 | XMS_ITS | Clinical Summary ---
Author Organization [address] Address [address] [place] [phone] Phone Care Team Providers Care Rehabilitation Therapy Aide Name Role Phone No, Pcp (Do Not [...] [facility] Comment: Non-fastin-110 mg/dL Fasting (minimum 6 hrs): 65-99 mg/dL BUN 17 7 - 18 mg/dL 05/01/2019 7:55 AM [facility] Creatinine 0.70 0.55 - 1.02 mg/dL 05/01/2019 7:55 AM [facility] eGFR (-SAMMARINESE) >60 >60 mL/min/1. 73m2 05/01/2019 7:55 AM [facility] eGFR (NON -East Timorese) >60 >60 mL/min/1. 73m2 05/01/2019 7:55 AM [facility] Comment: (NOTE) These are estimated GFR [...] 15 - 37 U/L 05/01/2019 7:55 AM [facility] Blood Venipuncture / Unknown 05/01/2019 7:25 AM EDT 05/01/2019 7:29 AM EDT us Mark Camara MD LAB BLOOD ORDERABLES [place] [address], [facility] [phone] from Last 3 Months or Most Recently Relevant to Health Maintenance Insurance MEDICARE reMail apt [address] [place] [address] MEDICARE [email or web address] LIFE MEDICARE [facility] Care Teams Rehabilitation Therapy Aide Relationship Specialty Start Date End Date No, Pcp (Do Not Change Name) PCP - General 05/01/19
--- OUTSIDE RECORDS SUMMARY | 2025-06-02 12:35 | XMS_ITS | Clinical Summary ---
Author Organization [facility] Address [address] [place] [address] Care Team Providers Care Autoclave Operator Name Role Phone Sihrley Adler MD Primary Care Provider [phone] Allergies Active Allergy Reactions Criticality Noted Date [...] 72 04/19/2021 1:39 PM EDT Temperature 36.3 C (97.4 F) 04/19/2021 1:39 PM EDT Respiratory Rate - - Oxygen Saturation 100% [...] Screening (DEXA Scan) 2019 Influenza Vaccine (#1) 2025 08/05/2017 RSV Adult > 60+ Yrs or Pregn ant (1 - 1-dose 75+ series) 2029 Hepatitis B Vaccines Aged Out No long er eligible based on patient's age to complete this topic RSV Ped < 20 months Aged Out No longe r eligible based on patient's age to complete this topic Care Teams Autoclave Operator Relationship Specialty Start Date End Date Shirley Adler MD [address] [place] [address] PCP - General Internal Medicine 03/21/21
--- OUTSIDE RECORDS SUMMARY | 2025-06-02 12:35 | XMS_ITS | Clinical Summary ---
Author Organization [facility] Address [address] [place] [address] Phone Care Team Providers Care Log Yard Derrick Operator Name Role Phone Shirley Adler MD Primary Care Provider [phone] Surgical History Surgery Date Site/Laterality Comments HYSTERECTOMY PROCEDURE:HYSTERECTOMY OOPHORECTOMY PROCEDURE:OOPHORECTOMY BARIATRIC SURGERY PROCEDURE:BARIATRIC SURGERY CHOLECYSTECTOMY PROCEDURE:CHOLECYSTECTOMY KIDNEY STONE SURGERY PROCEDURE:KIDNEY STONE SURGERY SPLENECTOMY, PARTIAL PROCEDURE:SPLENECTOMY, PARTIAL PARATHYROIDECTOMY PROCEDURE:PARATHYROIDECTOMY PANCREAS SURGERY PROCEDURE:PANCREAS SURGERY;COMMENT:Cystadenoma COLONOSCOPY PROCEDURE:COLONOSCOPY UPPER GASTROINTESTINAL ENDOSCOPY PROCEDURE:UPPER GASTROINTESTINAL ENDOSCOPY Medical History Medical History Date Comments Anxiety and depression DX:Anxiet y and depression; COMMENT: no records, never saw psychiatrist Pulmonary embolism ([facility] V24, [facility] V28) DX:Pulmonary embolism (HCC); COMMENT: was on coumadin for at least 10 years per patient, no medical records from PCP in [place] Pemphigoid ([facility] V28) DX:Pemp higoid; COMMENT: seen by washroom attendant in [facility], NO RECORDS. Pulmonary embolism ([facility] V24, [facility] V28) DX:Pulmonary embolism (HCC) Ovarian cancer ([facility] V24, [facility] V28) DX:Ovarian cancer (HCC) Anxiety and depression DX:Anxiet y and depression Pemphigoid ([facility] V28) DX:Pemp higoid Cystadenoma of pancreas DX:Cysta denoma of pancreas Type 2 diabetes mellitus ([facility] V24, [facility] V28) DX:Type 2 diabetes mellitus (HCC) Family [...] 2004 Zoster Vaccines (1 of 2) 2004 RSV Immunization Adult Patients (1 - Risk 60-74 years 1-dose series) 2014 Colorectal Cancer Screening: Colonoscopy 07/27/2022 Falls Risk Assessment 07/27/2022 Hepatitis C Screening 07/27/2022 Medicare Annual Wellness Visit 07/27/2022 Osteoporosis Screening (Bone Density Screening) 07/27/2022 Social Influencers of Health Screening 07/27/2022 Diabetes: Annual Urine Albumin-Creatinine Ratio (uACR) 11/02/2022 Diabetes: Blood Sugar Contro l Test (HGBA1C) 01/13/2023 07/16/2022 Diabetes: Annual GFR (Glomerular Filtration Rate) 07/16/2023 07/16/2022 COVID-19 Vaccine (3 - 2023-2 5 season) 2024 03/10/2021, 02/17/2021 Depression Screening 11/04/2024 Influenza Vaccine (#1) 2025 10/22/2019 Cholesterol Screening (Lipid Panel) 07/16/2027 07/16/2022 HIB Vaccines Aged Out No longer eligi [...] 07/17/2022 1:35 PM EDT *Clinical Condition Normal <5.7% Prediabetes 5.7-6.5% Diabetes >/=6.5% NGSP: National Glycohemoglobin Standardization Program *2011 [place] [employer] Note: These results were obtained by [employer] Variant II HbA1c Assay. The assay is IFCC standardized and NGSP certified. us Keanu Saul MD LAB BLOOD ORDERABLES Final Re sult [facility] [address] [place] [address] * (ABNORMAL) Lipid panel (07/16/2022 2:32 PM EDT) Cholesterol 225(H) <200 mg/dL LAB CHEMISTRY METHOD 07/16/2022 9:33 PM EDT [facility] Triglycerides 128 <150 mg/dL LAB CHEMISTRY METHOD 07/16/2022 9:33 PM EDT [facility] HDL 98 >59 mg/dL LAB CHEMISTRY METHOD 07/16/2022 9:33 PM EDT [facility] Comment: <35 mg/dl is the cut-point for increased Coronary Heart Disease (CHD) risk. LDL Calculated 101(H) 0 - 99 mg/dL LAB CHEMISTRY METHOD 07/16/2022 9:33 PM EDT [facility] VLDL Cholesterol Kalyan 25.6 <=30 mg/dL LAB CHEMISTRY METHOD 07/16/2022 9:33 PM [facility] Blood Venous blood specimen / Unknown 07/16/2022 2:32 PM EDT 07/16/2022 8:53 PM EDT us Keanu Saul MD LAB BLOOD ORDERABLES Final Re sult [facility] [address] [place] [address] * (ABNORMAL) Comprehensive metabolic panel (07/16/2022 2:32 PM EDT) Sodium 139 136 - 145 mmol/L LAB CHEMISTRY METHOD 07/16/2022 9:33 PM EDT [facility] Potassium 4.4 3.5 - 5.1 mmol/L LAB CHEMISTRY METHOD 07/16/2022 9:33 PM [facility] Chloride 106 98 - 107 mmol/L LAB CHEMISTRY METHOD 07/16/2022 9:33 PM [facility] CO2 25 21 - 32 mmol/L LAB CHEMISTRY METHOD 07/16/2022 9:33 PM [facility] Anion Gap 8 3 - 11 LAB CHEMISTRY METHOD 07/16/2022 9:33 PM [facility] Glucose 198(H) 70 - 99 mg/dL LAB CHEMISTRY METHOD 07/16/2022 9:33 PM [facility] BUN 18 7 - 18 mg/dL LAB CHEMISTRY METHOD 07/16/2022 9:33 PM [facility] Creatinine 0.44(L) 0.55 - 1.02 mg/dL LAB CHEMISTRY METHOD 07/16/2022 9:33 PM [facility] eGFR 104 >=60 mL/min/1. 73m2 LAB CHEMISTRY METHOD 07/16/2022 9:33 PM [facility] Comment: The MDRD GFR formula is valid only for adults between ages 18 and 70. BUN/Creatinine Ratio 40.9(H) 12.0 - 20.0 LAB CHEMISTRY METHOD 07/16/2022 9:33 PM [facility] Calcium 9.4 8.5 - 10.1 mg/dL LAB CHEMISTRY METHOD 07/16/2022 9:33 PM [facility] AST (SGOT) 29 15 - 37 unit/L LAB CHEMISTRY METHOD 07/16/2022 9:33 PM [facility] ALT (SGPT) 39 13 - 56 unit/L LAB CHEMISTRY METHOD 07/16/2022 9:33 PM [facility] Alkaline Phosphatase 190(H) 53 - 141 unit/L LAB CHEMISTRY METHOD 07/16/2022 9:33 PM EDT [facility] Total Protein 7.0 6.4 - 8.2 g/dL LAB CHEMISTRY METHOD 07/16/2022 9:33 PM EDT [facility] Albumin 3.5 3.4 - 5.0 g/dL LAB CHEMISTRY METHOD 07/16/2022 9:33 PM EDT [facility] Total Bilirubin 0.5 0.2 - 1.0 mg/dL LAB CHEMISTRY METHOD 07/16/2022 9:33 PM EDT [facility] Blood Venous blood specimen / Unknown 07/16/2022 2:32 PM EDT 07/16/2022 8:53 PM EDT us Keanu Saul MD LAB BLOOD ORDERABLES Final Re sult [facility] [address] [place] [address] from Last 3 Months or Most Recently Relevant to Health Maintenance Insurance MEDICARE [facility] [employer] MEDICARE Advance Directives Documents on File Type Date Recorded Patient Radiography Technician Expl anation Health Care Decision (hx) 03/01/2021 [...] DIRECTIVE Health Care Decision (hx) 05/05/2019 AD RAMSO DIRECTIVE Health Care Decision (hx) 05/05/2019 AD RAMOS DIRECTIVE Health Care Decision (hx) 05/05/2019 AD RAMOS DIRECTIVE Health Care Decision (hx) 05/05/2019 AD RAMOS DIRECTIVE Care Teams Log Yard Derrick Operator Relationship Specialty Start Date End Date Shirley Adler MD [address] [place] [address] PCP - General Internal Medicine 02/14/21
--- OUTSIDE RECORDS SUMMARY | 2025-06-02 12:35 | XMS_ITS | Clinical Summary ---
Author Organization [facility] Address [facility] [address] [address] Phone Care Team Providers Care Environmental Technician Name Role Phone Keanu Saul MD Primary Care Provider + Allergies Active Allergy Reactions Criticality Noted Date Comments Benzalkonium 03/01/2021 Benzocaine 03/01/2021 Carbamide Peroxide 03/01/2021 Hydromorphone 03/01/2021 Midodrine 03/01/2021 Other 03/01/2021 Allatonin, Oragel, Zinc Chloride Oxycodone 03/01/2021 Tramadol 06/19/2021 Medications ALPRAZolam (XANAX) 0.5 MG tablet Take 0.5 mg by mouth 3 (three) times a day as needed for anxiety. 1 Active MULTIVITAMIN ORAL Take 1 tablet by mouth daily. 1 Active buPROPion (WELLBUTRIN SR) 150 MG SR 12 hr tablet Take 150 mg by mouth daily. Active citalopram (CELEXA) 40 MG tablet Take 40 mg by mouth daily. 1 Active sennosides (SENNA) 8.6 mg Cap Take 8.6 mg by mouth as needed (constipation). Active docusate sodium (COLACE) 100 MG capsule Take 100 mg by mouth as needed for constipation. Active hydrOXYzine (ATARAX) 25 MG tablet Take 25 mg by mouth every 8 (eight) hours as needed for itching. 1 Active Medication-Dick e Text Apply 71 g topically as needed (itching). Mentol/Zinc Oxide 71g ointment, dose: 71g, topical daily, prn rash/itching. 1 Active warfarin (COUMADIN) 5 MG tablet Take 4 mg by mouth daily. 1 Active clobetasol (TEMOVATE) 0.05 % Gel Apply 1 application topically as needed. Active acetaminophen (TYLENOL ARTHRITIS PAIN) 650 MG CR tablet Take 650 mg by mouth as needed for pain (specific location in comments). Active traZODone (DESYREL) 50 MG tablet Take 50 mg by mouth nightly at bedtime. 1 03/27/20 21 Discontin ued(No longer taking) Family History Medical History Relation Comments Hypertension Mother Cancer Sister Relation Status Comments Mother Sister Social History Tobacco Use Types Packs/Day Years Used Date Smoking Tobacco: Never Smokeless Tobacco: Never Education Answer Date Recorded Are you interested in more education? Not on honey e 03/02/2023 Are you concerned about learning? Not on file 03/02/2023 No 03/02/2023 No 03/02/2023 Digital Access Answer Date Recorded No 03/30/2023 No 03/30/2023 No 03/30/2023 Reliable internet access at home? Not on file 03/30/2023 Device with a working camera? Not on file Comments Unknown Sex and Gender Information Value Date Recorded Sex Assigned at Not on file Legal Sex Female 10:25 AM EDT Gender Identity Not on file Sexual Orientation Not on file Last Filed Vital Signs Vital Sign Reading Time Taken Comments Blood Pressure 165/73 02/12/2022 10:24 AM EDT Pulse 60 02/12/2022 10:24 AM EDT Temperature 36.6 C (97.8 F) 02/12/2022 10:24 AM EDT Respiratory Rate 17 02/12/2022 10:24 AM EDT Oxygen Saturation 96% 02/12/2022 10:24 AM EDT Inhaled Oxygen Concentration - - Weight 86.2 kg (190 lb) 07/26/2021 3:14 PM EDT Height 166.4 cm (5' 5.5 ) 02/12/2022 10:24 AM ED T Body Mass Index 31.14 07/26/2021 3:14 PM EDT Plan of Treatment Health Maintenance Due Date Last Done Comments Adult Td,Tdap Booster 1955 LIPID PANEL 1955 HEPATITIS C SCREENING 1972 MAMMOGRAM 1994 COLOGUARD 1999 COLONOSCOPY 1999 COLORECTAL CANCER SCREENING 1999 FIT TEST 1999 FOBT 1999 SIGMOIDOSCOPY 1999 VIRTUAL COLONOSCOPY 1999 PNEUMOCOCCAL VACCINES (50+ years) (1 of 1 - PCV) 2004 ZOSTER VACCINES (1 of 2) 2004 OSTEOPOROSIS SCREENING INITI AL (ONE-TIME) 2019 DEPRESSION SCREENING 06/13/2022 06/13/2021 COVID-19 VACCINE (4 - 2023-2 5 season) 2024 09/11/2021, 03/10/2021, 02/17/2021 RSV VACCINE (1 - 1-dose 75+ series) 2029 SMOKING STATUS SCREENING (On ce After 26 Yrs) Completed 02/12/2022 HEPATITIS A VACCINES Aged Out No long er eligible based on patient's age to complete this topic HIB VACCINES Aged Out No longer eligi ble based on patient's age to complete this topic MENINGOCOCCAL VACCINES (ACWY) Aged Out No longer eligible based on patient's age to complete this topic MENINGOCOCCAL VACCINES (B) Aged Out N o longer eligible based on patient's age to complete this topic Medical Devices Not on file Insurance MEDICARE PART A & B [facility] MEDICARE PART A & B [facility] MEDICARE PART A & [place] [address] [place] [address] [place] [id number] MEDICARE PART A & B [facility] MEDICARE PART A & B [facility] MEDICARE PART A & B [facility] Care Teams Environmental Technician Relationship Specialty Start Date End Date Keanu Saul MD [address] [place] [address] PCP - General Family Medicine 06/19/21 Additional Source Comments The information contained in this document represents components of the legal health record. It is not the complete legal health record.[facility]
[2025-06-02 12:39] VITALS: BP 104/60; PULSE 59; RESP 16; TEMP 36.7; O2SAT 98; BMI 26.0
== END 2025-06-02 13:06 | disposition home or self-care (01) ==
LOC: HO.HMCFM 11:34
PROVIDERS: PCP Family Medicine; Visit Provider Family Medicine
DX: G89.4 Chronic pain syndrome (principal); R13.10 Dysphagia, unspecified

== ENCOUNTER → 2025-06-02 11:33 | Outpatient (BNVA) | payer OTHER, SELFPAY | PROVIDERS: PCP Family Medicine; Visit Provider Family Medicine | DX: E11.9 Type 2 diabetes mellitus without complications (principal); G89.4 Chronic pain syndrome; R13.10 Dysphagia, unspecified; Z79.84 Long term (current) use of oral hypoglycemic drugs; Z79.899 Other long term (current) drug therapy | CPT/HCPCS: 99212 ==

== ENCOUNTER 2025-07-08 12:59 | Outpatient (AMB) | payer OTHER, SELFPAY ==
--- OUTSIDE RECORDS SUMMARY | 2025-01-05 10:00 | XMS_ITS ---
Author Organization [facility] Address [address] [place] [address] Care Team Providers Care Electroencephalograph Technician Name Role Phone Rochelle QUICK, Clarence Primary Care Provider Tara Ortega Unavailable [phone] Caed Felder Unavailable [phone] Encounters Encounter Location Date Provider Diagnosis [facility] [address] [place] [address] 01/05/2025 Cade Felder Plan Of Treatment No Information Progress Notes * Celestina VERDUZCODOB:1955 (70 yo F)Acc No.[id number]:01/05/2025 Progress Notes Patient: Sander ALICIAyne Provider: Noemi Felder DPM :1955 A ge:69 Y S ex:Female Date:01/05/2025 Address:[address], [id number] Pcp:Clarence Byrd MD Subjective: * Chief Complaints: [...] DPM Date: 0 01/05/2025 Generated for Lorenzo sebastian/Ezra/Bandaritting on: 0 07/08/2025 02:14 PM EDT
--- OUTSIDE RECORDS SUMMARY | 2025-06-10 08:45 | XMS_ITS ---
Author Organization [facility] Address [address] [place] [address] Care Team Providers Care Funeral Location Manager Name Role Phone Rochelle QUICK, Clarence Primary Care Provider Tara Ortega [phone] Encounters Encounter Location Date Provider Diagnosis [facility] [address] [place] [address] 06/10/2025 Tara Ball Plan Of Treatment No Information Progress Notes * Celestina VERDUZCODOB:1955 (70 yo F)Acc No.[id number]:06/10/2025 Progress Note Patient: Sander ALICIAyne Provider: Valentin Ball DPM :1955 A ge:70 Y S ex:Female Date:06/10/2025 Address:[address], [place], [id number] Pcp:Clarence Byrd MD Subjective: * Chief Complaints: * * Medical History: Objective: * Vitals: Assessment: Plan: * Treatment: * Images: * The named appointment provid er may or may not be the originator of this progress note, and it is not deemed complete until electronically signed by the appointment provider. Sign off status: Pending * Provider: Valentin Ball DPM Date: 06/10/2025 Generated for Printi ng/Faermiasg/eTransmitting on: 0 07/08/2025 02:14 PM EDT
[2025-07-08 13:04] VITALS: BP 126/62; PULSE 62; TEMP 36.7; O2SAT 97
--- NOTE | 2025-07-08 13:04 | MHC.OFFWIV ---
Intake Vital Signs 07/08/25 13:04 Height 5 ft 5 in BMI Reason not done Patient refused/unable BP 126/62 Blood Pressure Location Lt brachial Position Sitting Pulse 62 Pulse Source Pulse Oximeter Temp 98.1 F Temp Source Oral Pulse Oximetry (%) 97 Oxygen Delivery Method Room Air Intake Visit Reasons: EP-covid symptoms Patient Tobacco Use Status: Never used Tobacco Allergies ketorolac (From TORADOL) Allergy (Intermediate, Verified 07/08/25 13:04) VOMITING morphine (MORPHINE) Allergy (Intermediate, Verified 07/08/25 13:04) vomiting hydromorphone (From DILAUDID) Allergy (Unknown, Verified 07/08/25 13:04) HIVES midodrine Allergy (Unknown, Verified 07/08/25 13:04) Anaphylaxis dilation drops for eye Allergy (Mild, Uncoded 12/30/24 15:38) swelling, redness, pain Erythromycin Allergy (Unknown, Uncoded 12/30/24 15:38) Vomiting Do you need a note to return to daycare/school/sports/work: No HPI HPI Comments History of Present Illness Details History - The patient is a 70-year-old female presenting with symptoms consistent with a respiratory infection. - Initially tested negative for COVID-19 but having symptoms including headache, cough, and fatigue. - Symptoms began on Saturday night, progressing to include body aches and low-grade fever. - Her had tested positive for covid over the weekend on Saturday and given paxlovid. - Reports congestion and sore throat, with symptoms worsening at night. - No chest pain or shortness of breath, maintaining hydration and nutrition. - Using Advil for symptom relief despite being on Warfarin due to low INR levels. - She denies diarrhea, constipation, abd pain, nausea or vomiting. Physical Exam General: Cooperative, healthy appearing, comfortable, in a wheelchair Orientation/consciousness: Patient oriented x3 Limitations: No limitations Head: Normal to inspection Ears: Hearing grossly normal bilaterally, external ears normal and TM's normal bilaterally Nose: Normal external nose present, normal nares present, and no nasal discharge present. Face and sinus: Sinuses nontender to palpation. Mouth: Normal oral and palatal mucosa present and moist mucous membranes noted. Throat: Tonsils normal. Uvula is midline. Posterior oropharynx with erythema and no exudates. Eyes: Appearance normal, both eyes and all related structures Neck: Normal visual inspection, full ROM. No lymphadenopathy noted. Respiratory: Clear to auscultation bilaterally. Normal respiratory effort, able to speak in complete sentences. No respiratory distress, not tachypneic, no tripod positioning and no use of accessory muscles. Cardiovascular: Regular rate and rhythm. Normal S1 and S2 Skin: No rashes or lesions noted Patient was informed and verbally consented to the use of an ambient scribe for clinic note documentation during this visit [facility] Medical History (Updated 06/02/25 @ 12:50 by Clarence Byrd MD) Anxiety Complex regional pain syndrome i of lower limb, bilateral Morbid obesity Wheelchair dependent Asthma Diabetes Hypertension Bradycardia Pemphigus Pancreatic ductal abnormality Surgical History Hx of parathyroidectomy Hx of cholecystectomy Hx of splenectomy Hx of bariatric surgery Hx of hysterectomy S/P placement of nerve stimulator H/O oral surgery Family History Father Heart attack Mental health disorder Mother Heart attack Macular degeneration Mental health disorder Social History Housing: Apartment Patient Tobacco Use Status: Never used Tobacco e-Cigarette/Vaping Use: Never Used Second Hand Smoke Exposure: No service: No Current occupational status: disabled Cognitive needs: No Hearing needs: Yes Vision needs: Yes (wears reading glasses) Review of Systems Const All systems reviewed & are unremarkable except as noted in HPI and below Physical Exam Vital Signs: Last Vital Signs Temp 98.1 F 07/08/25 13:04 Pulse 62 07/08/25 13:04 BP 126/62 07/08/25 13:04 Pulse Ox 97 07/08/25 13:04 Oxygen Delivery Method Room Air 07/08/25 13:04 Assessment & Plan Assessment & Plan (1) URI with cough and congestion: Code(s): J06.9 - Acute upper respiratory infection, unspecified Plan Most likely covid vs flu vs RSV vs viral illness vs CAP plan - will order CXR in the office today - will order resp panel - benzonate TID - can start paxlovid and will call her with the results of CXR and resp panel to determine if she needs to continue - tylenol or motrin as needed - follow up with PCP - advised the ER if she has increased cough, fever, SOB, etc Orders: Orders Resp Pathogen Panel - [facility] Today J06.9 - Acute upper respiratory infection, unspecified Coding Level of Care Code Est Pt Level 4 (77306) Diagnoses URI with cough and congestion J06.9
--- OUTSIDE RECORDS SUMMARY | 2025-07-08 14:15 | XMS_ITS | Clinical Summary ---
Author Organization [facility] Address [facility] [address] [address] Phone Care Team Providers Care Certified Histologic Technician Name Role Phone Keanu Saul MD [...] ORAL Take 1 tablet by mouth daily. Active buPROPion (WELLBUTRIN SR) 150 MG SR [...] file Insurance MEDICARE PART A & B [facility] MEDICARE PART A & B [facility] MEDICARE PART A & [place] [address] [address] [place] [id number] MEDICARE PART A & B [facility] MEDICARE PART A & B [facility] MEDICARE PART A & B [facility] Care Teams Certified Histologic Technician Relationship Specialty Start Date End Date Keanu Saul MD [address] [place] [id number] PCP - General Family Medicine 06/19/21 Additional Source Comments The information contained in this document represents components of the legal health record. It is not the complete legal health record.[facility]
--- OUTSIDE RECORDS SUMMARY | 2025-07-08 14:15 | XMS_ITS | Clinical Summary ---
Author Organization [facility] Address [address] [place] [address] Care Team Providers Care Bulk Fluids Handler Name Role Phone Shirley Adler MD Primary Care Provider [phone] Allergies Active Allergy Reactions Criticality Noted Date [...] age to complete this topic Care Teams Bulk Fluids Handler Relationship Specialty Start Date End Date Shirley Adler MD [address] [place] [address] PCP - General Internal Medicine 03/21/21
--- OUTSIDE RECORDS SUMMARY | 2025-07-08 14:15 | XMS_ITS | Patient Health Record ---
[facility] Address [address] [place] [address] Care Team Providers Care Environmental Project Manager Name Role Phone Clarence Byrd MD Primary Care Provider Tara Ortega Unavailable [phone] Cade Felder Unavailable [phone] Allergies Allergen (clinical drug ingredient) Drug/Non Drug Allergy documented on EMR Reaction Allergy Type Onset Date Status Biaxin vomiting Drug Allergy Active erythromycin Erythromycin vomiting Drug Allergy A ctive midodrine Midodrine HCl Unknown Drug Allergy Act eros azithromycin Zithromax Z-Moises vomiting Drug Allergy Active Morphine and Related Unknown Drug Allergy Active Results Component Value Reference Range Notes HEMOGLOBIN A1C (GLYCOHEMOGLO BIN) Reviewed date:03/10/2025 01:11:32 PM Interpretation: Performing Lab: Notes/Report: HEMOGLOBIN A1C % (HH) 6.7 Reason For Referral Diagnosis 1 Pain in unspecified foot (M79.673) Referring Provider First Name Clarence Referring Provider Last Name Rochelle Referring Provider Speciality Internal M edicine Referred Organization [facility] Jensen Referred Provider Tara Ball Referred Address [address] [facility] [address] ,[place], [place],[address], Referred Provider Specialty Podiatry Referral Priority Routine Medications Medication SIG (Take, Route, Frequency, Duration) Notes Start Date End Date Status Citalopram Hydrobromide 40 MG Oral; Duration: 90 Days Acti ve metroNIDAZOLE 0.75 % External; Duration: 30 Days Active Pulmicort Flexhaler 180 MCG/ACT Inhalation; Duration: 60 Days Active Warfarin Sodium 4 MG Oral; Duration: 90 Days Active Terbinafine HCl 250 MG 1 tablet Orally O nce a day for 7 days, then hold for 3 weeks; Duration: 30 days 05/03/2025 Active Lisinopril 5 MG Oral; Duration: 30 Days Active Benzonatate 100 MG Oral; Duration: 30 Days Active oxyCODONE HCl 5 MG Oral; Duration: 30 Days Active hydrOXYzine HCl 50 MG Oral; Duration: 30 Days Active metFORMIN HCl 500 MG Oral; Duration: 30 Days Active predniSONE 20 MG Oral; Duration: 10 Days Active traMADol HCl 50 MG Oral; Duration: 10 Days Active ALPRAZolam 0.5 MG Oral; Duration: 30 Days Active Clobetasol Propionate 0.05 % External; D uration: 30 Days Active Ketorolac Tromethamine 0.5 % Ophthalmic; Duration: 50 Days Active glipiZIDE ER 5 MG Oral; Duration: 90 Days Active Social History Tobacco Use: Social History Observation Description Date Details (start date - stop date) Never Smoker NA - NA Tobacco use other than smoking: Question Answer Notes Are you an other tobacco user? No Tobacco Control (Standard) Question Answer Notes Tobacco use: Nonsmoker Additional Findings: Tobacco non-user Current no nsmoker Vital Signs Blood pressure diastolic 65 mm Hg 04/01/2025 Height 5 ft 5 in in 04/01/2025 Blood pressure systolic 128 mm Hg 04/01/2025 Weight 195 lbs 04/01/2025 BMI 32.45 kg/m2 04/01/2025 Procedures Procedure Date Ordered Date Performed Result Body Sit e 21733-Ypxphlhv Plate 03/10/2025 N/A Encounters Encounter Location Date Provider Diagnosis [address] [address] 03/10/2025 Tara Ball Tinea unguium B35.1 ; Pain in right toe(s) M79.674 ; Pain in left toe(s) M79.675 and Ingrown nail L60.[address] [address] 04/01/2025 Tara Ball Pain in right toe(s) M79.674 ; Onychomycosis B35.1 and Pain in left toe(s) M79.675 [address] [address] [place] [address] 10/20/2024 Cade Felder [facility] [address] [address] 12/15/2024 Cade Felder [facility] [address] [address] 04/05/2025 [facility] [address] [address] 04/15/2025 Tara Ball [facility] [address] [address] 05/26/2025 Tara Ball [facility] [address] 06/10/2025 Tara Ball Assessments Encounter Date Diagnosis (ICD Code) Assessment Notes Treatment Notes Treatment Clinical Notes Section Notes 03/10/2025 Tinea unguium (ICD-10 - B35.1) 03/10/2025 Pain in right toe(s) (ICD-10 - M79.674) 04/01/2025 Pain in right toe(s) (ICD-10 - M79.674) 04/01/2025 Onychomycosis (ICD-10 - B35.1) 04/01/2025 Pain in left toe(s) (ICD-10 - M79.675) 03/10/2025 Pain in left toe(s) (ICD-10 - M79.675) 03/10/2025 Ingrown nail (ICD-10 - L60.0) Plan Of Treatment Pending Test Test Name Order Date *Liver Function Test (LFT) 04/01/2025 12630-Jxhqlhst Plate 03/10/2025 Insurance Providers Payer Name Payer Address Payer Phone Subscriber Number Group Number Insured Name Patient Relationship to Insured Coverage Start Date Coverage End Date [facility] [id number] [place] [phone] [id number] Celestina Verduzco Self - patient is the insured Medical (General) History Medical History History ICD Code Anxiety Arthritis asthma Back,Hip,and Knee pain Broken bones Cancer Cataracts covid-19 Depression Diabetic Gall bladder problems High Blood Pressure Macular degeneration Mumps Chicken pox
--- OUTSIDE RECORDS SUMMARY | 2025-07-08 14:15 | XMS_ITS | Encounter Summary ---
Author Organization [facility] Address [address] [place] [address] Phone Care Team Providers Care Photo Printer Name Role Phone Keanu Saul MD Primary Care Provider + Encounter Details Date Type Department Care Team (Late st Contact Info) Description 07/13/2021 Procedure Pass [facility] [address] [place] [id number] Social History Tobacco Use Types Packs/Day Years Used Date Smoking Tobacco: Never Smokeless Tobacco: Never Comments Unknown Sex and Gender Information Value Date Recorded Sex Assigned at Not on file Legal Sex Female 10:25 AM EDT Gender Identity Not on file Sexual Orientation Not on file documented as of this encounter Plan of Treatment Not on file documented as of this encounter Visit Diagnoses Not on filedocumented in this encounter Care Teams Photo Printer Relationship Specialty Start Date End Date Keanu Saul MD [address] [place] [address] PCP - General Family Medicine 06/19/21 documented as of this encounter Additional Source Comments The information contained in this document represents components of the legal health record. It is not the complete legal health record.[facility]
--- OUTSIDE RECORDS SUMMARY | 2025-07-08 14:15 | XMS_ITS | Encounter Summary ---
Author Organization [facility] Address [address] [place] [address] Care Team Providers Care Industrial Photographer Name Role Phone Shirley Adler MD Primary Care Provider [phone] Encounter Details Date Type Department Care Team (Late st Contact Info) Description 07/16/2022 Lab Requisition [facility] [address] [place] [address] Keanu Saul MD [address] [place] [address] Type 2 diabetes mellitus without complications [...] K/mcL LAB HEMETOLOGY METHOD 07/16/2022 9:09 PM [facility] RBC 4.79 3.80 - 5.00 M/mcL LAB HEMETOLOGY METHOD 07/16/2022 9:09 PM [facility] Hemoglobin 14.9 11.3 - 15.3 g/dL LAB HEMETOLOGY METHOD 07/16/2022 9:09 PM [facility] Hematocrit 45.3(H) 34.0 - 45.0 % LAB HEMETOLOGY METHOD 07/16/2022 9:09 PM [facility] MCV 94.6 81.0 - 97.0 FL LAB HEMETOLOGY METHOD 07/16/2022 9:09 PM [facility] MCH 31.1(L) 32.6 - 36.6 pcg LAB HEMETOLOGY METHOD 07/16/2022 9:09 PM [facility] MCHC 32.9 29.2 - 35.3 g/dL LAB HEMETOLOGY METHOD 07/16/2022 9:09 PM [facility] RDW 14.6(H) 11.0 - 14.5 % LAB HEMETOLOGY METHOD 07/16/2022 9:09 PM [facility] RDW-SD 50.9(H) 36.8 - 48.3 FL LAB [facility]OLOGY [facility]lets 322 150 - 400 K/mcL LAB HEMETOLOGY METHOD 07/16/2022 9:09 PM [facility] MPV 13.2 8.9 - 13.3 FL LAB HEMETOLOGY METHOD 07/16/2022 9:09 PM [facility] Neutrophils Relative 50.9 32.0 - 71.0 % LAB HEMETOLOGY METHOD 07/16/2022 9:09 PM [facility] Immature Granulocytes Relative 0.2 0.0 - 1.0 % LAB HEMETOLOGY METHOD 07/16/2022 9:09 PM [facility] Lymphocytes Relative 34.6 19.5 - 54.0 % LAB HEMETOLOGY METHOD 07/16/2022 9:09 PM [facility] Monocytes Relative 9.9 4.0 - 14.0 % LAB HEMETOLOGY METHOD 07/16/2022 9:09 PM [facility] Eosinophils Relative 3.4 0.0 - 7.0 % LAB HEMETOLOGY METHOD 07/16/2022 9:09 PM [facility] Basophils Relative 1.0 0.0 - 2.0 % LAB HEMETOLOGY METHOD 07/16/2022 9:09 PM [facility] Preliminary Neutrophils Abs Automated Count 4.54 1.50 - 6.00 K/mcL LAB HEMETOLOGY METHOD 07/16/2022 9:09 PM EDT [facility] Neutrophils Absolute 4.54 1.50 - 6.00 K/mcL LAB [facility]EMETOLOGY [facility] Immature Granulocytes Absolute 0.02 0.00 - 0.10 K/mcL LAB HEMETOLOGY METHOD [facility]16[facility]2022 9:[facility] Lymphocytes Absolute 3.09 1.10 - 4.00 K/mcL LAB HEMETOLOGY METHOD [facility]22 [facility] Monocytes Absolute 0.88 0.20 - 1.00 K/mcL LAB HEMETOLOGY METHOD 07/16/2022 9:09 PM [facility] Eosinophils Absolute 0.30 0.00 - 0.70 K/mcL LAB HEMETOLOGY METHOD 07/16/2022 9:09 PM [facility] Basophils Absolute 0.09 0.00 - 0.20 K/mcL LAB HEMETOLOGY METHOD 07/16/2022 9:09 PM [facility] NRBC 0.0 0.0 - 0.0 % LAB HEMETOLOGY METHOD [facility]22 [facility] NRBC Absolute 0.00 >=0.00 K/mcL LAB HEMETOLOGY METHOD 07/16/2022 9:09 PM [facility] Blood Venous blood specimen / Unknown 07/16/2022 2:32 PM EDT 07/16/2022 8:53 PM EDT us Keanu Saul MD LAB BLOOD ORDERABLES Final Re sult [facility] [address] [place] [address] * Thyroid stimulating hormone with reflex free T4 (07/16/2022 2:32 PM EDT) TSH 0.69 0.36 - 3.74 mcIU/mL LAB CHEMISTRY METHOD 07/16/2022 9:33 PM EDT [facility] Blood Venous blood specimen / Unknown 07/16/2022 2:32 PM EDT 07/16/2022 8:53 PM EDT us Keanu Saul MD LAB BLOOD ORDERABLES Final Re sult Performing Organization Address [facility]/ZIP Co de Phone Number [facility] [address] [place] [address] * (ABNORMAL) Lipid panel (07/16/2022 2:32 PM EDT) Cholesterol 225(H) <200 mg/dL LAB CHEMISTRY METHOD 07/16/2022 9:33 PM EDT [facility] Triglycerides 128 <150 mg/dL LAB CHEMISTRY METHOD 07/16/2022 9:33 PM EDT [facility] HDL 98 >59 mg/dL LAB CHEMISTRY METHOD 07/16/2022 9:33 PM EDT [facility] Comment: <35 mg/dl is the cut-point for increased Coronary Heart Disease (CHD) risk. LDL Calculated 101(H) 0 - 99 mg/dL LAB CHEMISTRY METHOD 07/16/2022 9:33 PM EDT [facility] VLDL Cholesterol Kalyan 25.6 <=30 mg/dL LAB CHEMISTRY METHOD 07/16/2022 9:33 PM EDT [facility] Blood Venous blood specimen / Unknown 07/16/2022 2:32 PM EDT 07/16/2022 8:53 PM EDT us Keanu Saul MD LAB BLOOD ORDERABLES Final Re sult [facility] [address] [place] [address] * (ABNORMAL) Comprehensive metabolic panel (07/16/2022 2:32 PM EDT) [facility] Sodium 139 136 - 145 mmol/L LAB CHEMISTRY METHOD 07/16/2022 9:33 PM [facility] Potassium 4.4 3.5 - 5.1 mmol/L LAB CHEMISTRY METHOD 07/16/2022 9:33 PM [facility] Chloride 106 98 - 107 mmol/L LAB CHEMISTRY METHOD 07/16/2022 9:33 PM [facility] CO2 25 21 - 32 mmol/L LAB CHEMISTRY METHOD 07/16/2022 9:33 PM [facility] Anion Gap 8 3 - 11 LAB CHEMISTRY METHOD 07/16/2022 9:33 PM [facility] Glucose 198(H) 70 - 99 mg/dL LAB CHEMISTRY METHOD 07/16/2022 9:33 PM [facility] BUN 18 7 - 18 mg/dL LAB CHEMISTRY METHOD 07/16/2022 9:33 PM [facility] Creatinine 0.44(L) 0.55 - 1.02 mg/dL LAB CHEMISTRY METHOD 07/16/2022 9:33 PM [facility] eGFR 104 >=60 mL/min/1. 73m2 LAB CHEMISTRY METHOD 07/16/2022 9:33 PM [facility] Comment: The MDRD GFR formula is valid only for adults between ages 18 and 70. BUN/Creatinine Ratio 40.9(H) 12.0 - 20.0 LAB CHEMISTRY METHOD 07/16/2022 9:33 PM [facility] Calcium 9.4 8.5 - 10.1 mg/dL LAB CHEMISTRY METHOD 07/16/2022 9:33 PM [facility] AST (SGOT) 29 15 - 37 unit/L LAB CHEMISTRY METHOD 07/16/2022 9:33 PM EDT [facility] ALT (SGPT) 39 13 - 56 unit/L LAB CHEMISTRY METHOD 07/16/2022 9:33 PM EDT [facility] Alkaline Phosphatase 190(H) 53 - 141 unit/L LAB CHEMISTRY METHOD 07/16/2022 9:33 PM EDT [facility] Total Protein 7.0 6.4 - 8.2 g/dL LAB CHEMISTRY METHOD 07/16/2022 9:33 PM EDT [facility] Albumin 3.5 3.4 - 5.0 g/dL LAB CHEMISTRY METHOD 07/16/2022 9:33 PM EDT [facility] Total Bilirubin 0.5 0.2 - 1.0 mg/dL LAB CHEMISTRY METHOD 07/16/2022 9:33 PM EDT [facility] Blood Venous blood specimen / Unknown 07/16/2022 2:32 PM EDT 07/16/2022 8:53 PM EDT Keanu Saul MD LAB BLOOD ORDERABLES Final Re sult [facility] [address] [place] [address] * (ABNORMAL) Hemoglobin A1c (07/16/2022 2:32 PM EDT) Hemoglobin A1C 8.5(H) <5.7 % LAB CHEMISTRY METHOD 07/17/2022 1:35 PM EDT [facility] Mean Bld Glu Estim. 197(H) <126 mg/dL LAB CHEMISTRY METHOD 07/17/2022 1:35 PM EDT [facility] Blood Venous blood specimen / Unknown 07/16/2022 2:32 PM EDT 07/16/2022 8:53 PM EDT Narrative [facility] - 07/17/2022 1:35 PM EDT *Clinical Condition Normal <5.7% Prediabetes 5.7-6.5% Diabetes >/=6.5% NGSP: National Glycohemoglobin Standardization Program *2011 [place] Diabetes Association Note: These results were obtained by [employer] Variant II HbA1c Assay. The assay is IFCC standardized and NGSP certified. us Keanu Saul MD LAB BLOOD ORDERABLES Final Re sult [facility] [address] [place], [place] [id number] documented in this encounter Visit Diagnoses Diagnosis Type 2 diabetes mellitus without complications (CMS/HCC V24, CMS/HCC V28) Nontoxic single thyroid nodule Nontoxic uninodular goiter documented in this encounter Care Teams Industrial Photographer Relationship Specialty Start Date End Date Shirley Adler MD [address] [place] [address] PCP - General Internal Medicine 02/14/21 documented as of this encounter
--- OUTSIDE RECORDS SUMMARY | 2025-07-08 14:15 | XMS_ITS | Clinical Summary ---
Author Organization [facility] Address [address] [place] [address] Phone Care Team Providers Care Crane Oiler Name Role Phone Shirley Adler MD Primary Care Provider [phone] Surgical History Surgery Date Site/Laterality Comments HYSTERECTOMY PROCEDURE:HYSTERECTOMY OOPHORECTOMY PROCEDURE:OOPHORECTOMY BARIATRIC SURGERY PROCEDURE:BARIATRIC SURGERY CHOLECYSTECTOMY PROCEDURE:CHOLECYSTECTOMY KIDNEY STONE SURGERY PROCEDURE:KIDNEY STONE SURGERY SPLENECTOMY, PARTIAL PROCEDURE:SPLENECTOMY, PARTIAL PARATHYROIDECTOMY PROCEDURE:PARATHYROIDECTOMY PANCREAS SURGERY PROCEDURE:PANCREAS SURGERY;COMMENT:Cystadenoma COLONOSCOPY PROCEDURE:COLONOSCOPY UPPER GASTROINTESTINAL ENDOSCOPY PROCEDURE:UPPER GASTROINTESTINAL ENDOSCOPY Medical History Medical History Date Comments Anxiety and depression DX:Anxiet y and depression; COMMENT: no records, never saw psychiatrist Pulmonary embolism ([facility] V24, [facility] V28) DX:Pulmonary embolism (HCC); COMMENT: was on coumadin for at least 10 years per patient, no medical records from PCP in [place] Pemphigoid ([facility] V28) DX:Pemp higoid; COMMENT: seen by senior business analyst in [facility], NO RECORDS. Pulmonary embolism ([facility] V24, [facility] V28) DX:Pulmonary embolism (HCC) Ovarian cancer ([facility] V24, [facility] V28) DX:Ovarian cancer (HCC) Anxiety and depression DX:Anxiet y and depression Pemphigoid ([facility] V28) DX:Pemp higoid Cystadenoma of pancreas DX:Cysta denoma of pancreas Type 2 diabetes mellitus ([facility] V24, [facility] V28) DX:Type 2 diabetes mellitus (HCC) [...] Annual GFR (Glomerular Filtration Rate) 07/16/2023 07/16/2022 Depression Screening 11/04/2024 COVID-19 Vaccine (3 - 2024-2 6 season) 2025 03/10/2021, 02/17/2021 Influenza Vaccine (#1) 2025 10/22/2019 Cholesterol Screening [...] LAB CHEMISTRY METHOD 07/17/2022 1:35 PM EDT [facility] Mean Bld Glu Estim. 197(H) <126 mg/dL LAB CHEMISTRY METHOD 07/17/2022 1:35 PM EDT [facility] Blood Venous blood specimen / Unknown 07/16/2022 2:32 PM EDT 07/16/2022 8:53 PM EDT Narrative [facility] - 07/17/2022 1:35 PM EDT *Clinical Condition Normal <5.7% Prediabetes 5.7-6.5% Diabetes >/=6.5% NGSP: National Glycohemoglobin Standardization Program *2011 [place] [employer] Note: These results were obtained by [employer] Variant II HbA1c Assay. The assay is IFCC standardized and NGSP certified. us Keanu Saul MD LAB BLOOD ORDERABLES Final Re sult [facility] [address] [place] [address] * (ABNORMAL) Lipid panel (07/16/2022 2:32 PM EDT) Cholesterol 225(H) <200 mg/dL LAB CHEMISTRY METHOD 07/16/2022 9:33 PM EDT [facility] Triglycerides 128 <150 mg/dL LAB CHEMISTRY METHOD 07/16/2022 9:33 PM EDT [facility] HDL 98 >59 mg/dL LAB CHEMISTRY METHOD 07/16/2022 9:33 PM EDT [facility] Comment: <35 mg/dl is the cut-point for increased Coronary Heart Disease (CHD) risk. LDL Calculated 101(H) 0 - 99 mg/dL LAB CHEMISTRY METHOD 07/16/2022 9:33 PM EDT [facility] VLDL Cholesterol Kalyan 25.6 <=30 mg/dL LAB CHEMISTRY METHOD 07/16/2022 9:[address] [facility] Blood Venous blood specimen / Unknown 07/16/2022 2:32 PM EDT 07/16/2022 8:53 PM EDT us Keanu Saul MD LAB BLOOD ORDERABLES Final Re sult [facility] [address] [place] [address] * (ABNORMAL) Comprehensive metabolic panel (07/16/2022 2:32 PM EDT) Sodium 139 136 - 145 mmol/L LAB CHEMISTRY METHOD 07/16/2022 9:33 PM EDT [facility] Potassium 4.4 3.5 - 5.1 mmol/L LAB CHEMISTRY METHOD 07/16/2022 9:[address] [facility] Chloride 106 98 - 107 mmol/L LAB CHEMISTRY METHOD 07/16/2022 9:[address] [facility] CO2 25 21 - 32 mmol/L LAB CHEMISTRY METHOD 07/16/2022 9:[address] [facility] Anion Gap 8 3 - 11 LAB CHEMISTRY METHOD 07/16/2022 9:[address] [facility] Glucose 198(H) 70 - 99 mg/dL LAB CHEMISTRY METHOD 07/16/2022 9:[address] [facility] BUN 18 7 - 18 mg/dL LAB CHEMISTRY METHOD 07/16/2022 9:[address] [facility] Creatinine 0.44(L) 0.55 - 1.02 mg/dL LAB CHEMISTRY METHOD 07/16/2022 9:[address] [facility] eGFR 104 >=60 mL/min/1. 73m2 LAB CHEMISTRY METHOD 07/16/2022 9:[address] [facility] Comment: The MDRD GFR formula is valid only for adults between ages 18 and 70. BUN/Creatinine Ratio 40.9(H) 12.0 - 20.0 LAB CHEMISTRY METHOD 07/16/2022 9:[address] [facility] Calcium 9.4 8.5 - 10.1 mg/dL LAB CHEMISTRY METHOD 07/16/2022 9:[address] [facility] AST (SGOT) 29 15 - 37 unit/L LAB CHEMISTRY METHOD 07/16/2022 9:[address] [facility] ALT (SGPT) 39 13 - 56 unit/L LAB CHEMISTRY METHOD 07/16/2022 9:[address] [facility] Alkaline Phosphatase 190(H) 53 - 141 unit/L LAB CHEMISTRY METHOD 07/16/2022 9:33 PM EDT [facility] Total Protein 7.0 6.4 - 8.2 g/dL LAB CHEMISTRY METHOD 07/16/2022 9:33 PM EDT [facility] Albumin 3.5 3.4 - 5.0 g/dL LAB CHEMISTRY METHOD 07/16/2022 9:33 PM EDT [facility] Total Bilirubin 0.5 0.2 - 1.0 mg/dL LAB CHEMISTRY METHOD 07/16/2022 9:33 PM EDT [facility] Blood Venous blood specimen / Unknown 07/16/2022 2:32 PM EDT 07/16/2022 8:53 PM EDT us Keanu Saul MD LAB BLOOD ORDERABLES Final Re sult [facility] [address] [place] [address] from Last 3 Months or Most Recently Relevant to Health Maintenance Insurance MEDICARE [facility] [employer] MEDICARE Advance Directives Documents on File Type Date Recorded Patient Volcanology Professor Expl anation Health Care Decision (hx) 03/01/2021 [...] (hx) 05/05/2019 AD RAMOS DIRECTIVE Care Teams Crane Oiler Relationship Specialty Start Date End Date Shirley Adler MD [address] [place] [address] PCP - General Internal Medicine 02/14/21
--- OUTSIDE RECORDS SUMMARY | 2025-07-08 14:15 | XMS_ITS | Clinical Summary ---
Author Organization [address] Address [address] [place] [phone] Phone Care Team Providers Care Final Rail Cutter Name Role Phone No, Pcp (Do Not [...] 05/01/2019 Covid-19 vaccine series ( - season) 2025 Influenza vaccine 07/05/2025 08/05/2017 RSV Immunization (1 - 1-dose 75+ series) 2029 Cervical cancer screening Discontinued Meningococcal B Vaccine Aged Out No l onger eligible based on patient's age to complete this topic Meningococcal Vaccine Aged Out No scooter chio eligible based on patient's age to complete this topic Procedures Procedure Name Priority Date/Time Associated Diagnosis Comments COMPREHENSIVE METABOLIC PANEL STAT 05/01/2019 7:25 AM EDT from Last 3 Months or Most Recently Relevant to Health Maintenance Results * (ABNORMAL) Comprehensive metabolic panel (05/01/2019 7:25 AM EDT) Sodium 141 136 - 145 mmol/L 05/01/2019 7:55 AM [facility] Potassium 4.2 3.5 - 5.1 mmol/L 05/01/2019 7:55 AM [facility] Chloride 108(H) 98 - 107 mmol/L 05/01/2019 7:55 AM [facility] CO2 24 21 - 32 mmol/L 05/01/2019 7:55 AM [facility] Anion Gap 9 5 - 15 mmol/L 05/01/2019 7:55 AM [facility] Glucose 103 65 - 110 mg/dL 05/01/2019 7:55 AM [facility] Comment: Non-fastin-110 mg/dL Fasting (minimum 6 hrs): 65-99 mg/dL BUN 17 7 - 18 mg/dL 05/01/2019 7:55 AM [facility] Creatinine 0.70 0.55 - 1.02 mg/dL 05/01/2019 7:55 AM [facility] eGFR (-SOUTH SUDANESE) >60 >60 mL/min/1. 73m2 05/01/2019 7:55 AM [facility] eGFR (NON -Belarusian) >60 >60 mL/min/1. 73m2 05/01/2019 7:55 AM [facility] Comment: (NOTE) These are estimated GFR [...] 8.5 - 10.1 mg/dL 05/01/2019 7:55 AM [facility] Total Protein 7.1 6.4 - 8.2 g/dL 05/01/2019 7:55 AM [facility] Albumin 3.5 3.4 - 5.0 g/dL 05/01/2019 7:55 AM [facility] Globulin 3.6 2.5 - 5.0 g/dL 05/01/2019 7:55 AM [facility] Total Bilirubin 0.6 0.2 - 1.0 mg/dL 05/01/2019 7:55 AM [facility] Alkaline Phosphatase 148(H) 45 - 117 U/L 05/01/2019 7:55 AM [facility] Alanine Aminotransferase (ALT) 52 12 - 78 U/L 05/01/2019 7:55 AM [facility] Aspartate Aminotransferase (AST) 83(H) 15 - 37 U/L 05/01/2019 7:55 AM [facility] Blood Venipuncture / Unknown 05/01/2019 7:25 AM EDT 05/01/2019 7:29 AM EDT Mark Camara MD LAB BLOOD ORDERABLES nal Result [facility] [address] [place] [address], [facility] [phone] from Last 3 Months or Most Recently Relevant to Health Maintenance Insurance MEDICARE [employer] MEDICARE [employer] [facility] Care Teams Final Rail Cutter Relationship Specialty Start Date End Date No, Pcp (Do Not Change Name) PCP - General 05/01/19
--- OUTSIDE RECORDS SUMMARY | 2025-07-08 14:15 | XMS_ITS | Encounter Summary ---
Author Organization [facility] Address [address] [place] [address] Phone Care Team Providers Care Member Services Representative Name Role Phone Keanu Saul MD Primary Care Provider + Encounter Details Date Type Department Care Team (Late st Contact Info) Description 07/13/2021 Procedure Pass [facility] [address] [place] [phone] Social History Tobacco Use Types Packs/Day Years [...] on filedocumented in this encounter Care Teams Member Services Representative Relationship Specialty Start Date End Date Keanu Saul MD [address] [place] [address] PCP - General Family Medicine 06/19/21 documented as of this encounter Additional Source Comments The information contained in this document represents components of the legal health record. It is not the complete legal health record.[facility]
== END 2025-07-08 14:00 | disposition home or self-care (01) ==
PROVIDERS: PCP Family Medicine; Visit Provider Physician Assistant Medical
DX: J06.9 Acute upper respiratory infection, unspecified (principal)

== ENCOUNTER 2025-07-08 12:59 | Outpatient (REF) | payer OTHER, SELFPAY ==
--- NOTE | ~2025-07-08 | XR_ITS ---
EXAMINATION: XR CHEST CLINICAL INFORMATION: R05.9 - Cough, unspecified COMPARISON: April 11, 2024 TECHNIQUE: Frontal view of the chest was obtained. FINDINGS: Lungs are clear with coarse interstitial markings. Heart size is normal. Mediastinal hilar structures are unremarkable. Trace fluid is noted in the fissure in the right middle third lung zone. XR/XR chest 1V IMPRESSION: Nonspecific coarse interstitial markings. This could be related to bronchitis. Trace right pleural fluid. Electronically signed by: Kp Quarles MD 07/08/2025 02:17 PM EDT
[2025-07-09 10:28] LABS: Chlamydia pneumoniae PCR Not Detected (Not Detect.); Coronavirus 229E PCR Not Detected (Not Detect.); Coronavirus HKU1 PCR Not Detected (Not Detect.); Coronavirus NL63 PCR Not Detected (Not Detect.); Coronavirus OC43 PCR Not Detected (Not Detect.); RSV PCR Not Detected (Not Detect.); Rhino/Enterovirus PCR Not Detected (Not Detect.)
[2025-07-09 10:45] LABS: SARS-CoV-2 PCR Detected (Not Detect.)
[2025-07-09 10:46] LABS: Influenza A H1 PCR Not Detected (Not Detect.); Influenza A H1-2009 PCR Not Detected (Not Detect.); Influenza A H3 PCR Not Detected (Not Detect.)
== END 2025-07-08 13:00 | disposition home or self-care (01) ==
LOC: HO.HMGCX 12:59
PROVIDERS: PCP Family Medicine; Visit Provider Physician Assistant Medical
DX: J06.9 Acute upper respiratory infection, unspecified (principal); R05.9 Cough, unspecified; R06.02 Shortness of breath; R50.9 Fever, unspecified
CPT/HCPCS: 71045; 87633; 99212

== ENCOUNTER → 2025-07-08 13:53 | Outpatient (BNV) | payer OTHER, SELFPAY | PROVIDERS: PCP Family Medicine; Visit Provider Radiology Diagnostic Radiology | DX: R05.9 Cough, unspecified (principal) | CPT/HCPCS: 71045 ==

== ENCOUNTER 2025-08-03 14:29 | Outpatient (REF) | payer OTHER, SELFPAY ==
--- OUTSIDE RECORDS SUMMARY | 2025-01-05 10:00 | XMS_ITS ---
Author Organization [facility] Address [address] [place] [address] Care Team Providers Care Api Architect Name Role Phone Rochelle QUICK, Clarence Primary Care Provider Tara Ortega Unavailable [phone] Cade Felder Unavailable [phone] Encounters Encounter Location Date Provider Diagnosis [facility] [address] [place] [address] 01/05/2025 Cade Felder Plan Of Treatment No Information Progress Notes * Celestina VERDUZCODOB:1955 (70 yo F)Acc No.[id number]:01/05/2025 Progress Notes Patient: Sander ALICIAyne Provider: Noemi Felder DPM :1955 A ge:69 Y S ex:Female Date:01/05/2025 Address:[address], [id number] Pcp:Clarence Byrd MD Subjective: * Chief Complaints: [...] 01/05/2025 Generated for Lorenzo sebastian/Ezra/Bandaritting on: 0 08/03/2025 03:55 PM EDT
--- OUTSIDE RECORDS SUMMARY | 2025-06-10 08:45 | XMS_ITS ---
Author Organization [facility] Address [address] [place] [address] Care Team Providers Care Community Health Educator Name Role Phone Rochelle QUICK, Clarence Primary Care Provider Tara Ortega [phone] Encounters Encounter Location Date Provider Diagnosis [facility] [address] [place] [address] 06/10/2025 Tara Ball Plan Of Treatment No Information Progress Notes * Celestina VERDUZCODOB:1955 (70 yo F)Acc No.[id number]:06/10/2025 Progress Note Patient: Sander ALICIAyne Provider: Valentin Ball DPM :1955 A ge:70 Y S ex:Female Date:06/10/2025 Address:[address], [place], [id number] Pcp:Clarence Byrd MD Subjective: * Chief Complaints: [...] 06/10/2025 Generated for Printi ng/Faermiasg/eTransmitting on: 0 08/03/2025 03:55 PM EDT
--- NOTE | ~2025-08-03 | FL_ITS ---
EXAMINATION: Modified Barium Swallow CLINICAL INFORMATION: Dysphagia unspecified. COMPARISON: None. TECHNIQUE: Modified barium swallow was performed under lateral fluoroscopy with patient in standing position. Barium mixed with solids and liquids of different consistencies was administered by the speech pathologist. Examination was recorded in the fluoroscopy suite. FINDINGS: Multiple consistencies were administered. There was flash penetration with thin liquids. There was no subglottic aspiration. There was otherwise no penetration or aspiration identified. A 13 mm barium tablet went given with water passed without delay. FLUOROSCOPY TIME: 2 minutes, 14 seconds Number of Spot Images: N/A DOSE AREA PRODUCT: 1095 uGy-m2 (microgray-meter squared) FL/FL Modified Barium Swallow IMPRESSION: Flash penetration on thin liquids. Otherwise no significant laryngeal penetration or aspiration. Please refer to the full speech therapy report to follow for further details. Electronically signed by: Peter Dozier MD 08/03/2025 03:17 PM EDT
--- OUTSIDE RECORDS SUMMARY | 2025-08-03 15:55 | XMS_ITS | Encounter Summary ---
Author Organization [facility] Address [address] [place] [address] Phone Care Team Providers Care Operations/Dispatch Name Role Phone Keanu Saul MD Primary Care Provider + Encounter Details Date Type Department Care Team (Late st Contact Info) Description 07/13/2021 Procedure Pass [facility] [address] [place] [address] Social History Tobacco Use Types Packs/Day Years [...] on filedocumented in this encounter Care Teams Operations/Dispatch Relationship Specialty Start Date End Date Keanu Saul MD [address] [place] [address] PCP - General Family Medicine 06/19/21 documented as of this encounter Additional Source Comments The information contained in this document represents components of the legal health record. It is not the complete legal health record.[facility]
--- OUTSIDE RECORDS SUMMARY | 2025-08-03 15:55 | XMS_ITS | Encounter Summary ---
Author Organization [facility] Address [address] [place] [address] Phone Care Team Providers Care Firebrick Layer Helper Name Role Phone Keanu Saul MD Primary Care Provider + Encounter Details Date Type Department Care Team (Late st Contact Info) Description 07/13/2021 Procedure Pass [facility] [address] [place] [address] Social History Tobacco Use Types Packs/Day Years [...] on filedocumented in this encounter Care Teams Firebrick Layer Helper Relationship Specialty Start Date End Date Keanu Saul MD [address] [place] [address] PCP - General Family Medicine 06/19/21 documented as of this encounter Additional Source Comments The information contained in this document represents components of the legal health record. It is not the complete legal health record.[facility]
--- OUTSIDE RECORDS SUMMARY | 2025-08-03 15:55 | XMS_ITS | Clinical Summary ---
Author Organization [address] Address [address] [place] [phone] Phone Care Team Providers Care Process Control Manager Name Role Phone No, Pcp (Do Not [...] (bone density) 2019 Diabetes screening 05/01/2022 05/01/2019 Influenza vaccine 06/04/2025 08/05/2017 Covid-19 vaccine series ( - season) 2025 RSV Immunization (1 - 1-dose 75+ series) [...] 136 - 145 mmol/L 05/01/2019 7:55 AM [facility] Potassium 4.2 3.5 - 5.1 mmol/L 05/01/2019 7:55 AM [facility] Chloride 108(H) 98 - 107 mmol/L 05/01/2019 7:55 AM [facility] CO2 24 21 - 32 mmol/L 05/01/2019 7:55 AM [facility] Anion Gap 9 5 - 15 mmol/L 05/01/2019 7:55 AM [facility] Glucose 103 65 - 110 mg/dL 05/01/2019 7:55 AM [facility] Comment: Non-fastin-110 mg/dL Fasting (minimum 6 hrs): 65-99 mg/dL BUN 17 7 - 18 mg/dL 05/01/2019 7:55 AM [facility] Creatinine 0.70 0.55 - 1.02 mg/dL 05/01/2019 7:55 AM [facility] eGFR (-ARGENTINE) >60 >60 mL/min/1. 73m2 05/01/2019 7:55 AM [facility] eGFR (NON -[place]ian) >60 >60 mL/min/1. 73m2 05/01/2019 7:55 AM [facility] Comment: (NOTE) [...] 8.5 - 10.1 mg/dL 05/01/2019 7:55 AM [facility] Total Protein 7.1 6.4 - 8.2 g/dL 05/01/2019 7:55 AM [facility] Albumin 3.5 3.4 - 5.0 g/dL 05/01/2019 7:55 AM [facility] Globulin 3.6 2.5 - 5.0 g/dL 05/01/2019 7:55 AM [facility] Total Bilirubin 0.6 0.2 - 1.0 mg/dL 05/01/2019 7:55 AM [facility] Alkaline Phosphatase 148(H) 45 - 117 U/L 05/01/2019 7:55 AM [facility] Alanine Aminotransferase (ALT) 52 12 - 78 U/L 05/01/2019 7:55 AM [facility] Aspartate Aminotransferase (AST) 83(H) 15 - 37 U/L 05/01/2019 7:55 AM [facility] Blood Venipuncture / Unknown 05/01/2019 7:25 AM EDT 05/01/2019 7:29 AM EDT Mark Camara MD LAB BLOOD ORDERABLES nal Result [facility] [address] [place] [address], [facility] [phone] from Last 3 Months or Most Recently Relevant to Health Maintenance Insurance MEDICARE [employer] MEDICARE [employer] [facility] Care Teams Process Control Manager Relationship Specialty Start Date End Date No, Pcp (Do Not Change Name) PCP - General 05/01/19
--- OUTSIDE RECORDS SUMMARY | 2025-08-03 15:55 | XMS_ITS | Clinical Summary ---
Author Organization [facility] Address [address] [place] [address] Care Team Providers Care Teller Supervisor Name Role Phone Shirley Adler MD Primary Care Provider [phone] Allergies Active Allergy Reactions Criticality Noted Date [...] age to complete this topic Care Teams Teller Supervisor Relationship Specialty Start Date End Date Shirley Adler MD [address] [place] [address] PCP - General Internal Medicine 03/21/21
--- OUTSIDE RECORDS SUMMARY | 2025-08-03 15:55 | XMS_ITS | Patient Health Record ---
Author [facility] [place] Address [address] [place] [address] Care Team Providers Care Tour Bus Driver/Guide Name Role Phone Clarence Byrd MD Primary Care Provider Tara Ortega Unavailable [phone] Cade Felder Unavailable [phone] Allergies Allergen (clinical drug ingredient) Drug/Non Drug [...] Provider Speciality Internal M edicine Referred Organization [facility] Referred Provider Tara Ball Referred Address [address] [facility] [address] ,[place], [place],[address], Referred Provider Specialty Podiatry Referral Priority Routine [...] Ordered Date Performed Result Body Sit e 84557-Ivztdgai Plate 03/10/2025 N/A Encounters Encounter Location Date Provider Diagnosis [address] [address] 03/10/2025 Tara Ball Tinea unguium B35.1 ; Pain in right toe(s) M79.674 ; Pain in left toe(s) M79.675 and Ingrown nail L60.[address] [address] 04/01/2025 Tara Ball Pain in right toe(s) M79.674 ; Onychomycosis B35.1 and Pain in left toe(s) M79.[address] [address] [place] [address] 10/20/2024 Cade Felder [facility] [address] [address] 12/15/2024 Cade Felder [facility] [address] [address] 04/05/2025 [facility] [address] [address] 04/15/2025 Tara Ball [facility] [address] [address] 05/26/2025 Tara Ball [facility] [address] 06/10/2025 Tara Ball Assessments Encounter Date Diagnosis [...] Order Date *Liver Function Test (LFT) 04/01/2025 37077-Fufpriad Plate 03/10/2025 Insurance Providers Payer Name Payer Address Payer Phone Subscriber Number Group Number Insured Name Patient Relationship to Insured Coverage Start Date Coverage End Date [facility] [id number] [place] Salazar [phone] [id number] Celestina Verduzco Self - patient is the insured Medical (General) History Medical History History ICD Code Anxiety Arthritis asthma Back,Hip,and Knee pain Broken bones Cancer Cataracts covid-19 Depression Diabetic Gall bladder problems High Blood Pressure Macular degeneration Mumps Chicken pox
--- OUTSIDE RECORDS SUMMARY | 2025-08-03 15:55 | XMS_ITS | Clinical Summary ---
Author Organization [facility] Address [facility] [employer] [address] [address] Phone Care Team Providers Care Stunner Animal Name Role Phone Keanu Saul MD Primary [...] AL (ONE-TIME) 2019 DEPRESSION SCREENING 06/13/2022 06/13/2021 INFLUENZA VACCINE (#1) 2025 , 10/22/2019 COVID-19 VACCINE (4 - 2024-2 6 season) 2025 09/11/2021, 03/10/2021, 02/17/2021 RSV VACCINE (1 - [...] file Insurance MEDICARE PART A & B [facility] MEDICARE PART A & B [facility] MEDICARE PART A & B Member Subscriber Plan / Payer (Ef fective 2013-Present) Name:Celestina Verduzco Member ID:[id number] Relation to Subscriber:Self Name:Celestina Verduzco Subscriber ID:[id number] Payer ID:[id number] Group ID:Not on file Type:Medicare Address: [employer] [address] [place], [place] [id number] [place] [address] MEDICARE PART A & B Member Subscriber Plan / Payer (Ef fective 2013-Present) Name:Celestina Verduzco Member ID:[id number] Relation to Subscriber:Self Name:Celestina Verduzco Subscriber ID:[id number] Payer ID:[id number] Group ID:Not on file Type:Medicare Address: [employer] [address] [place] [phone] [facility] MEDICARE PART A & B Member Subscriber Plan / Payer (Ef fective 2013-Present) Name:Celestina Verduzco Member ID:[id number] Relation to Subscriber:Self Name:Celestina Verduzco Subscriber ID:[id number] Payer ID:[id number] Group ID:Not on file Type:Medicare Address: [employer] [address] [place] [address] MEDICARE PART A & B Member Subscriber Plan / Payer ( fective 2013-Present) Name:Celestina Verduzco Member ID:[id number] Relation to Subscriber:Self Name:Celestina Verduzco Subscriber ID:[id number] Payer ID:[id number] Group ID:Not on file Type:Medicare Address: [employer] [address] [place] [phone] [facility] Care Teams Stunner Animal Relationship Specialty Start Date End Date Keanu Saul MD [address] [place] [address] PCP - General Family Medicine 06/19/21 Additional Source Comments The information contained in this document represents components of the legal health record. It is not the complete legal health record.[facility]
--- NOTE | 2025-08-05 12:09 | MHC.SL.IMP ---
Date of Plan of Treatment: 08/03/25 Onset of Symptoms/Illness: 08/03/22 Date Treatment Started: 08/03/25 Admitting Diagnosis: Dysphagia Primary Speech & Language Diagnosis: R13.12 Oropharyngeal Phase Dysphagia Reason for Today's Visit: 44198 Modified Barium Swallow Study Pre-evaluation Dietary Consistencies: Regular Pre-evaluation Liquid Consistency: Thin Pre-evaluation Medication Administration: Whole with Liquid Medical History: Modified Barium Swallow Study Fluoroscopic Evaluation of Swallowing Function CPT Code 57983 Evaluation Year: 2024 Reason for Study: Hx dysphagia Referring Physician: Clarence Byrd MD Evaluating Clinician: Concetta Tran MA, CCC-SENIOR MARKETING ENGINEER Study Number: 1 Patient Name: Celestina Verduzco Status: Outpatient, Wheelchair Age: 70 Sex: Female Medical History Medical History (Updated 06/02/25 @ 12:50 by Clarence Byrd MD) Anxiety Complex regional pain syndrome i of lower limb, bilateral Morbid obesity Wheelchair dependent Asthma Diabetes Hypertension Bradycardia Pemphigus Pancreatic ductal abnormality Surgical History Hx of parathyroidectomy Hx of cholecystectomy Hx of splenectomy Hx of bariatric surgery Hx of hysterectomy S/P placement of nerve stimulator H/O oral surgery Current (pre-evaluation) Intake/Diet: Route: PO Diet Grade: Regular Liquid Consistencies: Thin Pre-Study Functional Oral Intake Scale (FOIS): 7- Total oral intake with no restrictions Pain: None reported at time of study SUBJECTIVE: Patient is a 70 year old female referred for a modified barium swallow study (MBSS) by her primary care provider. Patient used a motorized wheelchair and attended this exam accompanied by her . Patient reports difficulty swallowing pills and feeling like food gets stuck in her throat and needing to wash it down with liquid. Patient reports also feeling food get stuck in the mid-chest area. Her reports that they were told patient?s esophagus does not efficiently push food down. Patient reports she has had an MBSS done in the past, around 3 years ago she believes at [facility]. Per her , she ?has a pouch in the back of her throat where food sticks that most people do not have.? They recall being told her swallow was otherwise ?ok? and deny seeing a speech therapist for dysphagia treatment. Patient?s reports he chops up patient?s food finely for her. Oral Motor Exam Facial Symmetry: Symmetrical Mouth Occlusion: Normal Oral-Facial Teeth Characteristics: Partially Missing Oral-Facial Lip Pucker Description: Normal Oral-Facial Smile (Lips) Description: Normal Oral-Facial Puff Cheeks Description: Normal Tongue Size: Normal Tongue Excursion Description: Normal Tongue Range of Movement Description: Normal Tongue Speed of Movement Description: Normal Tongue Strength of Movement (against opposing pressure): Normal Tongue Movement Characteristics: Normal/Absent Food and Liquid Trials: Oral Impairment: Lip Closure: Did not test Oral Impairment: Tongue Control During Bolus Hold: 0=Cohesive bolus between tongue to palatal seal Oral Impairment: Bolus Preparation/Mastication: 1=Slow prolonged chewing/mashing with complete re-collection Oral Impairment: Bolus Transport/Lingual Motion: 2=Slowed tongue motion Oral Impairment: Oral Residue: 1=Trace residue lining oral structures Oral Impairment:Initiation of Pharyngeal Swallow: 2=Bolus head at posterior laryngeal surface of epiglottis Pharyngeal Impairment: Soft Palate Elevation: 0=No bolus between soft palate (SP)/pharyngeal wall (PW) Pharyngeal Impairment: Laryngeal Elevation: 0=Complete superior movement of thyroid cartilage (see description) Pharyngeal Impairment: Anterior Hyoid Excursion: 0=Complete anterior movement Pharyngeal Impairment: Epiglottic Movement: 1=Partial inversion Pharyngeal Impairment: Laryngeal Vestibular Closure:: 1=Incomplete: narrow column air/contrast in laryngeal vestibule Pharyngeal Impairment: Pharyngeal Stripping Wave: 0=Present: complete Pharyngeal Impairment: Pharyngeal Contraction: Did not test Pharyngeal Impairment: Pharyngoesophageal Segment Openin=Partial distention/partial duration: partial obstruction of flow Pharyngeal Impairment: Tongue Base (TB) Retraction: 0=No contrast between tongue base and posterior pharyngeal wall Pharyngeal Impairment: Pharyngeal Residue: 2=Collection of residue within or on pharyngeal structures Pharyngeal Impairment: Esophageal Clearance Upright Position: Did not test Impressions and Recommendations OBJECTIVE: Time-out: performed at 15:00 Evaluation Start: 14:30; Stop: 14:35 Patient Positioning: Seated 70-90 degrees Viewing Planes: LATERAL ONLY Contrast: MBSImP? Standardized Protocol using commercially prepared, standardized Barium viscosities, including: Varibar? THIN LIQUID (40% w/v, <15 cps) , Varibar? PUDDING (40% w/v, <9778-3213 cps) , 1/2 Shortbread Cookie (1 x1 x.25 ) MBSImP ID: [id number] [facility] Results: Lip closure for intraoral bolus containment could not be assessed due to logistical reasons not related to physiologic impairment. Tongue control during bolus hold maintained a cohesive bolus held between tongue to palate seal. Bolus preparation and mastication resulted in slow, prolonged chewing/mashing but with complete re-collection. Bolus transport/lingual motion was with slowed tongue motion. Oral residue was a trace, lining oral structures. Initiation of the pharyngeal swallow occurred as the bolus head was at the posterior laryngeal surface of the epiglottis. Soft palate elevation resulted in no bolus between the soft palate and the pharyngeal wall. Laryngeal elevation demonstrated complete superior movement of the thyroid cartilage with complete approximation of the arytenoids to the epiglottic petiole. Anterior hyoid excursion demonstrated complete anterior movement. Epiglottic movement resulted in partial inversion. Laryngeal vestibular closure was incomplete, with a narrow column of air/contrast noted within the laryngeal vestibule at the height of the swallow. Pharyngeal stripping wave was present and complete. Pharyngeal contraction could not be determined due to logistical reasons not related to physiologic impairment. Pharyngoesophageal segment opening demonstrated partial distension/partial duration, with partial obstruction of bolus flow. Tongue base retraction allowed no contrast between the retracted tongue base and the posterior pharyngeal wall. Pharyngeal residue was a collection of residue within or on pharyngeal structures. Esophageal clearance in the upright position could not be assessed due to logistical reasons not related to physiologic impairment. Oral Impairment Score: 5 (absence of score, component 1) Pharyngeal Impairment Score: 5 (absence of score, component 13) Esophageal Impairment Score: --- (absence of score, component 17) Laryngeal Penetration and Aspiration: Neither penetration nor aspiration was observed in today's study with Cookie, Pudding-thick. Penetration was observed in today's study. Thin Contrast entered the airway, remained above the vocal folds, and was ejected from the airway. Structural Abnormalities Noted: Zenker?s Diverticulum contributed to pharyngeal residue ASSESSMENT: This exam was performed by the radiologist and the speech pathologist. Patient was seated upright at 90 degrees for lateral view. Patient fed herself independently and trialed the following consistencies: -thin liquid (cup sips) -puree (mixture applesauce w/ barium pudding) -regular solid (shortbread cookie coated w/ barium pudding) Patient demonstrated good lingual control, maintaining cohesive bolus in the oral cavity with no premature spillage. Mastication was mildly slowed and prolonged, noted patient had a tendency to chew mostly with her front teeth due to missing dentition, and at times used tongue force to mash food against the palate. Lingual movement for bolus transport was mildly slowed. Pharyngeal swallow trigger initiated as the bolus head reached the posterior laryngeal surface of the epiglottis. No evidence of nasopharyngeal reflux. Complete laryngeal elevation with partial epiglottic inversion and incomplete laryngeal vestibular closure. There was flash penetration seen with thin liquid. A trace amount of liquid entered the airway above the vocal folds and spontaneously cleared. No evidence of aspiration during this exam. There was minimal residue in the valleculae and a trace amount in the pyriforms. Also note contrast collecting in Zenker?s diverticulum. Pharyngeal residue cleared on subsequent swallows. Patient swallowed whole barium pill tablet, briefly holding the tablet on the posterior tongue, but upon swallowing demonstrated no delays as it passed through the pharynx into the esophagus. After the exam, patient complained of feeling food stuck in the mid-chest area, though MBSS showed good clearance in the oral and pharyngeal cavities. The following compensatory strategies have not been used until today's study, but when employed, improved swallowing function: Additional Swallow(s) per Bolus eliminated Oral Residue, Pharyngeal Residue Liquid Intake Recommendation: Thin Liquid Intake Strategies: Small Sips Dietary Recommendations: Regular Medication Administration: Whole with Liquid Please contact the pharmacy regarding appropriate crushable or liquid drug formulations that are available whenever modified delivery is recommended. Compensatory Strategies Recommended: Sitting Upright (90 deg), Double Swallow, Small Bites and Sips, Alternate Liquids/Solids, Rate of Ingestion Change, Avoid Specific Foods Recommendation for Speech Therapy: NA:Typical Evaluation Text Comment: Intake Recommendations: Route: PO Diet Grade: Regular Liquid Consistencies: Thin Post-Study Functional Oral Intake Scale (FOIS): 7- Total oral intake with no restrictions Patient presents with mild oropharyngeal phase dysphagia. Oral phase with slowed mastication likely d/t scattered dentition, and delayed lingual transit. Partial epiglottic inversion and incomplete laryngeal vestibular closure resulted in episodes of flash penetration on rapid sips of thin liquid, with no subsequent aspiration. Minimal pharyngeal residue and Zenker?s diverticulum noted. Retention cleared with secondary swallows. The following compensatory strategies and/or therapeutic exercises will be part of the upcoming therapy/management plan: Additional Swallow(s) per Bolus Therapy Recommendations: Diet modification and further speech therapy services are not indicated at this time. Patient presents with missing dentition and subsequently slow chewing pattern. Her reports cutting up her food into small, manageable pieces at home. Recommend patient continue to elect softer foods and moisten when possible with sauces/gravies for ease of mastication. Discussed with patient and her strategies to promote pharyngeal clearance. Take small bites, chew food well, alternate with sips of liquid, and dry swallows after each bite. Recommend patient avoid overly hard or tough to chew solids. No evidence of aspiration during this exam. Advised patient to take one sip at a time and take small sips as a precaution. Patient reported globus sensation though imaging showed good clearance. She may benefit from GI consult for complaints of globus sensation and husbands reports of ? possible esophageal motility issues. Follow up as indicated with primary care. Clinician - Supplemental, Miscellaneous Communication: It is important to note MBSS objective studies are snapshots in time and Patient function might vary with factors such as time of day or concomitant medical conditions. For this reason, the final treatment plan for this patient should rest with their medical care team. Additional recommendations should be considered with the totality of the Patient in mind. Thank for the opportunity to participate in the care of this patient. If you have any questions about the content of this report, please contact the [facility] at [facility]. Education: Education regarding findings from today's study and plans for therapy were provided to Patient and family/caregiver through Verbal Instruction. Understanding was expressed by the Patient and family/caregiver. Newspaper Photojournalist Clinician/Clinical Fellow: No Supervisory Statement: N/A Speech Language Pathologist: Concetta Tran M.A., [facility]-SENIOR MARKETING ENGINEER
== END 2025-08-03 14:30 | disposition home or self-care (01) ==
LOC: HO.XRAY 14:29
PROVIDERS: Visit Provider Family Medicine
DX: R13.10 Dysphagia, unspecified (principal)
CPT/HCPCS: 74230; 92611

== ENCOUNTER → 2025-08-03 14:30 | Outpatient (BNV) | payer OTHER, SELFPAY | PROVIDERS: Visit Provider Radiology Diagnostic Radiology | DX: R13.10 Dysphagia, unspecified (principal) | CPT/HCPCS: 74230 ==

== ENCOUNTER 2025-08-09 15:53 | Outpatient (AMB) | payer OTHER, SELFPAY ==
--- OUTSIDE RECORDS SUMMARY | 2025-01-05 10:00 | XMS_ITS ---
Author Organization [facility] Address [address] [place] [address] Care Team Providers Care Wood Pile Driver Operator Name Role Phone Rochelle QUICK, Clarence Primary Care Provider Tara Ortega Unavailable [phone] Cade Felder Unavailable [phone] Encounters Encounter Location Date Provider Diagnosis [facility] [address] [place] [address] 01/05/2025 Cade Felder Plan Of Treatment No Information Progress Notes * Celestina VERDUZCODOB:1955 (70 yo F)Acc No.[id number]:01/05/2025 Progress Notes Patient: Celestina ALICIA Provider: Noemi Felder DPM :1955 A ge:69 Y S ex:Female Date:01/05/2025 Address:[address], [id number] Pcp:Clarence Byrd MD Subjective: * Chief Complaints: * * Medical History: Objective: * Vitals: Assessment: Plan: * Treatment: * Images: * The named appointment provid er may or may not be the originator of this progress note, and it is not deemed complete until electronically signed by the appointment provider. Sign off status: Pending * Provider: Noemi Felder DPM Date: 0 01/05/2025 Generated for Lorenzo sebastian/Ezra/Lauryn on: 1 06:11 PM EDT
--- OUTSIDE RECORDS SUMMARY | 2025-06-10 08:45 | XMS_ITS ---
Author Organization [facility] Address [address] [place] [address] Care Team Providers Care Collar Feller Name Role Phone Rochelle QUICK, Clarence Primary Care Provider Tara Ortega [phone] Encounters Encounter Location Date Provider Diagnosis [facility] [address] [place] [address] 06/10/2025 Taar Ball Plan Of Treatment No Information Progress Notes * Celestina VERDUZCODOB:1955 (70 yo F)Acc No.[id number]:06/10/2025 Progress Note Patient: Sander ALICIAyne Provider: Valentin Ball DPM :1955 A ge:70 Y S ex:Female Date:06/10/2025 Address:[address], [place], [id number] Pcp:Clarence Byrd MD Subjective: * Chief Complaints: * * Medical History: Objective: * Vitals: Assessment: Plan: * Treatment: * Images: * The named appointment provid er may or may not be the originator of this progress note, and it is not deemed complete until electronically signed by the appointment provider. Sign off status: Pending * Provider: Valentin Ball DPM Date: 0 06/10/2025 Generated for Printi ng/Faxing/eTransmitting on: 1 06:10 PM EDT
--- NOTE | 2025-08-09 15:49 | MHC.PC.OV ---
Intake Visit Reasons: f/u difficulty swallowing via telemed Intake Note: [employer] difficulty swallowing Office Analyst Required: No Allergies ketorolac (From TORADOL) Allergy (Intermediate, Verified 08/09/25 15:50) VOMITING morphine (MORPHINE) Allergy (Intermediate, Verified 08/09/25 15:50) vomiting hydromorphone (From DILAUDID) Allergy (Unknown, Verified 08/09/25 15:50) HIVES midodrine Allergy (Unknown, Verified 08/09/25 15:50) Anaphylaxis dilation drops for eye Allergy (Mild, Uncoded 08/09/25 15:50) swelling, redness, pain Erythromycin Allergy (Unknown, Uncoded 08/09/25 15:50) Vomiting Medication List - Last Reconciled 08/09/25 by Clarence Byrd MD albuterol sulfate 90 mcg/actuation (ProAir HFA) 2 puffs inhalation Q6H PRN alprazolam 0.5 mg PO DAILY 30 days benzonatate 100 mg PO bid-tid PRN 7 days bisacodyl (Dulcolax (bisacodyl)) 5 mg PO BEDTIME blood sugar diagnostic (True Metrix Glucose Test Strip) Test Blood Sugar 2 times a day, As directed, 90 days blood sugar diagnostic (CybitsTouch Verio test strips) To test Blood sugar 2 times a day, As directed, 90 days blood-glucose meter (OneTouch Verio Flex Meter) To test blood sugar as directed, 999 days budesonide 180 mcg/actuation (Pulmicort Flexhaler) 1 inh inhalation BID 90 days buprenorphine HCl 75 mcg buccal Q12H 30 days bupropion HCl XL 150 mg PO DAILY 30 days citalopram 40 mg PO DAILY 90 days clobetasol 0.05% 1 appl topical BID PRN 30 days glipizide ER 5 mg PO DAILY 90 days hydroxyzine HCl 50 mg PO BEDTIME 30 days lancets (MedGenesis Therapeutixuch Delica Plus Lancet) To Test Blood Sugar 2 times a day, As directed. 90 days lisinopril 5 mg PO DAILY 30 days metformin 250 mg (1/2 x 500 mg) PO BID 90 days multivitamin 1 tab PO DAILY nirmatrelvir-ritonavir 300 mg (150 mg x 2)-100 mg (Paxlovid) take TWO 150 mg tablets of nirmatrelvir with ONE 100 mg tablet of ritonavir twice daily for 5 days PO omeprazole 20 mg PO DAILY 30 days oxycodone 1/2 (2.5mg) to 1 (5mg) tab orally daily PRN; MassPat Verified. Partial Fill upon patient request. 30 days warfarin 4 mg PO DAILY 90 days Tobacco use date assessed: 04/29/25 Fall risk assessment: No Falls in past year Last assessed Fall Risk: 08/09/25 Dental Screening Dental Screen Date: 08/09/25 Did you have a dental visit in the last 12 months?: Yes Did you have a dental problem in the last 6 months where you did not have access to dental care?: No Was dental information given to patient?: Patient has dentist HPI f/u difficulty swallowing via telemed HPI Details 70 y/o female presents to review barium swallow test for difficulty swallowing via telemed. MBS 08/03/25 showed: Flash penetration on thin liquids. Otherwise no significant laryngeal penetration or aspiration. Last A1c 06/02/[address] [facility] Medical History (Updated 06/02/25 @ 12:50 by Clarence Byrd MD) Anxiety Complex regional pain syndrome i of lower limb, bilateral Morbid obesity Wheelchair dependent Asthma Diabetes Hypertension Bradycardia Pemphigus Pancreatic ductal abnormality Surgical History Hx of parathyroidectomy Hx of cholecystectomy Hx of splenectomy Hx of bariatric surgery Hx of hysterectomy S/P placement of nerve stimulator H/O oral surgery Family History Father Heart attack Mental health disorder Mother Heart attack Macular degeneration Mental health disorder Social History Housing: Apartment Patient Tobacco Use Status: Never used Tobacco e-Cigarette/Vaping Use: Never Used Second Hand Smoke Exposure: No service: No Current occupational status: disabled Cognitive needs: No Hearing needs: Yes Vision needs: Yes (wears reading glasses) Questionnaire Thrive Questionnaire Date Thrive assessed: 02/12/25 I am a: Patient What is your living situation today?: I have a steady place to live Within the past 12 months, did the food you bought not last and you didn't have the money to get more?: Never true Within the past 12 months, did you worry whether your food would run out before you got money to buy more?: Never true Do you have trouble paying for medicines?: No Do you have trouble getting transportation to medical appointments?: No Do you have trouble paying your heating and electricity bill?: No Do you have trouble taking care of your child, family member or friend?: I choose not to answer this question Do you have trouble with day-to-day activities such as bathing, preparing meals, shopping, managing finances, etc.?: I choose not to answer this question Are you currently unemployed and looking for a job?: I choose not to answer this question Are you interested in more education?: No Please select the resources that you would like help with: None Currently or been in a relationship where the following occur: No concerns reported THRIVE Score: 0 GRETA-7 AMB Questionnaire GRETA-7 Date GRETA - 7 assessed: 12/06/23 Source: Developed by Drs. Stewart Hall, Linda Jesus, Ganga Mcgowan and colleagues, with an educational luis from [employer]. Review of Systems Const Denies chills, Denies fatigue, Denies fever(s), Denies headache(s) and Denies weakness ENT Denies dizziness and Denies headache(s) Card Denies dyspnea Resp Denies cough, Denies dyspnea, Denies wheezing and Denies other (shortness of breath) Musc Denies numbness and Denies tingling Neuro Denies dizziness, Denies headache(s), Denies numbness, Denies tingling and Denies weakness Psych Denies anxiety and Denies depression Endo Denies fatigue Aller/Immun Denies wheezing Physical exam (Primary Care) Tobacco/Smoking Status: Tobacco use Status Tobacco use date assessed 04/29/25 08/09/25 15:51 Patient Tobacco Use Status Never used Tobacco 08/09/25 15:51 e-Cigarette/Vaping Use Never Used 08/09/25 15:51 Thrive Assessment: Date of Thrive Assessment Date Thrive assessed 02/12/25 08/09/25 15:51 Currently or been in a relationship where the following occur: No concerns reported Telehealth Telehealth Telehealth Platform: Telephone Location of provider rendering services: practice address Location of patient: address on file Patient Identification confirmed using: Name, : Yes Telehealth method: voice only Patient verbally consented to treatment: Yes Patient verbally consented to billing insurance company: Yes Patient informed of any privacy concerns related to visit: Yes Minutes spent on Phone/Video with Pt.: 8 Coding Level of Care Code Tele Est Pt Level 2 (62429) Diagnoses Difficulty swallowing R13.10 Diabetes E11.9 Chronic pain G89.29 Assessment & Plan Assessment & Plan (1) Difficulty swallowing: Code(s): R13.10 - Dysphagia, unspecified Category: Medical Plan: Recent modified barium swallow study minimal penetration with thin liquids. Also Zenker's diverticulum Clearance improved with double swallow and they also recommended alternating liquids and solids. Also recommended worsening foods with rabies and sauces And lastly recommended she may benefit from the GI consult - referred to GI (2) Diabetes: Code(s): E11.9 - Type 2 diabetes mellitus without complications Category: Medical Plan: A1c at last check was 6.3%. Good control. Goal is less than 7.0% She is taking glipizide and metformin. Patient is morbidly obese and unable to exercise as she is completely wheelchair-bound Will try GLP 1 medication (3) Chronic pain: Code(s): G89.29 - Other chronic pain Category: Medical Plan: Ongoing chronic pain which is not fully controlled at this time. Will increase buprenorphine - watch for increased drowsiness or confusion. Watch respiratory depression. Watch for constipation and be sure to hydrate well. Will continue oxycodone for breakthrough pain as prescribed. Orders: Referrals Gastroenterology Referral R13.10 - Dysphagia, unspecified Medications: Changed From buprenorphine HCl MassPat Verified. 75 mcg buccal Q12H 30 days 60 ea 0RF To buprenorphine HCl MassPat Verified. 75 mcg buccal Q12H 60 ea 0RF 30 days
--- OUTSIDE RECORDS SUMMARY | 2025-08-09 18:11 | XMS_ITS | Encounter Summary ---
Author Organization [facility] Address [address] [place] [id number] Phone Care Team Providers Care Punch Box Tender Name Role Phone Keanu Saul MD Primary Care Provider + Encounter Details Date Type Department Care Team (Late st Contact Info) Description 07/13/2021 Procedure Pass [facility] [address] [place] [id number] Social History Tobacco Use Types Packs/Day Years [...] on filedocumented in this encounter Care Teams Punch Box Tender Relationship Specialty Start Date End Date Keanu Saul MD [address] [place] [id number] PCP - General Family Medicine 06/19/21 documented as of this encounter Additional Source Comments The information contained in this document represents components of the legal health record. It is not the complete legal health record.[facility]
--- OUTSIDE RECORDS SUMMARY | 2025-08-09 18:11 | XMS_ITS | Clinical Summary ---
Author Organization [facility] Address [facility] [address] [address] Phone Care Team Providers Care Manufacturing Engineer Automotive Name Role Phone Keanu Saul MD Primary [...] file Insurance MEDICARE PART A & B [facility] MEDICARE PART A & B [facility] MEDICARE PART A & [place] [address] MEDICARE PART A & B [facility] MEDICARE PART A & B MEDICARE PART A & B [facility] Care Teams Manufacturing Engineer Automotive Relationship Specialty Start Date End Date Keanu Saul MD [address] [place] [address] PCP - General Family Medicine 06/19/21 Additional Source Comments The information contained in this document represents components of the legal health record. It is not the complete legal health record.[facility]
--- OUTSIDE RECORDS SUMMARY | 2025-08-09 18:11 | XMS_ITS | Clinical Summary ---
Author Organization [facility] Address [address] [place] [address] Phone Care Team Providers Care Lead Pressman Name Role Phone Shirley Adler MD Primary Care Provider [phone] Surgical History Surgery Date Site/Laterality Comments HYSTERECTOMY PROCEDURE:HYSTERECTOMY OOPHORECTOMY PROCEDURE:OOPHORECTOMY BARIATRIC SURGERY PROCEDURE:BARIATRIC SURGERY CHOLECYSTECTOMY PROCEDURE:CHOLECYSTECTOMY KIDNEY STONE SURGERY PROCEDURE:KIDNEY STONE SURGERY SPLENECTOMY, PARTIAL PROCEDURE:SPLENECTOMY, PARTIAL PARATHYROIDECTOMY PROCEDURE:PARATHYROIDECTOMY PANCREAS SURGERY PROCEDURE:PANCREAS SURGERY;COMMENT:Cystadenoma COLONOSCOPY PROCEDURE:COLONOSCOPY UPPER GASTROINTESTINAL ENDOSCOPY PROCEDURE:UPPER GASTROINTESTINAL ENDOSCOPY Medical History Medical History Date Comments Anxiety and depression DX:Anxiet y and depression; COMMENT: no records, never saw psychiatrist Pulmonary embolism ([facility] V24, [facility] V28) DX:Pulmonary embolism (HCC); COMMENT: was on coumadin for at least 10 years per patient, no medical records from PCP in [place] Pemphigoid ([facility] V28) DX:Pemp higoid; COMMENT: seen by punchboard stuffer in [facility], NO RECORDS. Pulmonary embolism ([facility] V24, [facility] V28) DX:Pulmonary embolism (HCC) Ovarian cancer ([facility] V24, [facility] V28) DX:Ovarian cancer (HCC) Anxiety and depression DX:Anxiet y and depression Pemphigoid ([facility] V28) DX:Pemp higoid Cystadenoma of pancreas DX:Cysta denoma of pancreas Type 2 diabetes mellitus ([facility] V24, [facility] V28) DX:Type 2 diabetes mellitus (HCC) [...] Last Done Comments Breast Cancer Screening 1954 Colorectal Cancer Screening: Colonoscopy 1954 Diabetes: Annual Foot Exam 1964 Diabetes: Annual Retina Eye Exam 1964 DTaP,Tdap,and Td Vaccines (1 - Tdap) 1973 Pneumococcal Vaccine: 50+ Years (1 of 1 - PCV) 2004 Zoster Vaccines (1 of 2) 2004 RSV Immunization Adult Patients (1 - Risk 60-74 years 1-dose series) 2014 Falls Risk Assessment 07/27/2022 Hepatitis C Screening [...] LAB CHEMISTRY METHOD 07/17/2022 1:35 PM EDT [facility] Mean Bld Glu Estim. 197(H) <126 mg/dL LAB CHEMISTRY METHOD 07/17/2022 1:35 PM EDT [facility] Blood Venous blood specimen / Unknown 07/16/2022 2:32 PM EDT 07/16/2022 8:53 PM EDT Narrative [facility] - 07/17/2022 1:35 PM EDT *Clinical Condition Normal <5.7% Prediabetes 5.7-6.5% Diabetes >/=6.5% NGSP: National Glycohemoglobin Standardization Program *2011 [place] [employer] Note: These results were obtained by [employer] Variant II HbA1c Assay. The assay is IFCC standardized and NGSP certified. us Keanu Saul MD LAB BLOOD ORDERABLES Final Re sult [facility] [address] [place] [address] * (ABNORMAL) Lipid panel (07/16/2022 2:32 PM EDT) Cholesterol 225(H) <200 mg/dL LAB CHEMISTRY METHOD 07/16/2022 9:33 PM EDT [facility] Triglycerides 128 <150 mg/dL LAB CHEMISTRY METHOD 07/16/2022 9:33 PM EDT [facility] HDL 98 >59 mg/dL LAB CHEMISTRY METHOD 07/16/2022 9:33 PM EDT [facility] Comment: <35 mg/dl is the cut-point for increased Coronary Heart Disease (CHD) risk. LDL Calculated 101(H) 0 - 99 mg/dL LAB CHEMISTRY METHOD 07/16/2022 9:33 PM EDT [facility] VLDL Cholesterol Kalyan 25.6 <=30 mg/dL LAB CHEMISTRY METHOD 07/16/2022 9:33 PM [facility] Blood Venous blood specimen / Unknown 07/16/2022 2:32 PM EDT 07/16/2022 8:53 PM EDT us Keanu Saul MD LAB BLOOD ORDERABLES Final Re sult [facility] [address] [place] [address] * (ABNORMAL) Comprehensive metabolic panel (07/16/2022 2:32 PM EDT) Sodium 139 136 - 145 mmol/L LAB CHEMISTRY METHOD 07/16/2022 9:33 PM EDT [facility] Potassium 4.4 3.5 - 5.1 mmol/L LAB CHEMISTRY METHOD 07/16/2022 9:33 PM [facility] Chloride 106 98 - 107 mmol/L LAB CHEMISTRY METHOD 07/16/2022 9:33 PM [facility] CO2 25 21 - 32 mmol/L LAB CHEMISTRY METHOD 07/16/2022 9:33 PM [facility] Anion Gap 8 3 - 11 LAB CHEMISTRY METHOD 07/16/2022 9:33 PM [facility] Glucose 198(H) 70 - 99 mg/dL LAB CHEMISTRY METHOD 07/16/2022 9:33 PM [facility] BUN 18 7 - 18 mg/dL LAB CHEMISTRY METHOD 07/16/2022 9:33 PM [facility] Creatinine 0.44(L) 0.55 - 1.02 mg/dL LAB CHEMISTRY METHOD 07/16/2022 9:33 PM [facility] eGFR 104 >=60 mL/min/1. 73m2 LAB CHEMISTRY METHOD 07/16/2022 9:33 PM [facility] Comment: The MDRD GFR formula is valid only for adults between ages 18 and 70. BUN/Creatinine Ratio 40.9(H) 12.0 - 20.0 LAB CHEMISTRY METHOD 07/16/2022 9:33 PM [facility] Calcium 9.4 8.5 - 10.1 mg/dL LAB CHEMISTRY METHOD 07/16/2022 9:33 PM [facility] AST (SGOT) 29 15 - 37 unit/L LAB CHEMISTRY METHOD 07/16/2022 9:33 PM [facility] ALT (SGPT) 39 13 - 56 unit/L LAB CHEMISTRY METHOD 07/16/2022 9:33 PM [facility] Alkaline Phosphatase 190(H) 53 - 141 unit/L LAB CHEMISTRY METHOD 07/16/2022 9:33 PM EDT [facility] Total Protein 7.0 6.4 - 8.2 g/dL LAB CHEMISTRY METHOD 07/16/2022 9:33 PM EDT [facility] Albumin 3.5 3.4 - 5.0 g/dL LAB CHEMISTRY METHOD 07/16/2022 9:33 PM EDT [facility] Total Bilirubin 0.5 0.2 - 1.0 mg/dL LAB CHEMISTRY METHOD 07/16/2022 9:33 PM EDT [facility] Blood Venous blood specimen / Unknown 07/16/2022 2:32 PM EDT 07/16/2022 8:53 PM EDT us Keanu Saul MD LAB BLOOD ORDERABLES Final Re sult [facility] [address] [place] [address] from Last 3 Months or Most Recently Relevant to Health Maintenance Insurance MEDICARE [facility] [employer] MEDICARE Advance Directives Documents on File Type Date Recorded Patient Skip Miner Expl anation Health Care Decision (hx) 03/01/2021 [...] (hx) 05/05/2019 AD RAMOS DIRECTIVE Care Teams Lead Pressman Relationship Specialty Start Date End Date Shirley Adler MD [address] [place] [address] PCP - General Internal Medicine 02/14/21
--- OUTSIDE RECORDS SUMMARY | 2025-08-09 18:11 | XMS_ITS | Clinical Summary ---
Author Organization [address] Address [address] [place] [phone] Phone Care Team Providers Care Patient Transport Orderly Name Role Phone No, Pcp (Do Not [...] 136 - 145 mmol/L 05/01/2019 7:55 AM [facility] Potassium 4.2 3.5 - 5.1 mmol/L 05/01/2019 7:55 AM [facility] Chloride 108(H) 98 - 107 mmol/L 05/01/2019 7:55 AM [facility] CO2 24 21 - 32 mmol/L 05/01/2019 7:55 AM [facility] Anion Gap 9 5 - 15 mmol/L 05/01/2019 7:55 AM [facility] Glucose 103 65 - 110 mg/dL 05/01/2019 7:55 AM [facility] Comment: Non-fastin-110 mg/dL Fasting (minimum 6 hrs): 65-99 mg/dL BUN 17 7 - 18 mg/dL 05/01/2019 7:55 AM [facility] Creatinine 0.70 0.55 - 1.02 mg/dL 05/01/2019 7:55 AM [facility] eGFR (-SAMMARINESE) >60 >60 mL/min/1. 73m2 05/01/2019 7:55 AM [facility] eGFR (NON -Mosotho) >60 >60 mL/min/1. 73m2 05/01/2019 7:55 AM [facility] Comment: (NOTE) These are estimated [...] 8.5 - 10.1 mg/dL 05/01/2019 7:55 AM [facility] Total Protein 7.1 6.4 - 8.2 g/dL 05/01/2019 7:55 AM [facility] Albumin 3.5 3.4 - 5.0 g/dL 05/01/2019 7:55 AM [facility] Globulin 3.6 2.5 - 5.0 g/dL 05/01/2019 7:55 AM [facility] Total Bilirubin 0.6 0.2 - 1.0 mg/dL 05/01/2019 7:55 AM [facility] Alkaline Phosphatase 148(H) 45 - 117 U/L 05/01/2019 7:55 AM [facility] Alanine Aminotransferase (ALT) 52 12 - 78 U/L 05/01/2019 7:55 AM [facility] Aspartate Aminotransferase (AST) 83(H) 15 - 37 U/L 05/01/2019 7:55 AM [facility] Blood Venipuncture / Unknown 05/01/2019 7:25 AM EDT 05/01/2019 7:29 AM EDT Mark Camara MD LAB BLOOD ORDERABLES nal Result [facility] [address] [place] [address], [facility] [phone] from Last 3 Months or Most Recently Relevant to Health Maintenance Insurance MEDICARE [employer] [facility] Care Teams Patient Transport Orderly Relationship Specialty Start Date End Date No, Pcp (Do Not Change Name) PCP - General 05/01/19
--- OUTSIDE RECORDS SUMMARY | 2025-08-09 18:11 | XMS_ITS | Patient Health Record ---
[facility] Faina [facility]lie [place] Address [address] [place] [address] Care Team Providers Care Distribution Lineman Name Role Phone Clarence Byrd MD Primary Care Provider Tara Ortega Unavailable [phone] Cade Felder Unavailable [phone] Allergies Allergen (clinical drug ingredient) Drug/Non Drug [...] Provider Speciality Internal M edicine Referred Organization [facility] Referred Provider Tara Ball Referred Address [address] [facility] [address] ,[place], [place],[address], Referred Provider Specialty Podiatry Referral Priority Routine [...] Ordered Date Performed Result Body Sit e 55676-[id number] Plate 03/10/2025 N/A Encounters Encounter Location Date Provider Diagnosis [address] [address] 03/10/2025 Tara Ball Tinea unguium B35.1 ; Pain in right toe(s) M79.674 ; Pain in left toe(s) M79.675 and Ingrown nail L60.[address] [address] 04/01/2025 Tara Ball Pain in right toe(s) M79.674 ; Onychomycosis B35.1 and Pain in left toe(s) M79.[address] [address] [place] [address] 10/20/2024 Caed Felder [facility] [address] [address] 12/15/2024 Cade Felder [facility] [address] [address] 04/05/2025 [facility] [address] [address] 04/15/2025 Tara Ball [facility] [address] [address] 05/26/2025 Tara Ball [facility] [address] 06/10/2025 Tara Ball Assessments Encounter Date Diagnosis [...] Order Date *Liver Function Test (LFT) 04/01/2025 [id number] Plate 03/10/2025 Insurance Providers Payer Name Payer Address Payer Phone Subscriber Number Group Number Insured Name Patient Relationship to Insured Coverage Start Date Coverage End Date [facility] [id number] [place] [phone] [id number] Celestina Verduzco Self - patient is the insured Medical (General) History Medical History History ICD Code Anxiety Arthritis asthma Back,Hip,and Knee pain Broken bones Cancer Cataracts covid-19 Depression Diabetic Gall bladder problems High Blood Pressure Macular degeneration Mumps Chicken pox
--- OUTSIDE RECORDS SUMMARY | 2025-08-09 18:11 | XMS_ITS | Clinical Summary ---
Author Organization [facility] Address [address] [place] [address] Care Team Providers Care S Iron Worker Name Role Phone Shirley Adler MD Primary Care Provider Allergies Active Allergy Reactions Criticality Noted Date [...] age to complete this topic Care Teams S Iron Worker Relationship Specialty Start Date End Date Shirley Adler MD [address] [place] [address] PCP - General Internal Medicine 03/21/21
--- OUTSIDE RECORDS SUMMARY | 2025-08-09 18:11 | XMS_ITS | Encounter Summary ---
Author Organization [facility] Address [address] [place] [address] Phone Care Team Providers Care Technical Implementation Lead Name Role Phone Keanu Saul MD Primary Care Provider + Encounter Details Date Type Department Care Team (Late st Contact Info) Description 07/13/2021 Procedure Pass [facility] [address] [place] [phone] Social History Tobacco Use Types Packs/Day Years [...] on filedocumented in this encounter Care Teams Technical Implementation Lead Relationship Specialty Start Date End Date Keanu Saul MD [address] [place] [address] PCP - General Family Medicine 06/19/21 documented as of this encounter Additional Source Comments The information contained in this document represents components of the legal health record. It is not the complete legal health record.[facility]
--- OUTSIDE RECORDS SUMMARY | 2025-08-09 18:11 | XMS_ITS | Encounter Summary ---
Author Organization [facility] Address [address] [place] [address] Care Team Providers Care Travel Physical Therapist Name Role Phone Shirley Adler MD Primary Care Provider [phone] Encounter Details Date Type Department Care Team (Late st Contact Info) Description 07/16/2022 Lab Requisition [facility] [address] [place] [address] Keanu Saul MD [address] [place] [phone] Type 2 diabetes mellitus without complications [...] K/mcL LAB HEMETOLOGY METHOD 07/16/2022 9:09 PM [facility] RBC 4.79 3.80 - 5.00 M/mcL LAB HEMETOLOGY METHOD 07/16/2022 9:09 PM [facility] Hemoglobin 14.9 11.3 - 15.3 g/dL LAB HEMETOLOGY METHOD 07/16/2022 9:09 PM [facility] Hematocrit 45.3(H) 34.0 - 45.0 % LAB HEMETOLOGY METHOD 07/16/2022 9:09 PM [facility] MCV 94.6 81.0 - 97.0 FL LAB HEMETOLOGY METHOD 07/16/2022 9:09 PM [facility] MCH 31.1(L) 32.6 - 36.6 pcg LAB HEMETOLOGY METHOD 07/16/2022 9:09 PM [facility] MCHC 32.9 29.2 - 35.3 g/dL LAB HEMETOLOGY METHOD 07/16/2022 9:09 PM [facility] RDW 14.6(H) 11.0 - 14.5 % LAB HEMETOLOGY METHOD 07/16/2022 9:09 PM [facility] RDW-SD 50.9(H) 36.8 - 48.3 FL LAB [facility]OLOGY [facility]22 [facility] Platelets 322 150 - 400 K/mcL LAB HEMETOLOGY METHOD 07/16/2022 9:09 PM [facility] MPV 13.2 8.9 - 13.3 FL LAB HEMETOLOGY METHOD 07/16/2022 9:09 PM [facility] Neutrophils Relative 50.9 32.0 - 71.0 % LAB HEMETOLOGY METHOD 07/16/2022 9:09 PM [facility] Immature Granulocytes Relative 0.2 0.0 - 1.0 % LAB HEMETOLOGY METHOD 07/16/2022 9:09 PM [facility] Lymphocytes Relative 34.6 19.5 - 54.0 % LAB HEMETOLOGY METHOD 07/16/2022 9:09 PM [facility] Monocytes Relative 9.9 4.0 - 14.0 % LAB HEMETOLOGY METHOD 07/16/2022 9:09 PM [facility] Eosinophils Relative 3.4 0.0 - 7.0 % LAB HEMETOLOGY METHOD 07/16/2022 9:09 PM [facility] Basophils Relative 1.0 0.0 - 2.0 % LAB HEMETOLOGY METHOD 07/16/2022 9:09 PM [facility] Preliminary Neutrophils Abs Automated Count 4.54 1.50 - 6.00 K/mcL LAB HEMETOLOGY METHOD 07/16/2022 9:09 PM EDT [facility] Neutrophils Absolute 4.54 1.50 - 6.00 K/mcL LAB HEMETOLOGY METHOD 07/16/2022 9:[facility] PM [facility] Immature Granulocytes Absolute 0.02 0.00 - 0.10 K/mcL LAB HEMETOLOGY METHOD 07/16/2022 9:[facility] Lymphocytes Absolute 3.09 1.10 - 4.00 K/mcL LAB HEMETOLOGY METHOD 07/16/2022 9:[facility] Monocytes Absolute 0.88 0.20 - 1.00 K/mcL LAB HEMETOLOGY METHOD 07/16/2022 9:09 PM [facility] Eosinophils Absolute 0.30 0.00 - 0.70 K/mcL LAB HEMETOLOGY METHOD 07/16/2022 9:09 PM [facility] Basophils Absolute 0.09 0.00 - 0.20 K/mcL LAB HEMETOLOGY METHOD 07/16/2022 9:09 PM [facility] NRBC 0.0 0.0 - 0.0 % LAB HEMETOLOGY METHOD 07/16/2022 9:[facility] NRBC Absolute 0.00 >=0.00 K/mcL LAB HEMETOLOGY METHOD 07/16/2022 9:09 PM [facility] Blood Venous blood specimen / Unknown 07/16/2022 2:32 PM EDT 07/16/2022 8:53 PM EDT us Keanu Saul MD LAB BLOOD ORDERABLES Final Re sult [facility] [address] [place] [address] * Thyroid stimulating hormone with reflex free T4 (07/16/2022 2:32 PM EDT) TSH 0.69 0.36 - 3.74 mcIU/mL LAB CHEMISTRY METHOD 07/16/2022 9:33 PM EDT [facility] Blood Venous blood specimen / Unknown 07/16/2022 2:32 PM EDT 07/16/2022 8:53 PM EDT us Keanu Saul MD LAB BLOOD ORDERABLES Final Re sult Performing Organization Address [facility]/ZIP Co de Phone Number [facility] [address] [place] [address] * (ABNORMAL) Lipid panel (07/16/2022 2:32 PM EDT) Cholesterol 225(H) <200 mg/dL LAB CHEMISTRY METHOD 07/16/2022 9:33 PM EDT [facility] Triglycerides 128 <150 mg/dL LAB CHEMISTRY METHOD 07/16/2022 9:33 PM EDT [facility] HDL 98 >59 mg/dL LAB CHEMISTRY METHOD 07/16/2022 9:33 PM EDT [facility] Comment: <35 mg/dl is the cut-point for increased Coronary Heart Disease (CHD) risk. LDL Calculated 101(H) 0 - 99 mg/dL LAB CHEMISTRY METHOD 07/16/2022 9:33 PM EDT [facility] VLDL Cholesterol Kalyan 25.6 <=30 mg/dL LAB CHEMISTRY METHOD 07/16/2022 9:33 PM EDT [facility] Blood Venous blood specimen / Unknown 07/16/2022 2:32 PM EDT 07/16/2022 8:53 PM EDT us Keanu Saul MD LAB BLOOD ORDERABLES Final Re sult [facility] [address] [place] [address] * (ABNORMAL) Comprehensive metabolic panel (07/16/2022 2:32 PM EDT) [facility] Sodium 139 136 - 145 mmol/L LAB CHEMISTRY METHOD 07/16/2022 9:33 PM [facility] Potassium 4.4 3.5 - 5.1 mmol/L LAB CHEMISTRY METHOD 07/16/2022 9:33 PM [facility] Chloride 106 98 - 107 mmol/L LAB CHEMISTRY METHOD 07/16/2022 9:33 PM [facility] CO2 25 21 - 32 mmol/L LAB CHEMISTRY METHOD 07/16/2022 9:33 PM [facility] Anion Gap 8 3 - 11 LAB CHEMISTRY METHOD 07/16/2022 9:33 PM [facility] Glucose 198(H) 70 - 99 mg/dL LAB CHEMISTRY METHOD 07/16/2022 9:33 PM [facility] BUN 18 7 - 18 mg/dL LAB CHEMISTRY METHOD 07/16/2022 9:33 PM [facility] Creatinine 0.44(L) 0.55 - 1.02 mg/dL LAB CHEMISTRY METHOD 07/16/2022 9:33 PM [facility] eGFR 104 >=60 mL/min/1. 73m2 LAB CHEMISTRY METHOD 07/16/2022 9:33 PM [facility] Comment: The MDRD GFR formula is valid only for adults between ages 18 and 70. BUN/Creatinine Ratio 40.9(H) 12.0 - 20.0 LAB CHEMISTRY METHOD 07/16/2022 9:33 PM [facility] Calcium 9.4 8.5 - 10.1 mg/dL LAB CHEMISTRY METHOD 07/16/2022 9:33 PM [facility] AST (SGOT) 29 15 - 37 unit/L LAB CHEMISTRY METHOD 07/16/2022 9:33 PM EDT [facility] ALT (SGPT) 39 13 - 56 unit/L LAB CHEMISTRY METHOD 07/16/2022 9:33 PM EDT [facility] Alkaline Phosphatase 190(H) 53 - 141 unit/L LAB CHEMISTRY METHOD 07/16/2022 9:33 PM EDT [facility] Total Protein 7.0 6.4 - 8.2 g/dL LAB CHEMISTRY METHOD 07/16/2022 9:33 PM EDT [facility] Albumin 3.5 3.4 - 5.0 g/dL LAB CHEMISTRY METHOD 07/16/2022 9:33 PM EDT [facility] Total Bilirubin 0.5 0.2 - 1.0 mg/dL LAB CHEMISTRY METHOD 07/16/2022 9:33 PM EDT [facility] Blood Venous blood specimen / Unknown 07/16/2022 2:32 PM EDT 07/16/2022 8:53 PM EDT Keanu Saul MD LAB BLOOD ORDERABLES Final Re sult [facility] [address] [place] [address] * (ABNORMAL) Hemoglobin A1c (07/16/2022 2:32 PM EDT) Hemoglobin A1C 8.5(H) <5.7 % LAB CHEMISTRY METHOD 07/17/2022 1:35 PM EDT [facility] Mean Bld Glu Estim. 197(H) <126 mg/dL LAB CHEMISTRY METHOD 07/17/2022 1:35 PM EDT [facility] Blood Venous blood specimen / Unknown 07/16/2022 2:32 PM EDT 07/16/2022 8:53 PM EDT Narrative [facility] - 07/17/2022 1:35 PM EDT *Clinical Condition Normal <5.7% Prediabetes 5.7-6.5% Diabetes >/=6.5% NGSP: National Glycohemoglobin Standardization Program *2011 [place] [employer] Note: These results were obtained by [employer] Variant II HbA1c Assay. The assay is IFCC standardized and NGSP certified. us Keanu Saul MD LAB BLOOD ORDERABLES Final Re sult [facility] [address] [place], [place] [id number] documented in this encounter Visit Diagnoses Diagnosis Type 2 diabetes mellitus without complications (CMS/HCC V24, CMS/HCC V28) Nontoxic single thyroid nodule Nontoxic uninodular goiter documented in this encounter Care Teams Travel Physical Therapist Relationship Specialty Start Date End Date Shirley Adler MD [address] [place] [address] PCP - General Internal Medicine 02/14/21 documented as of this encounter
== END 2025-08-09 17:05 | disposition home or self-care (01) ==
LOC: HO.HMCFM 15:53
PROVIDERS: PCP Family Medicine; Visit Provider Family Medicine
DX: R13.10 Dysphagia, unspecified (principal); E11.9 Type 2 diabetes mellitus without complications; G89.29 Other chronic pain